=== PATIENT | male | born 1985 | race Caucasian/White ===

== ENCOUNTER 2016-08-07 17:14 | Inpatient (IN) | payer OTHER ==
[2016-08-07 17:47] LABS: Hematocrit 50 % (42-52); Hemoglobin 16.8 g/dl (14.0-18.0); Mean Corpuscular HGB Conc 34 g/dl (31-36); Mean Corpuscular Hemoglobin 32 pg (27-31); Mean Corpuscular Volume 94 fL (80-94); Mean Platelet Volume 7 um3 (7.4-10.4); Red Cell Distribution Width 14 % (10.5-15); White Blood Count 8.8 10^3/ul (3.5-10.8)
[2016-08-07 18:05] LABS: ALT 15 U/L (7-52); AST 16 U/L (13-39); Albumin 5.1 g/dL (3.2-5.2); Alkaline Phosphatase 79 U/L (34-104); Anion Gap 10 mmol/L (2-11); BUN/Creatinine Ratio 12.5 (8-20); Blood Urea Nitrogen 12 mg/dL (6-24); C Reactive Protein < 1.00 mg/L (< 5.00); CO2 Carbon Dioxide 23 mmol/L (22-32); Calcium 10.3 mg/dL (8.6-10.3); Chloride 102 mmol/L (101-111); Creatine Kinase 85 U/L (10-223); EGFR African American 116.7 (>60); EGFR Non-African American 90.8 (>60); Globulin 2.9 g/dL (2-4); Glucose 93 mg/dL (70-100); Magnesium 2.6 mg/dL (1.9-2.7); Potassium 3.9 mmol/L (3.5-5.0); Sodium 135 mmol/L (133-145)
--- NOTE | 2016-08-07 18:13 | RAD ---
INDICATION: Headache and left-sided weakness and tingling COMPARISON: Similar chest x-ray dated January 25, 2016 TECHNIQUE: Single AP portable view of the chest was obtained. FINDINGS: Image quality is compromised due to the relative inferiority of a portable chest x-ray. Similar the previous chest x-ray there is a linear density overlying the midline neck and left of midline mediastinum descending beyond the field of view into the abdomen. The heart and mediastinum exhibit normal size and contour. The lungs are grossly clear. There is no evidence of a large pleural effusion. Visualized bones are normal for the patient's age. IMPRESSION: No radiographic evidence for acute cardiopulmonary abnormality on this portable chest x-ray.
--- NOTE | 2016-08-07 18:26 | RAD ---
INDICATION: Left-sided weakness and numbness COMPARISON: Most recent brain CT is dated January 26, 2016 TECHNIQUE: Contiguous axial sections of the brain were obtained from the skull base to the vertex without contrast. FINDINGS: The ventricles, cisterns and sulci are within normal limits. The lorenzo-white matter differentiation is adequately maintained and there is no sulcal effacement. No significant focal abnormality or mass effect is present. There is no evidence for intracranial hemorrhage. No significant focal osseous abnormality is present. The visualized portion of the paranasal sinuses and mastoid air cells appear clear. IMPRESSION: Normal CT of the brain.
[2016-08-07 18:30] LABS: TSH (Thyroid Stimulating Horm) 2.55 mcIU/mL (0.34-5.60)
[2016-08-07] MEDS ORDERED: Aspirin TAB* 325 MG PO ONE (19:36)
[2016-08-07] MEDS ORDERED: Morphine INJ* 4 MG/ML 1 ML CARPUJECT IV ONE (19:41)
[2016-08-07] MEDS ORDERED: Ondansetron INJ* 2 MG/ML VIAL IV ONE (19:41)
[2016-08-07] MEDS ORDERED: NS 0.9% 1000 ML* 1,000 ML IV SCH (19:45)
[2016-08-07 19:47] LABS: Urine Bilirubin Negative (Negative); Urine Glucose Negative (Negative); Urine Nitrite Negative (Negative)
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
[2016-08-07] MEDS ORDERED: Albuterol 2.5 MG/3 ML NEB.SOL* (0.083%) INH PRN (21:15)
[2016-08-07] MEDS ORDERED: Acetaminophen TAB* 325 MG PO PRN (21:15)
[2016-08-07] MEDS ORDERED: Melatonin (NF) 3 MG TAB PO PRN (21:15)
[2016-08-07] MEDS ORDERED: traMADol TAB* 50 MG PO PRN (21:15)
[2016-08-07] MEDS ORDERED: Cyclobenzaprine TAB* 10 MG PO PRN (21:27)
[2016-08-07] MEDS: HYDROmorphone INJ* 1 MG/ML CARPUJECT SYRINGE IV PRN (23:20)
[2016-08-08] MEDS: Ketorolac INJ* 15 MG/ML 1 ML VIAL IV PRN ×2 (04:00→21:18)
[2016-08-08 05:44] LABS: HDL Cholesterol 36.5 mg/dL
[2016-08-08] MEDS: Heparin VIAL(*) 5000 UNITS/ML VIAL (FIVE THOUSAND) SUBCUT SCH ×3 (05:45→21:14)
[2016-08-08] MEDS: HYDROmorphone INJ* 1 MG/ML CARPUJECT SYRINGE IV PRN ×2 (05:46→12:13)
[2016-08-08] MEDS ORDERED: Omeprazole CAP* 20 MG PO SCH (06:00)
--- NOTE | 2016-08-08 08:31 | RAD ---
HISTORY: Stroke, left-sided weakness COMPARISONS: August 07, 2016 TECHNIQUE: Multiple contiguous axial CT scans were obtained of the head without intravenous contrast. FINDINGS: HEMORRHAGE/INFARCT: There is no hemorrhage or acute infarct. MASSES/SHIFT: There is no mass or shift. EXTRA-AXIAL SPACES: There are no extra-axial fluid collections. SULCI AND VENTRICLES: The sulci and ventricles are normal in size and position for the patient's stated age. CEREBRUM: There are no focal parenchymal abnormalities. BRAINSTEM: There are no focal parenchymal abnormalities. CEREBELLUM: There are no focal parenchymal abnormalities. VESSELS: The vessels are grossly normal. PARANASAL SINUSES: The paranasal sinuses are clear. ORBITS: The orbits are unremarkable. BONES AND SOFT TISSUE: No bone or soft tissue abnormalities are noted. OTHER: None IMPRESSION: NO ACUTE INTRACRANIAL PATHOLOGY.
[2016-08-08] MEDS ORDERED: Pneumococcal *Vac Polyvalent 0.5 ML VIAL IM ONE (09:00)
[2016-08-08] MEDS ORDERED: Docusate CAP* 100 MG PO SCH (09:00)
[2016-08-08] MEDS ORDERED: Aspirin TAB* 325 MG PO SCH (09:00)
[2016-08-08] MEDS: oxyCODONE TAB* 5 MG TAB PO PRN ×4 (09:59→23:31)
--- NOTE | 2016-08-08 16:13 | PN ---
Subjective Date of Service: 08/08/16 Interval History: Pt is feeling better but still not quite back to baseline. He states he is still having chest pain. His weakness has resolved. Objective Active Medications: Acetaminophen (Tylenol Tab*) 650 mg PO Q6H PRN PRN Reason: FEVER/PAIN Aspirin (Aspirin Ec Low Dose*) 81 mg PO DAILY [facility] Atorvastatin Calcium (Lipitor*) 20 mg PO 2100 [facility] Cyclobenzaprine HCl (Flexeril Tab*) 10 mg PO BID PRN PRN Reason: SPASMS - BACK Heparin Sodium (Porcine) (Heparin Vial(*)) 5,000 units SUBCUT Q8HR PAN Last Admin: 08/08/16 14:45 Dose: 5,000 units Ketorolac Tromethamine (Toradol Inj*) 15 mg IV Q6H PRN PRN Reason: PAIN Last Admin: 08/08/16 04:00 Dose: 15 mg Melatonin (Melatonin (Nf)) 3 mg PO BEDTIME PRN; Protocol PRN Reason: Sleep Ondansetron HCl (Zofran Inj*) 4 mg IV Q6H PRN PRN Reason: NAUSEA Oxycodone HCl (Roxycodone Tab*) 5 mg PO Q4H PRN PRN Reason: PAIN Last Admin: 08/08/16 14:40 Dose: 5 mg Vital Signs 08/07/16 08/07/16 08/07/16 22:00 22:21 22:25 Temperature 98.8 F 97.8 F Pulse Rate 91 82 Respiratory 18 17 Rate Blood Pressure 117/79 116/78 (mmHg) O2 Sat by Pulse 97 99 Oximetry 08/07/16 08/07/16 08/08/16 23:20 23:49 00:00 Temperature 98.2 F Pulse Rate 84 Respiratory 18 20 Rate Blood Pressure 120/76 (mmHg) O2 Sat by Pulse 97 97 Oximetry 08/08/16 08/08/16 08/08/16 00:20 02:09 03:45 Temperature 97.5 F Pulse Rate 77 Respiratory 17 18 20 Rate Blood Pressure 99/62 (mmHg) O2 Sat by Pulse 100 Oximetry 08/08/16 08/08/16 08/08/16 04:09 05:46 07:27 Temperature 97.9 F Pulse Rate 76 Respiratory 20 20 16 Rate Blood Pressure 112/68 (mmHg) O2 Sat by Pulse 99 Oximetry 0108/08/16 08/08/16 09:59 11:15 11:36 Temperature 97.9 F Pulse Rate 85 Respiratory 16 16 16 Rate Blood Pressure 138/82 (mmHg) O2 Sat by Pulse 99 Oximetry 08/08/16 08/08/16 08/08/16 12:13 12:55 12:56 Temperature Pulse Rate 84 Respiratory 16 14 Rate Blood Pressure (mmHg) O2 Sat by Pulse 98 98 Oximetry 08/08/16 08/08/16 13:13 14:40 Temperature Pulse Rate Respiratory 16 16 Rate Blood Pressure (mmHg) O2 Sat by Pulse Oximetry Oxygen Devices in Use Now: None Appearance: Young male sitting up in bed, NAD Eyes: No Scleral Icterus Ears/Nose/Mouth/Throat: Mucous Membranes Moist Respiratory: Symmetrical Chest Expansion and Respiratory Effort, Clear to Auscultation Cardiovascular: NL Sounds; No Murmurs; No JVD, RRR, No Edema Abdominal: NL Sounds; No Tenderness; No Distention Extremities: No Clubbing, Cyanosis Skin: No Rash or Ulcers, No Nodules or Sclerosis Neurological: Alert and Oriented x 3 Result Diagrams: 08/07/16 17:25 08/07/16 17:25 Additional Lab and Data: Lab Results 08/07/16 08/07/16 08/07/16 Range/Units 17:25 17:25 17:25 WBC 8.8 (3.5-10.8) 10^3/ul RBC 5.30 (4.0-5.4) 10^6/ul Hgb 16.8 (14.0-18.0) g/dl Hct 50 (42-52) % MCV 94 (80-94) fL MCH 32 H (27-31) pg MCHC 34 (31-36) g/dl RDW 14 (10.5-15) % Plt Count 436 (150-450) 10^3/ul MPV 7 L (7.4-10.4) um3 Neut % (Auto) 61.9 (38-83) % Lymph % (Auto) 31.2 (25-47) % Atlantic % (Auto) 4.2 (1-9) % Eos % (Auto) 2.0 (0-6) % Baso % (Auto) 0.7 (0-2) % Absolute Neuts (auto) 5.4 (1.5-7.7) 10^3/ul Absolute Lymphs (auto) 2.7 (1.0-4.8) 10^3/ul Absolute Monos (auto) 0.4 (0-0.8) 10^3/ul Absolute Eos (auto) 0.2 (0-0.6) 10^3/ul Absolute Basos (auto) 0.1 (0-0.2) 10^3/ul Absolute Nucleated RBC 0.01 10^3/ul Nucleated RBC % 0.1 INR (Anticoag Therapy) 0.94 (0.89-1.11) APTT 28.4 (26.0-36.3) seconds Sodium 135 (133-145) mmol/L Potassium 3.9 (3.5-5.0) mmol/L Chloride 102 (101-111) mmol/L Carbon Dioxide 23 (22-32) mmol/L Anion Gap 10 (2-11) mmol/L BUN 12 (6-24) mg/dL Creatinine 0.96 (0.67-1.17) mg/dL Est GFR ( Amer) 116.7 (>60) Est GFR (Non-Af Amer) 90.8 (>60) BUN/Creatinine Ratio 12.5 (8-20) Glucose 93 (70-100) mg/dL Lactic Acid (0.5-2.0) mmol/L Calcium 10.3 (8.6-10.3) mg/dL Magnesium 2.6 (1.9-2.7) mg/dL Total Bilirubin 0.90 (0.2-1.0) mg/dL AST 16 (13-39) U/L ALT 15 (7-52) U/L Alkaline Phosphatase 79 (34-104) U/L Total Creatine Kinase 85 (10-223) U/L Troponin I 0.00 (<0.04) ng/mL C-Reactive Protein < 1.00 (< 5.00) mg/L Total Protein 8.0 (6.4-8.9) g/dL Albumin 5.1 (3.2-5.2) g/dL Globulin 2.9 (2-4) g/dL Albumin/Globulin Ratio 1.8 (1-3) TSH 2.55 (0.34-5.60) mcIU/mL Urine Color Urine Appearance Urine pH (5-9) Ur Specific Mccomb (1.010-1.030) Urine Protein (Negative) Urine Ketones (Negative) Urine Blood (Negative) Urine Nitrate (Negative) Urine Bilirubin (Negative) Urine Urobilinogen (Negative) Ur Leukocyte Esterase (Negative) Urine Glucose (Negative) 08/07/16 08/07/16 Range/Units 17:25 17:33 WBC (3.5-10.8) 10^3/ul RBC (4.0-5.4) 10^6/ul Hgb (14.0-18.0) g/dl Hct (42-52) % MCV (80-94) fL MCH (27-31) pg MCHC (31-36) g/dl RDW (10.5-15) % Plt Count (150-450) 10^3/ul MPV (7.4-10.4) um3 Neut % (Auto) (38-83) % Lymph % (Auto) (25-47) % Atlantic % (Auto) (1-9) % Eos % (Auto) (0-6) % Baso % (Auto) (0-2) % Absolute Neuts (auto) (1.5-7.7) 10^3/ul Absolute Lymphs (auto) (1.0-4.8) 10^3/ul Absolute Monos (auto) (0-0.8) 10^3/ul Absolute Eos (auto) (0-0.6) 10^3/ul Absolute Basos (auto) (0-0.2) 10^3/ul Absolute Nucleated RBC 10^3/ul Nucleated RBC % INR (Anticoag Therapy) (0.89-1.11) APTT (26.0-36.3) seconds Sodium (133-145) mmol/L Potassium (3.5-5.0) mmol/L Chloride (101-111) mmol/L Carbon Dioxide (22-32) mmol/L Anion Gap (2-11) mmol/L BUN (6-24) mg/dL Creatinine (0.67-1.17) mg/dL Est GFR ( Amer) (>60) Est GFR (Non-Af Amer) (>60) BUN/Creatinine Ratio (8-20) Glucose (70-100) mg/dL Lactic Acid 1.2 (0.5-2.0) mmol/L Calcium (8.6-10.3) mg/dL Magnesium (1.9-2.7) mg/dL Total Bilirubin (0.2-1.0) mg/dL AST (13-39) U/L ALT (7-52) U/L Alkaline Phosphatase (34-104) U/L Total Creatine Kinase (10-223) U/L Troponin I (<0.04) ng/mL C-Reactive Protein (< 5.00) mg/L Total Protein (6.4-8.9) g/dL Albumin (3.2-5.2) g/dL Globulin (2-4) g/dL Albumin/Globulin Ratio (1-3) TSH (0.34-5.60) mcIU/mL Urine Color Straw Urine Appearance Clear Urine pH 7.0 (5-9) Ur Specific Mccomb 1.009 L (1.010-1.030) Urine Protein Negative (Negative) Urine Ketones 1+ H (Negative) Urine Blood Negative (Negative) Urine Nitrate Negative (Negative) Urine Bilirubin Negative (Negative) Urine Urobilinogen Negative (Negative) Ur Leukocyte Esterase Negative (Negative) Urine Glucose Negative (Negative) Assess/Plan/Problems-Billing Mr Roberts is a 31 yo M who was treated for possible CVA in 12/2015 with tPA who presented to the ER with c/o L sided weakness, chest pain and headache. - Patient Problems (1) CVA (cerebral vascular accident) Current Visit: Yes Status: Acute Code(s): I63.9 - CEREBRAL INFARCTION, UNSPECIFIED SNOMED Code(s): 260797742 Comment: The patient was admitted for another possible CVA. He was out of the tPA window when he arrived this time. It is not clear that this truly represented a CVA as his symptoms of weakness were preceeded by pain. This could be a migraine variant but this too seems unlikely. Will get BEATA tomorrow as recommended by Dr Matthews. A hypercoagulable workup has also been ordered by Dr. Matthews. He will need a loop recorder set up. Additionally Dr. Mattehws wants to have the patient seen by the stroke clinic at [place]. Continue ASA and start low dose statin to achieve LDL<70. (2) Headache Current Visit: Yes Status: Acute Code(s): R51 - HEADACHE SNOMED Code(s): 11638365 Comment: Continue pain control. (3) Chest pain Current Visit: Yes Status: Acute Code(s): R07.9 - CHEST PAIN, UNSPECIFIED SNOMED Code(s): 37299699 Comment: Etiology is unclear. Trop has remained flat. No further work up at this time. Will get Echo tomorrow. (4) DVT prophylaxis Current Visit: Yes Status: Acute Code(s): ION8047 - SNOMED Code(s): 207838952 Comment: SQ heparin (5) Full code status Current Visit: Yes Status: Acute Code(s): Z78.9 - OTHER SPECIFIED HEALTH STATUS SNOMED Code(s): 284900384
--- NOTE | 2016-08-08 20:01 | CONS ---
CONSULTATION REPORT: DATE OF CONSULT/DICTATION: 08/08/16 PATIENT OF: Dr. Santiago. HISTORY OF PRESENT ILLNESS: This is a 31-year-old male I am asked to evaluate for possible TIA versus stroke. Of note, he was hospitalized 01/12/16 and received TPA for an episode of right facial weakness, right arm and leg weakness , and aphasia. This was in the setting of a nondescript headache for about a month that was daily and not severe. He received TPA for that, although there were aspects of his exam that were potentially concerning for a non- neurological deficit. He had a workup including CT could not get a MRI scan because he has a device that precludes that he had a CTA at that point and that was normal as well as an echo that showed no source of clot. He was discharged on aspirin 81 mg daily. Two days ago, the day before admission, he began getting some pain in his left leg which was in a different location than his chronic left foot pain. This felt like a spasm but then it got worse today at admission with shooting pain. He developed some chest pain and then had a feeling of lightheadedness and developed weakness in his left arm and leg. There is some numbness and facial asymmetry. He says that he had difficulty speaking. He came in more than 5 hours after he developed the weakness and much longer than he had the shooting pain. He also had some nausea over the past day. He has had some left-sided headache, which was atypical for him. He has a history of hypoglycemia. He is status post a leg fracture that left him with chronic pain in his left leg, and he is status post right ankle and foot surgery but he has had trauma to his left leg as well. He is status post appendectomy. MEDICATIONS: Include: 1. Aspirin 325 mg daily. 2. Cyclobenzaprine b.i.d. p.r.n. spasm. SOCIAL HISTORY: He is a former smoker. He does not drink or use drugs. His mother has had more than one stroke beginning in her 40s. REVIEW OF SYSTEMS: Negative in all 14 spheres other than the HPI. PHYSICAL EXAM: On exam, temperature 97.9, pulse 85, respirations 16, blood pressure 138/82. He is alert and oriented with normal speech and comprehension. Cranial nerves II through XII were intact. Fundi were benign. There was no facial asymmetry. Speech was normal with normal repetition. No word finding problems. He had normal tone, and strength was 5/5. No pronator drift. Fine motor was intact. He says he felt slightly weaker on the left side but I could not detect anything functionally, he had no field cut. He had no decreased sensation to left side including double simultaneous stimulation. Reflexes are 1+ and equal with downgoing toes. Neck supple. Cardiovascular: Regular rate and rhythm. Abdomen: Soft with positive bowel sounds. DIAGNOSTIC STUDIES/LAB DATA: His CT scan yesterday and today were normal. He has no history of atrial fib and his EKG was normal CTA and transthoracic echo was negative as before. He has not had a hypercoagulable workup at this point. IMPRESSION AND PLAN: Festus's history and exam from his last hospitalization was apparently suspicious for non-physiological symptoms but the neurologist was convinced enough that she did give TPA. His story also is a little odd in terms of beginning with this pain, chest pain, possibly some lightheadedness and then having normally left-sided weakness but word finding difficulties even though he is right handed and had an aphasia when he had right-sided symptoms. It is conceivable that this represented a TIA but it may not have and it is hard to know one way or the other. There is a family history for stroke in his mother at a young age. He definitely needs a hypercoagulable workup and I would get a BEATA echo with bubble study and I am recommending ongoing monitoring as an outpatient. If he these do represent strokes, he would have had a stroke in a large vessel distribution in December and then another significant TIA in a different vascular distribution that would raise the issue of cardiogenic stroke. I think that this is not the most likely possibility because I think this may be non-physiological but it is hard to be sure and it would be worth doing a full evaluation. I would also sent him up to [facility] as an outpatient to their stroke center to see if they have any other thoughts. I do not think that this is hemiplegic migraines, he does not have any history of migraines, there was no visual symptoms with this, and the spell last time in December was accompanied by a chronic headache but none the day of admission, so I would not treat him for migraines at this point. Thank you for sharing his case. [id number]/[facility] #: [id number] MTDD
[2016-08-08] MEDS: Atorvastatin* 20 MG TAB PO SCH (21:14)
[2016-08-08] MEDS ORDERED: Albuterol 2.5 MG/3 ML NEB.SOL* (0.083%) ONE (22:15)
[2016-08-08] MEDS: Albuterol 2.5 MG/3 ML NEB.SOL* (0.083%) INH PRN (22:22)
[2016-08-09] MEDS: oxyCODONE TAB* 5 MG TAB PO PRN ×5 (04:11→23:23)
[2016-08-09] MEDS: Heparin VIAL(*) 5000 UNITS/ML VIAL (FIVE THOUSAND) SUBCUT SCH ×3 (06:04→21:43)
[2016-08-09] MEDS: Albuterol 2.5 MG/3 ML NEB.SOL* (0.083%) INH PRN ×4 (07:40→21:54)
[2016-08-09] MEDS ORDERED: Aspirin EC Low Dose* 81 MG TAB.EC PO SCH (09:00)
[2016-08-09] MEDS ORDERED: Midazolam* 1 MG/ML 5 ML VIAL (5 MG) ONE (09:41)
[2016-08-09] MEDS ORDERED: fentaNYL* 50 MCG/ML 2 ML VIAL (100 MCG VIAL) ONE (09:41)
[2016-08-09] MEDS ORDERED: Naloxone* 0.4 MG/ML 1 ML VIAL ONE (09:41)
[2016-08-09] MEDS ORDERED: Flumazenil* 0.1 MG/ML 5 ML MDV ONE (09:42)
[2016-08-09] MEDS ORDERED: Lidocaine 2% VISCOUS* 15 ML UDC ONE (09:42)
--- NOTE | 2016-08-09 13:50 | TEE ---
Patient: BRIAN CHANDRA [facility] Rec#: [id number] : 1985 Date: 08/09/2016 Age: 31y Height: 172.7 cm / 68.0 in Weight: 62.1 kg / 136.9 lbs Sex: M BSA: 1.7 Room#: 435 Admit Date#: 08/08/2016 Type: Inpatient Referring: Greer Joshi MD Performing: Greer Joshi MD Reading: Greer Joshi MD Catalytic Converter Operator: Elly Dang RN RD Nurse: LANE Gamez Alicia CC: ALEXANDRA REHMAN Transesophageal Echocardiogram Indication: CVA BP: 122/75 HR: 92 Rhythm: NSR Findings History: Former smoker, CVA treated with t-PA in 12/2015, hypoglycemia, chronic headaches Technical Comments: The study quality is good. Left Ventricle: The left ventricular chamber size, wall thickness and systolic function are within normal limits. There are no wall motion abnormalities The estimated ejection fraction is 60-65%. Left Atrium: The left atrial chamber size is normal. No thrombus is visualized within the left atrium. There is no thrombus visualized in the left atrial appendage. Right Ventricle: The right ventricular chamber size and systolic function are within normal limits. Right Atrium: The right atrial cavity size is normal. Interatrial septum appears intact without evidence of shunting. There is no patent foramen ovale visualized. The bubble study is negative. Aortic Valve: The aortic valve is trileaflet. The aortic valve leaflets are mildly thickened. There is no evidence of aortic regurgitation. There is no evidence of aortic stenosis. Mitral Valve: The mitral valve leaflets appear normal. There is a trace of mitral regurgitation. There is no evidence of mitral stenosis. Tricuspid Valve: The tricuspid valve leaflets are normal. There is trace tricuspid regurgitation. Pulmonic Valve: The pulmonic valve appears normal. There is a trace pulmonic regurgitation. Pericardium: There is no significant pericardial effusion. Aorta: There is no dilatation of the ascending aorta. The aortic root is normal in size. There is minimal atherosclerotic plaque seen in the aorta. Pulmonary Artery: The main pulmonary artery appears normal. Venous: The bicaval view was obtained and appears normal. The pulmonary veins appear normal. 3 of 4 pulmonary veins are visualized and interrogated with Doppler. BEATA Procedures: All standard views were attempted within the limitations of patient tolerance and safety. History and physical as well as labs were reviewed. The patient was in a fasting state. Risks and benefits of the procedure, including alternatives, were discussed and written informed consent was obtained. The patient and/or their health care merchandising representative expressed understanding of the procedure, risks and benefits. Baseline and continuous monitoring of blood pressure, heart rate, pulse oximetry and heart rhythm was performed throughout the procedure. The appropriate time-out procedure was performed as per [facility] protocol. The patient was placed in the left lateral decubitus position. The patient's posterior pharynx was anesthetized with 20ml of 2% viscous lidocaine. The patient received IV Midazolam with a total dose of 6 mg. The patient received IV Fentanyl with a total dose of 50 mcg. An oral bite block was inserted for protection of oral dentition. The multiplane transesophageal echocardiogram probe was inserted through the posterior oropharynx and advanced into the esophagus without difficulty. Multiple 2D images were obtained of the heart and its related structures. Color flow Doppler was used for evaluation. Spectral Doppler was also used. The atrial septum was interrogated with color flow Doppler. At the conclusion of the procedure the probe was removed with continuous suction without complications. The patient tolerated the procedure with no apparent complications. Contrast: Normal saline was used as contrast for the bubble study. Image 31. Conclusions The estimated ejection fraction is 60-65%. No thrombus is visualized within the left atrium. There is a trace of mitral regurgitation. There is trace tricuspid regurgitation. There is a trace pulmonic regurgitation. The aortic root is normal in size. There is minimal atherosclerotic plaque seen in the aorta. Interatrial septum appears intact without evidence of shunting. There is no patent foramen ovale visualized. The bubble study is negative. Measurements Name Value Normal Range Aortic Annulus 2.4 cm (1.4 - 2.6) Ao root diameter (2D) 3.2 cm (2.1 - 3.5) Ascending Ao 2.3 cm (2.1 - 3.4) Name Value Normal Range MV E-wave Vmax 0.71 m/sec - MV deceleration time 173 msec - MV A-wave Vmax 0.48 m/sec - MV E:A ratio 1.5 ratio -
[2016-08-09] MEDS: Clopidogrel TAB* 75 MG PO SCH (14:25)
[2016-08-09] MEDS: predniSONE TAB* 50 MG PO SCH ×2 (14:25→21:41)
--- NOTE | 2016-08-09 14:46 | RAD ---
INDICATION: Stroke. Mild lower extremity pain. Assess for DVT. COMPARISON: January 23, 2016 TECHNIQUE: Barron scale, color Doppler, and spectral analysis of the deep veins of the bilateral lower extremities. Vessel compression, phasicity, and augmentation assessed. REPORT: The bilateral common femoral, great saphenous, profunda femoral, femoral, popliteal, peroneal, and posterior tibial veins are patent. IMPRESSION: No evidence for RIGHT or LEFT lower extremity deep venous thrombosis.
--- NOTE | 2016-08-09 14:59 | PN ---
Subjective Date of Service: 08/09/16 Interval History: HOSPITALIST PROGRESS NOTE Patient seen and examined at bedside. He offers no complaints today. Family History: Unchanged from Admission Social History: Unchanged from Admission Past Medical History: Unchanged from Admission Objective Active Medications: Acetaminophen (Tylenol Tab*) 650 mg PO Q6H PRN PRN Reason: FEVER/PAIN Albuterol (Ventolin 2.5 Mg/3 Ml Neb.Araceli*) 2.5 mg INH Q2H PRN PRN Reason: SOB/WHEEZING Last Admin: 08/09/16 13:33 Dose: 2.5 mg Atorvastatin Calcium (Lipitor*) 20 mg PO 2100 [facility] Last Admin: 08/08/16 21:14 Dose: 20 mg Clopidogrel Bisulfate (Plavix Tab*) 75 mg PO DAILY [facility] Last Admin: 08/09/16 14:25 Dose: 75 mg Cyclobenzaprine HCl (Flexeril Tab*) 10 mg PO BID PRN PRN Reason: SPASMS - BACK Last Admin: 08/08/16 16:59 Dose: 10 mg Diphenhydramine HCl (Benadryl Po*) 50 mg PO ONCE ONE Stop: 08/10/16 02:01 Heparin Sodium (Porcine) (Heparin Vial(*)) 5,000 units SUBCUT Q8HR [facility] Last Admin: 08/09/16 14:25 Dose: 5,000 units Ketorolac Tromethamine (Toradol Inj*) 15 mg IV Q6H PRN PRN Reason: PAIN Last Admin: 08/08/16 21:18 Dose: 15 mg Melatonin (Melatonin (Nf)) 3 mg PO BEDTIME PRN; Protocol PRN Reason: Sleep Ondansetron HCl (Zofran Inj*) 4 mg IV Q6H PRN PRN Reason: NAUSEA Oxycodone HCl (Roxycodone Tab*) 5 mg PO Q4H PRN PRN Reason: PAIN Last Admin: 08/09/16 14:25 Dose: 5 mg Prednisone (Deltasone Tab*) 50 mg PO 1400,2000,0200 [facility] Stop: 08/10/16 02:01 Last Admin: 08/09/16 14:25 Dose: 50 mg Vital Signs 08/09/16 08/09/16 08/09/16 11:08 13:34 14:25 Temperature 97.9 F Pulse Rate 85 100 Respiratory 12 15 16 Rate Blood Pressure 99/61 (mmHg) O2 Sat by Pulse 98 99 Oximetry Oxygen Devices in Use Now: None Appearance: Pleasant young male lying in bed in NAD. Eyes: No Scleral Icterus Ears/Nose/Mouth/Throat: Mucous Membranes Moist Neck: Trachea Midline Respiratory: Symmetrical Chest Expansion and Respiratory Effort, Clear to Auscultation Cardiovascular: RRR - Normal S1 and S2 Abdominal: NL Sounds; No Tenderness; No Distention Neurological: Alert and Oriented x 3, NL Muscle Strength and Tone Lines/Tubes/Other Access: Clean, Dry and Intact Peripheral IV Nutrition: Taking PO's Result Diagrams: 08/07/16 17:25 08/07/16 17:25 Assess/Plan/Problems-Billing Mr Roberts is a 31 yo M who was treated for possible CVA in 12/2015 with tPA who presented to the ER with c/o L sided weakness, chest pain and headache. - Patient Problems (1) CVA (cerebral vascular accident) Comment: - Patient was admitted for another possible CVA. - Prelim report of BEATA is of no vegetations, masses, clots or shunts. - Hypercoagulable workup is pending. - Will need a loop recorder set up as outpatient. - D/w Neurology - recommended changing Aspirin to Plavix and continue low dose statin to achieve LDL<70. (2) Chest pain Comment: - Etiology is unclear and trops are negative. - With h/o his mom having multiple CVAs starting at age 40, I'm concerned with a hypercoagulable state. As his CP persists, will check CTA chest/LE doppler to r/o PE/DVT. Risks, benefits and alternatives d/w patient - he's aware of the risk for nephrotoxicity and need for prep with prednisone due to prior allergic reactions. He is in agreement. (3) DVT prophylaxis Comment: - SQ heparin. (4) Full code status Status and Disposition: Inpatient.
[2016-08-09] MEDS: Atorvastatin* 20 MG TAB PO SCH (21:41)
--- NOTE | 2016-08-10 00:06 | PN ---
NEUROLOGY FOLLOWUP: DATE OF SERVICE / DICTATIN: 08/09/16 - ROOM #309 PATIENT OF: Dr. Graves. HISTORY: This 31-year-old man I am seeing in followup today following focal neurological deficits. He feels back to normal without any residual, no speaking difficulties, numbness, weakness, or visual symptoms. MEDICATIONS: He is on Plavix 75 mg a day as well as 20 mg of Lipitor and p.r.n. medicines that are unchanged. PHYSICAL EXAMINATION: Temperature 97.9, pulse 95, respirations 12, blood pressure 99/61. He is alert and oriented with normal speech and comprehension. Cranial nerves II through XII are intact. Motor exam revealed normal tone, strength, and coordination. Reflexes were 2 and equal, downgoing toes. ASSESSMENT: His transesophageal echocardiogram is pending. His hypercoagulable workup has been ordered. Dr. Graves is getting a CTA of the chest and ultrasound of the legs and she will be arranging for outpatient monitoring, and I will work with her to try to get this patient up as an outpatient at [facility]. Thank you for sharing his case. [id number]/[facility] #: [id number] RAY
[2016-08-10] MEDS: predniSONE TAB* 50 MG PO SCH (01:59)
[2016-08-10] MEDS ORDERED: diPHENhydraMINE PO* 50 MG PO ONE (02:00)
[2016-08-10] MEDS ORDERED: Iohexol 350* (CONTRAST) 500 ML MDV IV ONE (02:46)
[2016-08-10] MEDS: oxyCODONE TAB* 5 MG TAB PO PRN ×4 (03:21→20:35)
[2016-08-10] MEDS: Heparin VIAL(*) 5000 UNITS/ML VIAL (FIVE THOUSAND) SUBCUT SCH ×3 (05:55→20:36)
[2016-08-10] MEDS: Albuterol 2.5 MG/3 ML NEB.SOL* (0.083%) INH PRN ×5 (06:20→21:56)
[2016-08-10] MEDS: Clopidogrel TAB* 75 MG PO SCH (07:54)
--- NOTE | 2016-08-10 07:59 | RAD ---
HISTORY: Chest pain, hypercoagulable state COMPARISONS: January 23, 2016 TECHNIQUE: Multiple contiguous axial CT scans of the chest were obtained after the administration of nonionic intravenous contrast, timed to the pulmonary arterial phase of contrast enhancement.. Coronal and sagittal multiplanar reformations are also submitted for review. FINDINGS: NECK AND THYROID: The lower neck and thyroid are unremarkable. CHEST WALL: There is no lower cervical, axillary, or supraclavicular lymphadenopathy by size criteria. HEART AND PERICARDIUM: The heart is unremarkable. AORTA AND PULMONARY VASCULATURE: There is no pulmonary arterial filling defect to suggest pulmonary embolism. There is no linear filling defect within the aorta to suggest aortic dissection. MEDIASTINUM: There is no mediastinal lymphadenopathy by size criteria. LAST: There is no hilar lymphadenopathy by size criteria. AIRWAY AND ESOPHAGUS: The airway is unremarkable, without endobronchial filling defect. The esophagus is grossly normal. LUNG PARENCHYMA: There is minimal dependent atelectasis of the lung bases bilaterally. Intrapulmonary lymph nodes are noted along the major fissures bilaterally, stable from the previous examination. PLEURA: No pleural abnormalities are noted. UPPER ABDOMEN: The upper abdomen is unremarkable. BONES AND SOFT TISSUES: No bone or soft tissue abnormalities are noted. A spinal stimulator lead is noted OTHER: None. IMPRESSION: NO PULMONARY ARTERIAL FILLING DEFECT TO SUGGEST PULMONARY EMBOLISM
[2016-08-10] MEDS ORDERED: oxyCODONE TAB* 5 MG TAB PO ONE (13:08)
[2016-08-10] MEDS ORDERED: HYDROmorphone INJ* 1 MG/ML CARPUJECT SYRINGE IV SLOW PU ONE ×2 (16:05→17:50)
--- NOTE | 2016-08-10 16:08 | PN ---
Subjective Date of Service: 08/10/16 Interval History: HOSPITALIST PROGRESS NOTE Patient seen and examined at bedside. He was feeling better earlier today and initial plan was for discharge, but later on he started to c/o chest pain again and was found to be tachycardic. We decided to observe him further during the day and his chest pain is still present, and he also c/o left eye blurry vision and left side numbness. Family History: Unchanged from Admission Social History: Unchanged from Admission Past Medical History: Unchanged from Admission Objective Active Medications: Acetaminophen (Tylenol Tab*) 650 mg PO Q6H PRN PRN Reason: FEVER/PAIN Al Hydrox/Mg Hydrox/Simethicone (Maalox Plus*) 30 ml PO ONCE ONE Stop: 08/10/16 16:02 Albuterol (Ventolin 2.5 Mg/3 Ml Neb.Araceli*) 2.5 mg INH Q2H PRN PRN Reason: SOB/WHEEZING Last Admin: 08/10/16 13:27 Dose: 2.5 mg Atorvastatin Calcium (Lipitor*) 20 mg PO 2100 [facility] Last Admin: 08/09/16 21:41 Dose: 20 mg Clopidogrel Bisulfate (Plavix Tab*) 75 mg PO DAILY [facility] Last Admin: 08/10/16 07:54 Dose: 75 mg Cyclobenzaprine HCl (Flexeril Tab*) 10 mg PO BID PRN PRN Reason: SPASMS - BACK Last Admin: 08/08/16 16:59 Dose: 10 mg Heparin Sodium (Porcine) (Heparin Vial(*)) 5,000 units SUBCUT Q8HR [facility] Last Admin: 08/10/16 14:35 Dose: 5,000 units Hydromorphone HCl (Dilaudid Iv*) 1 mg IV SLOW PU ONCE ONE Stop: 08/10/16 16:06 Ketorolac Tromethamine (Toradol Inj*) 15 mg IV Q6H PRN PRN Reason: PAIN Last Admin: 08/08/16 21:18 Dose: 15 mg Melatonin (Melatonin (Nf)) 3 mg PO BEDTIME PRN; Protocol PRN Reason: Sleep Ondansetron HCl (Zofran Inj*) 4 mg IV Q6H PRN PRN Reason: NAUSEA Oxycodone HCl (Roxycodone Tab*) 5 mg PO Q4H PRN PRN Reason: PAIN Last Admin: 08/10/16 11:55 Dose: 5 mg Vital Signs 08/10/16 08/10/16 08/10/16 10:17 11:21 11:55 Temperature 98.3 F Pulse Rate 116 120 Respiratory 18 16 16 Rate Blood Pressure 135/77 (mmHg) O2 Sat by Pulse 99 99 Oximetry 08/10/16 08/10/16 08/10/16 13:16 13:28 13:55 Temperature Pulse Rate 113 Respiratory 16 18 21 Rate Blood Pressure (mmHg) O2 Sat by Pulse 99 Oximetry Oxygen Devices in Use Now: None Appearance: Young male lying in bed in NAD, but appears anxious. Eyes: No Scleral Icterus, PERRLA Ears/Nose/Mouth/Throat: Mucous Membranes Moist Neck: Trachea Midline Respiratory: Symmetrical Chest Expansion and Respiratory Effort, Clear to Auscultation Cardiovascular: RRR - Normal S1 and S2 Abdominal: NL Sounds; No Tenderness; No Distention Extremities: No Edema Neurological: Alert and Oriented x 3, NL Muscle Strength and Tone Lines/Tubes/Other Access: Clean, Dry and Intact Peripheral IV Nutrition: Taking PO's Result Diagrams: 08/07/16 17:25 08/07/16 17:25 Assess/Plan/Problems-Billing Mr Roberts is a 31 yo M who was treated for possible CVA in 12/2015 with tPA who presented to the ER with c/o L sided weakness, chest pain and headache. - Patient Problems (1) Intermittent palpitations Comment: - Patient has once again developed chest pain, headache, is tachycardic , anxious and mildly diaphoretic. - EKG showed sinus tachycardia with no new ST-T changes. - His BP did trend up (although still in the normal range). - All this symptoms suggest anxiety, but will check metanephrine level as w/u for Pheochromocytoma. (2) CVA (cerebral vascular accident) Comment: - Patient was admitted for another possible CVA. - Prelim report of BEATA is of no vegetations, masses, clots or shunts. - Hypercoagulable workup is pending. - Will need a loop recorder set up as outpatient. - Continue Plavix and Atorvastatin. - Neurology follow up requested. (3) Chest pain Comment: - Etiology is unclear. - He has no new EKG changes, troponins are negative, no significant arrhythmias on Telemetry. - CTA chest and LE doppler were negative. - He's c/o heartburn now, but was not having it before even though chest pain was already present. (4) DVT prophylaxis Comment: - SQ heparin. (5) Full code status Status and Disposition: Inpatient.
[2016-08-10 16:13] LABS: LAC APTT 31 sec (26 - 36); Prothrombin Time(LAC) 11.1 sec
[2016-08-10] MEDS ORDERED: Al Hydrox/Mg Hydrox/Simet LIQ* 30 ML UDC PO ONE (16:15)
[2016-08-10 17:00] LABS: Protein C Activity 93 % (70 - 150)
[2016-08-10] MEDS ORDERED: LORazepam TAB(*) 0.5 MG PO ONE (17:50)
[2016-08-10 17:55] LABS: Phospholipid Ab IgG < 4.0 GPL; Phospholipid Ab IgM, S < 4.0 MPL
[2016-08-10] MEDS ORDERED: HYDROmorphone INJ* 1 MG/ML CARPUJECT SYRINGE IV SLOW PU PRN (18:41)
[2016-08-10] MEDS ORDERED: LORazepam TAB(*) 0.5 MG PO PRN (18:42)
[2016-08-10] MEDS: Ondansetron INJ* 2 MG/ML VIAL IV PRN (19:19)
[2016-08-10] MEDS: Atorvastatin* 20 MG TAB PO SCH (20:35)
[2016-08-10] MEDS ORDERED: CMCS Melatonin (NF) 3 MG TAB PO PRN (22:11)
[2016-08-11] MEDS: Ondansetron INJ* 2 MG/ML VIAL IV PRN (01:47)
[2016-08-11] MEDS: oxyCODONE TAB* 5 MG TAB PO PRN ×3 (01:55→11:59)
[2016-08-11] MEDS: Heparin VIAL(*) 5000 UNITS/ML VIAL (FIVE THOUSAND) SUBCUT SCH (05:14)
[2016-08-11] MEDS: Clopidogrel TAB* 75 MG PO SCH (07:42)
[2016-08-11] MEDS: Albuterol 2.5 MG/3 ML NEB.SOL* (0.083%) INH PRN (08:14)
[2016-08-11] MEDS ORDERED: Artificial Tears* 15 ML BTL BOTH EYES PRN (10:46)
[2016-08-11 11:19] VITALS: BP 104/67
[2016-08-11] MEDS ORDERED: NS 0.9% 1000 ML* 1,000 ML IV SCH (11:30)
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
[2016-08-14 11:00] LABS: Factor V Leiden Mutation Negative (Negative); Prothrombin 20210 Mutation Negative (Negative)
[2016-08-14 12:22] LABS: Plasma Free Metanephrine <0.20 nmol/L (<0.50); Plasma Free Normetanephrine 0.96 nmol/L (<0.90)
== END 2016-08-11 15:00 | disposition home or self-care (01) | DRG 45 ==
LOC: ED 17:14 → INTOOBSV 21:52 → MEDTELE 21:52 → OBSVTOIN 08-08 16:11
PROVIDERS: ADMIT Hospitalist; ATTEND Internal Medicine
PROC: B24BZZ4 Ultrasonography of Heart with Aorta, Transesophageal (ICD-10-PCS; principal; 2016-08-09 11:30)
DX: I63.9 Cerebral infarction, unspecified (principal); G81.94 Hemiplegia, unspecified affecting left nondominant side; R07.89 Other chest pain; R51 Headache; R00.2 Palpitations; R00.0 Tachycardia, unspecified; R61 Generalized hyperhidrosis; D35.00 Benign neoplasm of unspecified adrenal gland; K21.9 Gastro-esophageal reflux disease without esophagitis; I08.1 Rheumatic disorders of both mitral and tricuspid valves; I37.1 Nonrheumatic pulmonary valve insufficiency; I70.0 Atherosclerosis of aorta; Z86.73 Personal history of transient ischemic attack (TIA), and cerebral infarction without residual deficits; Z88.0 Allergy status to penicillin; Z88.1 Allergy status to other antibiotic agents; Z87.891 Personal history of nicotine dependence; Z82.3 Family history of stroke; Z82.49 Family history of ischemic heart disease and other diseases of the circulatory system; Z79.02 Long term (current) use of antithrombotics/antiplatelets
CPT/HCPCS: 36415; 70450; 71010; 71275; 80053; 80061; 81003; 81240; 81241; 82550; 83090; 83605; 83735; 83835; 84443; 84484; 85025; 85300; 85303; 85306; 85307; 85610; 85613; 85730; 86140; 86147; 90732; 93005; 93312; 93325; 93970; 94640; 94760; 99406; A9270-GY; G0378; G8978-GP-CI; G8979-GP-CI; G8980-GP-CI; J1170; J1644; J1885; J2250; J2270; J2310; J2405; J3010; J7512; Q9967

== ENCOUNTER → 2017-01-15 11:00 | Emergency (ER) | payer OTHER ==
[~2017-01-15 11:00] MED LIST: HYDROcodone/ACETAMIN 5-325 MG* 1 TAB PO ONE; Ibuprofen TAB* 800 MG PO ONE
[2017-01-15 11:05] VITALS: BP 96/79
--- NOTE | 2017-01-15 13:44 | ED ---
Upper Extremity Pain - HPI Summary HPI Summary: Pt here w/ pain and swelling over Rt base of thumb after lacerating it 2 days ago. Was tearing down a camper and accidentally cut his thumb here w/ aluminum siding. Bled - cleaned with H202. Imms are UTD. Denies numbness, tingling, weakness. Reports pain w/ movement of thumb radiating into wrist. No drainage, no fever. Wound has closed already. - History of Current Complaint Chief Complaint: EDLacSutureRecheck Stated Complaint: RT THUMB SWELLING/PAIN Time Seen by Provider: 01/15/17 12:41 Hx Obtained From: Patient - Allergies/Home Medications Allergies/Adverse Reactions: Allergies Allergy/AdvReac Type Severity Reaction Status Date / Time Amoxicillin Allergy Difficulty Verified 12/27/16 10:54 Breathing Azithromycin Allergy Difficulty Verified 12/27/16 10:54 Breathing Clavulanic Acid Allergy Difficulty Verified 12/27/16 10:54 [From Augmentin] Breathing Penicillins [PCN] Allergy Difficulty Verified 12/27/16 10:54 Breathing PMH/Surg Hx/FS Hx/Imm Hx Previously Healthy: Yes Endocrine/Hematology History: Reports: Hx Anticoagulant Therapy - on plavix, Hx Anemia, Other Endocrine/Hematological Disorders - low blood sugar Denies: Hx Blood Transfusions, Hx Diabetes, Hx Thyroid Disease Cardiovascular History: Reports: Hx Angina, Hx Hypercholesterolemia, Other Cardiovascular Problems/Disorders - on plavix Denies: Hx Coronary Artery Disease, Hx Hypertension, Hx Myocardial Infarction , Hx Pacemaker/ICD, Hx Valvular Heart Disease Respiratory History: Reports: Hx Pneumonia Denies: Hx Asthma, Hx Chronic Obstructive Pulmonary Disease (COPD) GI History: Reports: Hx Hiatal Hernia, Other GI Disorders - nausea History: Reports: Hx Kidney Stones Denies: Hx Dialysis, Hx Renal Disease Musculoskeletal History: Reports: Hx Orthopedic Injury - Left foot - chronic pain, Other Musculoskeletal History - right arm and shoulder pain with nerve damage Sensory History: Reports: Hx Contacts or Glasses Opthamlomology History: Reports: Hx Contacts or Glasses Neurological History: Reports: Hx Headaches, Hx Transient Ischemic Attacks (TIA) , Other Neuro Impairments/Disorders - dizziness post CVA Denies: Hx Dementia, Hx Seizures Psychiatric History: Denies: Hx Substance Abuse - Surgical History Surgery Procedure, Year, and Place: appendectomy. reconstruction of left foot x2 (2013, 2015, will have another soon). neuro stimulator for right shoulder - for pain 2012 Hx Anesthesia Reactions: No Infectious Disease History: No Infectious Disease History: Denies: Hx Hepatitis, Hx Human Immunodeficiency Virus (HIV), Traveled Outside the [place] in Last 30 Days - Family History Known Family History: Positive: Cardiac Disease, Other - CVA - Social History Occupation: Unemployed Lives: With Family Alcohol Use: None Hx Substance Use: No Substance Use Type: Reports: None Hx Tobacco Use: Yes - not currently Smoking Status (MU): Former Smoker Type: Cigarettes Have You Smoked in the Last Year: Yes Review of Systems Constitutional: Negative Negative: Fever, Chills Negative: Chest Pain Negative: Shortness Of Breath Negative: Vomiting, Nausea Positive: no symptoms reported Musculoskeletal: Other - see HPI Skin: Other - see HPI Neurological: Negative Psychological: Normal All Other Systems Reviewed And Are Negative: Yes Physical Exam Triage Information Reviewed: Yes Vital Signs On Initial Exam: Initial Vitals Temp Pulse Resp BP Pulse Ox 98.2 F 89 22 96/79 100 01/15/17 11:02 01/15/17 11:02 01/15/17 11:02 01/15/17 11:02 01/15/17 11:02 Vital Signs Reviewed: Yes Appearance: Positive: Well-Appearing, Well-Nourished, Pain Distress - mild at rest Skin: Positive: Warm, Dry - c-shaped scabbed/healing laceration over dorsal aspect of base of Rt thumb over MCP joint - focal erythema and mild edema w/o fluctuance or streaking Head/Face: Positive: Normal Head/Face Inspection Eyes: Positive: EOMI ENT: Positive: Hearing grossly normal Dental: Positive: Gross Decay/Caries @ Respiratory/Lung Sounds: Positive: Breath Sounds Present Cardiovascular: Positive: Normal, Pulses are Symmetrical in both Upper and Lower Extremities Musculoskeletal: Positive: Limited @ - Rt Thumb ROM d/t pain - active and passive ROM are painful, Pain @ - focal area of injury is TTP Neurological: Positive: Normal, Sensory/Motor Intact, Alert, Oriented to Person Place, Time Psychiatric: Positive: Normal Procedures - Procedure Summary Procedure Summary: After soak, attempted to manually open softened lac w/o relief or success of drainage. Diagnostics - Vital Signs Vital Signs Temp Pulse Resp BP Pulse Ox 01/15/17 11:05 98.2 F 90 20 96/79 100 01/15/17 11:02 98.2 F 89 22 96/79 100 - Laboratory Lab Statement: Any lab studies that have been ordered have been reviewed, and results considered in the medical decision making process. Re-Evaluation - Re-Evaluation First Eval Change: Unchanged - despite warm soak and ibuprofen - applied topical lidocaine cream in preparation for I&D - no pain relief w/ this so norco was provided and pt advised to f/u today w/ Dr. Cheney as he had an opening. Course/Dx - Course Course Of Treatment: Appt today w/ Dr. Cheney 2:15pm - pt agrees to go now for more thorough investigation of injury which may involve injury or infection of the tendon. Provided with pain medication - no anbx started yet here today. - Diagnoses Provider Diagnoses: Laceration of right thumb with infection - Physician Notifications Discussed Care of Patient With: Dr. Gotti Discharge - Discharge Plan Condition: Stable Disposition: HOME Patient Education Materials: Wound Infection (ED) Referrals: Davi Cheney MD [Medical Doctor] - Additional Instructions: You appear to have an infection within a recent cut you sustained at the base of your Right thumb 2 days ago. This may have affected your tendon and so we have scheduled you an appointment with an orthopedic hand specialist today. Please go to the office to see Dr. Cheney 2:15pm this afternoon. Location included in discharge.
== END | disposition home or self-care (01) ==
LOC: ED 11:00
DX: S61.011A Laceration without foreign body of right thumb without damage to nail, initial encounter (principal); W45.8XXA Other foreign body or object entering through skin, initial encounter; Y93.9 Activity, unspecified; Y92.9 Unspecified place or not applicable; Y99.9 Unspecified external cause status; Z87.891 Personal history of nicotine dependence
CPT/HCPCS: 99281; A9270-GY

== ENCOUNTER 2017-01-17 07:01 | Day surgery (SDC) | payer OTHER ==
[~2017-01-17 07:01] MED LIST changes: +Buffered Lidocaine 0.9% SYRIN* 5 ML/SYR SYRINGE INTRADERM ONE; -HYDROcodone/ACETAMIN 5-325 MG* 1 TAB PO ONE; -Ibuprofen TAB* 800 MG PO ONE
[2017-01-17] MEDS ORDERED: Clindamycin 900 MG IVPREMIX(* 900 MG/50 ML SDV IV ONE (07:29)
[2017-01-17] MEDS ORDERED: fentaNYL* 50 MCG/ML 2 ML VIAL (100 MCG VIAL) ONE (08:22)
[2017-01-17] MEDS ORDERED: Midazolam* 1 MG/ML 2 ML VIAL (2 MG) ONE (08:22)
[2017-01-17] MEDS ORDERED: Bupivacaine 0.25% SDV* 30 ML ONE (08:31)
[2017-01-17] MEDS ORDERED: Propofol* 10 MG/ML 20 ML BTL IV PUSH ONE (08:39)
[2017-01-17 10:16] VITALS: BP 108/74
--- NOTE | 2017-01-18 04:46 | OP ---
DATE OF OPERATION: 01/17/17 - [facility] DATE OF : 83 SURGEON: Davi Cheney MD ROLL EDGE MACHINE OPERATOR: DINESH Virk. An engineering assistant was needed for the entirety of the procedure to assist with retraction and positioning of the hand. ANESTHESIOLOGIST: Dr. Hernandez. ANESTHESIA: Local MAC. PRE-OP DIAGNOSES: 1. Right thumb metacarpophalangeal joint traumatic arthrotomy and probable septic metacarpophalangeal joint. 2. Possible partial extensor tendon laceration. POST-OP DIAGNOSES: 1. Right thumb metacarpophalangeal joint traumatic arthrostomy. 2. Right thumb zone T3 extensor tendon partial laceration involving 40% to 50% of the tendon on the radial aspect. OPERATIVE PROCEDURE: 1. Exploration of penetrating wound, right dorsal thumb. 2. Irrigation and debridement of right thumb metacarpophalangeal joint traumatic arthrotomy. 3. Repair of zone T3 right thumb extensor tendon 50% partial laceration. INDICATIONS: Festus had lacerated his right thumb 2 to 3 days before coming to my office on Saturday while he was siding off a trailer. The wound had never been closed. I started him on some Bactrim as he is ALLERGIC to OXACILLIN and CEPHALOSPORINS. We had a plan for I and D and exploration of the wound this morning. ESTIMATED BLOOD LOSS: 2 mL. COMPLICATIONS: None. FINDINGS: 1. 50% partial laceration, right thumb extensor tendon zone T3. 2. Traumatic arthrotomy, right thumb metacarpophalangeal joint, with some murky - appearing fluid. DESCRIPTION OF PROCEDURE: Festus was seen in the preoperative holding area. The correct side, site, and procedure were identified. We came back to the operating room where we had time-out. He got some anesthesia and then I infiltrated the operative area with 0.25% plain Marcaine. The hand was then pre -scrubbed and then the arm was prepped and draped in the usual fashion and a formal time-out was performed. I began by traumatic laceration, which was transverse in orientation over the MP joint proximally off the radial aspect and distally off the ulnar aspect. Immediately encountered some poor looking tissue. This was sent off for cultures. Full-thickness flaps were raised right off the paratenon layer. A 50% partial laceration was noted on the radial aspect over the thumb MP joint. There was quite a bit of poor looking tissue in the area. This was excised sharply with Holy Cross blade. There was area where he could tell there had been traumatic arthrotomy. The capsule around this was excised with Holy Cross blade. With the joint now open and a nice clean arthrotomy made, I went ahead and took the bulb syringe and irrigated the joint with copious amounts of irrigation until I would completely clean. Prior to this, I had taken aerobic and anaerobic cultures. Once I had the joint nice and clean, I went ahead and took some 4-0 Prolene suture and with knots buried, closed the arthrotomy with two 4-0 Prolene interrupted figure-of-8 sutures. I then used the Holy Cross blade to fully clean the tendon edges where the tendon had laceration until we had nothing but clean healthy appearing tissue present left. I then took the 4-0 Prolene and I repaired the partial tendon laceration with three figure-of-8 sutures with the knots buried. The more superficial layers were then inspected for any tissue that was poor in quality or possibly infected. I excised it to touch more with the tenotomy scissors. The wound was then copiously irrigated. It was then closed with 4-0 nylon suture. The wound was dressed with Xeroform , 4x4's, sterile Webril, and a thumb spica splint was placed keeping the IP and MP joints in full extension. Tourniquet was deflated. I had exsanguinated the arm with the Esmarch and inflated the tourniquet to 250 mmHg prior to making skin incision. The hand pinked up immediately. He was then awoken up and taken to the recovery room in stable condition. [id number]/[facility] #: [id number] [facility]
== END 2017-01-17 10:01 | disposition home or self-care (01) ==
LOC: OREAST 07:01
PROVIDERS: ATTEND Orthopaedic Surgery Hand Surgery
DX: S61.011A Laceration without foreign body of right thumb without damage to nail, initial encounter (principal); S66.221A Laceration of extensor muscle, fascia and tendon of right thumb at wrist and hand level, initial encounter; W26.8XXA Contact with other sharp object(s), not elsewhere classified, initial encounter; Z79.02 Long term (current) use of antithrombotics/antiplatelets; Z86.73 Personal history of transient ischemic attack (TIA), and cerebral infarction without residual deficits; Z88.1 Allergy status to other antibiotic agents; Z88.0 Allergy status to penicillin; F17.210 Nicotine dependence, cigarettes, uncomplicated
CPT/HCPCS: 87070; 87073; 87205; J2250; J2704; J3010

== ENCOUNTER 2017-02-24 11:09 | Emergency (ER) | payer OTHER ==
[2017-02-24] MEDS ORDERED: oxyCODONE/Acetamin 5/325 MG* TAB PO ONE (11:50)
--- NOTE | 2017-02-24 12:04 | ED ---
Upper Extremity Pain - HPI Summary HPI Summary: Pt 3 weeks post op for Rt thumb tendon repair w/ Dr. Cheney - lifted daughter last night and had acute pain along dorsal aspect of Rt thumb - felt like tearing/pulling - overlying skin is red and swollen. Called on-call ortho last night who recommended ice and ibuprofen. Pt reports no relief so came in for eval. Denies numbness, tingling, weakness - pain worse w/ touch and movement of thumb and wrist. No fever, chills. - History of Current Complaint Chief Complaint: EDExtremityUpper Stated Complaint: RT THUMB PAIN Time Seen by Provider: 02/24/17 11:42 Hx Obtained From: Patient - Allergies/Home Medications Allergies/Adverse Reactions: Allergies Allergy/AdvReac Type Severity Reaction Status Date / Time Amoxicillin Allergy Severe Difficulty Verified 01/17/17 07:34 Breathing Azithromycin Allergy Severe Difficulty Verified 01/17/17 07:34 Breathing Clavulanic Acid Allergy Severe Difficulty Verified 01/17/17 07:34 [From Augmentin] Breathing Penicillins [PCN] Allergy Severe Difficulty Verified 01/17/17 07:34 Breathing PMH/Surg Hx/FS Hx/Imm Hx Previously Healthy: Yes Endocrine/Hematology History: Reports: Hx Anticoagulant Therapy - on plavix, Hx Anemia, Other Endocrine/Hematological Disorders - low blood sugar Denies: Hx Blood Transfusions, Hx Diabetes - low blood sugar, Hx Thyroid Disease Cardiovascular History: Reports: Hx Angina, Hx Hypercholesterolemia, Other Cardiovascular Problems/Disorders - on plavix Denies: Hx Coronary Artery Disease, Hx Hypertension, Hx Myocardial Infarction , Hx Pacemaker/ICD, Hx Valvular Heart Disease Respiratory History: Reports: Hx Pneumonia Denies: Hx Asthma, Hx Chronic Obstructive Pulmonary Disease (COPD) GI History: Reports: Hx Gastroesophageal Reflux Disease, Hx Hiatal Hernia, Other GI Disorders - nausea History: Reports: Hx Kidney Stones - 1 month ago - was able to pass no surgery Denies: Hx Dialysis, Hx Renal Disease Musculoskeletal History: Reports: Hx Arthritis - left foot, Hx Orthopedic Injury - Left foot - chronic pain, Other Musculoskeletal History - right arm and shoulder pain with nerve damage Sensory History: Reports: Hx Contacts or Glasses - glasses Denies: Hx Hearing Aid Opthamlomology History: Reports: Hx Contacts or Glasses - glasses Neurological History: Reports: Hx Headaches, Hx Transient Ischemic Attacks (TIA) , Other Neuro Impairments/Disorders - dizziness post CVA Denies: Hx Dementia, Hx Seizures Psychiatric History: Denies: Hx Substance Abuse - Cancer History Hx Chemotherapy: No - Surgical History Surgery Procedure, Year, and Place: appendectomy. reconstruction of left foot x2 (2013, 2015, will have another soon). neuro stimulator for right shoulder - for pain 2011 Hx Anesthesia Reactions: No Infectious Disease History: No Infectious Disease History: Denies: Hx Hepatitis, Hx Human Immunodeficiency Virus (HIV), Traveled Outside the [place] in Last 30 Days - Family History Known Family History: Positive: Cardiac Disease, Other - CVA - Social History Lives: With Family Alcohol Use: None Hx Substance Use: No Substance Use Type: Reports: None Hx Tobacco Use: Yes - not currently Smoking Status (MU): Former Smoker Type: Cigarettes Amount Used/How Often: smoked from 17 til 30 years old 1/2 ppd Have You Smoked in the Last Year: Yes Review of Systems Constitutional: Negative Cardiovascular: Negative Respiratory: Negative Gastrointestinal: Negative Positive: no symptoms reported Musculoskeletal: Other - see HPI Skin: Other - see HPI Neurological: Negative Psychological: Normal All Other Systems Reviewed And Are Negative: Yes Physical Exam Triage Information Reviewed: Yes Vital Signs On Initial Exam: Initial Vitals Temp Pulse Resp BP Pulse Ox 97.8 F 113 16 136/84 100 02/24/17 11:16 02/24/17 11:16 02/24/17 11:16 02/24/17 11:16 02/24/17 11:16 Vital Signs Reviewed: Yes Appearance: Positive: Well-Appearing, Well-Nourished, Pain Distress Skin: Positive: Warm, Dry - pink skin w/ mild edema overlying area of pain Eyes: Positive: EOMI ENT: Positive: Hearing grossly normal Respiratory/Lung Sounds: Positive: Breath Sounds Present Cardiovascular: Positive: Pulses are Symmetrical in both Upper and Lower Extremities Musculoskeletal: Positive: Pain @ - Rt thumb w/ TTP - pain w/ movement thumb and wrist (limited). Negative: Strength/ROM Intact Neurological: Positive: Sensory/Motor Intact Psychiatric: Positive: Normal Diagnostics - Vital Signs Vital Signs Temp Pulse Resp BP Pulse Ox 02/24/17 11:16 97.8 F 113 16 136/84 100 - Laboratory Lab Statement: Any lab studies that have been ordered have been reviewed, and results considered in the medical decision making process. Course/Dx - Course Course Of Treatment: Spoke w/ ortho - pain control and thumb spica - f/u w/ Noni tomorrow. - Diagnoses Provider Diagnoses: Strain of right thumb Discharge - Discharge Plan Condition: Stable Disposition: HOME Prescriptions: oxyCODONE/Acetamin 5/325 MG* [Percocet 5/325 TAB*] 1 tab PO Q6H PRN #20 tab MDD 4 PRN Reason: Pain Patient Education Materials: Finger Sprain (ED) Referrals: Davi Cheney MD [Medical Doctor] - Additional Instructions: Rest, ice, elevate and keep finger in splint until seen by orthopedics. Call tomorrow to schedule appointment. Continue ibuprofen with food alternating with percocet for pain - do not operate machinery while taking medication.
--- NOTE | 2017-02-24 13:14 | RAD ---
INDICATION: Right thumb pain approximately 3 weeks after "tendon surgery" COMPARISON: Most recent comparison radiograph is dated January 15, 2017 TECHNIQUE: 3 views of the right thumb were obtained. FINDINGS: The bones are normal alignment. Joint spaces appear maintained. No fracture is seen. IMPRESSION: No acute fracture or dislocation. If the patient's symptoms persist, follow-up imaging is recommended.
[2017-02-24 14:08] VITALS: BP 119/90
== END 2017-02-24 14:08 | disposition home or self-care (01) ==
LOC: ED 11:09
DX: S66.811A Strain of other specified muscles, fascia and tendons at wrist and hand level, right hand, initial encounter (principal); X58.XXXA Exposure to other specified factors, initial encounter; Y92.9 Unspecified place or not applicable; Z79.02 Long term (current) use of antithrombotics/antiplatelets; I20.9 Angina pectoris, unspecified; E78.00 Pure hypercholesterolemia, unspecified; Z87.891 Personal history of nicotine dependence; Z88.0 Allergy status to penicillin; Z88.1 Allergy status to other antibiotic agents
CPT/HCPCS: 99282; A9270-GY

== ENCOUNTER 2017-03-19 20:17 | Emergency (ER) | payer OTHER ==
[2017-03-19] MEDS ORDERED: Ketorolac INJ* 60 MG/2 ML VIAL IM ONE (21:44)
[2017-03-19] MEDS ORDERED: Orphenadrine Citrate IV* 30 MG/ML 2 ML VIAL IM ONE (21:44)
[2017-03-19] MEDS ORDERED: Dexamethasone IV* 4 MG/ML 1 ML (4 MG) IM ONE (21:44)
[2017-03-19 23:14] LABS: Hematocrit 42 % (42-52); Hemoglobin 14.7 g/dl (14.0-18.0); Mean Corpuscular HGB Conc 35 g/dl (31-36); Mean Corpuscular Hemoglobin 32 pg (27-31); Mean Corpuscular Volume 92 fL (80-94); Mean Platelet Volume 7 um3 (7.4-10.4); Red Blood Count 4.54 10^6/ul (4.0-5.4); Red Cell Distribution Width 13 % (10.5-15); White Blood Count 8.3 10^3/ul (3.5-10.8)
--- NOTE | 2017-03-19 23:14 | ED ---
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 Patient states he heard and felt a pop. Has since been in pain. Has taken ibuprofen with last dose being at 4:30pm and tried ice/heat without relief. Nothing makes pain better or worse. It is a constant dull ache that does become sharp at times. Patient states he is currently taking plavix and atorvastatin. Also while in ED began having left sided constant "ache" chest pain, that does not radiate and associated with tingling in left fingers. SOB due to pain not associated with exertion. Denies nausea, vomiting. Has history of PE x 2 and CVA. PMHx also significant for GERD , hypoglycemia and high cholesterol per patient. Denies any abdominal pain, fever chills, saddle anesthesia, bruising, erythema, edema, bladder/bowel incontinence, numbness/tingling of lower extremities and weakness. Admits to lightheadedness. No other complaints. Believes his symptoms are from his pain. Able to bear weight however is currently on crutches due to recent surgery on left foot from lisfrac fracture. Currently casted. - History of Current Complaint Chief Complaint: EDBackInjuryPain Stated Complaint: BACK INJURY Time Seen by Provider: 03/19/17 21:02 Hx Obtained From: Patient Onset/Duration: Sudden Onset Onset/Duration: Started Hours Ago, Traumatic, Still Present, Worse Since Timing: Constant Back Pain Location: Is Discrete @ - mid back and chest Severity Initially: Moderate Severity Currently: Severe Pain Intensity: 8 Pain Scale Used: 0-10 Numeric Character: Sharp, Dull, Aching Aggravating Symptom(s): Movement, Nothing Alleviating Symptom(s): Rest, Nothing Associated Signs And Symptoms: Positive: Negative, Tingling - left fingers, Pain with Weight Bearing. Negative: Swelling, Redness, Bruising, Weakness, Numbness, Abdominal Pain, Bladder Incontinence, Bowel Incontinence - Risk Factors AAA Risk Factors: Atherosclerosis TAD Risk Factors: Negative Cauda Equina Risk Factors: Negative Epidural Abscess Risk Factors: Negative - Allergies/Home Medications Allergies/Adverse Reactions: Allergies Allergy/AdvReac Type Severity Reaction Status Date / Time Amoxicillin Allergy Severe Difficulty Verified 03/19/17 20:27 Breathing Azithromycin Allergy Severe Difficulty Verified 03/19/17 20:27 Breathing Clavulanic Acid Allergy Severe Difficulty Verified 03/19/17 20:27 [From Augmentin] Breathing Penicillins [PCN] Allergy Severe Difficulty Verified 03/19/17 20:27 Breathing PMH/Surg Hx/FS Hx/Imm Hx Endocrine/Hematology History: Reports: Hx Anticoagulant Therapy - on plavix, Hx Anemia, Other Endocrine/Hematological Disorders - low blood sugar Denies: Hx Blood Transfusions, Hx Diabetes - low blood sugar, Hx Thyroid Disease Cardiovascular History: Reports: Hx Angina, Hx Hypercholesterolemia, Other Cardiovascular Problems/Disorders - on plavix Denies: Hx Coronary Artery Disease, Hx Hypertension, Hx Myocardial Infarction , Hx Pacemaker/ICD, Hx Valvular Heart Disease Respiratory History: Reports: Hx Pneumonia Denies: Hx Asthma, Hx Chronic Obstructive Pulmonary Disease (COPD) GI History: Reports: Hx Gastroesophageal Reflux Disease, Hx Hiatal Hernia, Other GI Disorders - nausea History: Reports: Hx Kidney Stones - 1 month ago - was able to pass no surgery Denies: Hx Dialysis, Hx Renal Disease Musculoskeletal History: Reports: Hx Arthritis - left foot, Hx Orthopedic Injury - Left foot - chronic pain, Other Musculoskeletal History - right arm and shoulder pain with nerve damage Sensory History: Reports: Hx Contacts or Glasses - glasses Denies: Hx Hearing Aid Opthamlomology History: Reports: Hx Contacts or Glasses - glasses Neurological History: Reports: Hx Headaches, Hx Transient Ischemic Attacks (TIA) , Other Neuro Impairments/Disorders - dizziness post CVA Denies: Hx Dementia, Hx Seizures Psychiatric History: Denies: Hx Substance Abuse - Cancer History Hx Chemotherapy: No - Surgical History Surgery Procedure, Year, and Place: appendectomy. reconstruction of left foot x2 (2013, 2015, will have another soon). neuro stimulator for right shoulder - for pain 2011 Hx Anesthesia Reactions: No - Immunization History Immunizations Up to Date: Yes Infectious Disease History: No Infectious Disease History: Denies: Hx Hepatitis, Hx Human Immunodeficiency Virus (HIV), Traveled Outside the [place] in Last 30 Days - Family History Known Family History: Positive: Cardiac Disease, Other - CVA - Social History Alcohol Use: None Hx Substance Use: No Substance Use Type: Reports: None Hx Tobacco Use: Yes - not currently Smoking Status (MU): Former Smoker Type: Cigarettes Amount Used/How Often: smoked from 17 til 30 years old 1/2 ppd Have You Smoked in the Last Year: Yes Review of Systems Constitutional: Negative Positive: Chest Pain Positive: Shortness Of Breath Gastrointestinal: Negative Positive: Arthralgia, Myalgia - mid back, trauma/injury Skin: Negative Neurological: Negative All Other Systems Reviewed And Are Negative: Yes Physical Exam Triage Information Reviewed: Yes Vital Signs On Initial Exam: Initial Vitals Temp Pulse Resp BP Pulse Ox 100.0 F 122 18 131/82 100 03/19/17 20:24 03/19/17 20:24 03/19/17 20:24 03/19/17 20:24 03/19/17 20:24 tachycardia and low grade fever noted. improved during stay. 89 HR. 99.0F temporal temp Vital Signs Reviewed: Yes Appearance: Positive: Well-Appearing, No Pain Distress, Well-Nourished Skin: Positive: Warm, Skin Color Reflects Adequate Perfusion, Dry, Other - no ecchymosis or edema, no step off crepitus or obvious deformity. Negative: Cold , Numb, Cyanosis @, Scaly Skin/Lesions, Pale, Erythema @ Head/Face: Positive: Normal Head/Face Inspection Eyes: Positive: Conjunctiva Clear ENT: Positive: Normal ENT inspection, Hearing grossly normal, Pharynx normal, TMs normal Neck: Positive: Supple, Nontender, No Lymphadenopathy Respiratory/Lung Sounds: Positive: Clear to Auscultation, Breath Sounds Present. Negative: Decreased Breath Sounds, Rales, Rhonchi, Stridor, Tracheal Deviation, Wheezes Cardiovascular: Positive: Normal, RRR, Pulses are Symmetrical in both Upper and Lower Extremities - 2+, unable to assess left foot due to cast, Tachycardia, Other - nonreproducible chest pain. Negative: Murmur, Rub Abdomen Description: Positive: Nontender, No Organomegaly, Soft. Negative: Bruit, CVA Tenderness (R), CVA Tenderness (L), Distended, Guarding, McBurney's Point Tenderness, Peritoneal Signs, Pulsatile Mass Bowel Sounds: Positive: Present Musculoskeletal: Positive: Normal, Strength/ROM Intact, Pain @ - T10-L1 on palpation of paraspinal muscles. b/l. Negative: Limited @, Interruption @, Edema Left, Edema Right Neurological: Positive: Normal, Sensory/Motor Intact - sensation intact, Alert, Oriented to Person Place, Time, NV Bundle Intact Distally, Unable to Assess Gait - on crutches due to left foot surgery and in cast Psychiatric: Positive: Normal, Affect/Mood Appropriate - Hunter Coma Scale Best Eye Response: 4 - Spontaneous Best Motor Response: 6 - Obeys Commands Best Verbal Response: 5 - Oriented Coma Scale Total: 15 Diagnostics - Vital Signs Vital Signs Temp Pulse Resp BP Pulse Ox 03/19/17 20:27 100.0 F 122 18 131/82 100 03/19/17 20:24 100.0 F 122 18 131/82 100 - Laboratory Result Diagrams: 03/19/17 23:00 03/19/17 23:00 Lab Statement: Any lab studies that have been ordered have been reviewed, and results considered in the medical decision making process. - Radiology lumbosacral Xray Interpretation: No Acute Changes - negative examination Radiology Interpretation Completed By: Radiologist thoracic Xray Interpretation: No Acute Changes - negative examination Radiology Interpretation Completed By: Radiologist chest Xray Interpretation: No Acute Changes - negative examination Radiology Interpretation Completed By: Radiologist - CT CTA chest/abd CT Interpretation: No Acute Changes - no thoracic or abdominal aortic dissection , no evidence of PE. trace pericardial effusion. mild atelectasis in lower lobes , no plueral effusions. no pneumothorax. no free air in abdomen no obvious gallstones, no hydronephrosis,no AAA, appendix absent, urinary bladder unremarkable. CT Interpretation Completed By: Radiologist - Ultrasound No standard instances Ultrasound Interpretation: No Acute Changes - no evidence of DVT b/l. negative bilateral lower extremity dopple venous study Ultrasound Interpretation Completed By: Radiologist - EKG EKG Cardiac Rate: NL, Tachycardia EKG Rhythm: Sinus Tachycardia ST Segment: Normal EKG Interpretation: Sinus tachycardia, no ST changes, no STEMI, left atrial enlargment EKG Comparison: No Significant Change Re-Evaluation - Re-Evaluation First Eval Re-Evaluation Time: 13:30 Change: Improved - had some relief after given medication, updated on plan and current results. chest pain resolved after pain medication. Back Pain Course/Dx - Course Course Of Treatment: due to patients complaint of SOB and chest pain during visit to ED had full chest pain work up. risk factors and PMHx significant for PE and CVA needed to have further work up with todays complaints. Labs unremarkable, negative troponin, d dimer and ekg. CTA and U/S b/l lower extremities obtained due to patient history and complaints. all unremarkable. given pain management for back injury. had relief. Re-eval RRR and CTA b/l. no concern for cauda equina or epidural abscess. x-rays of back unremarkable. Aware of worsening signs and symptoms. Due to normal lab/imaging findings will be sent home with close follow up. Patient feeling better at d/c. Continue ice/ heat, pain management and rest at home. Follow up for trace pericardial effusion finding. Of no concern at this time. aware of signs and symptoms to seek medical attention for immediately. - Diagnoses Differential Diagnosis/HQI/PQRI: Positive: Fracture, Strain, Sprain, Other - PE , chest pain, ACS, NH, Aneurysm Provider Diagnoses: Lumbosacral strain, Pericardial effusion - Provider Notifications Discussed Care Of Patient With: Dr Deng Discharge - Discharge Plan Condition: Stable Disposition: HOME Prescriptions: Cyclobenzaprine TAB* [Flexeril 10 MG TAB*] 10 mg PO BEDTIME PRN #10 tab PRN Reason: Spasms HYDROcodone/ACETAMIN 5-325 MG* [[place] 5-325 TAB*] 1 tab PO Q6H PRN #7 tab MDD 2 PRN Reason: Pain predniSONE TAB* [Deltasone TAB*] 20 mg PO DAILY #5 tab Patient Education Materials: Thoracic Back Strain (ED) Referrals: Beatriz Flores MD [Primary Care Provider] - Davi Cheney MD [Medical Doctor] - Additional Instructions: Take prescribed medication to help with pain, inflammation and discomfort. Rest, do not participate in strenuous activity. refrain from heavy lifting. Apply heat and ice. Follow up with ortho if symptoms persist. if symptoms worsen or new symptoms develop (chest pain, difficulty breathing, worsening pain, numbness/tingling, weakness of lower extremities, unable to go to bathroom) please seek medical attention immediately. Follow up with pcp for chest pain and further work up/weapons officer referral if continues.
[2017-03-19 23:29] LABS: Albumin 4.7 g/dL (3.2-5.2); Calcium 9.6 mg/dL (8.6-10.3); EGFR African American 121.9 (>60); EGFR Non-African American 94.7 (>60); Globulin 2.1 g/dL (2-4); Potassium 3.8 mmol/L (3.5-5.0); Total Bilirubin 0.6 mg/dL (0.2-1.0); Total Protein 6.8 g/dL (6.4-8.9)
[2017-03-20] MEDS ORDERED: HYDROcodone/ACETAMIN 5-325 MG* 1 TAB PO ONE (00:08)
[2017-03-20] MEDS ORDERED: Orphenadrine Citrate IV* 30 MG/ML 2 ML VIAL IV ONE (00:10)
[2017-03-20] MEDS ORDERED: Dexamethasone IV* 4 MG/ML 1 ML (4 MG) IV SLOW PU ONE (00:10)
[2017-03-20] MEDS ORDERED: Iohexol 350* (CONTRAST) 500 ML MDV IV ONE (00:16)
[2017-03-20 02:18] VITALS: BP 137/76
--- NOTE | 2017-03-20 07:28 | RAD ---
INDICATION: Injury, back pain. COMPARISON: Comparison is made with a prior study from October 21, 2013. TECHNIQUE: 5 views of the lumbar spine were obtained including lateral, oblique, AP and a coned-down lateral view of the lumbar sacral junction. FINDINGS: The vertebra are in normal alignment. No fracture is seen. Disc spaces appear maintained. There is a spinal column stimulator present. IMPRESSION: NO EVIDENCE FOR FRACTURE OR SUBLUXATION.
--- NOTE | 2017-03-20 07:30 | RAD ---
INDICATION: Injury, back pain. COMPARISON: Comparison is made with a prior study from January 26, 2014. TECHNIQUE: AP and lateral films of the dorsal spine were obtained. FINDINGS: The vertebra are in normal alignment. No fracture is seen. Disc spaces appear maintained. There is a spinal column stimulator lead present. IMPRESSION: NO EVIDENCE FOR FRACTURE.
--- NOTE | 2017-03-20 07:32 | RAD ---
INDICATION: Shortness of breath and chest pain. COMPARISON: Correlation is made with a prior study from January 25, 2016. TECHNIQUE: Dual-energy PA and lateral views of the chest were obtained. FINDINGS: The heart is within normal limits in size. Mediastinal and hilar contours appear within normal limits. The lungs are clear. No pleural effusion is present. There is a spinal column stimulator lead present. IMPRESSION: NO EVIDENCE FOR ACTIVE CARDIOPULMONARY DISEASE.
--- NOTE | 2017-03-20 08:09 | RAD ---
INDICATION: Pain and swelling. COMPARISON: August 09, 2016 TECHNIQUE: Duplex interrogation of the Lowerextremity was performed. FINDINGS: Deep veins: The common femoral, great saphenous, profunda femoris, proximal, mid, and distal deep femoral, popliteal, posterior tibial, and peroneal veins are patent. There is normal compressibility, augmentation, and phasic flow. Superficial veins: There are no findings of superficial thrombophlebitis. Popliteal fossa:There is no evidence of a popliteal cyst. Soft tissues:There are no soft tissue abnormalities. IMPRESSION: No evidence of deep venous thrombosis
--- NOTE | 2017-03-20 08:39 | RAD ---
INDICATION: Short of breath. Chest pain COMPARISON: CTA chest August 10, 2016 TECHNIQUE: Axial source images were obtained from the thoracic inlet to the iliac crests following administration of oral and intravenous contrast only. CT angiographic technique was utilized injection of 62 mL of Omnipaque 350. Coronal and sagittal reconstructed images were acquired. CHEST FINDINGS: Neck/thyroid: The visualized neck to include the thyroid appear normal. Chest wall: There are no acute abnormalities of the bony thorax or chest wall. There is no supraclavicular, infraclavicular, or axillary lymphadenopathy. Lungs : There are no pulmonary parenchymal masses or significant infiltrates. There is mild linear change in the right middle lobe most consistent with scarring. There is minimal atelectasis in the left lung base. The pulmonary interstitium appears normal. There are no endobronchial lesions. Cardiomediastinal structures: The heart is normal in size. There is no pericardial effusion. There is no evidence of thoracic aortic aneurysm or dissection. The pulmonary vessels appear normal. There is no mediastinal or hilar adenopathy. The esophagus appears normal. Pleura : There are no pleural-based masses or effusions. ABDOMINAL/PELVIC FINDINGS: Liver: The liver is normal in size. There are no masses. There is no ductal dilatation. Gallbladder: There are no calcified gallstones. There is no evidence of wall thickening or pericholecystic fluid. The gallbladder is partially contracted Spleen: The spleen is normal in size. There are no masses. Pancreas: There is no evidence of pancreatic mass or ductal dilatation. Adrenal glands: There is no evidence of adrenal mass. Kidneys: The kidneys are normal in size and position. There are prompt nephrograms and there is prompt excretion bilaterally. There are no renal parenchymal masses. There is no evidence of nephrolithiasis. Adenopathy: There is no evidence of adenopathy by size criteria. Fluid collections: There are no free or localized fluid collections. Vessels:The aorta and IVC appear normal. There is no evidence of abdominal aortic aneurysm or dissection. 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 There is dual renal arterial supply bilaterally. The visceral branches are otherwise unremarkable. GI tract: Evaluation of the GI tract is limited without oral contrast. No specific CT abnormalities are identified. There is appendectomy. Abdominal soft tissues: The extraperitoneal abdominal soft tissues appear normal.. Osseous structures: There are no acute osseous findings. IMPRESSION: No acute CT findings. No evidence of aortic aneurysm or dissection. No CT evidence of acute pulmonary embolic disease.
== END 2017-03-20 02:18 | disposition home or self-care (01) ==
LOC: ED 20:17
DX: S39.012A Strain of muscle, fascia and tendon of lower back, initial encounter (principal); I31.3 Pericardial effusion (noninflammatory); M54.9 Dorsalgia, unspecified; R07.9 Chest pain, unspecified; R06.02 Shortness of breath; Z87.891 Personal history of nicotine dependence; X50.9XXA Other and unspecified overexertion or strenuous movements or postures, initial encounter; Y93.9 Activity, unspecified; Y92.9 Unspecified place or not applicable
CPT/HCPCS: 36415; 71020; 71275; 72070; 72110; 74175; 80053; 83605; 84484; 85025; 85379; 85610; 85730; 93005; 93970; 99285; J1100; J1885; J2360; Q9967

== ENCOUNTER 2017-04-06 18:07 | Emergency (ER) | payer OTHER ==
[2017-04-06 18:13] VITALS: BP 136/90
[2017-04-06] MEDS ORDERED: Diazepam TAB(*) 5 MG PO ONE (19:26)
[2017-04-06] MEDS ORDERED: Ketorolac INJ* 60 MG/2 ML VIAL IM ONE (19:27)
--- NOTE | 2017-04-06 20:13 | ED ---
Back Pain - HPI Summary HPI Summary: Pt here w/ low back pain. Went to lift daughter and twisted his back - pain. Denies LE numbness, tingling, weakness, urinary/bowel changes. H/o back pain a couple of weeks ago. Some of the meds helped, some did not. Lumbar XR was w/o fx and no signs of DDD. This is 2nd time this has occurred within the past few weeks. Has been meaning to have this checked by Dr. Cheney who per pt has cancelled appts multiple times. He does have a PCP and will follow-up with her Saturday. States he had some meds last time that helped and some that did not. - History of Current Complaint Chief Complaint: EDBackInjuryPain Stated Complaint: BACK PAIN Time Seen by Provider: 04/06/17 18:17 Hx Obtained From: Patient Pain Intensity: 9 - Allergies/Home Medications Allergies/Adverse Reactions: Allergies Allergy/AdvReac Type Severity Reaction Status Date / Time Amoxicillin Allergy Severe Difficulty Verified 03/19/17 20:27 Breathing Azithromycin Allergy Severe Difficulty Verified 03/19/17 20:27 Breathing Clavulanic Acid Allergy Severe Difficulty Verified 03/19/17 20:27 [From Augmentin] Breathing Penicillins [PCN] Allergy Severe Difficulty Verified 03/19/17 20:27 Breathing PMH/Surg Hx/FS Hx/Imm Hx Previously Healthy: Yes Endocrine/Hematology History: Reports: Hx Anticoagulant Therapy - on plavix, Hx Anemia, Other Endocrine/Hematological Disorders - low blood sugar Denies: Hx Blood Transfusions, Hx Diabetes - low blood sugar, Hx Thyroid Disease Cardiovascular History: Reports: Hx Angina, Hx Hypercholesterolemia, Other Cardiovascular Problems/Disorders - on plavix Denies: Hx Coronary Artery Disease, Hx Hypertension, Hx Myocardial Infarction , Hx Pacemaker/ICD, Hx Valvular Heart Disease Respiratory History: Reports: Hx Pneumonia Denies: Hx Asthma, Hx Chronic Obstructive Pulmonary Disease (COPD) GI History: Reports: Hx Gastroesophageal Reflux Disease, Hx Hiatal Hernia, Other GI Disorders - nausea History: Reports: Hx Kidney Stones - 1 month ago - was able to pass no surgery Denies: Hx Dialysis, Hx Renal Disease Musculoskeletal History: Reports: Hx Arthritis - left foot, Hx Orthopedic Injury - Left foot - chronic pain, Other Musculoskeletal History - right arm and shoulder pain with nerve damage Sensory History: Reports: Hx Contacts or Glasses - glasses Denies: Hx Hearing Aid Opthamlomology History: Reports: Hx Contacts or Glasses - glasses Neurological History: Reports: Hx Headaches, Hx Transient Ischemic Attacks (TIA) , Other Neuro Impairments/Disorders - dizziness post CVA Denies: Hx Dementia, Hx Seizures Psychiatric History: Denies: Hx Substance Abuse - Cancer History Hx Chemotherapy: No - Surgical History Surgery Procedure, Year, and Place: appendectomy. reconstruction of left foot x2 (2013, 2015, will have another soon). neuro stimulator for right shoulder - for pain 2011 Hx Anesthesia Reactions: No Infectious Disease History: No Infectious Disease History: Denies: Hx Hepatitis, Hx Human Immunodeficiency Virus (HIV), Traveled Outside the [place] in Last 30 Days - Family History Known Family History: Positive: Cardiac Disease, Other - CVA - Social History Lives: With Family Alcohol Use: None Hx Substance Use: No Substance Use Type: Reports: None Hx Tobacco Use: Yes - not currently Smoking Status (MU): Former Smoker Type: Cigarettes Amount Used/How Often: smoked from 17 til 30 years old 1/2 ppd Have You Smoked in the Last Year: Yes Review of Systems Constitutional: Negative Negative: Fever, Chills, Fatigue Positive: no symptoms reported Musculoskeletal: Other - see HPI Skin: Negative Neurological: Negative Psychological: Normal All Other Systems Reviewed And Are Negative: Yes Physical Exam Triage Information Reviewed: Yes Vital Signs On Initial Exam: Initial Vitals Temp Pulse Resp BP Pulse Ox 98.7 F 100 16 136/90 100 04/06/17 18:10 04/06/17 18:10 04/06/17 18:10 04/06/17 18:10 04/06/17 18:10 Vital Signs Reviewed: Yes Appearance: Positive: Well-Appearing, Well-Nourished, Pain Distress - moderate - lying flat on stretcher Skin: Positive: Warm, Dry Head/Face: Positive: Normal Head/Face Inspection Eyes: Positive: Normal, EOMI ENT: Positive: Hearing grossly normal Dental: Positive: Gross Decay/Caries @ Respiratory/Lung Sounds: Positive: Breath Sounds Present Cardiovascular: Positive: Pulses are Symmetrical in both Upper and Lower Extremities Abdomen Description: Positive: Nontender, Soft Musculoskeletal: Positive: Strength/ROM Intact, Pain @ - w/ movement in LE's and back Neurological: Positive: Normal, Sensory/Motor Intact, Alert, Oriented to Person Place, Time, CN Intact II-III Psychiatric: Positive: Normal Diagnostics - Vital Signs Vital Signs Temp Pulse Resp BP Pulse Ox 04/06/17 18:10 98.7 F 100 16 136/90 100 - Laboratory Lab Statement: Any lab studies that have been ordered have been reviewed, and results considered in the medical decision making process. Re-Evaluation - Re-Evaluation First Eval Change: Improved - muscle spasm improved Back Pain Course/Dx - Course Course Of Treatment: Pt here w/ recurrent low back pain within a few weeks. No known previous injury and normal XR - recommend MRI through PCP and tx as necessary. Discussed he may benefit from PT and/or referral to neurosurgery pending MRI results. He agrees to f/u w/ PCP Saturday. Reviewed danger s/sx of when to return to ED. Pt agrees w/ plan. - Diagnoses Provider Diagnoses: Acute low back pain Discharge - Discharge Plan Condition: Stable Disposition: HOME Prescriptions: Cyclobenzaprine TAB* [Flexeril 10 MG TAB*] 10 mg PO TID PRN #15 tab PRN Reason: Pain predniSONE TAB* [Deltasone TAB*] 40 mg PO DAILY #8 tab Patient Education Materials: Low Back Strain (ED), Acute Low Back Pain (ED), Muscle Spasm (ED) Referrals: Beatriz Flores MD [Primary Care Provider] - Additional Instructions: Follow-up with PCP Saturday - call in the morning to schedule appointment. It is recommended you have an MRI due to acute low back pain 2 times in the past few weeks without known cause. Past XR's have shown no fracture, no dislocation, no degenerative changes. Complete steroid as directed. Use muscle relaxer for spasm as needed *If you develop leg weakness or numbness and/or urinary/bowel incontinence, return to ED
[2017-04-06] MEDS ORDERED: predniSONE TAB* 20 MG PO ONE (21:34)
[2017-04-06] MEDS ORDERED: HYDROcodone/ACETAMIN 5-325 MG* 1 TAB PO ONE (21:34)
== END 2017-04-06 22:15 | disposition home or self-care (01) ==
LOC: ED 18:07
DX: M54.5 Low back pain (principal); Y92.9 Unspecified place or not applicable; X50.0XXA Overexertion from strenuous movement or load, initial encounter
CPT/HCPCS: 96372; 99281; A9270-GY; J1885; J7512

== ENCOUNTER 2017-05-07 15:31 | Emergency (ER) | payer OTHER ==
[2017-05-07 15:53] VITALS: BP 143/95
--- NOTE | 2017-05-07 16:42 | ED ---
Throat Pain/Nasal Congestion - HPI Summary HPI Summary: Left upper dental pain has been progressively getting worse---but did go away for the past two days unable to eat due to pain - History of Current Complaint Chief Complaint: EDDentalPain Time Seen by Provider: 05/07/17 16:40 Hx Obtained From: Patient Onset/Duration: Gradual Onset, Worse Since - past 2 days Severity: Severe - 05/07 - Allergies/Home Medications Allergies/Adverse Reactions: Allergies Allergy/AdvReac Type Severity Reaction Status Date / Time Amoxicillin Allergy Severe Difficulty Verified 03/19/17 20:27 Breathing Azithromycin Allergy Severe Difficulty Verified 03/19/17 20:27 Breathing Clavulanic Acid Allergy Severe Difficulty Verified 03/19/17 20:27 [From Augmentin] Breathing Penicillins [PCN] Allergy Severe Difficulty Verified 03/19/17 20:27 Breathing PMH/Surg Hx/FS Hx/Imm Hx Previously Healthy: No Endocrine/Hematology History: Reports: Hx Anticoagulant Therapy - on plavix, Hx Anemia, Other Endocrine/Hematological Disorders - low blood sugar Denies: Hx Blood Transfusions, Hx Diabetes - low blood sugar, Hx Thyroid Disease Cardiovascular History: Reports: Hx Angina, Hx Hypercholesterolemia, Other Cardiovascular Problems/Disorders - on plavix Denies: Hx Coronary Artery Disease, Hx Hypertension, Hx Myocardial Infarction , Hx Pacemaker/ICD, Hx Valvular Heart Disease Respiratory History: Reports: Hx Pneumonia Denies: Hx Asthma, Hx Chronic Obstructive Pulmonary Disease (COPD) GI History: Reports: Hx Gastroesophageal Reflux Disease, Hx Hiatal Hernia, Other GI Disorders - nausea History: Reports: Hx Kidney Stones - 1 month ago - was able to pass no surgery Denies: Hx Dialysis, Hx Renal Disease Musculoskeletal History: Reports: Hx Arthritis - left foot, Hx Orthopedic Injury - Left foot - chronic pain, Other Musculoskeletal History - right arm and shoulder pain with nerve damage Sensory History: Reports: Hx Contacts or Glasses - glasses Denies: Hx Hearing Aid Opthamlomology History: Reports: Hx Contacts or Glasses - glasses Neurological History: Reports: Hx Headaches, Hx Transient Ischemic Attacks (TIA) , Other Neuro Impairments/Disorders - dizziness post CVA Denies: Hx Dementia, Hx Seizures Psychiatric History: Denies: Hx Substance Abuse - Cancer History Hx Hematologic Symptoms: No Hx Chemotherapy: No Hx Radiation Therapy: No Hx Palliative Cancer Treatment: No - Surgical History Surgery Procedure, Year, and Place: appendectomy. reconstruction of left foot x2 (2013, 2016, will have another soon). neuro stimulator for right shoulder - for pain 2011 Hx Anesthesia Reactions: No Infectious Disease History: No Infectious Disease History: Denies: Hx Hepatitis, Hx Human Immunodeficiency Virus (HIV), Traveled Outside the [place] in Last 30 Days - Family History Known Family History: Positive: Cardiac Disease, Other - CVA - Social History Occupation: Disabled Lives: With Family Alcohol Use: None Hx Substance Use: No Substance Use Type: Reports: None Hx Tobacco Use: Yes - not currently Smoking Status (MU): Former Smoker Type: Cigarettes Amount Used/How Often: smoked from 17 til 30 years old 1/2 ppd Have You Smoked in the Last Year: Yes Review of Systems Constitutional: Negative Eyes: Negative Positive: Dental Pain - right upper dental pain Cardiovascular: Negative Respiratory: Negative Gastrointestinal: Negative Genitourinary: Negative Musculoskeletal: Negative Skin: Negative Neurological: Negative Psychological: Normal All Other Systems Reviewed And Are Negative: Yes Physical Exam Triage Information Reviewed: Yes Vital Signs On Initial Exam: Initial Vitals Temp Pulse Resp BP Pulse Ox 98.1 F 132 20 143/95 100 05/07/17 15:51 05/07/17 15:51 05/07/17 15:51 05/07/17 15:51 05/07/17 15:51 Vital Signs Reviewed: No Appearance: Positive: Well-Nourished, Ill-Appearing - appears older than stated age, Pain Distress Skin: Positive: Warm, Skin Color Reflects Adequate Perfusion Head/Face: Positive: Normal Head/Face Inspection Eyes: Positive: Normal, EOMI, Conjunctiva Clear ENT: Positive: Normal ENT inspection, Hearing grossly normal, Dental tenderness. Negative: Trismus, Muffled/hoarse voice Dental: Positive: Percussion Tenderness @ - multiple, Gross Decay/Caries @ - multiple, Abscess @ - right upper jaw Neck: Positive: Supple, Nontender, No Lymphadenopathy Respiratory/Lung Sounds: Positive: Breath Sounds Present Cardiovascular: Positive: Normal, RRR - 100 on recheck, Pulses are Symmetrical in both Upper and Lower Extremities Neurological: Positive: Normal, Sensory/Motor Intact, Alert, Oriented to Person Place, Time, CN Intact II-III Psychiatric: Positive: Normal AVPU Assessment: Alert - [place] Coma Scale Best Eye Response: 4 - Spontaneous Best Motor Response: 6 - Obeys Commands Best Verbal Response: 5 - Oriented Diagnostics - Vital Signs Vital Signs Temp Pulse Resp BP Pulse Ox 05/07/17 15:51 98.1 F 132 20 143/95 100 - Laboratory Lab Statement: Any lab studies that have been ordered have been reviewed, and results considered in the medical decision making process. EENT Course/Dx - Course Assessment/Plan: Hydrocodone, clindamycin, follow with pcp, dental office may use [facility] as a resource to seek dental care - Diagnoses Provider Diagnoses: Dental abscess Discharge - Discharge Plan Condition: Stable Disposition: HOME Prescriptions: Clindamycin Cap(NF) [Clindamycin Cap 300 mg Cap(NF)] 300 mg PO Q6H #40 cap Hydrocodone-Acetaminophen [Hydrocodone/Acetaminophen 5-325 mg] 1 tab PO Q6H PRN #20 tab MDD 4 PRN Reason: Pain Patient Education Materials: Hypertension (ED), Dental Abscess (ED), Toothache (ED) Referrals: Beatriz Flores MD [Primary Care Provider] - 1 Week [facility] [address] [Provider Group] - As Soon As Possible
[2017-05-07] MEDS ORDERED: HYDROcodone/ACETAMIN 5-325 MG* 1 TAB PO ONE (16:43)
[2017-05-07] MEDS ORDERED: HYDROcodone/ACETAMIN 5-325 MG* 1 TAB ONE (16:46)
== END 2017-05-07 16:50 | disposition home or self-care (01) ==
LOC: ED 15:31
DX: K04.7 Periapical abscess without sinus (principal); K08.89 Other specified disorders of teeth and supporting structures
CPT/HCPCS: 99282

== ENCOUNTER 2017-05-23 17:00 | Emergency (ER) | payer OTHER ==
[2017-05-23] MEDS ORDERED: Ketorolac INJ* 60 MG/2 ML VIAL ONE (19:52)
--- NOTE | 2017-05-23 20:11 | ED ---
Throat Pain/Nasal Congestion - HPI Summary HPI Summary: Patient arrives to ED with CC of pain over front left tooth radiating to the left maxillary sinus. Has appt soone with dentist to get all his teeth pulled. Denies trismus, drooling or dysphagia. Pain is 10/10, sharp and throbbing. Denies airway compromise or SOB. Denies ear pain, eye pain, blurry vision or double vision. Otherwise healthy. Pain is worse with chewing and cold drinks, better with ibuprofen, but only improves slightly. Patient denies dental care for several years. - History of Current Complaint Chief Complaint: EDDentalPain Time Seen by Provider: 05/23/17 17:37 Hx Obtained From: Patient Onset/Duration: Sudden Onset Severity: Moderate - Epiglottits Risk Factors Epiglottis Risk Factors: Negative - Allergies/Home Medications Allergies/Adverse Reactions: Allergies Allergy/AdvReac Type Severity Reaction Status Date / Time Amoxicillin Allergy Severe Difficulty Verified 03/19/17 20:27 Breathing Azithromycin Allergy Severe Difficulty Verified 03/19/17 20:27 Breathing Clavulanic Acid Allergy Severe Difficulty Verified 03/19/17 20:27 [From Augmentin] Breathing Penicillins [PCN] Allergy Severe Difficulty Verified 03/19/17 20:27 Breathing PMH/Surg Hx/FS Hx/Imm Hx Previously Healthy: Yes Endocrine/Hematology History: Reports: Hx Anticoagulant Therapy - on plavix, Hx Anemia, Other Endocrine/Hematological Disorders - low blood sugar Denies: Hx Blood Transfusions, Hx Diabetes - low blood sugar, Hx Thyroid Disease Cardiovascular History: Reports: Hx Angina, Hx Hypercholesterolemia, Other Cardiovascular Problems/Disorders - on plavix Denies: Hx Coronary Artery Disease, Hx Hypertension, Hx Myocardial Infarction , Hx Pacemaker/ICD, Hx Valvular Heart Disease Respiratory History: Reports: Hx Pneumonia Denies: Hx Asthma, Hx Chronic Obstructive Pulmonary Disease (COPD) GI History: Reports: Hx Gastroesophageal Reflux Disease, Hx Hiatal Hernia, Other GI Disorders - nausea History: Reports: Hx Kidney Stones - 1 month ago - was able to pass no surgery Denies: Hx Dialysis, Hx Renal Disease Musculoskeletal History: Reports: Hx Arthritis - left foot, Hx Orthopedic Injury - Left foot - chronic pain, Other Musculoskeletal History - right arm and shoulder pain with nerve damage Sensory History: Reports: Hx Contacts or Glasses - glasses Denies: Hx Hearing Aid Opthamlomology History: Reports: Hx Contacts or Glasses - glasses Neurological History: Reports: Hx Headaches, Hx Transient Ischemic Attacks (TIA) , Other Neuro Impairments/Disorders - dizziness post CVA Denies: Hx Dementia, Hx Seizures Psychiatric History: Denies: Hx Substance Abuse - Cancer History Hx Hematologic Symptoms: No Hx Chemotherapy: No Hx Radiation Therapy: No Hx Palliative Cancer Treatment: No - Surgical History Surgery Procedure, Year, and Place: appendectomy. reconstruction of left foot x2 (2013, 2015, will have another soon). neuro stimulator for right shoulder - for pain 2011 Hx Anesthesia Reactions: No - Immunization History Hx Pertussis Vaccination: No Immunizations Up to Date: Unable to Obtain/Confirm Infectious Disease History: No Infectious Disease History: Denies: Hx Hepatitis, Hx Human Immunodeficiency Virus (HIV), Traveled Outside the [place] in Last 30 Days - Family History Known Family History: Positive: Cardiac Disease, Other - CVA - Social History Occupation: Employed Full-time Lives: With Family Alcohol Use: None Hx Substance Use: No Substance Use Type: Reports: None Hx Tobacco Use: Yes - not currently Smoking Status (MU): Former Smoker Type: Cigarettes Amount Used/How Often: smoked from 17 til 30 years old 1/2 ppd Have You Smoked in the Last Year: Yes Review of Systems Constitutional: Negative Negative: Fever, Chills, Fatigue Positive: Dental Pain Cardiovascular: Negative Respiratory: Negative Genitourinary: Negative Positive: no symptoms reported, see HPI Skin: Negative Neurological: Negative All Other Systems Reviewed And Are Negative: Yes Physical Exam Triage Information Reviewed: Yes Vital Signs On Initial Exam: Initial Vitals Temp Pulse Resp BP Pulse Ox 97 F 114 17 136/90 100 05/23/17 17:25 05/23/17 17:25 05/23/17 17:25 05/23/17 17:25 05/23/17 17:25 Vital Signs Reviewed: Yes Appearance: Positive: Well-Appearing, Well-Nourished, Pain Distress Head/Face: Positive: Normal Head/Face Inspection Eyes: Positive: EOMI, CELINA, Conjunctiva Clear Dental: Positive: Percussion Tenderness @, Gross Decay/Caries @ - throughout, Dental Fracture @ Cardiovascular: Positive: Pulses are Symmetrical in both Upper and Lower Extremities Musculoskeletal: Positive: Normal, Strength/ROM Intact Neurological: Positive: Speech Normal Psychiatric: Positive: Normal - [place] Coma Scale Coma Scale Total: 15 Diagnostics - Vital Signs Vital Signs Temp Pulse Resp BP Pulse Ox 05/23/17 17:25 97 F 114 17 136/90 100 - Laboratory Lab Statement: Any lab studies that have been ordered have been reviewed, and results considered in the medical decision making process. EENT Course/Dx - Course Course Of Treatment: No dental abscess or lesions seen over area of concern. Erythema at site of pain. No drainage from area. Several dental caries, cavities, crowding and broken teeth throughout. Pain on palpation over mandible. No TMJ tenderness. No pain with opening and closing mouth. Poor dental hygiene and outpatient dental care. Will treat for possible dental infection/abscess based on symptoms of pain and radiation to jaw and ear. No allergies. Will treat with Penicillin. Patient to follow up immediately with dentist. Givenm tramadol for pain control as rx. Given toradol in ED. Clindamycin x 4 x daily for 7 days. - Diagnoses Provider Diagnoses: Dental abscess Discharge - Discharge Plan Condition: Stable Disposition: HOME Prescriptions: Clindamycin Cap(NF) [Clindamycin Cap 300 mg Cap(NF)] 300 mg PO Q6H #28 cap traMADol TAB* [Ultram*] 25 mg PO Q8H PRN #6 tab MDD 3 PRN Reason: Pain Patient Education Materials: Dental Abscess (ED), Toothache (ED) Referrals: Naima Colbert NP [Primary Care Provider] - Additional Instructions: You have been diagnosed with dental pain with possible infection: Antibiotics as prescribed to you. Clindamycin four times daily for 7 days. Tramadol given for pain control. To minimize the potential for gastrointestinal intolerance, Clindamycin should be taken at the start of a meal. If you have any questions about your medication, please contact us or ask your pharmacist. Salt water rinses several times per day will improve healing time. Ibuprofen 600mg three times daily with meals for discomfort. May use lollicaines over the area for comfort. Follow up with a dentist for routine care to prevent recurrence of infections. If fever, worsening pain or swelling develops, see your PCP, dentist or come back to the Emergency Department.
[2017-05-23] MEDS ORDERED: Clindamycin CAP* 150 MG PO ONE (20:58)
[2017-05-23] MEDS ORDERED: traMADol TAB* 50 MG PO ONE ×2 (20:58)
[2017-05-23 21:23] VITALS: BP 124/86
[2017-05-23] MEDS ORDERED: Ketorolac INJ* 60 MG/2 ML VIAL IM ONE (21:27)
== END 2017-05-23 21:31 | disposition home or self-care (01) ==
LOC: ED 17:00
DX: K04.7 Periapical abscess without sinus (principal); K08.89 Other specified disorders of teeth and supporting structures; Z79.01 Long term (current) use of anticoagulants
CPT/HCPCS: 96372; 96374; 99282; A9270-GY; J1885

== ENCOUNTER 2017-08-29 20:04 | Observation (INO) | payer OTHER ==
[2017-08-29] MEDS ORDERED: Lidocaine 2% VISCOUS* 15 ML UDC PO ONE (20:22)
[2017-08-29] MEDS ORDERED: Al Hydrox/Mg Hydrox/Simet LIQ* 30 ML UDC PO ONE (20:22)
[2017-08-29] MEDS ORDERED: Aspirin Low Dose CHEW TAB* 81 MG PO ONE (20:22)
[2017-08-29 20:47] LABS: ABS Basophils 0.1 10^3/ul (0-0.2); ABS Eosinophils 0.3 10^3/ul (0-0.6); ABS Lymphocytes 2.5 10^3/ul (1.0-4.8); ABS Monocytes 0.6 10^3/ul (0-0.8); ABS Neutrophils 5.4 10^3/ul (1.5-7.7); ABS Nucleated RBC 0 10^3/ul; Eosinophil % 3.4 % (0-6); Hematocrit 41 % (42-52); Hemoglobin 14.1 g/dl (14.0-18.0); Lymphocyte % 28.5 % (25-47); Mean Corpuscular HGB Conc 34 g/dl (31-36); Mean Corpuscular Hemoglobin 32 pg (27-31); Mean Corpuscular Volume 95 fL (80-94); Mean Platelet Volume 7 um3 (7.4-10.4); Nucleated Red Blood Cells % 0.1; Platelet Count 423 10^3/ul (150-450); Red Blood Count 4.38 10^6/ul (4.0-5.4); Red Cell Distribution Width 13 % (10.5-15); White Blood Count 8.8 10^3/ul (3.5-10.8)
[2017-08-29 20:56] LABS: Urine Appearance Clear; Urine Blood Negative (Negative); Urine Color Yellow; Urine Ketones Negative (Negative); Urine Protein Negative (Negative); Urine Specific Gravity 1.021 (1.010-1.030); Urine Urobilinogen Positive (Negative)
[2017-08-29 21:02] LABS: EGFR Non-African American 92.4 (>60)
[2017-08-29] MEDS ORDERED: Morphine INJ* 4 MG/ML 1 ML CARPUJECT IV ONE ×2 (21:13→22:58)
--- NOTE | 2017-08-29 21:37 | RAD ---
INDICATION: Chest pain. COMPARISON: Comparison is made with a prior study from March 19, 2017. TECHNIQUE: A portable view of the chest was obtained. FINDINGS: There is a metallic lead most consistent with a spinal cord stimulator which projects over the cervical spine. The heart is within normal limits in size. Mediastinal contours appear normal. The lungs are clear. No pleural effusion is seen. IMPRESSION: NO EVIDENCE FOR ACUTE DISEASE.
[2017-08-30] MEDS ORDERED: HYDROmorphone INJ* 2 MG/ML CARPUJECT SYRINGE IV SLOW PU ONE (00:27)
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
[2017-08-30] MEDS ORDERED: CMCS: Melatonin (NF) 3 MG TAB PO PRN (01:21)
[2017-08-30] MEDS ORDERED: Ondansetron INJ* 2 MG/ML VIAL IV PRN (01:21)
[2017-08-30] MEDS ORDERED: Ondansetron INJ* 2 MG/ML VIAL IV ONE (01:28)
[2017-08-30 02:27] LABS: ABS Basophils 0 10^3/ul (0-0.2); ABS Eosinophils 0.3 10^3/ul (0-0.6); ABS Lymphocytes 2.4 10^3/ul (1.0-4.8); ABS Monocytes 0.6 10^3/ul (0-0.8); ABS Nucleated RBC 0 10^3/ul; Hematocrit 43 % (42-52); Hemoglobin 14.6 g/dl (14.0-18.0); Lymphocyte % 25.6 % (25-47); Mean Corpuscular HGB Conc 34 g/dl (31-36); Mean Corpuscular Hemoglobin 33 pg (27-31); Mean Corpuscular Volume 95 fL (80-94); Mean Platelet Volume 7 um3 (7.4-10.4); Nucleated Red Blood Cells % 0.1; Platelet Count 438 10^3/ul (150-450); Red Blood Count 4.46 10^6/ul (4.0-5.4); Red Cell Distribution Width 13 % (10.5-15); White Blood Count 9.2 10^3/ul (3.5-10.8)
[2017-08-30 02:35] LABS: EGFR Non-African American 94.7 (>60)
[2017-08-30] MEDS ORDERED: Diltiazem IV* 5 MG/ML 5 ML VIAL (for loading dose/IV Push) (25 MG) IV SLOW PU ONE (04:37)
[2017-08-30] MEDS: traMADol TAB* 50 MG PO PRN ×2 (04:47→10:57)
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
[2017-08-30] MEDS ORDERED: Omeprazole CAP* 20 MG PO SCH (06:00)
[2017-08-30] MEDS: Acetaminophen TAB* 325 MG PO PRN ×2 (08:10→15:09)
[2017-08-30] MEDS: Morphine INJ* 2 MG/ML 1 ML CARPUJECT IV PRN ×2 (08:11→12:46)
[2017-08-30] MEDS ORDERED: Pantoprazole TAB (NF) 40 MG TAB PO SCH (08:24)
[2017-08-30] MEDS: Cyclobenzaprine TAB* 10 MG PO PRN ×2 (08:30→15:09)
[2017-08-30] MEDS ORDERED: Clopidogrel TAB* 75 MG PO SCH (09:00)
[2017-08-30] MEDS ORDERED: Atorvastatin* 20 MG TAB PO SCH (09:00)
[2017-08-30] MEDS ORDERED: Metoprolol Tartrate IV* 1 MG/ML 5 ML VIAL ONE (13:42)
[2017-08-30] MEDS ORDERED: Atropine SYRINGE* 0.1 MG/ML 10 ML SYRINGE (1 MG) ONE (13:42)
[2017-08-30] MEDS ORDERED: oxyCODONE/Acetamin 5/325 MG* TAB PO PRN (15:04)
[2017-08-30 16:19] VITALS: BP 119/78
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
[2017-08-31] MEDS ORDERED: Heparin VIAL(*) 5000 UNITS/ML VIAL (FIVE THOUSAND) SUBCUT SCH (06:00)
== END 2017-08-30 18:30 | disposition home or self-care (01) ==
LOC: ED 20:04 → MEDTELE 08-30 01:13
PROVIDERS: ADMIT Hospitalist; ATTEND Internal Medicine
DX: R07.89 Other chest pain (principal); I63.9 Cerebral infarction, unspecified; M54.5 Low back pain; Z90.89 Acquired absence of other organs; Z86.73 Personal history of transient ischemic attack (TIA), and cerebral infarction without residual deficits; Z87.891 Personal history of nicotine dependence; R94.31 Abnormal electrocardiogram [ECG] [EKG]
CPT/HCPCS: 36415; 71045; 80053; 81003; 82565; 83605; 83735; 84443; 84484; 84520; 85025; 85379; 85610; 85730; 86850; 86900; 86901; 93005; 93350; 99285; A9270-GY; G0378; J0461; J1170; J2270; J2405; J3490

== ENCOUNTER 2017-09-22 19:27 | Emergency (ER) | payer OTHER ==
--- OUTSIDE RECORDS SUMMARY | 2017-09-22 19:41 | XMS REPORT ---
:1985 External Reference #:[id number] Author Organization [facility] Address [address] [address] Phone [phone] Care Team Providers Name Role Phone Naima Colbert FNP Care Team Information Workers' Compensation Hearings Officer Unavailable Naima Colbert FNP Primary Care Physician Unavailable Payers Type Date Identification Numbers Payment Provider Subscriber Commercial Effective: Policy Number: [id number] [place] Festus Roberts 2013 Group Name: [id number] [address] PayID: [id number] [place] [address] Medigap Part B Expires: 2015 Policy Number: [employer] Festus Roberts [id number] PayID: [id number] [address] [address] [place] [address] Medigap Part B Expires: 2015 Policy Number: [id number] Medicaid Festus Roberts Group Name: 1 1 [address] PayID: [id number] [place] [address] Workers Compensation Onset: 2011 Policy Number: [facility] Festus Roberts [id number] PayID: [id number] [place] [id number] Problems Date Description Provider Status Onset: 01/15/2017 Bacterial infectious disease Davi Cheney MD Active Onset: 01/15/2017 Open wound of finger without complication Davi Cheney MD Active Family History Date Family Member(s) Problem(s) Comments General Heart Disease General Diabetes General Cancer General Stroke General Hypertension General Chronic Obstructive Pulmonary Disease (COPD) Social History Type Date Description Comments Lives With Lives With Children 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 ETOH Use Denies alcohol use Smoking Patient is a former smoker quit 7 years ago, pack a day for 8 years Recreational Drug Use Denies Drug Use Exercise Type/Frequency Does not exercise Allergies, Adverse Reactions, Alerts Date Description Reaction Status Severity Comments 04/07/2015 Amoxicillin active 04/07/2015 Penicillin active 04/07/2015 Augmentin active 04/07/2015 Zithromax active 04/07/2015 Keflex active 09/13/2017 Bee Sting active cant breathe 09/13/2017 Paper Tape active Medications Medication Date Status Form Strength Qnty SIG Indications Ordering Provider Pantoprazole 09/13/ Active Tablets DR 40mg 90tab 1 by R07.9 Diego Mckeon Sodium 2018 s mouth Brower, every day DO FACC Diltiazem CD 09/13/ Active Caps ER 180mg 90cap 1 by R07.9 Diego Mckeon 2018 24HR s mouth Brower, every day DO FACC Clopidogrel / Active Tablets 75mg 1 by Unknown Bisulfate 0000 mouth every day Cyclobenzaprine / Active Tablets 5mg take one Unknown HCL 0000 tablet by mouth every 8 hours prn. may take a second tablet if first not effetive. Melatonin / Active Tablets 10mg 2 hs Unknown 0000 Ondansetron HCL / Active Tablets 4mg one by Unknown 0000 mouth every 8 hours as needed for nausea Lisinopril / Active Tablets 2.5mg 1 by Unknown 0000 mouth every day Aspirin Adult Low / Active Tablets DR 81mg 1 by Unknown Dose 0000 mouth every day Acetaminophen / Active Tablets 500mg 1-2 tabs Unknown 0000 3x a day as needed Trazodone HCL / Active Tablets 50mg 1-2 Unknown 0000 tablet at bedtime as needed Atorvastatin / Active Tablets 20mg take 1 Unknown Calcium 0000 tablet at bedtime Hydrocodone-Aceta 01/17/ Hx Tablets 5-325mg 30tab 1 or 2 Davi rajan 2016 - tabs by Noni 08/29/ mouth 2018 every 6-8 hours as needed for pain Metronidazole 01/17/ Hx Tablets 500mg 15tab 1 tab by Davi 2016 s albaro Cheney, 09/12/ every 8 MD 2018 hours as directed Sulfamethoxazole/ 01/15/ Hx Tablets 800-160mg 20tab 1 by A49.8 Davi Trimethoprim DS 2016 mouth Cheney, 09/12/ twice a MD 2017 day for 10 days Motrin 06/26/ Hx Tablets 800mg 90tab take one Clay 2010 tablet by Analy, 07/29/ mouth M.DKristine 2016 three times daily as needed Neurontin 05/11/ Hx Capsules 300mg 60cap 1 po qhs, Clay 2010 Analy, 07/29/ increase M.DKristine 2016 to one tab po bid after 7 days Aitkin 05/02/ Hx Tablets 5-325mg 50tab 1 po tid Clay 2010 prn Analy, 07/29/ M.Brittny 2016 Atorvastatin / Hx Tablets 10mg 1 by Unknown Calcium 0000 - mouth every day 2017 Pantoprazole / Hx Tablets DR 20mg 1 by Unknown Sodium 0000 - mouth every day 2017 Vital Signs Date Vital Result Comment 09/13/2017 Height 64.5 inches 5'4.50" Weight 154.00 lb No shoes Heart Rate 104 /min BP Systolic 118 mmHg Rue reg cuff BP Diastolic 74 mmHg Rue reg cuff BP Systolic Sitting 120 mmHg Lue reg cuff BP Diastolic Sitting 74 mmHg Lue reg cuff BP Systolic Standing 126 mmHg Lue reg cuff BP Diastolic Standing 80 mmHg Lue reg cuff Respiratory Rate 17 /min BMI (Body Mass Index) 26.0 kg/m2 Ejection Fraction 60-65% 01/26/2016-echo 03/05/2017 Height 66 inches 5'6" Weight 145.00 lb Heart Rate 118 /min BP Systolic 129 mmHg BP Diastolic 84 mmHg Respiratory Rate 18 /min Pain Level 6 BMI (Body Mass Index) 23.4 kg/m2 03/01/2017 Height 66 inches 5'6" Weight 145.00 lb Heart Rate 104 /min BP Systolic 128 mmHg BP Diastolic 88 mmHg Body Temperature 96.1 F Pain Level 8 BMI (Body Mass Index) 23.4 kg/m2 02/05/2017 Height 66 inches 5'6" Weight 145.00 lb Heart Rate 104 /min BP Systolic 125 mmHg BP Diastolic 84 mmHg Body Temperature 97.3 F BMI (Body Mass Index) 23.4 kg/m2 01/21/2017 Height 66 inches 5'6" Weight 152.56 lb Heart Rate 82 /min BP Systolic 121 mmHg BP Diastolic 82 mmHg Body Temperature 98.0 F BMI (Body Mass Index) 24.6 kg/m2 01/15/2017 Height 66 inches 5'6" Weight 145.00 lb Heart Rate 77 /min BP Systolic 99 mmHg BP Diastolic 75 mmHg Body Temperature 96.6 F BMI (Body Mass Index) 23.4 kg/m2 04/07/2015 Height 67 inches 5'7" Weight 120.00 lb Heart Rate 83 /min BP Systolic Sitting 104 mmHg BP Diastolic Sitting 70 mmHg Respiratory Rate 18 /min Pain Level 9 BMI (Body Mass Index) 18.8 kg/m2 Results Test Date Test Result H/L Range Note Laboratory test 09/13/2017 Metanephrines Plasma <pending> finding Laboratory test 01/17/2017 Tissue Culture & SEE RESULT BELOW 1, 2 finding Sensitiv Wound Culture/Sensi 01/17/2017 Wound/Misc Culture-Gram SEE RESULT BELOW 1, 3 Stain 1 INFECTION OG RIGHT THUMB LACERATION 2 SEE RESULT BELOW Name: FESTUS ROBERTS : [address]: Davi Cheney MD Acct: [id number] Unit: [id number] AGE: 31 Location: [facility] Re01/17/17 SEX: M Status: REG SDC SPEC: [id number] YSABEL: 01/17/17-[address]: Davi Cheney MD REQ: [id number] RECD: 01/17/17-1221 STATUS: COMP AN DR: Beatriz Flores MD _ SOURCE: WOUND SPDESC:RT THUMB ORDERED: Tissue Cult/GS, Anaerobic Cult COMMENTS: INFECTION OG RIGHT THUMB LACERATION Procedure Result Reported Site Tissue Gram Stain Final 01/17/17- 1412 ML 1+ Neutrophils 1+ Epithelial Cells No Organisms Seen Preparation By Direct Smear Tissue Culture Final 01/21/17- 0710 ML No Growth Day 4 Anaerobic Culture Final 01/21/17- 10 ML No Growth Day 4 * ML - MAIN LAB ([facility]) . END OF REPORT * ML=Testing performed at Main Lab DEPARTMENT OF PATHOLOGY, [address] [place] [address] Charan Herzog M.D. Director KERRY # [id number] 3 SEE RESULT BELOW Name: FESTUS ROBERTS : [address]: Davi Cheney MD Acct: [id number] Unit: [id number] AGE: 31 Location: [facility] Re01/17/17 SEX: M Status: REG SDC SPEC: [id number] YSABEL: 01/17/[address] [facility] [address]: Davi Cheney MD REQ: [id number] RECD: 01/17/17 STATUS: LYNN TORRE DR: Beatriz Flores MD _ SOURCE: WOUND SPDESC:RT THUMB ORDERED: Culture Stain QUERIES: Specimen Description RIGHT THUMB LACERATION Procedure Result Reported Site Wound/Misc Gram Stain Final 01/17/17- 1419 ML No Neutrophils Observed No Organisms Seen Wound/Misc Culture Final 01/19/17- 0956 ML No Growth Day 2 * ML - MAIN LAB ([facility]) . END OF REPORT * ML=Testing performed at Main Lab DEPARTMENT OF PATHOLOGY, [address] [place] [address] Charan Herzog M.D. Director [facility] # [id number] Procedures Date CPT Code Description Status 09/13/2017 58476 EKG Tracing & Interpretation Completed 08/30/2017 73949 Stress ECHO Interpretation/Report Hospital Completed 08/30/2017 29962 Treadmill Interp/Report Only Completed 08/30/2017 69269 Stress Test Supervsn W/Out I/R Completed 01/17/2017 70409 Repair,Extensor Tendon,Finger Prim Or Sec W/O Free Completed Graft Each Ten 01/17/2017 86029 Repair,Extensor Tendon,Finger Prim Or Sec W/O Free Completed Graft Each Ten 01/17/2017 39908 Arthrotomy Metacarpophalangeal JT Completed W/Explore/Drain/Remove FB 01/17/2017 21404 Arthrotomy Metacarpophalangeal JT Completed W/Explore/Drain/Remove FB 08/16/2016 56663 Stress Test Supervsn W/Out I/R Completed 08/16/2016 62172 Treadmill Interp/Report Only Completed 08/15/2016 89703 Event Monitor/Phys Review/Interp. Completed 08/09/2016 13727 Color Flow Doppler/Interp & Reprt Completed 08/09/2016 89114 Pulse Wave/Continuous-Interp.RPT Completed 08/09/2016 71453 Echocardiography, Transesophageal, Real Time W/Image 2D Completed W/W/O M-M 01/26/2016 44412 ECHO Transthorasic Realtime 2D W Doppler & Color Completed [facility] 01/26/2016 11833 EKG, Interpretation Only Completed 01/24/2016 24180 EKG, Interpretation Only Completed 09/26/2012 62576 ECHO Transthorasic Realtime 2D W Doppler & Color Completed [facility] Encounters Type Date Location Provider CPT E/M Dx Office Visit 09/13/2017 [facility] [place] [address] R07.9 9:00a Community Development Coordinator FACC K21.0 I15.9 Office Visit 03/01/2017 9:30a [place] [address] S61.011D Of C.M.A. S56.321D S53.31xA Office Visit 01/15/2017 3:15p [facility] [place] [address] A49.8 C.M.A. S61.011A Office Visit 08/11/2016 9:35a [facility], Ramona Maddox, 22962 I63.9 Hospitalists MNatali R51 R07.89 Office Visit 08/10/2016 11:59a [facility] [address] M62.81 R51 Office Visit 08/10/2016 9:34a [facility], Ramona Maddox, [address]9218 I63.9 Hospitalists Ya R51 R07.89 Office Visit 08/09/2016 9:34a [facility], Ramona Maddox, 38962 I63.9 Hospitalists MNatali R07.89 R51 Office Visit 08/09/2016 11:36a [facility] Cruz Matthews, 14090 M62.81 MD Office Visit 08/08/2016 9:33a [facility], Nell Santiago, 88273 I63.9 Hospitalists MNatali R51 R07.89 Office Visit 08/08/2016 11:34a [facility] [address] M62.81 R51 Z82.3 Office Visit 08/07/2016 9:33a [facility] [place], [address] I63.9 Assoc, Hospitalists Ya R07.89 R51 Office Visit 01/27/2016 1:24p [facility], Carlton Betancur, [address]39 R07.9 Hospitalists MNatali I63.8 Z92.82 Office Visit 01/26/2016 3:24p [facility] [address] F44.7 R29.818 Office Visit 01/26/2016 1:23p [facility], Davi Carlos, 55842 R07.9 Hospitalists M.D. I63.8 Z92.82 Office Visit 01/25/2016 1:22p [facility], Davi Carlos, 48947 R07.9 Hospitalists M.D. I63.8 Z92.82 Office Visit 01/25/2016 3:23p [facility] [address] F44.7 R29.818 Office Visit 01/24/2016 3:10p [facility], Davi Carlos, 45960 R10.30 Hospitalists M.D. R11.2 R07.9 Office Visit 01/23/2016 3:09p [facility], [place] [address] A41.9 Hospitalists R10.30 R07.9 R11.2 Office Visit 04/07/2015 1:40p [facility] Davi Dyer, 40903 996.78 C.M.AKristine MNatali Office Visit 04/02/2012 10:15a [facility] [place], 57879 719.41 C.M.A. MKristineD. Office Visit 06/26/2011 9:45a [facility] [place], 27174 840.8 C.M.AKristine MNatali Office Visit 05/11/2011 10:45a [facility] [place], [address]3824 840.8 C.M.AKristine MKristineD. Office Visit 04/23/2011 2:15p [facility] Sergey Hernandez M.D. 51491 840.9 C.M.AKristine Office Visit 04/12/2011 2:45p [facility] Hernandez M.D. 95959 840.8 C.M.A. 840.9 Plan of Care Future Appointment(s):10/16/2017 8:15 am - Diego Brower DO FACC at [facility]09/13/2017 - Diego Brower DO FACCR07.9 Chest pain, unspecifiedNew Medication:Pantoprazole Sodium 40 mgDiltiazem CD 180 mgComments: - Stop taking aspirin because it can irritate your stomach.- Continue with plavix- For now, change the lisinopril to diltiazem. It's a calcium channel alfonso that helps prevent esophageal spasm- Increase the protonix (pantoprazole ) from 20 to 40 mg once a day.- Try sleeping with your head tilted up in your recliner couch for a few weeksI sent new prescriptions to your pharmacy.Follow up:Please have patient sign record release for Dr. Lindsey for EGD and consult report (if available) Follow up 1 conmyS21.0 Gastro-esophageal reflux disease with [id number] Secondary hypertension, unspecified
--- OUTSIDE RECORDS SUMMARY | 2017-09-22 19:42 | XMS REPORT ---
:1985 External Reference #:[id number] Author Organization [facility] Address [address] [place] [address] Phone [phone] Care Team Providers Name Role Phone Rosaura Hale M.D. Primary Care Physician Unavailable Payers Type Date Identification Numbers Payment Provider Subscriber Commercial Effective: Policy Number: [id number] [facility] Festus Roberts 2013 Medicaid PayID: [id number] [address] [place] [address] Health Maintenance Effective: Policy Number: [employer] Option Festus Stephens [facility] (O) 01/27/2012 [id number] Armando Expires: 08/29/2013 PayID: [id number] [address] [address] [place] [address] Problems Date Description Provider Status Onset: 07/01/2013 Low back pain Beatriz Flores M.D. 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 Cigarette Use Former Cigarette Smoker quit 2010 3/4 PPD for 7 years ETOH Use Denies alcohol use Recreational Drug Use Denies Drug Use Smoking Patient is a former smoker Daily Caffeine Consumes on average 2 cups of coffee per day Allergies, Adverse Reactions, Alerts Date Description Reaction Status Severity Comments 03/28/2012 Penicillins active Severe throat swelling 03/28/2012 Bee Sting active Fatal anaphylaxsis Medications Medication Date Status Form Strength Qnty SIG Indications Ordering Provider Trazodone HCL 09/03 Active Tablets 50mg 60tab take one to G47.00 s two tablets Sayra, by mouth at [employer] [facility] bedtime Lisinopril 08/27 Active Tablets 2.5mg 30tab 1 by mouth I10 s every day KWAME Colbert-Faith Pantoprazole 09/12 Active Tablets 20mg 60tab 1 by mouth Naima Sodium DR s twice a day KWAME Colbert-C Ondansetron 08/15 Active Tablets 4mg 12tab Dissolve One Dispers s Tablet On Sayra, The Tongue [employer] Three Times A Day as Needed For Nausea Clopidogrel 08/15 Active Tablets 75mg 30tab Take One Naima Bisulfate s Tablet By Sayra, Mouth Every [employer] Day For Stroke Prevention Atorvastatin 08/15 Active Tablets 20mg 30tab Take One Naima Calcium s Tablet By Sayra, Mouth Every [facility] Day Knee Walker 04/12 Active 1unit 4 wheeled M25.80 s knee glenny Colbert, with brakes [employer] for use on left leg. dx 25.8 dx s92.202 Cyclobenzaprine 03/30 Active Tablets 5mg 45tab take 1-2 Naima HCL s tablets by Sayra, mouth 3 [facility] times daily for muscle spasms. Acetaminophen 03/28 Active Capsules 500mg Q4hr Primitivownti R. Alen [employer] Epipen 2-Kyrie 03/28 Active Solution 0.3mg/0.3 2unit use if Auto-Inje ML s needed for galileo Colbert bee sting [employer] Clindamycin HCL 05/23 Hx Capsules 300mg 56cap 1 cap 4 K02.9 s times a day Krystinle, - for 14 days [employer] 08/20 Clarithromycin 09/03 Hx Tablets 500mg 20tab 1 tab by R68.84 Naima s mouth twice Sayra, - a day x 10 [employer] [facility] Ondansetron 08/15 Hx Tablets 4mg 30tab dissolve 1 Dispers s tab by mouth Sayra, - three times [employer] [facility] 08/15 a day as needed nausea Doxycycline 07/06 Hx Tablets 100mg 20tab 1 tab by J01.90 Brandyn Hyclate /2015 s mouth twice [place] - a day for 10 III, [employer] [facility] 08/15 days for 2017 infection Guaifenesin-Code 05/30 Hx Syrup 100-10mg/ 240ml 1-2 teaspoon R05 Naima ine 5ML every 4-6 Sayra, - hours as [employer] 08/15 needed cough Cyclobenzaprine 04/18 Hx Tablets 5mg 30tab 1-2 by mouth M54.2 Shawnti R. HCL s three times Storm, - a day for [employer] 07/06 muscle spasm, may cause drowsiness Ondansetron 04/18 Hx Tablets 4mg 30tab dissolve 1 Dispers s tab by mouth Sayra, - three times [employer] [facility] 07/06 a day needed nausea Prednisone 11/02 Hx Tablets 50mg 7tabs 1 by mouth S64.12xA Andrea every day Carson, - 01/31 Hydrocodone-Acet 09/07 Hx Tablets 5-325mg 45tab 1 by mouth Naima aminophen s q4 - 6 hours Sayra, - as needed [employer] 01/23 for severe pain Oxycodone-Acetam 03/30 Hx Tablets 5-325mg 60tab 1 by mouth Naima inophen s every 8 Sayra, - hours as [employer] 09/07 needed severe pain Ilotycin 07/05 Hx Ointment 5mg/GM 1unit apply a thin 371.89 s layer to Sayra, - right lower [employer] [facility] 01/31 inner eyelid twice a day X 5 days Ondansetron 07/05 Hx Tablets 4mg 60tab dissolve 1 Dispers s tab by mouth Sayra, - three times [employer] 01/31 a day needed nausea Ondansetron 01/20 Hx Tablets 4mg 60tab 1 tablet Dispers s dissolved on Sayra, - tongue tid [employer] 01/31 prn nausea Gabapentin 11/17 Hx Tablets 600mg 90tab take 3 tabs s po q hs Sayra, - [employer] 01/31 Hydrocodone/Acet 11/17 Hx Tablets 5-325mg 30thi 1 po bid rty prn severe Sayra, - pain [employer] [facility] 03/30 Omeprazole 10/16 Hx Capsules 40mg 60cap [address] martin twice a day Sayra, - [employer] 08/15 Bactroban 07/03 Hx Cream 2% 15gm apply a 682.5 small amount Sayra, - to wound bid [employer] 09/03 Omeprazole 05/04 Hx Capsules 20mg 60cap [address] mario Colbert, - [employer] 10/16 Doxycycline 03/09 Hx Tablets 100mg 20tab 1 tab po bid Beatriz Hyclate s X 10 days Ed Quiñonez M.D. 07/04 Align 01/21 Hx Capsules 4mg 49cap one po qd s while on Sayra, - antibiotics [employer] 01/31 Azithromycin 12/02 Hx Tablets 250mg 6tabs take 2 465.9 tablets Sayra, - today then 1 [employer] 01/21 tablet daily for the next 4 days Bismuth 10/31 Hx Tablet 262mg 240ta 2 tablets po Subsalicylate bs pc and hs Sayra, - followed by [facility] 01/22 a glass of water X 10 days Metronidazole 10/31 Hx Tablets 250mg 60tab 1 1/2 s tablets po Sayra, - pc and hs X [employer] 10/16 Tetracycline HCL 10/31 Hx Capsules 500mg 40cap 1 tab po s after each Sayra, - meal and hs [employer] [facility] 10/31 X 10 Clarithromycin 10/31 Hx Tablets 500mg 20tab 1 po bid x s 10 days Sayra, - [employer] 10/16 Vancomycin HCL 09/26 Hx Capsules 250mg 40cap 1 tab po qid s for 10 days Sayra, - [employer] 10/16 Ondansetron Odt 09/24 Hx Tablets 4mg 60tab dissolve 1 R11.10 Dispers s tablet on Sayra, - tongue three [employer] 08/15 times a day /2016 as needed for nausea Clindamycin HCL 05/19 Hx Capsules 150mg 30cap 1 po tid for 522.5 Shawnti R. s 10 days for Alen, - abscess [facility] 05/29 Senna/Docusate 04/08 Hx Tablets 8.6-50mg 30tab 2 po bid Naima s until you Sayra, - have a good [employer] [facility] 01/31 Oxycodone/Acetam 04/07 Hx Tablets 5-325mg 20twe 1 po q 4 789.9 nty hours prn Sayra, - severe pain [employer] [facility] 05/19 Savella 03/28 Hx Tablets 25mg bid [place] Ed Spears MD 03/28 Melatonin CR 03/28 Hx Tablets 10mg wnti R. ER Alen, - [employer] 09/03 Vitamin C 03/28 Hx Chewtabs 500mg 1 po qd wnti R. Alen, - [employer] 09/03 Vitamin D-1000 03/28 Hx Tablets 1000Unit 1 po qd wnti R. Alen, - [employer] 09/03 Savella 03/28 Hx Tablets 50mg 60tab 1 po bid s Sayra, - [employer] 11/17 [place] Hx Tablets 5-325mg 1 po Q6HR [place], / Ed Spears MD 10/16 Lyrica Hx Capsules 75mg 60cap 1 po QHS for [place], / s pain Ed Spears MD 09/24 Ibuprofen 00 Hx Tablets 800mg 90tab one po every Naima / s 8 hours with Sayra, - food prn [employer] [facility] 01/31 pain Gralise Hx Tablets 600mg 90tab 3 tabs po qd Naima /0000 s in evening Ed Colbert replaces HAMIDA 01/31 gabapentin workers comp Pantoprazole Hx Tablets 40mg Take One Unknown Sodium /0000 DR Tablet By - Mouth Twice 04/18 Pantoprazole Hx Tablets 40mg 60tab 1 by mouth Naima Sodium /0000 DR s twice a day Ed Colbert-Faith 09/12 Medications Administered in Office Medication Date Status Form Strength Qnty SIG Indications Ordering Provider TB,Intradermal Administered Injection Lab and (PPD, Mantoux) 013 Office Services Immunizations CPT Code Status Date Vaccine Lot # [id number] Given 05/23/2017 Influenza Virus Vaccine, Quadrivalent, 3 Yr > [id number] Quad, Preserv Free 56026 Given 05/30/2016 Influenza Virus Vaccine, Quadrivalent, 3 Yr > [id number] Quad, Preserv Free 86456 Given 09/06/2014 Tdap (Adacel) [id number] Given 09/06/2014 Influenza Virus Vaccine, Quadrivalent, 3 Yr > [id number] Quad, Preserv Free 90589 Given 05/19/2012 Influenza Vaccine-Preservative Free 3 Yrs And [id number] Ordered 10/27/2009 Tdap (Adacel) Vital Signs Date Vital Result Comment 09/03/2017 Weight 159.00 lb Weight in kg's 72.122 BP Systolic 120 mmHg BP Diastolic 78 mmHg Heart Rate 96 /min Body Temperature 98.8 F 08/27/2017 Weight 161.00 lb Weight in kg's 73.030 BP Systolic 120 mmHg BP Diastolic 78 mmHg BP Systolic Recheck 132 mmHg BP Diastolic Recheck 92 mmHg Heart Rate 80 /min Body Temperature 98.7 F Respiratory Rate 16 /min Height 65.75 inches 5'5.75" BMI (Body Mass Index) 26.2 kg/m2 08/20/2017 Weight 159.00 lb Weight in kg's 72.122 BP Systolic 140 mmHg BP Diastolic 100 mmHg BP Systolic Recheck 133 mmHg BP Diastolic Recheck 94 mmHg Heart Rate 120 /min 110 repeat Body Temperature 98.4 F O2 % BldC Oximetry 99 % 05/23/2017 Weight 154.00 lb Weight in kg's 69.854 BP Systolic 117 mmHg BP Diastolic 80 mmHg Heart Rate 96 /min Body Temperature 98.2 F 01/22/2017 Weight 141.00 lb Weight in kg's 63.958 BP Systolic 106 mmHg BP Diastolic 71 mmHg Heart Rate 104 /min Body Temperature 97.9 F 11/16/2016 Weight 148.00 lb Weight in kg's 67.133 BP Systolic 106 mmHg BP Diastolic 74 mmHg Heart Rate 80 /min Body Temperature 98.6 F Respiratory Rate 16 /min 09/03/2016 Weight 147.00 lb Weight in kg's 66.679 BP Systolic 118 mmHg BP Diastolic 74 mmHg Heart Rate 100 /min Body Temperature 98.7 F Respiratory Rate 17 /min O2 % BldC Oximetry 97 % 08/15/2016 Weight 137.00 lb Weight in kg's 62.143 BP Systolic 102 mmHg BP Diastolic 68 mmHg Heart Rate 95 /min Body Temperature 98.3 F Respiratory Rate 16 /min O2 % BldC Oximetry 99 % 07/06/2016 Weight 141.00 lb Weight in kg's 63.958 BP Systolic 104 mmHg BP Diastolic 80 mmHg Heart Rate 92 /min Body Temperature 98.9 F Respiratory Rate 16 /min Height 66 inches 5'6" BMI (Body Mass Index) 22.8 kg/m2 O2 % BldC Oximetry 99 % 05/30/2016 Weight 142.00 lb Weight in kg's 64.411 BP Systolic 90 mmHg BP Diastolic 60 mmHg Heart Rate 88 /min Body Temperature 98.4 F Respiratory Rate 20 /min O2 % BldC Oximetry 98 % 04/18/2016 Weight 137.00 lb Weight in kg's 62.143 BP Systolic 98 mmHg BP Diastolic 58 mmHg Heart Rate 74 /min Body Temperature 98.5 F Respiratory Rate 14 /min 02/01/2016 Weight 131.00 lb Weight in kg's 59.422 BP Systolic 132 mmHg BP Diastolic 80 mmHg Heart Rate 108 /min 11/03/2015 BP Systolic 110 mmHg BP Diastolic 68 mmHg Heart Rate 80 /min 09/07/2015 Weight 133.00 lb Weight in kg's 60.329 BP Systolic 118 mmHg BP Diastolic 56 mmHg Heart Rate 88 /min 04/12/2015 Weight 126.00 lb Weight in kg's 57.154 BP Systolic 102 mmHg BP Diastolic 74 mmHg Heart Rate 92 /min 03/30/2015 Weight 120.00 lb Weight in kg's 54.432 BP Systolic 120 mmHg BP Diastolic 72 mmHg Heart Rate 76 /min 09/06/2014 Weight 122.00 lb Weight in kg's 55.339 BP Systolic 100 mmHg BP Diastolic 58 mmHg Heart Rate 60 /min 07/05/2014 Weight 112.00 lb Weight in kg's 50.803 BP Systolic 102 mmHg BP Diastolic 68 mmHg Heart Rate 80 /min Right Visual Acuity Distance 20/30 Left Visual Acuity Distance 20/20 Both Visual Acuity Distance 20/20 10/16/2013 Weight 131.00 lb Weight in kg's 59.422 BP Systolic 106 mmHg BP Diastolic 68 mmHg Heart Rate 60 /min 07/03/2013 Weight 125.00 lb Weight in kg's 56.700 BP Systolic 114 mmHg BP Diastolic 70 mmHg Heart Rate 92 /min 06/24/2013 Weight 122.00 lb Weight in kg's 55.339 BP Systolic 116 mmHg BP Diastolic 66 mmHg Heart Rate 80 /min Body Temperature 98.1 F 03/09/2013 Weight 119.00 lb Weight in kg's 53.978 BP Systolic 104 mmHg BP Diastolic 64 mmHg Heart Rate 80 /min Body Temperature 97.7 F 12/02/2012 Weight 118.00 lb Weight in kg's 53.525 BP Systolic 104 mmHg BP Diastolic 64 mmHg Heart Rate 88 /min Body Temperature 97.8 F O2 % BldC Oximetry 99 % 11/04/2012 Weight 120.00 lb Weight in kg's 54.432 BP Systolic 138 mmHg BP Diastolic 80 mmHg Heart Rate 72 /min Height 65.5 inches 5'5.50" BMI (Body Mass Index) 19.7 kg/m2 09/24/2012 Weight 121.00 lb Weight in kg's 54.886 BP Systolic 100 mmHg BP Diastolic 78 mmHg Heart Rate 102 /min Body Temperature 99.3 F 800 Ibuprofen At 8:00 Am 05/19/2012 Weight 122.00 lb Weight in kg's 55.339 BP Systolic 108 mmHg BP Diastolic 66 mmHg Heart Rate 96 /min Body Temperature 98.3 F 04/07/2012 Weight 122.00 lb Weight in kg's 55.339 BP Systolic 132 mmHg BP Diastolic 88 mmHg Heart Rate 88 /min Body Temperature 98.8 F 03/28/2012 Weight 118.00 lb Weight in kg's 53.525 BP Systolic 120 mmHg BP Diastolic 62 mmHg Heart Rate 80 /min Height 64.25 inches 5'4.25" BMI (Body Mass Index) 20.1 kg/m2 Results Test Date Test Result H/L Range Note CBC Auto Diff 08/30/2017 White Blood Count 9.2 10^3/uL 3.5-10.8 Red Blood Count 4.46 10^6/uL 4.0-5.4 Hemoglobin 14.6 g/dL 14.0-18.0 Hematocrit 43 % 42-52 Mean Corpuscular Volume 95 fL High 80-94 Mean Corpuscular Hemoglobin 33 pg High 27-31 Mean Corpuscular HGB Conc 34 g/dL 31-36 Red Cell Distribution Width 13 % 10.5-15 Platelet Count 438 10^3/uL 150-450 Mean Platelet Volume 7 um3 Low 7.4-10.4 Abs Neutrophils 6.0 10^3/uL 1.5-7.7 Abs Lymphocytes 2.4 10^3/uL 1.0-4.8 Abs Monocytes 0.6 10^3/uL 0-0.8 Abs Eosinophils 0.3 10^3/uL 0-0.6 Abs Basophils 0 10^3/uL 0-0.2 Abs Nucleated RBC 0 10^3/uL Granulocyte % 64.8 % 38-83 Lymphocyte % 25.6 % 25-47 Monocyte % 6.1 % 1-9 Eosinophil % 3.0 % 0-6 Basophil % 0.5 % 0-2 Nucleated Red Blood Cells % 0.1 Laboratory test finding 08/30/2017 Blood Urea Nitrogen BUN 14 mg/dL 6-24 Creatinine 08/30/2017 Creatinine 0.92 mg/dL 0.67-1.17 Egfr Non- 94.7 >60 Egfr 121.9 >60 1 Inr/Protime 08/30/2017 Inr 1.00 0.77-1.02 Laboratory test finding 08/30/2017 Partial Thrombo Time 32.0 seconds 26.0 -36.3 PTT Laboratory test finding 08/29/2017 Magnesium 2.0 mg/dL 1.9-2.7 Troponin-I (TnI) 0.00 ng/mL <0.04 TSH (Thyroid Stimulating Horm) 1.79 mcIU/mL 0.34-5.60 Comp Metabolic Panel 08/29/2017 Sodium 136 mmol/L 133-145 Potassium 3.5 mmol/L 3.5-5.0 Chloride 107 mmol/L 101-111 Co2 Carbon Dioxide 21 mmol/L Low 22-32 Anion Gap 8 mmol/L 2-11 Glucose 115 mg/dL High 70-100 Blood Urea Nitrogen 16 mg/dL 6-24 Creatinine 0.94 mg/dL 0.67-1.17 BUN/Creatinine Ratio 17.0 8-20 Calcium 9.3 mg/dL 8.6-10.3 Total Protein 7.0 g/dL 6.4-8.9 Albumin 4.3 g/dL 3.2-5.2 Globulin 2.7 g/dL 2-4 Albumin/Globulin Ratio 1.6 1-3 Total Bilirubin 0.70 mg/dL 0.2-1.0 Alkaline Phosphatase 69 U/L 34-104 Alt 17 U/L 7-52 Ast 15 U/L 13-39 Egfr Non- 92.4 >60 Egfr 118.9 >60 2 Type & Screen 08/29/2017 Patient Blood Type A Positive Antibody Screen NEGATIVE Laboratory test finding 08/29/2017 Troponin-I (TnI) 0.00 ng/mL <0.04 Urinalysis Profile 08/29/2017 Urine Color Yellow Urine Appearance Clear Urine Specific [place] 1.021 1.010-1.030 Urine pH 6.0 5-9 Urine Urobilinogen Positive Negative Urine Ketones Negative Negative Urine Protein Negative Negative Urine Leukocytes Negative Negative Urine Blood Negative Negative Urine Nitrite Negative Negative Urine Bilirubin Negative Negative Urine Glucose Negative Negative Laboratory test finding 08/29/2017 Lactic Acid 1.1 mmol/L 0.5-2.0 3 Partial Thrombo Time PTT 31.1 seconds 26.0-36.3 CBC Auto Diff 08/29/2017 White Blood Count 8.8 10^3/uL 3.5-10.8 Red Blood Count 4.38 10^6/uL 4.0-5.4 Hemoglobin 14.1 g/dL 14.0-18.0 Hematocrit 41 % Low 42-52 Mean Corpuscular Volume 95 fL High 80-94 Mean Corpuscular Hemoglobin 32 pg High 27-31 Mean Corpuscular HGB Conc 34 g/dL 31-36 Red Cell Distribution Width 13 % 10.5-15 Platelet Count 423 10^3/uL 150-450 Mean Platelet Volume 7 um3 Low 7.4-10.4 Abs Neutrophils 5.4 10^3/uL 1.5-7.7 Abs Lymphocytes 2.5 10^3/uL 1.0-4.8 Abs Monocytes 0.6 10^3/uL 0-0.8 Abs Eosinophils 0.3 10^3/uL 0-0.6 Abs Basophils 0.1 10^3/uL 0-0.2 Abs Nucleated RBC 0 10^3/uL Granulocyte % 61.0 % 38-83 Lymphocyte % 28.5 % 25-47 Monocyte % 6.4 % 1-9 Eosinophil % 3.4 % 0-6 Basophil % 0.7 % 0-2 Nucleated Red Blood Cells % 0.1 Laboratory test finding 08/20/2017 TSH (Thyroid Stim Horm) 1.60 mcIU/mL 0.34-5.60 4 Magnesium 2.1 mg/dL 1.9-2.7 5 CBC Auto Diff 08/20/2017 White Blood Count 8.1 10^3/uL 3.5-10.8 Red Blood Count 5.01 10^6/uL 4.0-5.4 Hemoglobin 16.1 g/dL 14.0-18.0 Hematocrit 47 % 42-52 Mean Corpuscular Volume 95 fL High 80-94 Mean Corpuscular Hemoglobin 32 pg High 27-31 Mean Corpuscular HGB Conc 34 g/dL 31-36 Red Cell Distribution Width 14 % 10.5-15 Platelet Count 462 10^3/uL High 150-450 Mean Platelet Volume 7 um3 Low 7.4-10.4 Abs Neutrophils 5.2 10^3/uL 1.5-7.7 Abs Lymphocytes 2.2 10^3/uL 1.0-4.8 Abs Monocytes 0.4 10^3/uL 0-0.8 Abs Eosinophils 0.3 10^3/uL 0-0.6 Abs Basophils 0 10^3/uL 0-0.2 Abs Nucleated RBC 0 10^3/uL Granulocyte % 63.7 % 38-83 Lymphocyte % 27.1 % 25-47 Monocyte % 5.4 % 1-9 Eosinophil % 3.5 % 0-6 Basophil % 0.3 % 0-2 Nucleated Red Blood Cells % 0 Comp Metabolic Panel 08/20/2017 Sodium 137 mmol/L 133-145 Potassium 4.4 mmol/L 3.5-5.0 Chloride 105 mmol/L 101-111 Co2 Carbon Dioxide 27 mmol/L 22-32 Anion Gap 5 mmol/L 2-11 Glucose 90 mg/dL 70-100 Blood Urea Nitrogen 12 mg/dL 6-24 Creatinine 0.87 mg/dL 0.67-1.17 BUN/Creatinine Ratio 13.8 8-20 Calcium 9.9 mg/dL 8.6-10.3 Total Protein 7.5 g/dL 6.4-8.9 Albumin 4.7 g/dL 3.2-5.2 Globulin 2.8 g/dL 2-4 Albumin/Globulin Ratio 1.7 1-3 Total Bilirubin 0.60 mg/dL 0.2-1.0 Alkaline Phosphatase 81 U/L 34-104 Alt 18 U/L 7-52 Ast 16 U/L 13-39 Egfr Non- 101.1 >60 Egfr 130.0 >60 6 Lipid Profile (Trig/Chol/HDL) 08/20/2017 Triglycerides 181 mg/dL 7 Cholesterol 96 mg/dL 8 HDL Cholesterol 28.5 mg/dL 9 LDL Cholesterol 31 mg/dL 10 Laboratory test finding 01/17/2017 Tissue Culture & SEE RESULT BELOW 11, 12 Sensitiv Wound Culture/Sensi SEE RESULT BELOW 11, 13 CBC Auto Diff 09/05/2015 White Blood Count 9.1 10^3/uL 3.5-10.8 Red Blood Count 5.16 10^6/uL 4.0-5.4 Hemoglobin 16.4 g/dL 14.0-18.0 Hematocrit 50 % 42-52 Mean Corpuscular Volume 96 fL High 80-94 Mean Corpuscular Hemoglobin 32 pg High 27-31 Mean Corpuscular HGB Conc 33 g/dL 31-36 Red Cell Distribution Width 13 % 10.5-15 Platelet Count 463 10^3/uL High 150-450 Mean Platelet Volume 7 um3 Low 7.4-10.4 Abs Neutrophils 6.2 10^3/uL 1.5-7.7 Abs Lymphocytes 2.3 10^3/uL 1.0-4.8 Abs Monocytes 0.5 10^3/uL 0-0.8 Abs Eosinophils 0 10^3/uL 0-0.6 Abs Basophils 0.1 10^3/uL 0-0.2 Abs Nucleated RBC 0 10^3/uL Granulocyte % 68.6 % 38-83 Lymphocyte % 24.9 % Low 25-47 Monocyte % 5.4 % 1-9 Eosinophil % 0.4 % 0-6 Basophil % 0.7 % 0-2 Nucleated Red Blood Cells % 0 Comp Metabolic Panel 09/05/2015 Sodium 137 mmol/L 133-145 Potassium 3.3 mmol/L Low 3.5-5.0 Chloride 102 mmol/L 101-111 Co2 Carbon Dioxide 25 mmol/L 22-32 Anion Gap 10 mmol/L 2-11 Glucose 82 mg/dL 70-100 Blood Urea Nitrogen 8 mg/dL 6-24 Creatinine 0.97 mg/dL 0.67-1.17 BUN/Creatinine Ratio 8.2 8-20 Calcium 10.0 mg/dL 8.6-10.3 Total Protein 7.5 g/dL 6.4-8.9 Albumin 5.0 g/dL 3.2-5.2 Globulin 2.5 g/dL 2-4 Albumin/Globulin Ratio 2.0 1-3 Total Bilirubin 0.60 mg/dL 0.2-1.0 Alkaline Phosphatase 80 U/L 34-104 Alt 16 U/L 7-52 Ast 19 U/L 13-39 Egfr Non- 90.3 >60 Egfr 116.1 >60 14 Laboratory test finding 09/05/2015 Lactic Acid 1.8 mmol/L 0.5-2.0 15 CBC Auto Diff 05/15/2015 White Blood Count 11.9 10^3/uL High 4.8-10.8 Red Blood Count 4.83 10^6/uL 4.0-5.4 Hemoglobin 15.9 g/dL 14.0-18.0 Hematocrit 46 % 42-52 Mean Corpuscular Volume 96 fL High 80-94 Mean Corpuscular Hemoglobin 33 pg High 27-31 Mean Corpuscular HGB Conc 34 g/dL 31-36 Red Cell Distribution Width 12 % 10.5-15 Platelet Count 422 10^3/uL 150-450 Mean Platelet Volume 7 um3 Low 7.4-10.4 Abs Neutrophils 8.2 10^3/uL High 1.5-7.7 Abs Lymphocytes 2.8 10^3/uL 1.0-4.8 Abs Monocytes 0.7 10^3/uL 0-0.8 Abs Eosinophils 0.1 10^3/uL 0-0.6 Abs Basophils 0.1 10^3/uL 0-0.2 Abs Nucleated RBC 0.01 10^3/uL Granulocyte % 68.8 % 38-83 Lymphocyte % 23.1 % Low 25-47 Monocyte % 5.9 % 1-9 Eosinophil % 1.2 % 0-6 Basophil % 1.0 % 0-2 Nucleated Red Blood Cells % 0.1 Inr/Protime 05/15/2015 Inr 1.04 0.78-1.07 Laboratory test finding 05/15/2015 Partial Thrombo Time 34.2 seconds 26.0 -36.3 PTT D Dimer Quantitative < 200 ng/mL Less Than 230 16 B-Type Natriuretic Peptide BNP 27 pg/mL 17 Comp Metabolic Panel 05/15/2015 Sodium 137 mmol/L 133-145 Potassium 3.2 mmol/L Low 3.5-5.0 Chloride 102 mmol/L 101-111 Co2 Carbon Dioxide 27 mmol/L 22-32 Anion Gap 8 mmol/L 2-11 Glucose 70 mg/dL 70-100 Blood Urea Nitrogen 12 mg/dL 6-24 Creatinine 1.10 mg/dL 0.67-1.17 BUN/Creatinine Ratio 10.9 8-20 Calcium 9.8 mg/dL 8.6-10.3 Total Protein 7.6 g/dL 6.4-8.9 Albumin 4.9 g/dL 3.2-5.2 Globulin 2.7 g/dL 2-4 Albumin/Globulin Ratio 1.8 1-3 Total Bilirubin 0.60 mg/dL 0.2-1.0 Alkaline Phosphatase 80 U/L 34-104 Alt 9 U/L 7-52 Ast 10 U/L Low 13-39 Egfr Non- 78.1 >60 Egfr 100.4 >60 18 Laboratory test finding 05/15/2015 Lipase 11 U/L 11.0-82.0 C Reactive Protein 35.65 mg/L High < 5.00 19 Troponin I 0.00 ng/mL <0.03 20 TSH (Thyroid Stimulating Horm) 1.88 ?IU/mL 0.34-5.60 Urinalysis 10/21/2013 Urine Color Yellow Urine Appearance Clear Urine Specific [place] 1.006 Low 1.010-1.030 Urine Esterase Negative Negative Urine Nitrate Negative Negative Urine Urobilinogen Negative E.U./dL Negative Urine Protein Negative mg/dL Negative Urine pH 7.0 5-9 Urine Blood Negative Negative Urine Ketones Negative mg/dL Negative Urine Bilirubin Negative Negative Urine Glucose Negative mg/dL Negative CBC Auto Diff 10/21/2013 White Blood Count 15.3 10^3/uL High 4.8-10.8 Red Blood Count 4.60 10^6/uL 4.0-5.4 Hemoglobin 15.0 g/dL 14.0-18.0 Hematocrit 43 % 42-52 Mean Corpuscular Volume 94 fL 80-94 Mean Corpuscular Hemoglobin 33 pg High 27-31 Mean Corpuscular HGB Conc 35 g/dL 31-36 Red Cell Distribution Width 13 % 10.5-15 Platelet Count 503 10^3/uL High 150-450 Mean Platelet Volume 8 um3 7.4-10.4 Abs Neutrophils 12.2 10^3/uL High 1.5-7.7 Abs Lymphocytes 2.4 10^3/uL 1.0-4.8 Abs Monocytes 0.5 10^3/uL 0-0.8 Abs Eosinophils 0 10^3/uL 0-0.6 Abs Basophils 0.1 10^3/uL 0-0.2 Abs Nucleated RBC 0 10^3/uL Granulocyte % 80.1 % 38-83 Lymphocyte % 15.5 % Low 25-47 Monocyte % 3.5 % 1-9 Eosinophil % 0.2 % 0-6 Basophil % 0.7 % 0-2 Nucleated Red Blood Cells % 0 Comp Metabolic Panel 10/21/2013 Sodium 137 mmol/L 133-145 Potassium 4.4 mmol/L 3.7-5.6 Chloride 102 mmol/L 101-111 Co2 Carbon Dioxide 28 mmol/L 22-32 Anion Gap 7 mmol/L 2-11 Glucose 81 mg/dL 70-100 Blood Urea Nitrogen 10 mg/dL 6-24 Creatinine 0.91 mg/dL 0.67-1.17 BUN/Creatinine Ratio 11.0 8-20 Calcium 10.1 mg/dL 8.6-10.3 Total Protein 7.8 g/dL 6.4-8.9 Albumin 4.8 g/dL 3.2-5.2 Globulin 3.0 g/dL 2-4 Albumin/Globulin Ratio 1.6 1-3 Total Bilirubin 0.40 mg/dL 0.2-1.0 Alkaline Phosphatase 88 U/L 34-104 Alt 9 U/L 7-52 Ast 14 U/L 13-39 Egfr Non- 98.5 >60 Egfr 126.7 >60 21 Wound Culture/Sensi 06/24/2013 Wound/Misc Culture-Gram Stain (SEE NOTE) 22 Wound Culture/Sensi 03/09/2013 Wound/Misc Culture-Gram Stain (SEE NOTE) 23 Hemoccult 11/07/2012 Stool-Occult Blood #1 NEG 11/05/12 Neg Stool-Occult Blood #2 NEG 11/06/12 Neg Stool-Occult Blood #3 NEG 11/07/12 Neg Comp Metabolic Panel 11/04/2012 Sodium 141 mmol/L 133-145 Potassium 4.8 mmol/L 3.5-5.0 Chloride 105 mmol/L 101-111 Co2 Carbon Dioxide 29.0 mmol/L 22-32 Anion Gap 7.0 mmol/L 2-11 Glucose 53 mg/dL Low 70-100 Blood Urea Nitrogen 9 mg/dL 6-24 Creatinine 0.80 mg/dL 0.50-1.40 BUN/Creatinine Ratio 11.3 8-20 Calcium 10.3 mg/dL High 8.1-9.9 Total Protein 7.6 g/dL 6.2-8.1 Albumin 4.7 g/dL 3.6-5.4 Globulin 2.9 g/dL 2-4 Albumin/Globulin Ratio 1.6 1-3 Total Bilirubin 0.8 mg/dL 0.4-1.5 Alkaline Phosphatase 52 U/L 30-110 Alt 14 U/L 14-54 Ast 22 U/L 12-42 Egfr Non- 115.1 >60 Egfr 148.0 >60 24 CBC Auto Diff 11/04/2012 White Blood Count 6.3 10^3/uL 4.8-10.8 Red Blood Count 4.36 10^6/uL 4.0-5.4 Hemoglobin 14.7 g/dL 14.0-18.0 Hematocrit 42 % 42-52 Mean Corpuscular Volume 97 fL High 80-94 Mean Corpuscular Hemoglobin 34 pg High 27-31 Mean Corpuscular HGB Conc 35 g/dL 31-36 Red Cell Distribution Width 13 % 10.5-15 Platelet Count 413 10^3/uL 150-450 Mean Platelet Volume 8 um3 7.4-10.4 Abs Neutrophils 4.1 10^3/uL 1.5-7.7 Abs Lymphocytes 1.6 10^3/uL 1.0-4.8 Abs Monocytes 0.3 10^3/uL 0-0.8 Abs Eosinophils 0.1 10^3/uL 0-0.6 Abs Basophils 0 10^3/uL 0-0.2 Abs Nucleated RBC 0 10^3/uL Granulocyte % 65.8 % 38-83 Lymphocyte % 26.0 % 25-47 Monocyte % 5.5 % 1-9 Eosinophil % 2.3 % 0-6 Basophil % 0.4 % 0-2 Nucleated Red Blood Cells % 0 Laboratory test finding 09/26/2012 Blood Culture (SEE NOTE) 25 Blood Culture 09/26/2012 Blood Culture (SEE NOTE) 26 CBC Auto Diff 09/24/2012 White Blood Count 7.8 10^3/uL 4.8-10.8 Red Blood Count 4.29 10^6/uL 4.0-5.4 Hemoglobin 14.0 g/dL 14.0-18.0 Hematocrit 42 % 42-52 Mean Corpuscular Volume 98 fL High 80-94 Mean Corpuscular Hemoglobin 33 pg High 27-31 Mean Corpuscular HGB Conc 33 g/dL 31-36 Red Cell Distribution Width 12 % 10.5-15 Platelet Count 467 10^3/uL High 150-450 Mean Platelet Volume 8 um3 7.4-10.4 Abs Neutrophils 5.4 10^3/uL 1.5-7.7 Abs Lymphocytes 1.9 10^3/uL 1.0-4.8 Abs Monocytes 0.4 10^3/uL 0-0.8 Abs Eosinophils 0.1 10^3/uL 0-0.6 Abs Basophils 0 10^3/uL 0-0.2 Abs Nucleated RBC 0.01 10^3/uL Granulocyte % 69.2 % 38-83 Lymphocyte % 24.1 % Low 25-47 Monocyte % 4.5 % 1-9 Eosinophil % 1.7 % 0-6 Basophil % 0.5 % 0-2 Nucleated Red Blood Cells % 0.1 Comp Metabolic Panel 09/24/2012 Sodium 135 mmol/L 133-145 Potassium 4.2 mmol/L 3.5-5.0 Chloride 104 mmol/L 101-111 Co2 Carbon Dioxide 26.0 mmol/L 22-32 Anion Gap 5.0 mmol/L 2-11 Glucose 61 mg/dL Low 70-100 Blood Urea Nitrogen 7 mg/dL 6-24 Creatinine 0.80 mg/dL 0.50-1.40 BUN/Creatinine Ratio 8.8 8-20 Calcium 9.5 mg/dL 8.1-9.9 Total Protein 6.5 g/dL 6.2-8.1 Albumin 4.3 g/dL 3.6-5.4 Globulin 2.2 g/dL 2-4 Albumin/Globulin Ratio 2.0 1-3 Total Bilirubin 0.7 mg/dL 0.4-1.5 Alkaline Phosphatase 65 U/L 30-110 Alt 10 U/L Low 14-54 Ast 13 U/L 12-42 Egfr Non- 115.1 >60 Egfr 148.0 >60 27 Laboratory test finding 09/24/2012 Amylase 47 U/L 20-120 Lipase 19 U/L Low 22-51 TSH (Thyroid Stimulating Horm) 0.96 miu/mL 0.34-5.60 Jean-Claude Waller Comprehensive 09/24/2012 Ebv Capsid Ag IgG Ab Positive Negative Ebv Capsid Ag IgM Ab Negative Negative Jean-Claude-Waller Nuclear Antigen Positive Negative Jean-Claude-Waller Virus Interp See Comment 28 CMV Igg/Igm 09/24/2012 Cytomegalovirus IgG Antibody <4 AU/mL <4 Cytomegalovirus IgM Antibody Negative Negative 29 HIV 1/2 AB Evaluation 09/24/2012 HIV 1 2 Antibody Nonreactive Nonreactive 30 Urine DIP 04/07/2012 Leukocytes NEG Neg Urine Nitrites NEG Neg Urine pH 5 5-6 Total Protein, Urine NEG Neg Urine Glucose NORM Norm Urine Ketones NEG Neg Urobilinogen NEG Norm Urine Bilirubin NEG Neg Urine Blood NEG Neg Specific [place] N/A Low 1.01-1.02 Urinalysis 04/05/2012 Ua Color YELLOW Yellow Appearance-Urine CLEAR Clear Specific [place]-Ur 1.015 1.010-1.030 Esterase-Urine NEGATIVE Negative Nitrite NEGATIVE Negative Tlwuswgkyeza-Pl-FBU NEGATIVE Negative Protein-Urine NEGATIVE Negative PH-Urine 6.5 5-9 Blood-Urine NEGATIVE Negative Ketones-Urine NEGATIVE Negative Bilirubin-Ur NEGATIVE Negative Glucose-Urine NEGATIVE Negative CBC Auto Diff 04/05/2012 White Blood Count 8.2 CUMM 4.8-10.8 Red Cell Count 3.72 CUMM Low 4.6-6.2 Hemoglobin 12.8 g/dL Low 14.0-18.0 Hematocrit 36 % Low 42-52 Mean Corpuscular Volume 97 um3 High 80-94 Mean Corpuscular Hemoglob 35 pg High 27-31 Mean Corpuscular HGB Cone 36 g/dL 32-36 Redcell Distribution WDTH 13 % 10.5-15 Platelet Count 356 CUMM 150-450 Mean Platelet Volume 7.4 um3 7.4-10.4 Gran % 52.6 % 38-83 Lymph % 37.8 % 20-45 Mononuclear % 6.0 % 1-9 Eosinophil % 3.0 % 0-6 Basophil % 0.6 % 0-2 Abs Lymphs 3.1 1.0-4.8 Abs Mononuclear 0.5 0-0.8 Absolute Neutrophil Count 4.3 1.5-7.7 Abs Eosinophils 0.2 0-0.6 Abs Basophils 0 0-0.2 Comp Metabolic Panel 04/05/2012 Sodium 139 mmol/L 135-145 Potassium 3.6 mmol/L 3.5-5.0 Chloride 108 mmol/L 101-111 Co2 (Carbon Dioxide) 26.0 mmol/L 22-32 Anion Gap 5.0 mmol/L 2-11 31 Glucose 94 mg/dL 70-100 BUN 12 mg/dL 6-24 Creatinine 0.7 mg/dL 0.50-1.40 One Over Creatinine 1.42 BUN/Creatinine Ratio 17.1 8-20 Calcium 9.1 mg/dL 8.1-9.9 Total Protein 6.8 GM/DL 6.2-8.1 Albumin 4.5 GM/DL 3.6-5.4 Globulin 2.3 GM/DL 2-4 Albumin/Globulin Ratio 2.0 1-3 Bilirubin Total 0.6 mg/dL 0.4-1.5 32 Alkaline Phosphatase 44 U/L 39-117 Alt (SGPT) 11 U/L Low 17-63 Ast (Sgot) 14 U/L 12-42 eGFR Non- 134.3 > 60 eGFR 172.7 > 60 33 CBC Auto Diff 04/03/2012 White Blood Count 9.2 CUMM 4.8-10.8 Red Cell Count 3.88 CUMM Low 4.6-6.2 Hemoglobin 13.3 g/dL Low 14.0-18.0 Hematocrit 38 % Low 42-52 Mean Corpuscular Volume 98 um3 High 80-94 Mean Corpuscular Hemoglob 34 pg High 27-31 Mean Corpuscular HGB Cone 35 g/dL 32-36 Redcell Distribution WDTH 13 % 10.5-15 Platelet Count 398 CUMM 150-450 Mean Platelet Volume 7.8 um3 7.4-10.4 Gran % 56.4 % 38-83 Lymph % 35.0 % 20-45 Mononuclear % 5.7 % 1-9 Eosinophil % 2.5 % 0-6 Basophil % 0.4 % 0-2 Abs Lymphs 3.2 1.0-4.8 Abs Mononuclear 0.5 0-0.8 Absolute Neutrophil Count 5.2 1.5-7.7 Abs Eosinophils 0.2 0-0.6 Abs Basophils 0 0-0.2 Urinalysis 04/03/2012 Ua Color YELLOW Yellow Appearance-Urine TURBID Clear Specific [place]-Ur 1.031 High 1.010-1.030 Esterase-Urine NEGATIVE Negative Nitrite NEGATIVE Negative Cvacxlsrbunk-Sx-WOM NEGATIVE Negative Protein-Urine NEGATIVE Negative PH-Urine 6.5 5-9 Blood-Urine NEGATIVE Negative Ketones-Urine NEGATIVE Negative Bilirubin-Ur NEGATIVE Negative Glucose-Urine NEGATIVE Negative Comp Metabolic Panel 04/03/2012 Sodium 139 mmol/L 135-145 Potassium 3.5 mmol/L 3.5-5.0 Chloride 104 mmol/L 101-111 Co2 (Carbon Dioxide) 28.0 mmol/L 22-32 Anion Gap 7.0 mmol/L 2-11 34 Glucose 108 mg/dL High 70-100 BUN 18 mg/dL 6-24 Creatinine 1.0 mg/dL 0.50-1.40 One Over Creatinine 1.00 BUN/Creatinine Ratio 18.0 8-20 Calcium 9.6 mg/dL 8.1-9.9 Total Protein 6.8 GM/DL 6.2-8.1 Albumin 4.6 GM/DL 3.6-5.4 Globulin 2.2 GM/DL 2-4 Albumin/Globulin Ratio 2.1 1-3 Bilirubin Total 0.6 mg/dL 0.4-1.5 35 Alkaline Phosphatase 53 U/L 39-117 Alt (SGPT) 10 U/L Low 17-63 Ast (Sgot) 15 U/L 12-42 eGFR Non- 89.0 > 60 eGFR 114.4 > 60 36 Laboratory test finding 04/03/2012 Lipase 23 U/L 22-51 C Reactive Protein 0.6 mg/dL High Less Than 0.5 CBC Auto Diff 03/28/2012 White Blood Count 5.8 CUMM 4.8-10.8 Red Cell Count 3.84 CUMM Low 4.6-6.2 Hemoglobin 13.1 g/dL Low 14.0-18.0 Hematocrit 38 % Low 42-52 Mean Corpuscular Volume 99 um3 High 80-94 Mean Corpuscular Hemoglob 34 pg High 27-31 Mean Corpuscular HGB Cone 35 g/dL 32-36 Redcell Distribution WDTH 13 % 10.5-15 Platelet Count 400 CUMM 150-450 Mean Platelet Volume 7.8 um3 7.4-10.4 Gran % 57.4 % 38-83 Lymph % 33.0 % 20-45 Mononuclear % 5.8 % 1-9 Eosinophil % 3.3 % 0-6 Basophil % 0.5 % 0-2 Abs Lymphs 1.9 1.0-4.8 Abs Mononuclear 0.3 0-0.8 Absolute Neutrophil Count 3.4 1.5-7.7 Abs Eosinophils 0.2 0-0.6 Abs Basophils 0 0-0.2 Comp Metabolic Panel 03/28/2012 Sodium 137 mmol/L 135-145 Potassium 4.6 mmol/L 3.5-5.0 Chloride 105 mmol/L 101-111 Co2 (Carbon Dioxide) 26.0 mmol/L 22-32 Anion Gap 6.0 mmol/L 2-11 37 Glucose 40 mg/dL Low 70-100 BUN 10 mg/dL 6-24 Creatinine 0.9 mg/dL 0.50-1.40 One Over Creatinine 1.11 BUN/Creatinine Ratio 11.1 8-20 Calcium 9.6 mg/dL 8.1-9.9 Total Protein 6.8 GM/DL 6.2-8.1 Albumin 4.5 GM/DL 3.6-5.4 Globulin 2.3 GM/DL 2-4 Albumin/Globulin Ratio 2.0 1-3 Bilirubin Total 1.4 mg/dL 0.4-1.5 38 Alkaline Phosphatase 54 U/L 39-117 Alt (SGPT) 14 U/L Low 17-63 Ast (Sgot) 15 U/L 12-42 eGFR Non- 100.5 > 60 eGFR 129.2 > 60 39 Lipid Profile (Trig/Chol/HDL) 03/28/2012 Triglyceride 52 mg/dL 40-200 Cholesterol 134 mg/dL Less Than 200 40 High Density Lipoprotein 32 mg/dL Low 40-60 41 Cholesterol/HDL Ratio 4.19 AVERAGE 1-4.97 Low Density Lipoprotein 92 mg/dL Less Than 100 42 Laboratory test finding 03/28/2012 TSH 1.06 MIU/ML 0.34-5.60 Vitamin B12 243 pg/mL 180-914 1 Because ethnic data is not always readily available, this report includes an eGFR for both -Americans and non- Americans. The National Kidney Disease Education Program (NKDEP) does not endorse the use of the MDRD equation for patients that are not between the ages of 18 and 70, are , have extremes of body size, muscle mass, or nutritional status, or are non- or non-. According to the National Kidney Foundation, irrespective of diagnosis, the stage of the disease is based on the level of kidney function: Stage Description GFR(mL/min/1.73 m(2)) 1 Kidney damage with normal or decreased GFR 90 2 Kidney damage with mild decrease in GFR 60-89 3 Moderate decrease in GFR 30-59 4 Severe decrease in GFR 15-29 5 Kidney failure <15 (or dialysis) 2 Because ethnic data is not always readily available, this report includes an eGFR for both -Americans and non- Americans. The National Kidney Disease Education Program (NKDEP) does not endorse the use of the MDRD equation for patients that are not between the ages of 18 and 70, are , have extremes of body size, muscle mass, or nutritional status, or are non- or non-. According to the National Kidney Foundation, irrespective of diagnosis, the stage of the disease is based on the level of kidney function: Stage Description GFR(mL/min/1.73 m(2)) 1 Kidney damage with normal or decreased GFR 90 2 Kidney damage with mild decrease in GFR 60-89 3 Moderate decrease in GFR 30-59 4 Severe decrease in GFR 15-29 5 Kidney failure <15 (or dialysis) 3 [facility] Severe Sepsis and Septic Shock Management Bundle Measure requires all lactic acids initially measuring >2.0 mmol/L be repeated. 4 [id number] 5 [id number] 6 Because ethnic data is not always readily available, this report includes an eGFR for both -Americans and non- Americans. The National Kidney Disease Education Program (NKDEP) does not endorse the use of the MDRD equation for patients that are not between the ages of 18 and 70, are , have extremes of body size, muscle mass, or nutritional status, or are non- or non-. According to the National Kidney Foundation, irrespective of diagnosis, the stage of the disease is based on the level of kidney function: Stage Description GFR(mL/min/1.73 m(2)) 1 Kidney damage with normal or decreased GFR 90 2 Kidney damage with mild decrease in GFR 60-89 3 Moderate decrease in GFR 30-59 4 Severe decrease in GFR 15-29 5 Kidney failure <15 (or dialysis) 7 Desirable: <150 Borderline High: 150-199 High: 200-499 Very High: >500 8 Desirable: <200 Borderline High: 200-239 High: >239 9 Low: <40 Desirable: 40-60 High: >60 10 Desirable: <100 Near Optimal: 100-129 Borderline High: 130-159 High: 160-189 Very High: >189 11 INFECTION OG RIGHT THUMB LACERATION 12 SEE RESULT BELOW Name: FESTUS ROBERTS : [address]: Davi Cheney MD Acct: [id number] Unit: [id number] AGE: 31 Location: [facility] Re01/17/17 SEX: M Status: REG [facility] SPEC: [id number] YSABEL: 01/17/[address] [facility] [address]: Davi Cheney MD REQ: [id number] RECD: 01/17/17 STATUS: LYNN TORRE DR: Beatriz Flores MD _ SOURCE: WOUND SPDESC:RT THUMB ORDERED: Tissue Cult/GS, Anaerobic Cult COMMENTS: INFECTION OG RIGHT THUMB LACERATION Procedure Result Reported Site Tissue Gram Stain Final 01/17/17- 1412 ML 1+ Neutrophils 1+ Epithelial Cells No Organisms Seen Preparation By Direct Smear Tissue Culture Final 01/21/17- 0710 ML No Growth Day 4 Anaerobic Culture Final 01/21/17- 07 ML No Growth Day 4 * ML - MAIN LAB ([facility]) . END OF REPORT * ML=Testing performed at Main Lab DEPARTMENT OF PATHOLOGY, [address] [place] [address] Charan Herzog M.D. Director [facility] # [id number] SEE RESULT BELOW Name: FESTUS ROBERTS : [address]: Davi Cheney MD Acct: [id number] Unit: [id number] AGE: 31 Location: [facility] Re01/17/17 SEX: M Status: REG SDC SPEC: [id number] YSABEL: 01/17/17-[address] [facility] [address]: Davi Cheney MD REQ: [id number] RECD: 01/17/17-1221 STATUS: LYNN TORRE DR: Beatriz Flores MD _ SOURCE: WOUND SPDESC:RT THUMB ORDERED: Culture Stain QUERIES: Specimen Description RIGHT THUMB LACERATION Procedure Result Reported Site Wound/Misc Gram Stain Final 01/17/17- 1419 ML No Neutrophils Observed No Organisms Seen Wound/Misc Culture Final 01/19/17- 0956 ML No Growth Day 2 * ML - MAIN LAB ([facility]) . END OF REPORT * ML=Testing performed at Main Lab DEPARTMENT OF PATHOLOGY, [address] [place] [address] Charan Herzog M.D. Director [facility] # [id number] 14 Because ethnic data is not always readily available, this report includes an eGFR for both -Americans and non- Americans. The National Kidney Disease Education Program (NKDEP) does not endorse the use of the MDRD equation for patients that are not between the ages of 18 and 70, are , have extremes of body size, muscle mass, or nutritional status, or are non- or non-. According to the National Kidney Foundation, irrespective of diagnosis, the stage of the disease is based on the level of kidney function: Stage Description GFR(mL/min/1.73 m(2)) 1 Kidney damage with normal or decreased GFR 90 2 Kidney damage with mild decrease in GFR 60-89 3 Moderate decrease in GFR 30-59 4 Severe decrease in GFR 15-29 5 Kidney failure <15 (or dialysis) 15 [facility] Severe Sepsis and Septic Shock Management Bundle Measure requires all lactic acids initially measuring >2.0mmol/L be repeated. 16 Please note: The following may produce a false positive D Dimer test: - Rheumatoid factor greater than 60 IU/ml - Plasma hemoglobin greater than 0.05 gm/dl - Bilirubin greater than 50 mg/dl - Lipids greater than 1000 mg/dl - FDP greater than 20 ug/ml 17 >100 to <200 pg/mL: likely compensated congestive heart failure (CHF) 200 to 400 pg/mL: likely moderate CHF >400 pg/mL: likely moderate to severe CHF 18 Because ethnic data is not always readily available, this report includes an eGFR for both -Americans and non- Americans. The National Kidney Disease Education Program (NKDEP) does not endorse the use of the MDRD equation for patients that are not between the ages of 18 and 70, are , have extremes of body size, muscle mass, or nutritional status, or are non- or non-. According to the National Kidney Foundation, irrespective of diagnosis, the stage of the disease is based on the level of kidney function: Stage Description GFR(mL/min/1.73 m(2)) 1 Kidney damage with normal or decreased GFR 90 2 Kidney damage with mild decrease in GFR 60-89 3 Moderate decrease in GFR 30-59 4 Severe decrease in GFR 15-29 5 Kidney failure <15 (or dialysis) 19 Acute inflammation: >10.00 20 Reference Range and Interpretation: TnI (ng/mL) Interpretation Less Than 0.03 ng/mL Not supportive of diagnosis of MO 0.03 - 0.50 ng/mL Indeterminate: suggest serial studies if clinically indicated. Greater than 0.5 ng/mL Consistent with diagnosis of MO 21 Because ethnic data is not always readily available, this report includes an eGFR for both -Americans and non- Americans. The National Kidney Disease Education Program (NKDEP) does not endorse the use of the MDRD equation for patients that are not between the ages of 18 and 70, are , have extremes of body size, muscle mass, or nutritional status, or are non- or non-. According to the National Kidney Foundation, irrespective of diagnosis, the stage of the disease is based on the level of kidney function: Stage Description GFR(mL/min/1.73 m(2)) 1 Kidney damage with normal or decreased GFR 90 2 Kidney damage with mild decrease in GFR 60-89 3 Moderate decrease in GFR 30-59 4 Severe decrease in GFR 15-29 5 Kidney failure <15 (or dialysis) 22 RUN DATE: 06/26/13 [facility] LAB LIVE PAGE 1 RUN TIME: [address] [place], [place] [address] Specimen Inquiry Name: FESTUS ROBERTS : [address]: Beatriz Flores MD Acct: [id number] Unit: [id number] AGE: 28 Location: [facility] Re06/24/13 SEX: M Status: REG REF SPEC: [id number] YSABEL: 06/24/[address] [facility] [address]: Beatriz Flores MD REQ: [id number] RECD: 06/24/13 STATUS: COMP _ SOURCE: WOUND SPDESC:OTHER ORDERED: Culture Stain COMMENTS: LEFT BUTTOCK WOUND QUERIES: Medent Number [id number] Specimen Description LEFT BUTTOCK WOUND Procedure Result Verified Site Wound/Misc Gram Stain Final 06/24/13- 1416 ML 3+ Polys 4+ Gram Positive Cocci Wound/Misc Culture Final 06/26/13- 1059 ML Organism 1 STAPHYLOCOCCUS AUREUS Quantity 3+ 1. STAPHYLOCOCCUS AUREUS M.I.C. RX --------- ------ Penicillin >=0.5 R Clindamycin >=8 R Erythromycin >=8 R Gentamicin <=0.5 S Linezolid 2 S Nitrofurantoin <=16 S Oxacillin <=0.25 S * Quinupristin/Dalfopristin <=0.25 S Rifampin <=0.5 S Tetracycline >=16 R Trimethoprim/Sulfamethoxazole <=10 S Vancomycin <=0.5 S Imipenem-Deduced S * Ampicillin/Sulbactam-Deduced S Cefazolin-Deduced S CONTINUED ON NEXT PAGE * ML=Testing performed at Main Lab DEPARTMENT OF PATHOLOGY, [facility] [employer] [place], [place] [address] Charan Herzog M.D. Director [facility] Permit #[id number] RUN DATE: 06/26/13 [facility] LAB LIVE PAGE 2 RUN TIME: 1059 [facility] [place], [place] [address] Specimen Inquiry Patient: FESTUS ROBERTS [id number] (Continued) Specimen: [id number] Collected: 06/24/13 Received: 06/24/13 (Continued) Procedure Result Verified Site Wound/Misc Culture Final (continued) * These antibiotics are not available in the [facility] Formulary Contact the Microbiology Department for any additional antibiotic reporting. END OF REPORT * ML=Testing performed at Main Lab DEPARTMENT OF PATHOLOGY, [address] [place], [place] [address] Charan Herzog M.D. Director [facility] Permit #[id number] RUN DATE: 03/13/13 [facility] LAB LIVE PAGE 1 RUN TIME: [address] [place], [place] [address] Specimen Inquiry Name: FESTUS ROBERTS : [address]: Naima Colbert NP Acct: [id number] Unit: [id number] AGE: 28 Location: [facility] Re03/09/13 SEX: M Status: REG REF SPEC: [id number] YSABEL: 03/09/13-[address] [facility] [address]: Naima Colbert NP REQ: [id number] RECD: 03/09/13 STATUS: COMP _ SOURCE: BACK SPDESC: ORDERED: Culture Stain QUERIES: Medent Number [id number] Specimen Description LEFT LOWER BACK Procedure Result Verified Site Wound/Misc Gram Stain Final 03/10/13- 0809 ML 1+ Polys 3+ Gram Positive Cocci Wound/Misc Culture Final 03/13/13- 1000 ML Organism 1 STAPHYLOCOCCUS EPIDERMIDIS Quantity 3+ 1. STAPHYLOCOCCUS EPIDERMIDIS M.I.C. RX --------- ------ Penicillin >=0.5 R Clindamycin >=8 R Erythromycin >=8 R Gentamicin <=0.5 S Linezolid 1 S Nitrofurantoin <=16 S Oxacillin <=0.25 S * Quinupristin/Dalfopristin <=0.25 S Rifampin <=0.5 S Tetracycline 2 S Doxycycline - Deduced S * Minocycline - Deduced S Tigecycline <=0.12 S Vancomycin 1 S Imipenem-Deduced S * Ampicillin/Sulbactam-Deduced S CONTINUED ON NEXT PAGE * ML=Testing performed at Main Lab DEPARTMENT OF PATHOLOGY, [facility] [employer] [place], [place] [address] Charan Herzog M.D. Director [facility] Permit #[id number] RUN DATE: 03/13/13 [facility] LAB LIVE PAGE 2 RUN TIME: [address] [place], [place] [address] Specimen Inquiry Patient: FESTUS ROBERST [id number] (Continued) Specimen: [id number] Collected: 03/09/13 Received: 03/09/13 (Continued) Procedure Result Verified Site Wound/Misc Culture Final (continued) 03/13/13- 1000 1. STAPHYLOCOCCUS EPIDERMIDIS (continued) M.I.C. RX --------- ------ Cefazolin-Deduced S * These antibiotics are not available in the [facility] Formulary Contact the Microbiology Department for any additional antibiotic reporting. END OF REPORT * ML=Testing performed at Main Lab DEPARTMENT OF PATHOLOGY, [address] [place] [address] Charan Herzog M.D. Director [facility] Permit #[id number] 24 Because ethnic data is not always readily available, this report includes an eGFR for both -Americans and non- Americans. The National Kidney Disease Education Program (NKDEP) does not endorse the use of the MDRD equation for patients that are not between the ages of 18 and 70, are , have extremes of body size, muscle mass, or nutritional status, or are non- or non-. According to the National Kidney Foundation, irrespective of diagnosis, the stage of the disease is based on the level of kidney function: Stage Description GFR(mL/min/1.73 m(2)) 1 Kidney damage with normal or decreased GFR 90 2 Kidney damage with mild decrease in GFR 60-89 3 Moderate decrease in GFR 30-59 4 Severe decrease in GFR 15-29 5 Kidney failure <15 (or dialysis) 25 RUN DATE: 10/01/12 [facility] LAB LIVE PAGE 1 RUN TIME: [address] [place], [place] [address] Specimen Inquiry Name: FESTUS ROBERTS : [address]: Naima Colbert NP Acct: [id number] Unit: [id number] AGE: 27 Location: [facility] Re09/26/12 SEX: M Status: REG REF SPEC: [id number] YSABEL: 09/26/[address]: Naima Colbert NP REQ: [id number] RECD: 09/26/12 STATUS: COMP _ SOURCE: BLOOD,VENO SPDES: ORDERED: Blood Cult Procedure Result Verified Site Aerobic Culture Bottle Final 10/01/12- 1310 ML No Growth Day 5 Anaerobic Culture Bottle Final 10/01/12- 1310 ML No Growth Day 5 END OF REPORT * ML=Testing performed at Main Lab DEPARTMENT OF PATHOLOGY, [address] [place] [address] Charan Herzog M.D. Director [facility] Permit #[id number] RUN DATE: 10/01/12 [facility] LAB LIVE PAGE 1 RUN TIME: [address] [place] [address] Specimen Inquiry Name: LAISHA ROBERTSSANDOVAL Stephens : [address]: Naima Colbert NP Acct: [id number] Unit: [id number] AGE: 27 Location: [facility] Re09/26/12 SEX: M Status: REG REF SPEC: [id number] YSABEL: 09/26/[address]: Naima Colbert NP REQ: [id number] RECD: 09/26/12 STATUS: COMP _ SOURCE: BLOOD,VENO SPDESC: ORDERED: Blood Cult Procedure Result Verified Site Aerobic Culture Bottle Final 10/01/12- 1311 ML No Growth Day 5 Anaerobic Culture Bottle Final 10/01/12- 1311 ML No Growth Day 5 END OF REPORT * ML=Testing performed at Main Lab DEPARTMENT OF PATHOLOGY, [address] [place] [address] Charan Herzog M.D. Director [facility] Permit #[id number] 27 Because ethnic data is not always readily available, this report includes an eGFR for both -Americans and non- Americans. The National Kidney Disease Education Program (NKDEP) does not endorse the use of the MDRD equation for patients that are not between the ages of 18 and 70, are , have extremes of body size, muscle mass, or nutritional status, or are non- or non-. According to the National Kidney Foundation, irrespective of diagnosis, the stage of the disease is based on the level of kidney function: Stage Description GFR(mL/min/1.73 m(2)) 1 Kidney damage with normal or decreased GFR 90 2 Kidney damage with mild decrease in GFR 60-89 3 Moderate decrease in GFR 30-59 4 Severe decrease in GFR 15-29 5 Kidney failure <15 (or dialysis) 28 RESULT: Results suggest past infection. In most populations, at least 90% of the adult population will have been infected with EBV sometime in the past and therefore, will be positive for anti-VCA/IgG and anti- EBNA. Antibodies to EBNA develop 6-8 weeks after primary infection and remain present for life. Presence of VCA/ IgM antibodies indicates recent primary infection with EBV. Test Performed by: [address] [address] [employer] Sweeper Brush Maker: Padilla Denton III, M.D. 29 Test Performed by: [facility] [address] [place] [address] Machine Sweeper Brush Maker: Padilla Denton III, M.D. 30 It is recognized that currently available assays for the detection of antibodies to HIV-1 and/or HIV-2 may not detect all infected individuals. HIV antibodies may be undetectable in some stages of the infection and in some clinical conditions. The performance of this assay has not been established for populations of infants or children. Assayed by Chemiluminescence Microparticle Immunoassay on the Siemens Advia Centaur CP. Values obtained with different methods or kits cannot be used interchangeably.The diagnostic specificity of the ADVIA Centaur 1/O/2 Enhanced assay in the low risk population was 99.90% (6052/6058) with a 95% confidence interval of 99.78 to 99.96%. 31 Anion gap measurement may be of limited value in the presence of any alkalosis, especially in a combined acid base disorder. . 32 A metabolite of Naproxen, O-desmethylnaproxen, has been shown to interfere with the Jendrassik-Jessica method for measuring total bilirubin. Samples from patients who have taken Naproxen have shown spurious elevation in total bilirubin levels. 33 Because ethnic data is not always readily available, this report includes an eGFR for both -Americans and non- Americans. The National Kidney Disease Education Program (NKDEP) does not endorse the use of the MDRD equation for patients that are not between the ages of 18 and 70, are , have extremes of body size, muscle mass, or nutritional status, or are non- or non-. According to the National Kidney Foundation, irrespective of diagnosis, the stage of the disease is based on the level of kidney function: Stage Description GFR(mL/min/1.73 m(2)) 1 Kidney damage with normal or decreased GFR 90 2 Kidney damage with mild decrease in GFR 60-89 3 Moderate decrease in GFR 30-59 4 Severe decrease in GFR 15-29 5 Kidney failure <15 (or dialysis) 34 Anion gap measurement may be of limited value in the presence of any alkalosis, especially in a combined acid base disorder. . 35 A metabolite of Naproxen, O-desmethylnaproxen, has been shown to interfere with the [place] method for measuring total bilirubin. Samples from patients who have taken Naproxen have shown spurious elevation in total bilirubin levels. 36 Because ethnic data is not always readily available, this report includes an eGFR for both -Americans and non- Americans. The National Kidney Disease Education Program (NKDEP) does not endorse the use of the MDRD equation for patients that are not between the ages of 18 and 70, are , have extremes of body size, muscle mass, or nutritional status, or are non- or non-. According to the National Kidney Foundation, irrespective of diagnosis, the stage of the disease is based on the level of kidney function: Stage Description GFR(mL/min/1.73 m(2)) 1 Kidney damage with normal or decreased GFR 90 2 Kidney damage with mild decrease in GFR 60-89 3 Moderate decrease in GFR 30-59 4 Severe decrease in GFR 15-29 5 Kidney failure <15 (or dialysis) 37 Anion gap measurement may be of limited value in the presence of any alkalosis, especially in a combined acid base disorder. . 38 A metabolite of Naproxen, O-desmethylnaproxen, has been shown to interfere with the [place] method for measuring total bilirubin. Samples from patients who have taken Naproxen have shown spurious elevation in total bilirubin levels. 39 Because ethnic data is not always readily available, this report includes an eGFR for both -Americans and non- Americans. The National Kidney Disease Education Program (NKDEP) does not endorse the use of the MDRD equation for patients that are not between the ages of 18 and 70, are , have extremes of body size, muscle mass, or nutritional status, or are non- or non-. According to the National Kidney Foundation, irrespective of diagnosis, the stage of the disease is based on the level of kidney function: Stage Description GFR(mL/min/1.73 m(2)) 1 Kidney damage with normal or decreased GFR 90 2 Kidney damage with mild decrease in GFR 60-89 3 Moderate decrease in GFR 30-59 4 Severe decrease in GFR 15-29 5 Kidney failure <15 (or dialysis) 40 CHOLESTEROL INTERPRETATION: Desirable: Less than 200 MG/DL Borderline-High Risk: 200-239 MG/DL High-Risk: 240 MG/DL and over 41 HDL INTERPRETATION: Undesirable: High Risk: Less than 40 MG/DL Desirable: Low Risk: Greater than 60 MG/DL 42 LDL INTERPRETATION: Low Risk Optimal Level: LDL Less than 100 MG/DL Near or Above Optimal: LDL 100-129 MG/DL Borderline High Risk: LDL 130-159 MG/DL High Risk: LDL 160-189 MG/DL Very High Risk: LDL Greater than 189 MG/DL Procedures Date CPT Code Description Status 08/20/2017 38767 EKG, at Least 12 Leads w/Interpretation and Report Completed 09/26/2012 66106 EKG, at Least 12 Leads w/Interpretation and Report Completed Encounters Type Date Location Provider CPT E/M Dx Office Visit 05/23/2017 3:30p [place] [address] K02.9 Z23 Office Visit 01/22/2017 2:30p Main Office Naima Colbert [facility] 95618 Z01.818 S92.202G Office Visit 11/16/2016 9:30a Main Office Naima Colbert [facility] 32672 I63.9 Office Visit 09/03/2016 11:45a Main Office Naima Colbert [facility] 11343 R68.84 Office Visit 08/15/2016 2:30p Main Office Naima Colbert [facility] 41073 I63.9 Office Visit 07/06/2016 10:00a Main Office Brandyn Kline III, [facility] 00844 J01.90 Office Visit 05/30/2016 11:15a Main Office Naima Colbert [facility] 35855 R05 Z23 Office Visit 04/18/2016 10:00a Main Office Naima Colbert [facility] 42261 M54.2 Office Visit 02/01/2016 3:30p Main Office Naima Colbert [facility] 72616 R11.0 I63.9 Office Visit 11/03/2015 11:15a [place] [address] S64.12xA Office Visit 09/07/2015 9:15a Main Office Naima Colbert [facility] 52984 S20.20xA S92.202G Office Visit 04/12/2015 8:45a Main Office [facility] 54501 M25.80 S92.202G Office Visit 03/30/2015 11:15a Main Office [facility] 83478 719.80 Office Visit 09/06/2014 11:15a Main Office Naima Colbert [facility] 09915 829.1 V04.81 V06.1 Office Visit 07/05/2014 10:00a Main Office Naima Colbert [facility] 46311 829.1 371.89 783.21 Office Visit 10/16/2013 11:30a Main Office Naima Colbert [facility] 16177 726.19 Office Visit 07/03/2013 8:45a Main Office Naima Colbert [facility] 02751 682.5 Office Visit 06/24/2013 10:30a Main Office Beatriz Flores M.D. 84930 682.5 Office Visit 03/09/2013 1:45p Main Office Naima Colbert [facility] 28706 709.8 Office Visit 12/02/2012 10:45a Main Office Naima Colbert [facility] 34404 465.9 Office Visit 11/04/2012 8:45a Main Office Naima Colbert [facility] 90521 790.6 569.89 V76.51 Office Visit 09/24/2012 11:00a Main Office Naima Colbert [facility] 69457 789.9 784.0 787.03 Office Visit 05/19/2012 2:15p Main Office Elise Lowry [facility] 02285 522.5 V04.81 Office Visit 04/07/2012 4:30p Main Office Naima Maldonadogil [facility] 66096 789.9 Office Visit 03/28/2012 9:00a Main Office Elise Lowry [facility] 09199 V70.0 251.1 300.00 V72.62 Plan of Care Future Appointment(s):10/16/2017 8:45 am - Andrea Byrd MD at Main [facility]0709/03/2017 - Naima Colbert, [facility] Essential (primary) hypertensionFollow up:consent for results of stress test and discharge summary from ER visit 08/30/17 follow up 6 weeks with GHG47.00 Insomnia, unspecifiedNew Medication:Trazodone HCL 50 mg
--- OUTSIDE RECORDS SUMMARY | 2017-09-22 19:43 | XMS REPORT ---
:1985 External Reference #:[id number] Author Organization [facility] Address [address] [place] [address] Phone [phone] Care Team Providers Name Role Phone Rosaura Hale M.D. Primary Care Physician Unavailable Payers Type Date Identification Numbers Payment Provider Subscriber Commercial Effective: Policy Number: [id number] [facility] Festus Roberts 2013 Medicaid PayID: [id number] [address] [place] [address] Health Maintenance Effective: Policy Number: [employer] Option Festus Stephens [facility] (O) 01/27/2012 [id number] Armando Expires: 08/29/2013 PayID: [id number] [address] [address] [place] [address] Problems Date Description Provider Status Onset: 07/01/2013 Low back pain Beatriz Flores M.D. 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 Cigarette Use Former Cigarette Smoker quit [...] s two tablets Sayra, by mouth at [facility] bedtime Lisinopril 08/27 Active Tablets 2.5mg 30tab 1 by mouth I10 s every day KWAME Colbert-Faith Pantoprazole 09/12 Active Tablets 20mg 60tab 1 by mouth Naima Sodium DR s twice a day KWAME Colbert-C Ondansetron 08/15 Active Tablets 4mg 12tab Dissolve One Dispers s Tablet On Sayra, The Tongue [facility] Three Times A Day as Needed For Nausea Clopidogrel 08/15 Active Tablets 75mg 30tab Take One Naima Bisulfate s Tablet By Sayra, Mouth Every [facility] Day For Stroke Prevention Atorvastatin 08/15 Active Tablets 20mg 30tab Take One Naima Calcium s Tablet By Sayra, Mouth Every [facility] Day Knee Walker 04/12 Active 1unit 4 wheeled M25.80 s knee glenny Colbert, with brakes [facility] for use on left leg. dx 25.8 dx s92.202 Cyclobenzaprine 03/30 Active Tablets 5mg 45tab take 1-2 Naima HCL s tablets by Sayra, mouth 3 [facility] times daily for muscle spasms. Acetaminophen 03/28 Active Capsules 500mg Q4hr Primitivownti R. 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 Clarithromycin 09/03 Hx Tablets 500mg 20tab 1 tab by R68.84 Naima s mouth twice Sayra, - a day x 10 [facility] Ondansetron 08/15 Hx Tablets 4mg 30tab dissolve 1 Dispers s tab by mouth Sayra, - three times [facility] 08/15 a day as needed nausea Doxycycline 07/06 Hx Tablets 100mg 20tab 1 tab by J01.90 Brandyn Hyclate /2015 s mouth twice [place] - a day for 10 III, [facility] 08/15 days for 2017 infection Guaifenesin-Code 05/30 Hx Syrup 100-10mg/ 240ml 1-2 teaspoon R05 Naima ine 5ML every 4-6 Sayra, - hours as [facility] 08/15 needed cough Cyclobenzaprine 04/18 Hx Tablets 5mg 30tab 1-2 by mouth M54.2 Shawnti R. HCL s three times Storm, - a day for [facility] 07/06 muscle spasm, may cause drowsiness Ondansetron 04/18 Hx Tablets 4mg 30tab dissolve 1 Dispers s tab by mouth Sayra, - three times [facility] 07/06 a day needed nausea Prednisone 11/02 Hx Tablets 50mg 7tabs 1 by mouth S64.12xA Andrea every day Carson, - 01/31 Hydrocodone-Acet 09/07 Hx Tablets 5-325mg 45tab 1 by mouth Naima aminophen s q4 - 6 hours Sayra, - as needed [facility] 01/23 for severe pain Oxycodone-Acetam 03/30 Hx Tablets 5-325mg 60tab 1 by mouth Naima inophen s every 8 Sayra, - hours as [facility] 09/07 needed severe pain Ilotycin 07/05 Hx Ointment 5mg/GM 1unit apply a thin 371.89 s layer to Sayra, - right lower [facility] 01/31 inner eyelid twice a day X 5 days Ondansetron 07/05 Hx Tablets 4mg 60tab dissolve 1 Dispers s tab by mouth Sayra, - three times [facility] 01/31 a day needed nausea Ondansetron 01/20 Hx Tablets 4mg 60tab 1 tablet Dispers s dissolved on Sayra, - tongue tid [facility] 01/31 prn nausea Gabapentin 11/17 Hx Tablets 600mg 90tab take 3 tabs s po q hs Sayra, - [facility] 01/31 Hydrocodone/Acet 11/17 Hx Tablets 5-325mg 30thi 1 po bid rty prn severe Sayra, - pain [facility] 03/30 Omeprazole 10/16 Hx Capsules 40mg 60cap [address] martin twice a day Sayra, - [facility] 08/15 Bactroban 07/03 Hx Cream 2% 15gm apply a 682.5 small amount Sayra, - to wound bid [facility] 09/03 Omeprazole 05/04 Hx Capsules 20mg 60cap [address] mario Colbert, - [facility] 10/16 Doxycycline 03/09 Hx Tablets 100mg 20tab 1 tab po bid Beatriz Hyclate s X 10 days Ed Quiñonez M.D. 07/04 Align 01/21 Hx Capsules 4mg 49cap one po qd s while on Sayra, - antibiotics [facility] 01/31 Azithromycin 12/02 Hx Tablets 250mg 6tabs take 2 465.9 tablets Sayra, - today then 1 [facility] 01/21 tablet daily for the next 4 days Bismuth 10/31 Hx Tablet 262mg 240ta 2 tablets po Subsalicylate bs pc and hs Sayra, - followed by [facility] 01/22 a glass of water X 10 days Metronidazole 10/31 Hx Tablets 250mg 60tab 1 1/2 s tablets po Sayra, - pc and hs X [facility] 10/16 Tetracycline HCL 10/31 Hx Capsules 500mg 40cap 1 tab po s after each Sayra, - meal and hs [facility] 10/31 X 10 Clarithromycin 10/31 Hx Tablets 500mg 20tab 1 po bid x s 10 days Sayra, - [facility] 10/16 Vancomycin HCL 09/26 Hx Capsules 250mg 40cap 1 tab po qid s for 10 days Sayra, - [facility] 10/16 Ondansetron Odt 09/24 Hx Tablets 4mg 60tab dissolve 1 R11.10 Dispers s tablet on Sayra, - tongue three [facility] 08/15 times a day /2016 as needed for nausea Clindamycin HCL 05/19 Hx Capsules 150mg 30cap 1 po tid for 522.5 Shawnti R. s 10 days for Alen, - abscess [facility] 05/29 Senna/Docusate 04/08 Hx Tablets 8.6-50mg 30tab 2 po bid Naima s until you Sayra, - have a good [facility] 01/31 Oxycodone/Acetam 04/07 Hx Tablets 5-325mg 20twe 1 po q 4 789.9 nty hours prn Sayra, - severe pain [facility] 05/19 Savella 03/28 Hx Tablets 25mg bid [place] Ed Spears MD 03/28 Melatonin CR 03/28 Hx Tablets 10mg wnti R. ER Alen, - [facility] 09/03 Vitamin C 03/28 Hx Chewtabs 500mg 1 po qd wnti R. Alen, - [facility] 09/03 Vitamin D-1000 03/28 Hx Tablets 1000Unit 1 po qd wnti R. Alen, - [facility] 09/03 Savella 03/28 Hx Tablets 50mg 60tab 1 po bid s Sayra, - [facility] [employer] 11/17 [place] Hx Tablets 5-325mg 1 po Q6HR [place], / Ed Spears MD 10/16 Lyrica Hx Capsules 75mg 60cap 1 po QHS for [place], / s pain Ed Spears MD 09/24 Ibuprofen 00 Hx Tablets 800mg 90tab one po every Naima / s 8 hours with Sayra, - food prn [facility] 01/31 pain Gralise Hx Tablets 600mg 90tab [...] CPT Code Status Date Vaccine Lot # [id number] Given 05/23/2017 Influenza Virus Vaccine, Quadrivalent, 3 Yr > [id number] Quad, Preserv Free 84329 Given 05/30/2016 Influenza Virus Vaccine, Quadrivalent, 3 Yr > [id number] Quad, Preserv Free 20938 Given 09/06/2014 Tdap (Adacel) [id number] 90347 Given 09/06/2014 Influenza Virus Vaccine, Quadrivalent, 3 Yr > [id number] Quad, Preserv Free 53479 Given 05/19/2012 Influenza Vaccine-Preservative Free 3 Yrs And [id number] Above [id number] Ordered 10/27/2009 Tdap (Adacel) Vital Signs Date [...] Color Yellow Urine Appearance Clear Urine Specific [place] 1.021 1.010-1.030 Urine pH 6.0 5-9 Urine [...] Color Yellow Urine Appearance Clear Urine Specific [place] 1.006 Low 1.010-1.030 Urine Esterase Negative Negative [...] NEG Neg Urine Blood NEG Neg Specific [place] N/A Low 1.01-1.02 Urinalysis 04/05/2012 Ua Color YELLOW Yellow Appearance-Urine CLEAR Clear Specific [place]-Ur 1.015 1.010-1.030 Esterase-Urine NEGATIVE Negative Nitrite NEGATIVE Negative Dptyvhnukeyi-Rj-NHC NEGATIVE Negative Protein-Urine NEGATIVE Negative PH-Urine 6.5 [...] Color YELLOW Yellow Appearance-Urine TURBID Clear Specific [place]-Ur 1.031 High 1.010-1.030 Esterase-Urine NEGATIVE Negative Nitrite NEGATIVE Negative [id number] NEGATIVE Negative Protein-Urine NEGATIVE Negative PH-Urine 6.5 [...] 5 Kidney failure <15 (or dialysis) 3 [facility] Severe Sepsis and Septic Shock Management Bundle Measure requires all lactic acids initially measuring >2.0 mmol/L be repeated. 4 [id number] 5 [id number] 6 Because ethnic data is not always [...] [address]: Davi Cheney MD Acct: [id number] Unit: [id number] AGE: 31 Location: [facility] Re01/17/17 SEX: M Status: [facility] SPEC: [id number] YSABEL: 01/17/[address] [facility] [address]: Davi Cheney MD REQ: [id number] RECD: 01/17/17 STATUS: LYNN TORRE DR: Beatriz [...] Day 4 * ML - MAIN LAB ([facility]) . END OF REPORT * ML=Testing performed at Main Lab DEPARTMENT OF PATHOLOGY, [address] [place] [address] Charan Herzog M.D. Director KERRY # [id number] 13 SEE RESULT BELOW Name: FESTUS ROBERTS : [address]: Davi Cheney MD Acct: [id number] Unit: [id number] AGE: 31 Location: [facility] Re01/17/17 SEX: M Status: REG SDC SPEC: [id number] YSABEL: 01/17/17-[address] [facility] [address]: Davi Cheney MD REQ: [id number] RECD: 01/17/17-1221 STATUS: LYNN TORRE DR: Beatriz Flores MD _ SOURCE: WOUND SPDESC:RT THUMB ORDERED: Culture Stain QUERIES: Specimen Description RIGHT THUMB LACERATION Procedure Result Reported Site Wound/Misc Gram Stain Final 01/17/17- 1419 ML No Neutrophils Observed No Organisms Seen Wound/Misc Culture Final 01/19/17- 0956 ML No Growth Day 2 * ML - MAIN LAB ([facility]) . END OF REPORT * ML=Testing performed at Main Lab DEPARTMENT OF PATHOLOGY, [address] [place] [address] Charan Herzog M.D. Director [facility] # [id number] 14 Because ethnic data is not always [...] 5 Kidney failure <15 (or dialysis) 15 [facility] Severe Sepsis and Septic Shock Management Bundle [...] 0.03 ng/mL Not supportive of diagnosis of MA 0.03 - 0.50 ng/mL Indeterminate: suggest serial studies if clinically indicated. Greater than 0.5 ng/mL Consistent with diagnosis of MA 21 Because ethnic data is not always [...] <15 (or dialysis) 22 RUN DATE: 06/26/13 [facility] LAB LIVE PAGE 1 RUN TIME: [address] [place], [place] [address] Specimen Inquiry Name: FESTUS ROBERTS : [address]: Beatriz Flores MD Acct: [id number] Unit: [id number] AGE: 28 Location: [facility] Re06/24/13 SEX: M Status: REG REF SPEC: [id number] YSABEL: 06/24/[address] [facility] [address]: Beatriz Flores MD REQ: [id number] RECD: 06/24/13 STATUS: COMP _ SOURCE: WOUND SPDESC:OTHER ORDERED: Culture Stain COMMENTS: LEFT BUTTOCK WOUND QUERIES: Medent Number [id number] Specimen Description LEFT BUTTOCK WOUND Procedure Result [...] performed at Main Lab DEPARTMENT OF PATHOLOGY, [facility] [employer] [place], [place] [address] Charan Herzog M.D. Director [facility] Permit #[id number] RUN DATE: 06/26/13 [facility] LAB LIVE PAGE 2 RUN TIME: 1059 [facility] [employer] [place], [place] [address] Specimen Inquiry Patient: FESTUS ROBERTS [id number] (Continued) Specimen: [id number] Collected: 06/24/13 Received: 06/24/13 (Continued) Procedure Result Verified Site Wound/Misc Culture Final (continued) * These antibiotics are not available in the [facility] Formulary Contact the Microbiology Department for any additional antibiotic reporting. END OF REPORT * ML=Testing performed at Main Lab DEPARTMENT OF PATHOLOGY, [address] [place], [place] [address] Charan Herzog M.D. Director [facility] Permit #[id number] 23 RUN DATE: 03/13/13 [facility] LAB LIVE PAGE 1 RUN TIME: [address] [place], [place] [address] Specimen Inquiry Name: FESTUS ROBERTS : [address]: Naima Colbert NP Acct: [id number] Unit: [id number] AGE: 28 Location: [facility] Re03/09/13 SEX: M Status: REG REF SPEC: [id number] YSABEL: 03/09/13-[address] [facility] [address]: Naima Colbert NP REQ: [id number] RECD: 03/09/13 STATUS: COMP _ SOURCE: BACK SPDESC: ORDERED: Culture Stain QUERIES: Medent Number [id number] Specimen Description LEFT LOWER BACK Procedure Result [...] performed at Main Lab DEPARTMENT OF PATHOLOGY, [facility] [employer] [place], [place] [address] Charan Herzog M.D. Director [facility] Permit #[id number] RUN DATE: 03/13/13 [facility] LAB LIVE PAGE 2 RUN TIME: [address] [place], [place] [address] Specimen Inquiry Patient: FESTUS ROBERTS [id number] (Continued) Specimen: [id number] Collected: 03/09/13 Received: 03/09/13 (Continued) Procedure Result Verified Site Wound/Misc Culture Final (continued) 03/13/13- 1000 1. STAPHYLOCOCCUS EPIDERMIDIS (continued) M.I.C. RX --------- ------ Cefazolin-Deduced S * These antibiotics are not available in the [facility] Formulary Contact the Microbiology Department for any additional antibiotic reporting. END OF REPORT * ML=Testing performed at Main Lab DEPARTMENT OF PATHOLOGY, [address] [place] [address] Charan Herzog M.D. Director [facility] Permit #[id number] 24 Because ethnic data is not always [...] <15 (or dialysis) 25 RUN DATE: 10/01/12 [facility] LAB LIVE PAGE 1 RUN TIME: [address] [place], [place] [address] Specimen Inquiry Name: FESTUS ROBERTS : [address]: Naima Colbert NP Acct: [id number] Unit: [id number] AGE: 27 Location: [facility] Re09/26/12 SEX: M Status: REG REF SPEC: [id number] YSABEL: 09/26/[address]: Naima Colbert NP REQ: [id number] RECD: 09/26/12 STATUS: COMP _ SOURCE: BLOOD,VENO SPDES: ORDERED: Blood Cult Procedure Result Verified Site Aerobic Culture Bottle Final 10/01/12- 1310 ML No Growth Day 5 Anaerobic Culture Bottle Final 10/01/12- 1310 ML No Growth Day 5 END OF REPORT * ML=Testing performed at Main Lab DEPARTMENT OF PATHOLOGY, [address] [place] [address] Charan Herzog M.D. Director [facility] Permit #[id number] 26 RUN DATE: 10/01/12 [facility] LAB LIVE PAGE 1 RUN TIME: [address] [place] [address] Specimen Inquiry Name: LAISHA ROBERTSSANDOVAL Stephens : [address]: Naima Colbert NP Acct: [id number] Unit: [id number] AGE: 27 Location: [facility] Re09/26/12 SEX: M Status: REG REF SPEC: [id number] YSABEL: 09/26/[address]: Naima Colbert NP REQ: [id number] RECD: 09/26/12 STATUS: COMP _ SOURCE: BLOOD,VENO SPDESC: ORDERED: Blood Cult Procedure Result Verified Site Aerobic Culture Bottle Final 10/01/12- 1311 ML No Growth Day 5 Anaerobic Culture Bottle Final 10/01/12- 1311 ML No Growth Day 5 END OF REPORT * ML=Testing performed at Main Lab DEPARTMENT OF PATHOLOGY, [address] [place] [address] Charan Herzog M.D. Director [facility] Permit #[id number] 27 Because ethnic data is not always [...] primary infection with EBV. Test Performed by: [address] [address] Negative Stripper: Padilla Denton III, M.D. 29 Test Performed by: [facility] [address] [place] [address] Negative Stripper: Padilla Denton III, M.D. 30 It is [...] has been shown to interfere with the Jendrassik-Guilford method for measuring total bilirubin. Samples from [...] has been shown to interfere with the Jendrassik-Guilford method for measuring total bilirubin. Samples from [...] Procedures Date CPT Code Description Status 08/20/2017 25054 EKG, at Least 12 Leads w/Interpretation and Report Completed 09/26/2012 29167 EKG, at Least 12 Leads w/Interpretation and Report Completed Encounters Type Date Location Provider CPT E/M Dx Office Visit 05/23/2017 3:30p [place] [address] K02.9 Z23 Office Visit 01/22/2017 2:30p Main Office Naima Colbert [place] [address]56 Z01.818 S92.202G Office Visit 11/16/2016 9:30a Main Office Naima Colbert [place] [place] 31555 I63.9 Office Visit 09/03/2016 11:45a Main Office Naima Colbert [place] 48379 R68.84 Office Visit 08/15/2016 2:30p Main Office Naima Colbert [place] [place] 88810 I63.9 Office Visit 07/06/2016 10:00a Main Office Brandyn Kline III, [facility] 20637 J01.90 Office Visit 05/30/2016 11:15a Main Office Naima Colbert [place] 90489 R05 Z23 Office Visit 04/18/2016 10:00a Main Office Naima Colbert [place] 80907 M54.2 Office Visit 02/01/2016 3:30p Main Office Naima Colbert [facility] 88108 R11.0 I63.9 Office Visit 11/03/2015 11:15a [place] [address] S64.12xA Office Visit 09/07/2015 9:15a Main Office Naima Colbert [facility] 23229 S20.20xA S92.202G Office Visit 04/12/2015 8:45a Main Office RAUL StylesP-C 61149 M25.80 S92.202G Office Visit 03/30/2015 11:15a Main Office RAUL StylesP-C 51543 719.80 Office Visit 09/06/2014 11:15a Main Office Naima Colbert [facility] 68326 829.1 V04.81 V06.1 Office Visit 07/05/2014 10:00a Main Office Naima Colbert [facility] 19590 829.1 371.89 783.21 Office Visit 10/16/2013 11:30a Main Office Naima Colbert [facility] 06854 726.19 Office Visit 07/03/2013 8:45a Main Office Naima Colbert [facility] 58281 682.5 Office Visit 06/24/2013 10:30a Main Office Beatriz Flores M.D. 90556 682.5 Office Visit 03/09/2013 1:45p Main Office Naima Colbert [facility] 06789 709.8 Office Visit 12/02/2012 10:45a Main Office Naima Colbert [place] 79557 465.9 Office Visit 11/04/2012 8:45a Main Office Naima Colbert [facility] 74589 790.6 569.89 V76.51 Office Visit 09/24/2012 11:00a Main Office Naima Colbert [place] 50282 789.9 784.0 787.03 Office Visit 05/19/2012 2:15p Main Office Elise Lowry [place] 83613 522.5 V04.81 Office Visit 04/07/2012 4:30p Main Office Naima Maldonadogil [facility] 41143 789.9 Office Visit 03/28/2012 9:00a Main Office Elise Lowry [facility] 68060 V70.0 251.1 300.00 V72.62 Plan of Care Future Appointment(s):10/16/2017 8:45 am - Andrea Byrd MD at Main [id number]/03/2017 - Naima Colbert, [facility]CI10 Essential (primary) hypertensionFollow up:consent for results of stress test and discharge summary from ER visit 08/30/17 follow up 6 weeks with GHG47.00 Insomnia, unspecifiedNew Medication:Trazodone HCL 50 mg
--- NOTE | 2017-09-22 21:15 | RAD ---
Indication: Great toe injury 3 views of the right foot with special attention to the right great toe demonstrates no fracture. No other bone or joint abnormality is noted. IMPRESSION: No fracture of the right foot or right great toe is noted.
--- NOTE | 2017-09-22 21:43 | ED ---
Lower Extremity - HPI Summary HPI Summary: 32-year-old male presents with right toe injury today. She was swimming when his toe got caught in the drain. He states that it bent backwards. He denies any numbness or tingling. He denies any previous injury to this foot. His other foot has a Lisfranc fracture that has required multiple surgeries and still has a boot on it. He is still able to ambulate. Has been taking Tylenol for his pain. He has not taken ibuprofen during to be on Plavix for a previous stroke. - History of Current Complaint Chief Complaint: EDExtremityLower Stated Complaint: RT BIG TOE INJURY Time Seen by Provider: 09/22/17 20:57 Pain Intensity: 9 - Allergies/Home Medications Allergies/Adverse Reactions: Allergies Allergy/AdvReac Type Severity Reaction Status Date / Time amoxicillin Allergy Difficulty Verified 08/30/17 15:14 Breathing azithromycin Allergy Difficulty Verified 08/30/17 15:14 Breathing clavulanic acid Allergy Difficulty Verified 08/30/17 15:14 Breathing Penicillins Allergy Difficulty Verified 08/30/17 15:14 Breathing PMH/Surg Hx/FS Hx/Imm Hx Endocrine/Hematology History: Reports: Hx Anticoagulant Therapy - on plavix, Hx Anemia, Other Endocrine/Hematological Disorders - low blood sugar Denies: Hx Blood Transfusions, Hx Diabetes - low blood sugar, Hx Thyroid Disease Cardiovascular History: Reports: Hx Angina, Hx Hypercholesterolemia, Other Cardiovascular Problems/Disorders - on plavix Denies: Hx Coronary Artery Disease, Hx Hypertension, Hx Myocardial Infarction , Hx Pacemaker/ICD, Hx Valvular Heart Disease Respiratory History: Reports: Hx Pneumonia Denies: Hx Asthma, Hx Chronic Obstructive Pulmonary Disease (COPD) GI History: Reports: Hx Gastroesophageal Reflux Disease, Hx Hiatal Hernia, Other GI Disorders - nausea History: Reports: Hx Kidney Stones - 1 month ago - was able to pass no surgery Denies: Hx Dialysis, Hx Renal Disease Musculoskeletal History: Reports: Hx Arthritis - left foot, Hx Orthopedic Injury - Left foot - chronic pain, Other Musculoskeletal History - right arm and shoulder pain with nerve damage Sensory History: Reports: Hx Contacts or Glasses Denies: Hx Hearing Aid Opthamlomology History: Reports: Hx Contacts or Glasses Neurological History: Reports: Hx Headaches, Hx Transient Ischemic Attacks (TIA) , Other Neuro Impairments/Disorders - dizziness post CVA Denies: Hx Dementia, Hx Seizures Psychiatric History: Denies: Hx Substance Abuse - Cancer History Hx Hematologic Symptoms: No Hx Chemotherapy: No Hx Radiation Therapy: No Hx Palliative Cancer Treatment: No - Surgical History Surgery Procedure, Year, and Place: appendectomy. reconstruction of left foot x2 (2013, 2015, will have another soon). neuro stimulator for right shoulder - for pain 2011 Hx Anesthesia Reactions: No - Immunization History Date of Influenza Vaccine: Fall 2016 Infectious Disease History: No Infectious Disease History: Denies: Hx Hepatitis, Hx Human Immunodeficiency Virus (HIV), Traveled Outside the [place] in Last 30 Days - Family History Known Family History: Positive: Cardiac Disease, Other - CVA - Social History Alcohol Use: None Hx Substance Use: No Substance Use Type: Reports: None Hx Tobacco Use: Yes - not currently Smoking Status (MU): Former Smoker Type: Cigarettes Amount Used/How Often: smoked from 17 til 30 years old 1/2 ppd Have You Smoked in the Last Year: Yes Review of Systems Negative: Fever Negative: Chest Pain Negative: Shortness Of Breath Positive: Myalgia - right toe pain All Other Systems Reviewed And Are Negative: Yes Physical Exam Triage Information Reviewed: Yes Vital Signs On Initial Exam: Initial Vitals Temp Pulse Resp BP Pulse Ox 98.5 F 110 18 142/94 100 09/22/17 19:31 09/22/17 19:31 09/22/17 19:31 09/22/17 19:31 09/22/17 19:31 Vital Signs Reviewed: Yes Appearance: Positive: Well-Appearing Skin: Positive: Warm, Dry Head/Face: Positive: Normal Head/Face Inspection Eyes: Positive: Normal, Conjunctiva Clear Respiratory/Lung Sounds: Positive: Clear to Auscultation, Breath Sounds Present Cardiovascular: Positive: Normal, RRR Musculoskeletal: Positive: Strength/ROM Intact - right great toe with pain, Other - good pulses, capillary refill<2 secs, pain greatest with extension of great toe, sensation grossly intact. Negative: Edema Right Neurological: Positive: Normal Psychiatric: Positive: Normal Diagnostics - Vital Signs Vital Signs Temp Pulse Resp BP Pulse Ox 09/22/17 19:31 98.5 F 110 18 142/94 100 - Laboratory Lab Statement: Any lab studies that have been ordered have been reviewed, and results considered in the medical decision making process. - Radiology foot Xray Interpretation: No Acute Changes Radiology Interpretation Completed By: Radiologist Lower Extremity Course/Dx - Course Course Of Treatment: 32-year-old male presents with right toe injury today. She was swimming when his toe got caught in the drain. He states that it bent backwards. He denies any numbness or tingling. He denies any previous injury to this foot. His other foot has a Lisfranc fracture that has required multiple surgeries and still has a boot on it. He is still able to ambulate. Has been taking Tylenol for his pain. He has not taken ibuprofen during to be on Plavix for a previous stroke. On exam tenderness over the top of the right great toe. capillary refill less than 2 seconds. sensation grossly intact. X- ray normal. We will treat as sprain with postop shoe. Patient understands and agrees the plan. - Diagnoses Differential Diagnosis/HQI/PQRI: Positive: Fracture (Closed), Sprain, Strain Provider Diagnoses: right big toe injury Discharge - Discharge Plan Condition: Good Disposition: HOME Patient Education Materials: Foot Sprain (ED) Referrals: Naima Colbert NP [Primary Care Provider] - Additional Instructions: Take tyenlol every 6 hours Use hard sole shoe Place ice, elevate Return to ED if develop any new or worsening symptoms
[2017-09-22 22:11] VITALS: BP 120/87
== END 2017-09-22 22:02 | disposition home or self-care (01) ==
LOC: ED 19:27
DX: S99.921A Unspecified injury of right foot, initial encounter (principal); W23.0XXA Caught, crushed, jammed, or pinched between moving objects, initial encounter; Y92.9 Unspecified place or not applicable; Z79.01 Long term (current) use of anticoagulants; Z87.891 Personal history of nicotine dependence
CPT/HCPCS: 99282

== ENCOUNTER 2017-11-10 01:51 | Observation (INO) | payer OTHER ==
--- OUTSIDE RECORDS SUMMARY | 2017-11-10 05:59 | XMS REPORT ---
:1985 External Reference #:[id number] Author Organization [facility] Address [address] [address] Phone [phone] Care Team Providers Name Role Phone Naima Colbert FNP Care Team Information Security Shift Supervisor Unavailable Naima Colbert FNP Primary Care Physician Unavailable Payers Type Date Identification Numbers Payment Provider Subscriber Commercial Effective: Policy Number: [id number] [employer] Festus Roberts 2013 Group Number: [id number] [address] PayID: [id number] [place] [address] Medigap Part B Expires: 2015 Policy Number: [employer] Festus Roberts [id number] PayID: [id number] [address] [address] [place] [address] Medigap Part B Expires: 2015 Policy Number: [id number] Medicaid Festus Roberts Group Name: 1 1 [address] PayID: [id number] [place] [address] Workers Compensation Onset: 2011 Policy Number: [facility] Festus Roberts [id number] PayID: [id number] [place] [id number] Problems Date Description Provider Status Onset: 01/15/2017 Bacterial infectious disease Davi Cheney MD Active Onset: 01/15/2017 Open wound of finger without complication Davi Cheney MD Active Family History Date Family Member(s) Problem(s) Comments General Heart Disease General Diabetes General Cancer General Stroke General Hypertension General Chronic Obstructive Pulmonary Disease (COPD) Social History Type Date Description Comments Lives With Lives With Children 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 ETOH Use Denies alcohol use [...] Strength Qnty SIG Indications Ordering Provider Pantoprazole 10/16/ Active Tablets DR 20mg 1 by R07.9 Diego SKristine Sodium 2018 mouth Brower, every day DO [facility] Diltiazem CD 09/13/ Active Caps ER 180mg 90cap 1 by R07.9 Diego SKristine 2018 24HR s mouth Brower, every day [...] every 8 hours as needed for nausea Acetaminophen / Active Tablets 500mg 1-2 tabs Unknown 0000 3x a day as needed Trazodone HCL / Active Tablets 50mg 1-2 Unknown 0000 tablet at bedtime as needed Atorvastatin / Active Tablets 20mg take 1 Unknown Calcium 0000 tablet at bedtime Pantoprazole 09/13/ Hx Tablets DR 40mg 90tab 1 by R07.9 Diego S. Sodium 2017 - s mouth Brower, 10/15/ every day DO FACC 2018 Hydrocodone-Aceta 01/17/ Hx Tablets 5-325mg 30tab 1 or 2 Davi minceli 2016 - tabs by Noni 08/29/ mouth 2018 every 6-8 hours as needed for pain Metronidazole 01/17/ Hx Tablets 500mg 15tab 1 tab by Davi 2016 - s albaro Cheney, 09/12/ every 8 MD 2018 hours as directed Sulfamethoxazole/ 01/15/ Hx Tablets 800-160mg 20tab 1 by A49.8 Davi Trimethoprim DS 2016 - mouth Cheney, 09/12/ twice a MD 2017 day for 10 days Motrin 06/26/ Hx Tablets 800mg 90tab take one [place] 2010 tablet by Analy 07/29/ mouth MNatali 2016 three times daily as needed Neurontin 05/11/ Hx Capsules 300mg 60cap 1 po qhs, [place] 2010 Analy, 07/29/ increase M.Brittny 2016 to one tab po bid after 7 days [place] 05/02/ Hx Tablets 5-325mg 50tab 1 po tid [place] 2010 prn Analy, 07/29/ Ya 2016 Atorvastatin / Hx Tablets 10mg 1 by Unknown Calcium 0000 - mouth 09/12/ every day 2017 Lisinopril / Hx Tablets 2.5mg 1 by Unknown 0000 - mouth every day 2017 Aspirin Adult Low / Hx Tablets DR 81mg 1 by Unknown Dose 0000 - mouth 10/15/ every day 2017 Pantoprazole / Hx Tablets DR 20mg 1 by Unknown Sodium 0000 - mouth day 2017 Vital Signs Date Vital Result Comment 10/16/2017 Height 64.5 inches 5'4.50" Weight 159.00 lb no shoes Heart Rate 116 /min BP Systolic Sitting 138 mmHg Rue reg cuff BP Diastolic Sitting 92 mmHg Rue reg cuff BP Systolic Standing 144 mmHg Rue reg cuff BP Diastolic Standing 90 mmHg Rue reg cuff Respiratory Rate 16 /min BMI (Body Mass Index) 26.9 kg/m2 Ejection Fraction 60-65% echo 01/26/16 09/13/2017 Height 64.5 inches 5'4.50" Weight 154.00 [...] Test Date Test Result H/L Range Note Urine Metanephrines 24HR 09/17/2017 Urine Metanephrine 143 mcg/24h 1 Urine Normetanephrine 403 mcg/24h 2 Urine Total Metanephrines 546 mcg/24h 3 Urine Collection Duration 24 h Urine Volume 750 mL 4 Metanephrines Plasma 09/17/2017 Plasma Free Normetanephrine 0.92 nmol/L & lt;0.90 Plasma Free Metanephrine 0.25 nmol/L <0.50 5 Catecholamine 24HR Urine Fract 09/17/2017 Urine Collection Duration 24 h Urine Total Volume 750 mL Urine Norepinephrine 69 mcg/24h 15-80 Urine Epinephrine 9.8 mcg/24h <21 Urine Dopamine 199 mcg/24h 65-400 6 Laboratory test 09/13/2017 Metanephrines Plasma <pending> finding Laboratory test 01/17/2017 Tissue Culture & SEE RESULT BELOW 7, 8 finding Sensitiv Wound Culture/Sensi 01/17/2017 Wound/Misc Culture-Gram SEE RESULT BELOW 7, 9 Stain 1 REFERENCE VALUE 44-261 (Normotensive) <400 (Hypertensive) 2 REFERENCE VALUE 111-419 (Normotensive) <900 (Hypertensive) 3 REFERENCE VALUE 200-614 (Normotensive) <1300 (Hypertensive) 4 ADDITIONAL INFORMATION This test was developed and its performance characteristics determined by [facility] in a manner consistent with CLIA requirements. This test has not been cleared or approved by the U.S. Food and Drug Administration. Test Performed by: [facility] - [address] [address] ADDITIONAL INFORMATION This test was developed and its performance characteristics determined by [facility] in a manner consistent with CLIA requirements. This test has not been cleared or approved by the U.S. Food and Drug Administration. Test Performed by: [email or web address] - [address] [address] ADDITIONAL INFORMATION This test was developed and its performance characteristics determined by [facility] in a manner consistent with CLIA requirements. This test has not been cleared or approved by the U.S. Food and Drug Administration. Test Performed by: [email or web address] - [address] [address] 7 INFECTION OG RIGHT THUMB LACERATION 8 SEE RESULT BELOW Name: FESTUS ROBERTS : [address]: Davi Cheney MD Acct: [id number] Unit: [id number] AGE: 31 Location: [facility] Re01/17/17 SEX: M Status: REG SDC SPEC: [id number] YSABEL: 01/17/[address]: Davi Cheney MD REQ: [id number] RECD: 01/17/17-1221 STATUS: LYNN TORRE DR: Beatriz Flores MD _ SOURCE: WOUND SPDESC:RT THUMB ORDERED: Tissue Cult/GS, Anaerobic Cult COMMENTS: INFECTION OG RIGHT THUMB LACERATION Procedure Result Reported Site Tissue Gram Stain Final 01/17/17- 1412 ML 1+ Neutrophils 1+ Epithelial Cells No Organisms Seen Preparation By Direct Smear Tissue Culture Final 01/21/17- 0710 ML No Growth Day 4 Anaerobic Culture Final 01/21/17- 0710 ML No Growth Day 4 * ML - MAIN LAB ([facility]) . END OF REPORT * ML=Testing performed at Main Lab DEPARTMENT OF PATHOLOGY, [address] [place] [address] Charan Herzog M.D. Director [facility] # [id number] 9 SEE RESULT BELOW Name: YOVANNY ROBERTSCHERRY Stephens : [address]: Davi Cheney MD Acct: [id number] Unit: [id number] AGE: 31 Location: [facility] Re01/17/17 SEX: M Status: REG [facility] SPEC: [id number] YSABEL: 01/17/17-[address]: Davi Cheney MD REQ: [id number] RECD: 01/17/17-1 STATUS: COMP [facility] DR: Beatriz Flores MD _ SOURCE: WOUND SPDESC:RT THUMB ORDERED: Culture Stain QUERIES: Specimen Description RIGHT THUMB LACERATION Procedure Result Reported Site Wound/Misc Gram Stain Final 01/17/17- 1419 ML No Neutrophils Observed No Organisms Seen Wound/Misc Culture Final 01/19/17- 0956 ML No Growth Day 2 * ML - MAIN LAB ([facility]) . END OF REPORT * ML=Testing performed at Main Lab DEPARTMENT OF PATHOLOGY, [address] [place] [address] Charan Herzog M.D. Director [facility] # [id number] Procedures Date CPT Code Description Status 10/16/2017 50105 EKG Tracing & Interpretation Completed 09/13/2017 90748 EKG Tracing & Interpretation Completed 08/30/2017 09770 Stress ECHO Interpretation/Report Hospital Completed 08/30/2017 47575 Treadmill Interp/Report Only Completed 08/30/2017 85772 Stress Test Supervsn W/Out I/R Completed 01/17/2017 55168 Repair,Extensor Tendon,Finger Prim Or Sec W/O Free Completed Graft Each Ten 01/17/2017 18901 Repair,Extensor Tendon,Finger Prim Or Sec W/O Free Completed Graft Each Ten 01/17/2017 47790 Arthrotomy Metacarpophalangeal JT Completed W/Explore/Drain/Remove FB 01/17/2017 78876 Arthrotomy Metacarpophalangeal JT Completed W/Explore/Drain/Remove FB 08/16/2016 71011 Stress Test Supervsn W/Out I/R Completed 08/16/2016 70392 Treadmill Interp/Report Only Completed 08/15/2016 98626 Event Monitor/Phys Review/Interp. Completed 08/09/2016 74276 Color Flow Doppler/Interp & Reprt Completed 08/09/2016 38227 Pulse Wave/Continuous-Interp.RPT Completed 08/09/2016 17902 Echocardiography, Transesophageal, Real Time W/Image 2D Completed W/W/O M-M 01/26/2016 42705 ECHO Transthorasic Realtime 2D W Doppler & Color Completed [facility] 01/26/2016 12859 EKG, Interpretation Only Completed 01/24/2016 75976 EKG, Interpretation Only Completed 09/26/2012 71178 ECHO Transthorasic Realtime 2D W Doppler & Color Completed [facility] Encounters Type Date Location Provider CPT E/M Dx Office Visit 10/16/2017 [facility] [place] [address] R00.0 8:15a [facility] FACC R07.9 Office Visit 09/13/2017 9:00a [facility] [place] [address] R07.9 [facility] FACC K21.0 I15.9 I63.9 Office Visit 03/01/2017 9:30a [place] [address] S61.011D Of C.M.A. S56.321D S53.31xA Office Visit 01/15/2017 3:15p [facility] [place] [address] A49.8 C.M.A. S61.011A Office Visit 08/11/2016 9:35a [facility] Ramona Maddox, 56516 I63.9 Hospitalists M.DKristine R51 R07.89 Office Visit 08/10/2016 11:59a [facility] [place] [address] M62.81 R51 Office Visit 08/10/2016 9:34a [facility] Ramona Maddox, 32587 I63.9 Hospitalists M.DKristine R51 R07.89 Office Visit 08/09/2016 9:34a [facility] Ramona Maddox, 60027 I63.9 Hospitalists M.DKristine R07.89 R51 Office Visit 08/09/2016 11:36a [facility] Cruz Matthews, 32780 M62.81 MD Office Visit 08/08/2016 9:33a [facility] Nell Santiago, [address]2628 I63.9 Hospitalists M.DKristine R51 R07.89 Office Visit 08/08/2016 11:34a [facility] [place] [address] M62.81 R51 Z82.3 Office Visit 08/07/2016 9:33a [facility] [place], [address] I63.9 Assoc, Hospitalists M.DKristine R07.89 R51 Office Visit 01/27/2016 1:24p [facility], Carltonlucio Betancur, [address]86 R07.9 Hospitalists M.DKristine I63.8 Z92.82 Office Visit 01/26/2016 1:23p [facility], Davi Carlos, 61507 R07.9 Hospitalists M.DKristine I63.8 Z92.82 Office Visit 01/26/2016 3:24p [facility] [address] F44.7 R29.818 Office Visit 01/25/2016 3:23p [facility] [address] F44.7 R29.818 Office Visit 01/25/2016 1:22p [facility], Davi Carlos, [address]2896 R07.9 Hospitalists MNatali I63.8 Z92.82 Office Visit 01/24/2016 3:10p [facility], Davi Carlos, 12375 R10.30 Hospitalists M.D. R11.2 R07.9 Office Visit 01/23/2016 3:09p [facility], Taina Anaya, MARKETING FINANCE MANAGER [address]26[address] A41.9 Hospitalists R10.30 R07.9 R11.2 Office Visit 04/07/2015 1:40p [facility]i Gomez, 71355 996.78 C.M.A. M.D. Office Visit 04/02/2012 10:15a [facility] [place], 42175 719.41 C.M.A. M.D. Office Visit 06/26/2011 9:45a [facility] [place], 32953 840.8 C.M.A. M.D. Office Visit 05/11/2011 10:45a [facility] [place] 14632 840.8 C.M.A. M.D. Office Visit 04/23/2011 2:15p [facility] Sergey Hernandez M.D. 24552 840.9 C.M.A. Office Visit 04/12/2011 2:45p [facility] Hernandez M.D. 60998 840.8 C.M.A. 840.9 Plan of Care Future Appointment(s):10/22/2017 2:15 pm - [facility]10/21/2017 2:00 pm - Nurse Visit IC at [facility]2017 - Diego Brower DO FACCR00.0 Tachycardia, unspecifiedNew Orders:Holter MonitorFollow up:PRNR07.9 Chest pain, unspecifiedNew Medication:Pantoprazole Sodium 20 mg
[2017-11-10] MEDS ORDERED: Acetaminophen TAB* 325 MG PO PRN (06:20)
[2017-11-10] MEDS ORDERED: Albuterol 2.5 MG/3 ML NEB.SOL* (0.083%) INH PRN (06:20)
[2017-11-10] MEDS ORDERED: Ondansetron INJ* 2 MG/ML VIAL IV PRN (06:20)
[2017-11-10] MEDS ORDERED: CMCS: Melatonin (NF) 3 MG TAB PO PRN (06:20)
[2017-11-10] MEDS ORDERED: HYDROmorphone INJ* 2 MG/ML CARPUJECT SYRINGE IV PRN (06:20)
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
[2017-11-10 07:40] LABS: ABS Basophils 0.1 10^3/ul (0-0.2); ABS Eosinophils 0.2 10^3/ul (0-0.6); ABS Lymphocytes 2.8 10^3/ul (1.0-4.8); ABS Monocytes 0.6 10^3/ul (0-0.8); ABS Neutrophils 5.5 10^3/ul (1.5-7.7); ABS Nucleated RBC 0 10^3/ul; Eosinophil % 2.3 % (0-6); Hematocrit 44 % (42-52); Hemoglobin 15.1 g/dl (14.0-18.0); Lymphocyte % 30.7 % (25-47); Mean Corpuscular HGB Conc 35 g/dl (31-36); Mean Corpuscular Hemoglobin 32 pg (27-31); Mean Corpuscular Volume 92 fL (80-94); Mean Platelet Volume 6.8 um3 (7.4-10.4); Nucleated Red Blood Cells % 0.1; Platelet Count 398 10^3/ul (150-450); Red Blood Count 4.73 10^6/ul (4.0-5.4); Red Cell Distribution Width 13 % (10.5-15); White Blood Count 9.2 10^3/ul (3.5-10.8)
[2017-11-10 08:04] LABS: EGFR Non-African American 90.2 (>60)
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
[2017-11-10 08:09] LABS: INR 1.02 (0.77-1.02)
[2017-11-10] MEDS ORDERED: Docusate CAP* 100 MG PO SCH (09:00)
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
[2017-11-10] MEDS ORDERED: traMADol TAB* 50 MG PO PRN (12:00)
[2017-11-10 15:30] VITALS: BP 105/71
[2017-11-11] MEDS ORDERED: Heparin VIAL(*) 5000 UNITS/ML VIAL (FIVE THOUSAND) SUBCUT SCH (06:00)
[2017-11-11] MEDS ORDERED: Omeprazole CAP* 20 MG PO SCH (06:00)
[2017-11-11] MEDS ORDERED: Aspirin EC TAB* 81 MG TAB.EC PO SCH (09:00)
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
== END 2017-11-10 16:38 | disposition home or self-care (01) ==
LOC: MEDTELE 05:53
PROVIDERS: ADMIT Hospitalist; ATTEND Internal Medicine
DX: R07.9 Chest pain, unspecified (principal); Z04.1 Encounter for examination and observation following transport accident; I25.2 Old myocardial infarction; E78.5 Hyperlipidemia, unspecified; R51 Headache; E16.2 Hypoglycemia, unspecified; G89.29 Other chronic pain; M54.5 Low back pain; K21.9 Gastro-esophageal reflux disease without esophagitis; Z79.82 Long term (current) use of aspirin; Z86.73 Personal history of transient ischemic attack (TIA), and cerebral infarction without residual deficits
CPT/HCPCS: 36415; 70450; 71045; 80053; 83735; 84484; 85025; 85610; 85730; 87651; 93005; 94640; A9270-GY; G0378; J1170

== ENCOUNTER → 2017-12-02 22:04 | Emergency (ER) | payer OTHER ==
[2017-12-02 22:28] VITALS: BP 135/96
== END | disposition left against medical advice (07) ==
LOC: ED 22:04
DX: K08.89 Other specified disorders of teeth and supporting structures (principal); Z53.21 Procedure and treatment not carried out due to patient leaving prior to being seen by health care provider

== ENCOUNTER 2017-12-27 07:43 | Emergency (ER) | payer OTHER ==
[2017-12-27] MEDS ORDERED: Morphine INJ* 4 MG/ML 1 ML CARPUJECT IV ONE (08:09)
[2017-12-27] MEDS ORDERED: Ketorolac INJ* 30 MG/ML 1 ML VIAL IV PUSH ONE (08:09)
[2017-12-27] MEDS ORDERED: Morphine VIAL* 4 MG/ML VIAL (1 ml vial) IV ONE (08:18)
--- OUTSIDE RECORDS SUMMARY | 2017-12-27 08:23 | XMS REPORT ---
:1985 External Reference #:[id number] Author Organization [facility] Address [address] [place] [address] Phone [phone] Care Team Providers Name Role Phone Rosaura Hale M.D. Primary Care Physician Unavailable Payers Type Date Identification Numbers Payment Provider Subscriber Commercial Effective: Policy Number: [id number] [facility] Festus Roberts 2013 Medicaid PayID: [id number] [address] [place] [address] Health Maintenance Effective: Policy Number: [employer] Option Festus Stephens [facility] (O) 01/27/2012 [id number] Armando Expires: 08/29/2013 PayID: [id number] [address] [address] [place] [address] Problems Date Description Provider Status Onset: 07/01/2013 Low back pain Beatriz Flores M.D. 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 Cigarette Use Former Cigarette Smoker quit [...] Form Strength Qnty SIG Indications Ordering Provider Clindamycin HCL 12/03 Active Capsules 300mg 56cap 1 cap 4 K02.9 s times a day Shortle, for 14 days [employer] Trazodone HCL 09/03 Active Tablets 50mg 60tab take one to G47.00 s two tablets Sayra, by mouth at [facility] bedtime Pantoprazole 09/12 Active Tablets 20mg 60tab [address] s twice a day HAMIDA Colbert Ondansetron 08/15 Active Tablets 4mg 12tab Dissolve One Andrea Dispers s Tablet On [place], The Tongue MD Three Times A Day as Needed For Nausea Clopidogrel 08/15 Active Tablets 75mg 30tab Take One Andrea Bisulfate s Tablet By [place], Mouth Every MD Day For Stroke Prevention Atorvastatin 08/15 Active Tablets 20mg 30tab Take One Andrea Calcium s Tablet By [place], Mouth Every MD Day Knee Walker 04/12 Active 1unit 4 wheeled M25.80 Naima s knee glenny Colbert, with brakes [facility]- for use on left leg. dx 25.8 dx s92.202 Cyclobenzaprine 03/30 Active Tablets 5mg 45tab take 1-2 Andrea HCL s tablets by [place], mouth 3 MD times daily for muscle spasms. Acetaminophen 03/28 Active Capsules 500mg Q4hr Shawnti R. KWAME Lowry-Faith Epipen 2-Kyrie 03/28 Active Solution 0.3mg/0.3 2unit use if Auto-Inje ML s needed for galileo Colbert bee sting [employer] RELATIONS DIRECTOR-C Diltiazem HCL ER Active Caps ER 180mg Brower, /0000 24HR Diego S. D.O. Lisinopril 08/27 Hx Tablets 2.5mg 30tab 1 by mouth I10 s every day Ed Colbert-C 10/10 Clindamycin HCL 05/23 Hx Capsules 300mg 56cap 1 cap 4 K02.9 s times a day Shortle, - for 14 days [employer] 08/20 Clarithromycin 09/03 Hx Tablets 500mg 20tab 1 tab by R68.84 Naima s mouth twice Sayra, - a day x 10 [employer] RELATIONS DIRECT[employer]-C Ondansetron 08/15 Hx Tablets 4mg 30tab dissolve 1 Dispers s tab by mouth Sayra, - three times [employer] RELATIONS DIRECT[employer]-C 08/15 a day as needed nausea Doxycycline 07/06 Hx Tablets 100mg 20tab 1 tab by J01.90 Brandyn Hyclate s mouth twice Fowler - a day for 10 III, [employer] RELATIONS DIRECTOR-C 08/15 days for infection Guaifenesin-Code 05/30 Hx Syrup 100-10mg/ 240ml 1-2 teaspoon R05 Naima ine 5ML every 4-6 Sayra, - hours as [employer] RELATIONS DIRECT[employer]-C 08/15 needed cough Cyclobenzaprine 04/18 Hx Tablets 5mg 30tab 1-2 by mouth M54.2 Shawnti R. HCL s three times Storm, - a day for [employer] RELATIONS DIRECTOR-C 07/06 muscle spasm, may cause drowsiness Ondansetron 04/18 Hx Tablets 4mg 30tab dissolve 1 Dispers s tab by mouth Sayra, - three times [employer] RELATIONS DIRECT[employer]-C 07/06 a day as needed nausea Prednisone 11/02 Hx Tablets 50mg 7tabs 1 by mouth S64.12Naina Andrea every day Carson, - 01/31 Hydrocodone-Acet 09/07 Hx Tablets 5-325mg 45tab 1 by mouth Naima aminophen s q4 - 6 hours Sayra, - as needed [employer] RELATIONS DIRECT[employer]-C 01/23 for severe 2016 pain Oxycodone-Acetam 03/30 Hx Tablets 5-325mg 60tab 1 by mouth Naima inophen s every 8 Sayra, - hours as [employer] RELATIONS DIRECTOR-C 09/07 needed severe pain Ilotycin 07/05 Hx Ointment 5mg/GM 1unit apply a thin 371.89 s layer to Sayra, - right lower [employer] RELATIONS DIRECTOR-C 01/31 inner eyelid twice a day X 5 days Ondansetron 07/05 Hx Tablets 4mg 60tab dissolve 1 Dispers s tab by mouth Sayra, - three times [employer]OR RELATIONS DIRECT[employer]-C 01/31 a day as needed nausea Ondansetron 01/20 Hx Tablets 4mg 60tab 1 tablet Dispers s dissolved on Sayra, - tongue tid [employer] RELATIONS DIRECT[employer]-C 01/31 prn nausea Gabapentin 11/17 Hx Tablets 600mg 90tab take 3 tabs s po q hs Sayra, - LABOR RELATIONS DIRECTOR-C 01/31 Hydrocodone/Acet 11/17 Hx Tablets 5-325mg 30thi 1 po bid Naima aminophen rty prn severe Sayra, - pain [employer] RELATIONS DIRECTOR-C 03/30 Omeprazole 10/16 Hx Capsules 40mg 60cap [address] martin twice a day Sayra, - LABOR RELATIONS DIRECTOR-C 08/15 Bactroban 07/03 Hx Cream 2% 15gm apply a 682.5 small amount Sayra, - to wound bid [employer] RELATIONS DIRECT[employer]-C 09/03 Omeprazole 05/04 Hx Capsules 20mg 60cap [address] mario Colbert, - LABOR RELATIONS DIRECTOR-C 10/16 Doxycycline 03/09 Hx Tablets 100mg 20tab 1 tab po bid Beatriz Hyclate s X 10 days Ed Quiñonez M.D. 07/04 Align 01/21 Hx Capsules 4mg 49cap one po qd s while on Sayra, - antibiotics [employer]OR RELATIONS DIRECTOR-C 01/31 Azithromycin 12/02 Hx Tablets 250mg 6tabs take 2 465.9 tablets Sayra, - today then 1 LABOR RELATIONS DIRECTOR-C 01/21 tablet daily for the next 4 days Bismuth 10/31 Hx Tablet 262mg 240ta 2 tablets po Naima Subsalicylate bs pc and hs Sayra, - followed by LABOR RELATIONS DIRECTOR-C 01/22 a glass of water X 10 days Metronidazole 10/31 Hx Tablets 250mg 60tab 1 1/ s tablets po Sayra, - pc and hs X [employer] RELATIONS DIRECTOR-C 10/16 10 days Tetracycline HCL 10/31 Hx Capsules 500mg 40cap 1 tab po s after each Sayra, - meal and hs [employer]OR RELATIONS DIRECTOR-C 10/31 X 10 days Clarithromycin 10/31 Hx Tablets 500mg 20tab 1 po bid x s 10 days Sayra, - LABOR RELATIONS DIRECTOR-C 10/16 Vancomycin HCL 09/26 Hx Capsules 250mg 40cap 1 tab po qid s for 10 days Sayra, - LABOR RELATIONS DIRECTOR-C 10/16 Ondansetron Odt 09/24 Hx Tablets 4mg 60tab dissolve 1 R11.10 Dispers s tablet on Sayra, - tongue three [employer]OR RELATIONS DIRECTOR-C 08/15 times a day /2016 as needed for nausea Clindamycin HCL 05/19 Hx Capsules 150mg 30cap 1 po tid for 522.5 wnti R. s 10 days for Storm, - abscess [employer]OR RELATIONS DIRECTOR-C 05/29 Senna/Docusate 04/08 Hx Tablets 8.6-50mg 30tab 2 po bid s until you Sayra, - have a good LABOR RELATIONS DIRECTOR-C 01/31 Oxycodone/Acetam 04/07 Hx Tablets 5-325mg 20twe 1 po q 4 789.9 Naima nty hours prn Sayra, - severe pain [employer]OR RELATIONS DIRECTOR-C 05/19 Savella 03/28 Hx Tablets 25mg bid [place], Ed Spears MD 03/28 Melatonin CR 03/28 Hx Tablets 10mg Shawnti R. ER Alen, - LABOR RELATIONS DIRECTOR-C 09/03 Vitamin C 03/28 Hx Chewtabs 500mg 1 po qd Shawnti R. Alen, - LABOR RELATIONS DIRECTOR-C 09/03 Vitamin D-1000 03/28 Hx Tablets 1000Unit 1 po qd Shawnti R. Alen, - LABOR RELATIONS DIRECTOR-C 09/03 Savella 03/28 Hx Tablets 50mg 60tab 1 po bid s Sayra, - LABOR RELATIONS DIRECTOR-C 11/17 Horner Hx Tablets 5-325mg 1 po Q6HR [place], / Ed Spears MD 10/16 Lyrica Hx Capsules 75mg 60cap 1 po QHS for [place], /0000 s pain Ed Spears MD 09/24 Ibuprofen 00/00 Hx Tablets 800mg 90tab one po every Naima /0000 s 8 hours with Ed Colbert food prn LABOR RELATIONS DIRECTOR-C 01/31 pain 2016 Gralise 0000 Hx Tablets 600mg 90tab 3 tabs po qd Naima /0000 s in evening Ed Colbert replaces LABOR RELATIONS DIRECTOR-C 01/31 gabapentin 2016 workers comp Pantoprazole Hx Tablets 40mg Take One Unknown Sodium /0000 DR Tablet By - Mouth Twice 04/18 A Day Pantoprazole Hx Tablets 40mg 60tab 1 by mouth Naima Sodium /0000 DR s twice a day Ed ColbertP-C 09/12 Medications Administered in Office Medication Date Status Form Strength Qnty SIG Indications Ordering Provider TB,Intradermal Administered Injection Lab and (PPD, Mantoux) 013 Office Services Immunizations CPT Code Status Date Vaccine Lot # [id number] Given 05/23/2017 Influenza Virus Vaccine, Quadrivalent, 3 Yr > [id number] Quad, Preserv Free 16460 Given 05/30/2016 Influenza Virus Vaccine, Quadrivalent, 3 Yr > [id number] Quad, Preserv Free 33266 Given 09/06/2014 Tdap (Adacel) [id number] 07536 Given 09/06/2014 Influenza Virus Vaccine, Quadrivalent, 3 Yr > [id number] Quad, Preserv Free 15745 Given 05/19/2012 Influenza Vaccine-Preservative Free 3 Yrs And [id number] Above [id number] Ordered 10/27/2009 Tdap (Adacel) Vital Signs Date Vital Result Comment 12/03/2017 Weight 162.00 lb Weight in kg's 73.483 BP Systolic 138 mmHg BP Diastolic 90 mmHg Heart Rate 97 /min Body Temperature 97.0 F Respiratory Rate 14 /min 10/10/2017 Weight 164.00 lb Weight in kg's 74.390 BP Systolic 134 mmHg BP Diastolic 74 mmHg Heart Rate 116 /min Body Temperature 97.9 F Respiratory Rate 18 /min O2 % BldC Oximetry 99 % 09/03/2017 Weight 159.00 lb Weight in kg's [...] 24 h Urine Volume 750 mL 4 Catecholamine 24HR Urine Fract 09/17/2017 Urine Collection Duration 24 h Urine Total Volume 750 mL Urine Norepinephrine 69 mcg/24h 15-80 Urine Epinephrine 9.8 mcg/24h <21 Urine Dopamine 199 mcg/24h 65-400 5 Metanephrines Plasma 09/17/2017 Plasma Free Normetanephrine 0.92 nmol/L & lt;0.90 Plasma Free Metanephrine 0.25 nmol/L <0.50 6 Laboratory test finding 08/30/2017 Partial Thrombo Time 32.0 seconds 26.0 -36.3 PTT Inr/Protime 08/30/2017 Inr 1.00 0.77-1.02 CBC Auto Diff 08/30/2017 White Blood Count [...] 0-2 Nucleated Red Blood Cells % 0.1 Creatinine 08/30/2017 Creatinine 0.92 mg/dL 0.67-1.17 Egfr Non- 94.7 >60 Egfr 121.9 >60 7 Laboratory test finding 08/30/2017 Blood Urea Nitrogen BUN 14 mg/dL 6-24 Laboratory test finding 08/29/2017 Magnesium 2.0 mg/dL [...] Egfr Non- 92.4 >60 Egfr 118.9 >60 8 Laboratory test finding 08/29/2017 Troponin-I (TnI) 0.00 ng/mL <0.04 Urinalysis Profile 08/29/2017 Urine Color Yellow Urine Appearance Clear Urine Specific [place] 1.021 1.010-1.030 Urine pH 6.0 5-9 Urine Urobilinogen Positive Negative Urine Ketones Negative Negative Urine Protein Negative Negative Urine Leukocytes Negative Negative Urine Blood Negative Negative Urine Nitrite Negative Negative Urine Bilirubin Negative Negative Urine Glucose Negative Negative Type & Screen 08/29/2017 Patient Blood Type A Positive Antibody Screen NEGATIVE Laboratory test finding 08/29/2017 Lactic Acid 1.1 mmol/L 0.5-2.0 9 Partial Thrombo Time PTT 31.1 seconds 26.0-36.3 [...] 0-2 Nucleated Red Blood Cells % 0.1 CBC Auto Diff 08/20/2017 White Blood Count [...] Egfr Non- 101.1 >60 Egfr 130.0 >60 10 Lipid Profile (Trig/Chol/HDL) 08/20/2017 Triglycerides 181 mg/dL 11 Cholesterol 96 mg/dL 12 HDL Cholesterol 28.5 mg/dL 13 LDL Cholesterol 31 mg/dL 14 Laboratory test finding 08/20/2017 TSH (Thyroid Stim 1.60 mcIU/mL 0.34- 5.60 15 Horm) Magnesium 2.1 mg/dL 1.9-2.7 16 Laboratory test finding 01/17/2017 Tissue Culture & SEE RESULT BELOW 17, 18 Sensitiv Wound Culture/Sensi SEE RESULT BELOW 17, 19 CBC Auto Diff 09/05/2015 White Blood Count [...] Egfr Non- 90.3 >60 Egfr 116.1 >60 20 Laboratory test finding 09/05/2015 Lactic Acid 1.8 mmol/L 0.5-2.0 21 CBC Auto Diff 05/15/2015 White Blood Count [...] Quantitative < 200 ng/mL Less Than 230 22 B-Type Natriuretic Peptide BNP 27 pg/mL 23 Comp Metabolic Panel 05/15/2015 Sodium 137 mmol/L [...] Egfr Non- 78.1 >60 Egfr 100.4 >60 24 Laboratory test finding 05/15/2015 Lipase 11 U/L 11.0-82.0 C Reactive Protein 35.65 mg/L High < 5.00 25 Troponin I 0.00 ng/mL <0.03 26 TSH (Thyroid Stimulating Horm) 1.88 ?IU/mL 0.34-5.60 Urinalysis 10/21/2013 Urine Color Yellow Urine Appearance Clear Urine Specific [place] 1.006 Low 1.010-1.030 Urine Esterase Negative Negative [...] Egfr Non- 98.5 >60 Egfr 126.7 >60 27 Wound Culture/Sensi 06/24/2013 Wound/Misc Culture-Gram Stain (SEE NOTE) 28 Wound Culture/Sensi 03/09/2013 Wound/Misc Culture-Gram Stain (SEE NOTE) 29 Hemoccult 11/07/2012 Stool-Occult Blood #1 NEG 11/05/12 [...] Egfr Non- 115.1 >60 Egfr 148.0 >60 30 CBC Auto Diff 11/04/2012 White Blood Count [...] test finding 09/26/2012 Blood Culture (SEE NOTE) 31 Blood Culture 09/26/2012 Blood Culture (SEE NOTE) 32 CBC Auto Diff 09/24/2012 White Blood Count [...] Egfr Non- 115.1 >60 Egfr 148.0 >60 33 Laboratory test finding 09/24/2012 Amylase 47 U/L 20-120 Lipase 19 U/L Low 22-51 TSH (Thyroid Stimulating Horm) 0.96 miu/mL 0.34-5.60 Jean-Claude Waller Comprehensive 09/24/2012 Ebv Capsid Ag IgG Ab Positive Negative Ebv Capsid Ag IgM Ab Negative Negative Jean-Claude-Waller Nuclear Antigen Positive Negative Jean-Claude-Waller Virus Interp See Comment 34 CMV Igg/Igm 09/24/2012 Cytomegalovirus IgG Antibody <4 AU/mL <4 Cytomegalovirus IgM Antibody Negative Negative 35 HIV 1/2 AB Evaluation 09/24/2012 HIV 1 2 Antibody Nonreactive Nonreactive 36 Urine DIP 04/07/2012 Leukocytes NEG Neg Urine Nitrites NEG Neg Urine pH 5 5-6 Total Protein, Urine NEG Neg Urine Glucose NORM Norm Urine Ketones NEG Neg Urobilinogen NEG Norm Urine Bilirubin NEG Neg Urine Blood NEG Neg Specific [place] N/A Low 1.01-1.02 Urinalysis 04/05/2012 Ua Color YELLOW Yellow Appearance-Urine CLEAR Clear Specific [place]-Ur 1.015 1.010-1.030 Esterase-Urine NEGATIVE Negative Nitrite NEGATIVE Negative [id number] NEGATIVE Negative Protein-Urine NEGATIVE Negative PH-Urine 6.5 [...] mmol/L 22-32 Anion Gap 5.0 mmol/L 2-11 37 Glucose 94 mg/dL 70-100 BUN 12 mg/dL 6-24 Creatinine 0.7 mg/dL 0.50-1.40 One Over Creatinine 1.42 BUN/Creatinine Ratio 17.1 8-20 Calcium 9.1 mg/dL 8.1-9.9 Total Protein 6.8 GM/DL 6.2-8.1 Albumin 4.5 GM/DL 3.6-5.4 Globulin 2.3 GM/DL 2-4 Albumin/Globulin Ratio 2.0 1-3 Bilirubin Total 0.6 mg/dL 0.4-1.5 38 Alkaline Phosphatase 44 U/L 39-117 Alt (SGPT) 11 U/L Low 17-63 Ast (Sgot) 14 U/L 12-42 eGFR Non- 134.3 > 60 eGFR 172.7 > 60 39 CBC Auto Diff 04/03/2012 White Blood Count [...] Color YELLOW Yellow Appearance-Urine TURBID Clear Specific [place]-Ur 1.031 High 1.010-1.030 Esterase-Urine NEGATIVE Negative Nitrite NEGATIVE Negative [id number]-[id number]-ZPR NEGATIVE Negative Protein-Urine NEGATIVE Negative PH-Urine 6.5 5-9 Blood-Urine NEGATIVE Negative Ketones-Urine NEGATIVE Negative Bilirubin-Ur NEGATIVE Negative Glucose-Urine NEGATIVE Negative Comp Metabolic Panel 04/03/2012 Sodium 139 mmol/L 135-145 Potassium 3.5 mmol/L 3.5-5.0 Chloride 104 mmol/L 101-111 Co2 (Carbon Dioxide) 28.0 mmol/L 22-32 Anion Gap 7.0 mmol/L 2-11 40 Glucose 108 mg/dL High 70-100 BUN 18 mg/dL 6-24 Creatinine 1.0 mg/dL 0.50-1.40 One Over Creatinine 1.00 BUN/Creatinine Ratio 18.0 8-20 Calcium 9.6 mg/dL 8.1-9.9 Total Protein 6.8 GM/DL 6.2-8.1 Albumin 4.6 GM/DL 3.6-5.4 Globulin 2.2 GM/DL 2-4 Albumin/Globulin Ratio 2.1 1-3 Bilirubin Total 0.6 mg/dL 0.4-1.5 41 Alkaline Phosphatase 53 U/L 39-117 Alt (SGPT) 10 U/L Low 17-63 Ast (Sgot) 15 U/L 12-42 eGFR Non- 89.0 > 60 eGFR 114.4 > 60 42 Laboratory test finding 04/03/2012 Lipase 23 U/L [...] mmol/L 22-32 Anion Gap 6.0 mmol/L 2-11 43 Glucose 40 mg/dL Low 70-100 BUN 10 mg/dL 6-24 Creatinine 0.9 mg/dL 0.50-1.40 One Over Creatinine 1.11 BUN/Creatinine Ratio 11.1 8-20 Calcium 9.6 mg/dL 8.1-9.9 Total Protein 6.8 GM/DL 6.2-8.1 Albumin 4.5 GM/DL 3.6-5.4 Globulin 2.3 GM/DL 2-4 Albumin/Globulin Ratio 2.0 1-3 Bilirubin Total 1.4 mg/dL 0.4-1.5 44 Alkaline Phosphatase 54 U/L 39-117 Alt (SGPT) 14 U/L Low 17-63 Ast (Sgot) 15 U/L 12-42 eGFR Non- 100.5 > 60 eGFR 129.2 > 60 45 Lipid Profile (Trig/Chol/HDL) 03/28/2012 Triglyceride 52 mg/dL 40-200 Cholesterol 134 mg/dL Less Than 200 46 High Density Lipoprotein 32 mg/dL Low 40-60 47 Cholesterol/HDL Ratio 4.19 AVERAGE 1-4.97 Low Density Lipoprotein 92 mg/dL Less Than 100 48 Laboratory test finding 03/28/2012 TSH 1.06 MIU/ML 0.34-5.60 Vitamin B12 243 pg/mL 180-914 1 REFERENCE VALUE 44-261 (Normotensive) <400 (Hypertensive) 2 REFERENCE VALUE 111-419 (Normotensive) <900 (Hypertensive) 3 REFERENCE VALUE 200-614 (Normotensive) <1300 (Hypertensive) 4 ADDITIONAL INFORMATION This test was developed and its performance characteristics determined by [facility] in a manner consistent with CLIA requirements. This test has not been cleared or approved by the U.S. Food and Drug Administration. Test Performed by: [facility] [employer] - [address] [address] 5 ADDITIONAL INFORMATION This test was developed and its performance characteristics determined by [facility] in a manner consistent with CLIA requirements. This test has not been cleared or approved by the U.S. Food and Drug Administration. Test Performed by: [facility] - [address] [address] ADDITIONAL INFORMATION This test was developed and its performance characteristics determined by [facility] in a manner consistent with CLIA requirements. This test has not been cleared or approved by the U.S. Food and Drug Administration. Test Performed by: [facility] - [address] [address] 7 Because ethnic data is not always readily [...] 15-29 5 Kidney failure <15 (or dialysis) 8 Because ethnic data is not always readily [...] 15-29 5 Kidney failure <15 (or dialysis) 9 [facility] Severe Sepsis and Septic Shock Management Bundle Measure requires all lactic acids initially measuring >2.0 mmol/L be repeated. 10 Because ethnic data is not always readily [...] 15-29 5 Kidney failure <15 (or dialysis) 11 Desirable: <150 Borderline High: 150-199 High: 200-499 Very High: >500 12 Desirable: <200 Borderline High: 200-239 High: >239 13 Low: <40 Desirable: 40-60 High: >60 14 Desirable: <100 Near Optimal: 100-129 Borderline High: 130-159 High: 160-189 Very High: >189 15 [id number] INFECTION OG RIGHT THUMB LACERATION 18 SEE RESULT BELOW Name: FESTUS ROBERTS : [address]: Davi Cheney MD Acct: [id number] Unit: [id number] AGE: 31 Location: [facility] Re01/17/17 SEX: M Status: REG SDC SPEC: [id number] YSABEL: 01/17/[address] [facility] [address]: Davi Cheney MD REQ: [id number] RECD: 01/17/17 STATUS: LYNN TORRE DR: Beatriz Flores MD _ SOURCE: WOUND SPDESC:RT THUMB ORDERED: Tissue Cult/GS, Anaerobic Cult COMMENTS: INFECTION OG RIGHT THUMB LACERATION Procedure Result Reported Site Tissue Gram Stain Final 01/17/17- 1412 ML 1+ Neutrophils 1+ Epithelial Cells No Organisms Seen Preparation By Direct Smear Tissue Culture Final 01/21/17- 709 ML No Growth Day 4 Anaerobic Culture Final 01/21/17- 709 ML No Growth Day 4 * ML - MAIN LAB ([facility]) . END OF REPORT * ML=Testing performed at Main Lab DEPARTMENT OF PATHOLOGY, [address] [place] [address] Charan Herzog M.D. Director [facility] # [id number] 19 SEE RESULT BELOW Name: FESTUS ROBERTS : [address]: Davi Cheney MD Acct: [id number] Unit: [id number] AGE: 31 Location: [facility] Re01/17/17 SEX: M Status: REG SDC SPEC: [id number] YSABEL: 01/17/[address] [facility] [address]: Davi Cheney MD REQ: [id number] RECD: 01/17/17 STATUS: LYNN TORRE DR: Beatriz Flores MD _ SOURCE: WOUND SPDESC:RT THUMB ORDERED: Culture Stain QUERIES: Specimen Description RIGHT THUMB LACERATION Procedure Result Reported Site Wound/Misc Gram Stain Final 01/17/17- 1419 ML No Neutrophils Observed No Organisms Seen Wound/Misc Culture Final 01/19/17- 0956 ML No Growth Day 2 * ML - MAIN LAB ([facility]) . END OF REPORT * ML=Testing performed at Main Lab DEPARTMENT OF PATHOLOGY, [address] [place] [address] Charan Herzog M.D. Director [facility] # [id number] 20 Because ethnic data is not always readily [...] 15-29 5 Kidney failure <15 (or dialysis) 21 [facility] Severe Sepsis and Septic Shock Management Bundle Measure requires all lactic acids initially measuring >2.0mmol/L be repeated. 22 Please note: The following may produce a false positive D Dimer test: - Rheumatoid factor greater than 60 IU/ml - Plasma hemoglobin greater than 0.05 gm/dl - Bilirubin greater than 50 mg/dl - Lipids greater than 1000 mg/dl - FDP greater than 20 ug/ml 23 >100 to <200 pg/mL: likely compensated congestive heart failure (CHF) 200 to 400 pg/mL: likely moderate CHF >400 pg/mL: likely moderate to severe CHF 24 Because ethnic data is not always [...] 5 Kidney failure <15 (or dialysis) 25 Acute inflammation: >10.00 26 Reference Range and Interpretation: TnI (ng/mL) Interpretation Less Than 0.03 ng/mL Not supportive of diagnosis of MT 0.03 - 0.50 ng/mL Indeterminate: suggest serial studies if clinically indicated. Greater than 0.5 ng/mL Consistent with diagnosis of MT 27 Because ethnic data is not always [...] 5 Kidney failure <15 (or dialysis) 28 RUN DATE: 06/26/13 [facility] LAB LIVE PAGE 1 RUN TIME: [address] [place], [place] [address] Specimen Inquiry Name: FESTUS ROBERTS : [address]: Beatriz Flores MD Acct: [id number] Unit: [id number] AGE: 28 Location: [facility] Re06/24/13 SEX: M Status: REG REF SPEC: [id number] YSABEL: 06/24/[address]: Beatriz Flores MD REQ: [id number] RECD: 06/24/13 STATUS: COMP _ SOURCE: WOUND SPDESC:OTHER ORDERED: Culture Stain COMMENTS: LEFT BUTTOCK WOUND QUERIES: Medent Number [id number] Specimen Description LEFT BUTTOCK WOUND Procedure Result [...] PATHOLOGY, [facility] [place], [place] [address] Charan Herzog M.D. Director [facility] Permit #[id number] RUN DATE: 06/26/13 [facility] LAB LIVE PAGE 2 RUN TIME: 1059 [facility] [employer] [place], [place] [address] Specimen Inquiry Patient: FESTUS ROBERTS [id number] (Continued) Specimen: [id number] Collected: 06/24/13 Received: 06/24/13 (Continued) Procedure Result Verified Site Wound/Misc Culture Final (continued) * These antibiotics are not available in the [facility] Formulary Contact the Microbiology Department for any additional antibiotic reporting. END OF REPORT * ML=Testing performed at Main Lab DEPARTMENT OF PATHOLOGY, [facility] [place], [place] [address] Charan Herzog M.D. Director [facility] Permit #[id number] RUN DATE: 03/13/13 [facility] LAB LIVE PAGE 1 RUN TIME: [address] [place] [address] Specimen Inquiry Name: FESTUS ROBERTS : [address]: Naima Colbert NP Acct: [id number] Unit: [id number] AGE: 28 Location: [facility] Re03/09/13 SEX: M Status: REG REF SPEC: [id number] YSABEL: 03/09/[address]: Naima Colbert NP REQ: [id number] RECD: 03/09/13 STATUS: COMP _ SOURCE: BACK SPDESC: ORDERED: Culture Stain QUERIES: Medent Number [id number] Specimen Description LEFT LOWER BACK Procedure Result [...] PATHOLOGY, [facility] [place] [address] Charan Herzog M.D. Director [facility] Permit #[id number] RUN DATE: 03/13/13 [facility] LAB LIVE PAGE 2 RUN TIME: 1001 [facility] [employer] [place], [place] [address] Specimen Inquiry Patient: FESTUS ROBERTS [id number] (Continued) Specimen: [id number] Collected: 03/09/13-1422 Received: 03/09/13-1753 (Continued) Procedure Result Verified Site Wound/Misc Culture Final (continued) 03/13/13- 999 1. STAPHYLOCOCCUS EPIDERMIDIS (continued) M.I.C. RX --------- ------ Cefazolin-Deduced S * These antibiotics are not available in the [facility] Formulary Contact the Microbiology Department for any additional antibiotic reporting. END OF REPORT * ML=Testing performed at Main Lab DEPARTMENT OF PATHOLOGY, [address] [place] [address] Charan Herzog M.D. Director [facility] Permit #[id number] 30 Because ethnic data is not always readily [...] 15-29 5 Kidney failure <15 (or dialysis) 31 RUN DATE: 10/01/12 [facility] LAB LIVE PAGE 1 RUN TIME: [address] [place] [address] Specimen Inquiry Name: ARMANDOFESTUS R : [address]: Naima Colbert NP Acct: [id number] Unit: [id number] AGE: 27 Location: [facility] Re09/26/12 SEX: M Status: REG REF SPEC: [id number] YSABEL: 09/26/12-[address] [facility] [address]: Naima Colbert NP REQ: [id number] RECD: 09/26/12 STATUS: COMP _ SOURCE: BLOOD,VENO SPDESC: ORDERED: Blood Cult Procedure Result Verified Site Aerobic Culture Bottle Final 10/01/12- 1311 ML No Growth Day 5 Anaerobic Culture Bottle Final 10/01/12- 1311 ML No Growth Day 5 END OF REPORT * ML=Testing performed at Main Lab DEPARTMENT OF PATHOLOGY, [facility] [place] [address] Charan Herzog M.D. Director [facility] Permit #[id number] RUN DATE: 10/01/12 [facility] LAB LIVE PAGE 1 RUN TIME: 1311 [facility] [employer] [place], [place] [address] Specimen Inquiry Name: FESTUS ROBERTS : [address]: Naima Colbert NP Acct: [id number] Unit: [id number] AGE: 27 Location: [facility] Re09/26/12 SEX: M Status: REG REF SPEC: [id number] YSABEL: 09/26/[address]: Naima Colbert NP REQ: [id number] RECD: 09/26/12 STATUS: COMP _ SOURCE: BLOOD,[facility]: ORDERED: Blood Cult Procedure Result Verified Site Aerobic Culture Bottle Final 10/01/12- 1310 ML No Growth Day 5 Anaerobic Culture Bottle Final 10/01/121310 ML No Growth Day 5 END OF REPORT * ML=Testing performed at Main Lab DEPARTMENT OF PATHOLOGY, [address] [place] [address] Charan Herzog M.D. Director [facility] Permit #[id number] 33 Because ethnic data is not always [...] 5 Kidney failure <15 (or dialysis) 34 RESULT: Results suggest past infection. In most populations, at least 90% of the adult population will have been infected with EBV sometime in the past and therefore, will be positive for anti-VCA/IgG and anti- EBNA. Antibodies to EBNA develop 6-8 weeks after primary infection and remain present for life. Presence of VCA/ IgM antibodies indicates recent primary infection with EBV. Test Performed by: [place] [address] Prize Jacker: Padilla Denton III, M.D. 35 Test Performed by: [place] [address] Prize Jacker: Padilla Denton III, M.D. 36 It is recognized that currently available assays [...] 95% confidence interval of 99.78 to 99.96%. 37 Anion gap measurement may be of [...] 5 Kidney failure <15 (or dialysis) 40 Anion gap measurement may be of limited value in the presence of any alkalosis, especially in a combined acid base disorder. . 41 A metabolite of Naproxen, O-desmethylnaproxen, has been shown to interfere with the Jendrassik-Jessica method for measuring total bilirubin. Samples from patients who have taken Naproxen have shown spurious elevation in total bilirubin levels. 42 Because ethnic data is not always readily [...] 15-29 5 Kidney failure <15 (or dialysis) 43 Anion gap measurement may be of limited value in the presence of any alkalosis, especially in a combined acid base disorder. . 44 A metabolite of Naproxen, O-desmethylnaproxen, has been shown to interfere with the Jendrassik-Gulfcrest method for measuring total bilirubin. Samples from patients who have taken Naproxen have shown spurious elevation in total bilirubin levels. 45 Because ethnic data is not always readily [...] 15-29 5 Kidney failure <15 (or dialysis) 46 CHOLESTEROL INTERPRETATION: Desirable: Less than 200 MG/DL Borderline-High Risk: 200-239 MG/DL High-Risk: 240 MG/DL and over 47 HDL INTERPRETATION: Undesirable: High Risk: Less than 40 MG/DL Desirable: Low Risk: Greater than 60 MG/DL 48 LDL INTERPRETATION: Low Risk Optimal Level: LDL Less than 100 MG/DL Near or Above Optimal: LDL 100-129 MG/DL Borderline High Risk: LDL 130-159 MG/DL High Risk: LDL 160-189 MG/DL Very High Risk: LDL Greater than 189 MG/DL Procedures Date CPT Code Description Status 08/20/2017 44832 EKG, at Least 12 Leads w/Interpretation and Report Completed 09/26/2012 91788 EKG, at Least 12 Leads w/Interpretation and Report Completed Encounters Type Date Location Provider CPT E/M Dx Office Visit 10/10/2017 9:30a [place] [address] I10 I63.9 Office Visit 09/03/2017 11:30a Main Office Naima Maldonadogil LABOR RELATIONS DIRECTOR-C 08641 I10 G47.00 Office Visit 08/27/2017 8:00a Main Office Naima Maldonadogil [employer] RELATIONS DIRECTOR-C 75757 Z00.00 I10 K21.9 Office Visit 08/20/2017 10:15a Main Office Naima Maldonadogil [employer]OR RELATIONS DIRECTOR-C 23468 K21.9 R07.9 Office Visit 05/23/2017 3:30p Main Office Lala Benz, [employer] 59085 K02.9 Z23 Office Visit 01/22/2017 2:30p Main Office Naima Sayra [employer] RELATIONS DIRECTOR-C 98603 Z01.818 S92.202G Office Visit 11/16/2016 9:30a Main Office Naima Sayra LABOR RELATIONS DIRECTOR-C 65264 I63.9 Office Visit 09/03/2016 11:45a Main Office Naima Sayra [employer]OR RELATIONS DIRECTOR-C 59859 R68.84 Office Visit 08/15/2016 2:30p Main Office Naima Maldonadogil LABOR RELATIONS DIRECTOR-C 48873 I63.9 Office Visit 07/06/2016 10:00a Main Office Brandyn Kline LYNN, LABOR RELATIONS DIRECTOR-C 40200 J01.90 Office Visit 05/30/2016 11:15a Main Office Naima Maldonadogil LABOR RELATIONS DIRECTOR-C 66267 R05 Z23 Office Visit 04/18/2016 10:00a Main Office Naima Colbert [employer]OR RELATIONS DIRECTOR-C 82011 M54.2 Office Visit 02/01/2016 3:30p Main Office Naima Colbert [employer]OR RELATIONS DIRECTOR-C 76881 R11.0 I63.9 Office Visit 11/03/2015 11:15a [place] [address] S64.12xA Office Visit 09/07/2015 9:15a Main Office Naima Colbert LABOR RELATIONS DIRECTOR-C 79939 S20.20xA S92.202G Office Visit 04/12/2015 8:45a Main Office Naima Colbert LAB[employer] RELATIONS DIRECTOR-C 24446 M25.80 S92.202G Office Visit 03/30/2015 11:15a Main Office Naima Colbert [employer] RELATIONS DIRECTOR-C 38729 719.80 Office Visit 09/06/2014 11:15a Main Office Naima Colbert [employer] RELATIONS DIRECTOR-C 29259 829.1 V04.81 V06.1 Office Visit 07/05/2014 10:00a Main Office Naima Colbert LABOR RELATIONS DIRECTOR-C 77860 829.1 371.89 783.21 Office Visit 10/16/2013 11:30a Main Office Naima Colbert [employer] RELATIONS DIRECTOR-C 34622 726.19 Office Visit 07/03/2013 8:45a Main Office Naima Colbert LABOR RELATIONS DIRECTOR-C 21788 682.5 Office Visit 06/24/2013 10:30a Main Office Beatriz Flores M.D. 85562 682.5 Office Visit 03/09/2013 1:45p Main Office Naima Colbert LABOR RELATIONS DIRECTOR-C 75377 709.8 Office Visit 12/02/2012 10:45a Main Office Naima Colbert LAB[employer] RELATIONS DIRECTOR-C 46164 465.9 Office Visit 11/04/2012 8:45a Main Office Naima Colbert LABOR RELATIONS DIRECTOR-C 01224 790.6 569.89 V76.51 Office Visit 09/24/2012 11:00a Main Office Naima Colbert LABOR RELATIONS DIRECTOR-C 66435 789.9 784.0 787.03 Office Visit 05/19/2012 2:15p Main Office Elise Lowry LABOR RELATIONS DIRECTOR-C 77681 522.5 V04.81 Office Visit 04/07/2012 4:30p Main Office Naima Maldonadogil LABOR RELATIONS DIRECTOR-C 57267 789.9 Office Visit 03/28/2012 9:00a Main Office Elise Lowry LABOR RELATIONS DIRECTOR-C 88483 V70.0 251.1 300.00 V72.62 Plan of Care 12/03/2017 - Lala Benz, NPK02.9 Dental caries, unspecifiedNew Medication: Clindamycin HCL 300 mgComments:No acute concerns today.Will tx empirically and encouraged patient to call dentist to see if he can get in soonerDiscussed pain control with Tylenol Educated on new/worsening symptoms and when to call/ return. Patient stated understanding and agrees to plan
[2017-12-27] MEDS ORDERED: NS 0.9% 1000 ML* 1,000 ML IV ONE (08:28)
[2017-12-27 08:42] LABS: Hematocrit 44 % (42-52); Mean Corpuscular HGB Conc 34 g/dl (31-36); Mean Corpuscular Hemoglobin 32 pg (27-31); Mean Corpuscular Volume 93 fL (80-94); Mean Platelet Volume 7.1 um3 (7.4-10.4); Platelet Count 400 10^3/ul (150-450); Red Cell Distribution Width 13 % (10.5-15); White Blood Count 6.9 10^3/ul (3.5-10.8)
[2017-12-27 08:57] LABS: Urine Appearance Cloudy; Urine Blood 3+ (Negative); Urine Color Yellow; Urine Ketones Negative (Negative); Urine Protein Negative (Negative); Urine Specific Gravity 1.021 (1.010-1.030); Urine Urobilinogen Negative (Negative)
[2017-12-27 08:59] LABS: EGFR Non-African American 91.3 (>60)
--- NOTE | 2017-12-27 09:07 | RAD ---
Indication: RIGHT flank pain. History of nephrolithiasis. Comparison: March 20, [address] Technique: RIGHT unilateral renal ultrasound. Report: 10.1 x 4.4 x 4.9 cm RIGHT kidney demonstrates normal cortical echogenicity. No conspicuous stones. Negative for hydronephrosis. No renal lesions visualized. Negative for perinephric fluid. IMPRESSION: Negative RIGHT renal ultrasound.
[2017-12-27] MEDS ORDERED: oxyCODONE/Acetamin 5/325 MG* TAB PO ONE (09:30)
[2017-12-27 10:52] VITALS: BP 132/85
--- NOTE | 2017-12-31 07:46 | ED ---
Yael Pineda Tenzin, scribed for Brendon Shepherd MD on 12/27/17 at 0847 . Back Pain - HPI Summary HPI Summary: Pt is 32 years old male presenting to the ED with past hx of kidney stones complaining of left flank pain that started since yesterday morning. He describes the pain as stabbing and is constant. The severity of pain is intermittent. Pt reports that his flank pain is radiating to his groins. Pt also reports intermittent fevers and hematuria. Nothing alleviates or aggravates the pain. - History of Current Complaint Chief Complaint: EDUrogenitalProblems Stated Complaint: FLANK PAIN Time Seen by Provider: 12/27/17 08:03 Hx Obtained From: Patient Onset/Duration: Lasting Days - started since yesterday. Onset/Duration: Still Present Timing: Constant Severity Initially: Mild Severity Currently: Mild Pain Intensity: 9 Pain Scale Used: 0-10 Numeric Aggravating Symptom(s): Nothing Alleviating Symptom(s): Nothing Associated Signs And Symptoms: Positive: Fever - intermittent - Allergies/Home Medications Allergies/Adverse Reactions: Allergies Allergy/AdvReac Type Severity Reaction Status Date / Time amoxicillin Allergy Difficulty Verified 12/27/17 07:49 Breathing azithromycin Allergy Difficulty Verified 12/27/17 07:49 Breathing clavulanic acid Allergy Difficulty Verified 12/27/17 07:49 Breathing Penicillins Allergy Difficulty Verified 12/27/17 07:49 Breathing PMH/Surg Hx/FS Hx/Imm Hx Endocrine/Hematology History: Reports: Hx Anticoagulant Therapy - on plavix, Hx Anemia, Other Endocrine/Hematological Disorders - low blood sugar Denies: Hx Blood Transfusions, Hx Diabetes - low blood sugar, Hx Thyroid Disease Cardiovascular History: Reports: Hx Angina, Hx Hypercholesterolemia, Other Cardiovascular Problems/Disorders - on plavix Denies: Hx Coronary Artery Disease, Hx Hypertension, Hx Myocardial Infarction , Hx Pacemaker/ICD, Hx Valvular Heart Disease Respiratory History: Reports: Hx Pneumonia Denies: Hx Asthma, Hx Chronic Obstructive Pulmonary Disease (COPD) GI History: Reports: Hx Gastroesophageal Reflux Disease, Hx Hiatal Hernia, Other GI Disorders - nausea History: Reports: Hx Kidney Stones - 1 month ago - was able to pass no surgery Denies: Hx Dialysis, Hx Renal Disease Musculoskeletal History: Reports: Hx Arthritis - left foot, Hx Orthopedic Injury - Left foot - chronic pain, Other Musculoskeletal History - right arm and shoulder pain with nerve damage Sensory History: Reports: Hx Contacts or Glasses Denies: Hx Hearing Aid Opthamlomology History: Reports: Hx Contacts or Glasses Neurological History: Reports: Hx Headaches, Hx Transient Ischemic Attacks (TIA) , Other Neuro Impairments/Disorders - dizziness post CVA Denies: Hx Dementia, Hx Seizures Psychiatric History: Denies: Hx Substance Abuse - Cancer History Hx Hematologic Symptoms: No Hx Chemotherapy: No Hx Radiation Therapy: No Hx Palliative Cancer Treatment: No - Surgical History Surgery Procedure, Year, and Place: appendectomy. reconstruction of left foot x2 -2013, 2015. neuro stimulator for right shoulder - for pain 2011 Hx Anesthesia Reactions: No - Immunization History Date of Influenza Vaccine: Fall 2016 Immunizations Up to Date: Yes Infectious Disease History: No Infectious Disease History: Denies: Hx Hepatitis, Hx Human Immunodeficiency Virus (HIV), Traveled Outside the [place] in Last 30 Days - Family History Known Family History: Positive: Cardiac Disease, Other - CVA - Social History Alcohol Use: None Hx Substance Use: No Substance Use Type: Reports: None Hx Tobacco Use: Yes - not currently Smoking Status (MU): Former Smoker Type: Cigarettes Amount Used/How Often: smoked from 17 til 30 years old 1/2 ppd Have You Smoked in the Last Year: Yes Review of Systems Positive: Fever - Intermittent . Negative: Chills Negative: Erythema Negative: Sore Throat Negative: Chest Pain Negative: Shortness Of Breath Negative: Abdominal Pain, Vomiting, Nausea Positive: flank pain, hematuria Negative: Myalgia, Edema Negative: Rash All Other Systems Reviewed And Are Negative: Yes Physical Exam - Summary Physical Exam Summary: Constitutional: Well-developed, Well-nourished, Alert. (-) Distressed Skin: Warm, Dry HENT: Normocephalic; Atraumatic Eyes: Conjunctiva normal Neck: Musculoskeletal ROM normal neck. (-) JVD, (-) Stridor, (-) Tracheal deviation Cardio: Rhythm regular, rate normal, Heart sounds normal; Intact distal pulses; The pedal pulses are 2+ and symmetric. Radial pulses are 2+ and symmetric. (-) Murmur Pulmonary/Chest wall: Effort normal. (-) Respiratory distress, (-) Wheezes, (-) Rales Abd: Soft, (-) Tenderness, (-) Distension, (-) Guarding, (-) Rebound Musculoskeletal: (-) Edema. Back: (Right CVA Tenderness) Lymph: (-) Cervical adenopathy Neuro: Alert, Oriented x3 Psych: Mood and affect Normal Triage Information Reviewed: Yes Vital Signs On Initial Exam: Initial Vitals Temp Pulse Resp BP Pulse Ox 98.4 F 102 18 133/90 99 12/27/17 07:46 12/27/17 07:46 12/27/17 07:46 12/27/17 07:46 12/27/17 07:46 Vital Signs Reviewed: Yes Diagnostics - Vital Signs Vital Signs Temp Pulse Resp BP Pulse Ox 12/27/17 08:27 19 12/27/17 07:46 98.4 F 102 18 133/90 99 - Laboratory Lab Results: Lab Results 12/27/17 Range/Units 08:31 WBC 6.9 (3.5-10.8) 10^3/ul RBC 4.70 (4.0-5.4) 10^6/ul Hgb 15.0 (14.0-18.0) g/dl Hct 44 (42-52) % MCV 93 (80-94) fL MCH 32 H (27-31) pg MCHC 34 (31-36) g/dl RDW 13 (10.5-15) % Plt Count 400 (150-450) 10^3/ul MPV 7.1 L (7.4-10.4) um3 Result Diagrams: 12/27/17 08:31 12/27/17 08:31 Lab Statement: Any lab studies that have been ordered have been reviewed, and results considered in the medical decision making process. - Additional Comments Diagnostic Additional Comments: Renal US Radiologist interpreted the report. Impression: Negative right renal Ultrasound. Dr. Shepherd reviewed the report. Re-Evaluation - Re-Evaluation First Eval Re-Evaluation Time: 09:30 Change: Unchanged - Pt notes pain rated at 5 out of 10 in severity. He is urinating fine but looks uncomfortable. Transition to PO meds. Back Pain Course/Dx - Diagnoses Provider Diagnoses: Ureteral colic Discharge - Sign-Out/Discharge Documenting (check all that apply): Discharge/Admit/Transfer - Discharge Plan Condition: Stable Disposition: HOME Prescriptions: oxyCODONE/Acetamin 5/325 MG* [Percocet 5/325 TAB*] 1 tab PO Q4H PRN #12 tab MDD 6 PRN Reason: Pain Scale 6-10 Tamsulosin CAP* [Flomax CAP*] 0.4 mg PO DAILY #5 cap Patient Education Materials: Renal Colic (ED) Referrals: Peewee Dominique MD [Medical Doctor] - 3 Days () Additional Instructions: Return to the emergency department for any new or worsening symptoms. The documentation as recorded by the Yael hernandez Tenzin accurately reflects the service I personally performed and the decisions made by Cora moon Jerry, MD.
== END 2017-12-27 10:58 | disposition home or self-care (01) ==
LOC: ED 07:43
DX: N23 Unspecified renal colic (principal); E78.00 Pure hypercholesterolemia, unspecified; K21.9 Gastro-esophageal reflux disease without esophagitis; Z87.442 Personal history of urinary calculi; Z87.891 Personal history of nicotine dependence; Z79.01 Long term (current) use of anticoagulants; Z86.73 Personal history of transient ischemic attack (TIA), and cerebral infarction without residual deficits
CPT/HCPCS: 36415; 76775; 80053; 81003; 81015; 85027; 87086; 96360; 96374; 96375; 99282; J1885; J2270

== ENCOUNTER 2018-01-24 09:31 | Emergency (ER) | payer OTHER ==
--- NOTE | 2018-01-24 11:06 | ED ---
Throat Pain/Nasal Congestion - HPI Summary HPI Summary: Patient is a 32-year-old male presenting to the ED with right upper dental pain most notable over tooth #73 denies any fevers, sweats, chills. 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 He has been seen several times for dental pain. Continues to receive opioid medications. He states he has tried Anbesol and Tylenol without relief of symptoms. Denies any dysphagia or odynophagia. - History of Current Complaint Chief Complaint: EDDentalPain Time Seen by Provider: 01/24/18 09:39 Hx Obtained From: Patient Onset/Duration: Gradual Onset Severity: Moderate Associated Signs And Symptoms: Positive: Negative - Epiglottits Risk Factors Epiglottis Risk Factors: Negative - Allergies/Home Medications Allergies/Adverse Reactions: Allergies Allergy/AdvReac Type Severity Reaction Status Date / Time amoxicillin Allergy Difficulty Verified 01/24/18 10:40 Breathing azithromycin Allergy Difficulty Verified 01/24/18 10:40 Breathing clavulanic acid Allergy Difficulty Verified 01/24/18 10:40 Breathing Penicillins Allergy Difficulty Verified 01/24/18 10:40 Breathing PMH/Surg Hx/FS Hx/Imm Hx Previously Healthy: No Endocrine/Hematology History: Reports: Hx Anticoagulant Therapy - on plavix, Hx Anemia, Other Endocrine/Hematological Disorders - low blood sugar Denies: Hx Blood Transfusions, Hx Diabetes - low blood sugar, Hx Thyroid Disease Cardiovascular History: Reports: Hx Angina, Hx Hypercholesterolemia, Other Cardiovascular Problems/Disorders - on plavix Denies: Hx Coronary Artery Disease, Hx Hypertension, Hx Myocardial Infarction , Hx Pacemaker/ICD, Hx Valvular Heart Disease Respiratory History: Reports: Hx Pneumonia Denies: Hx Asthma, Hx Chronic Obstructive Pulmonary Disease (COPD) GI History: Reports: Hx Gastroesophageal Reflux Disease, Hx Hiatal Hernia, Other GI Disorders - nausea History: Reports: Hx Kidney Stones - 1 month ago - was able to pass no surgery Denies: Hx Dialysis, Hx Renal Disease Musculoskeletal History: Reports: Hx Arthritis - left foot, Hx Orthopedic Injury - Left foot - chronic pain, Other Musculoskeletal History - right arm and shoulder pain with nerve damage Sensory History: Reports: Hx Contacts or Glasses Denies: Hx Hearing Aid Opthamlomology History: Reports: Hx Contacts or Glasses Neurological History: Reports: Hx Headaches, Hx Transient Ischemic Attacks (TIA) , Other Neuro Impairments/Disorders - dizziness post CVA Denies: Hx Dementia, Hx Seizures Psychiatric History: Denies: Hx Substance Abuse - Cancer History Hx Hematologic Symptoms: No Hx Chemotherapy: No Hx Radiation Therapy: No Hx Palliative Cancer Treatment: No - Surgical History Surgery Procedure, Year, and Place: appendectomy. reconstruction of left foot x2 -2013, 2015. neuro stimulator for right shoulder - for pain 2011 Hx Anesthesia Reactions: No - Immunization History Date of Influenza Vaccine: Fall 2016 Hx Pertussis Vaccination: No Immunizations Up to Date: Unable to Obtain/Confirm Infectious Disease History: No Infectious Disease History: Denies: Hx Hepatitis, Hx Human Immunodeficiency Virus (HIV), Traveled Outside the [place] in Last 30 Days - Family History Known Family History: Positive: Cardiac Disease, Other - CVA - Social History Occupation: Employed Full-time Lives: Alone Alcohol Use: None Hx Substance Use: No Substance Use Type: Reports: None Hx Tobacco Use: Yes - not currently Smoking Status (MU): Former Smoker Type: Cigarettes Amount Used/How Often: smoked from 17 til 30 years old 1/2 ppd Have You Smoked in the Last Year: Yes Review of Systems Negative: Fever, Chills, Fatigue Positive: Dental Pain Negative: Palpitations, Chest Pain Negative: Shortness Of Breath, Cough Negative: Arthralgia, Myalgia Skin: Negative Neurological: Negative Psychological: Normal All Other Systems Reviewed And Are Negative: Yes Physical Exam Triage Information Reviewed: Yes Vital Signs On Initial Exam: Initial Vitals Temp Pulse Resp BP Pulse Ox 98.1 F 117 20 148/92 100 01/24/18 09:39 01/24/18 09:39 01/24/18 09:39 01/24/18 09:39 01/24/18 09:39 Vital Signs Reviewed: Yes Appearance: Positive: Well-Appearing Skin: Positive: Warm, Skin Color Reflects Adequate Perfusion Head/Face: Positive: Normal Head/Face Inspection ENT: Positive: Other - dental pain - tooth #7 Neck: Positive: Supple, Nontender, No Lymphadenopathy Respiratory/Lung Sounds: Positive: Clear to Auscultation, Breath Sounds Present Cardiovascular: Positive: RRR, Pulses are Symmetrical in both Upper and Lower Extremities Musculoskeletal: Positive: Normal, Strength/ROM Intact Neurological: Positive: Speech Normal Psychiatric: Positive: Normal, Affect/Mood Appropriate AVPU Assessment: Alert Diagnostics - Vital Signs Vital Signs Temp Pulse Resp BP Pulse Ox 01/24/18 09:39 98.1 F 117 20 148/92 100 - Laboratory Lab Statement: Any lab studies that have been ordered have been reviewed, and results considered in the medical decision making process. EENT Course/Dx - Course Course Of Treatment: Patient is evaluated for tooth #7 pain without swelling with a small amount of erythema to the area. No obvious evidence of abscess, however may have infection under the tooth. I strongly encouraged him to find a dentist who extracted the tooth as symptoms will continue. He will be given clindamycin as he is pen allergic and is given tramadol 2 days. He will continue to use Anbesol and Tylenol. - Diagnoses Provider Diagnoses: Chronic dental pain Discharge - Sign-Out/Discharge Documenting (check all that apply): Discharge/Admit/Transfer - Discharge Plan Condition: Stable Disposition: HOME Prescriptions: Clindamycin Cap(NF) [Clindamycin Cap 300 mg Cap(NF)] 300 mg PO Q6H #28 cap traMADol TAB* [Ultram*] 50 mg PO Q8H PRN #6 tab MDD 3 PRN Reason: Pain Patient Education Materials: Toothache (ED) Referrals: Andrea Byrd MD [Primary Care Provider] - Additional Instructions: Tylenol 650mg three times daily Alcohol and albesol to the area Tramadol up to three times daily for pain not well controlled with tylenol You need to have a dentist to follow up with This pain will continue if the tooth is not extracted - Billing Disposition and Condition Condition: STABLE Disposition: Home
[2018-01-24 11:39] VITALS: BP 130/68
== END 2018-01-24 11:35 | disposition home or self-care (01) ==
LOC: ED 09:31
DX: K08.89 Other specified disorders of teeth and supporting structures (principal); G89.29 Other chronic pain; I25.10 Atherosclerotic heart disease of native coronary artery without angina pectoris; Z79.02 Long term (current) use of antithrombotics/antiplatelets; Z87.891 Personal history of nicotine dependence; Z88.3 Allergy status to other anti-infective agents; Z88.0 Allergy status to penicillin; Z88.8 Allergy status to other drugs, medicaments and biological substances
CPT/HCPCS: 99282

== ENCOUNTER 2018-01-25 09:52 | Emergency (ER) | payer OTHER ==
[2018-01-25] MEDS ORDERED: NS 0.9% 1000 ML*IV.FLUID IV ONE (10:01)
[2018-01-25] MEDS ORDERED: Vancomycin(*) 1,000 MG in NS 0.9% 250 ML* 250 ML IVPB ONE (10:04)
[2018-01-25] MEDS ORDERED: Ondansetron INJ* 2 MG/ML VIAL IV ONE (10:44)
[2018-01-25] MEDS ORDERED: Morphine VIAL* 4 MG/ML VIAL (1 ml vial) IV ONE ×2 (10:44→12:12)
--- NOTE | 2018-01-25 10:44 | ED ---
Throat Pain/Nasal Congestion - HPI Summary HPI Summary: Patient is a 32-year-old male presenting to the ED with swelling to the right upper tooth at tooth #6 and 7. He was seen in the ED yesterday with a complaint of slight swelling, pain with possible infection. He was given clindamycin. Despite that he has been taking this medication, he endorses worsening swelling to the right side of the cheek over the maxillary region. Denies any trismus. Denies any dysphagia or odynophagia. Denies any fevers, but endorses sweats and chills. He has been taking Tylenol without relief of symptoms. - History of Current Complaint Chief Complaint: EDFever Time Seen by Provider: 01/25/18 09:54 Hx Obtained From: Patient Onset/Duration: Gradual Onset Severity: Moderate Associated Signs And Symptoms: Negative: Dysphagia, Drooling, Wheezing, Sinus Discomfort - Epiglottits Risk Factors Epiglottis Risk Factors: Negative - Allergies/Home Medications Allergies/Adverse Reactions: Allergies Allergy/AdvReac Type Severity Reaction Status Date / Time amoxicillin Allergy Difficulty Verified 01/25/18 10:03 Breathing azithromycin Allergy Difficulty Verified 01/25/18 10:03 Breathing clavulanic acid Allergy Difficulty Verified 01/25/18 10:03 Breathing Penicillins Allergy Difficulty Verified 01/25/18 10:03 Breathing PMH/Surg Hx/FS Hx/Imm Hx Previously Healthy: Yes Endocrine/Hematology History: Reports: Hx Anticoagulant Therapy - on plavix, Hx Anemia, Other Endocrine/Hematological Disorders - low blood sugar Denies: Hx Blood Transfusions, Hx Diabetes - low blood sugar, Hx Thyroid Disease Cardiovascular History: Reports: Hx Angina, Hx Hypercholesterolemia, Other Cardiovascular Problems/Disorders - on plavix Denies: Hx Coronary Artery Disease, Hx Hypertension, Hx Myocardial Infarction , Hx Pacemaker/ICD, Hx Valvular Heart Disease Respiratory History: Reports: Hx Pneumonia Denies: Hx Asthma, Hx Chronic Obstructive Pulmonary Disease (COPD) GI History: Reports: Hx Gastroesophageal Reflux Disease, Hx Hiatal Hernia, Other GI Disorders - nausea History: Reports: Hx Kidney Stones - 1 month ago - was able to pass no surgery Denies: Hx Dialysis, Hx Renal Disease Musculoskeletal History: Reports: Hx Arthritis - left foot, Hx Orthopedic Injury - Left foot - chronic pain, Other Musculoskeletal History - 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 reconstruction of left foot x2 -2015. neuro stimulator for right shoulder - for pain 2011 Hx Anesthesia Reactions: No - Immunization History Date of Influenza Vaccine: Fall 2016 Hx Pertussis Vaccination: No Immunizations Up to Date: Unable to Obtain/Confirm Infectious Disease History: No Infectious Disease History: Denies: Hx Hepatitis, Hx Human Immunodeficiency Virus (HIV), Traveled Outside the [place] in Last 30 Days - Family History Known Family History: Positive: Cardiac Disease, Other - CVA - Social History Occupation: Employed Full-time Lives: With Family Alcohol Use: None Hx Substance Use: No Substance Use Type: Reports: None Hx Tobacco Use: Yes - not currently Smoking Status (MU): Former Smoker Type: Cigarettes Amount Used/How Often: smoked from 17 til 30 years old 1/2 ppd Have You Smoked in the Last Year: Yes Review of Systems Positive: Chills, Skin Diaphoresis. Negative: Fever, Fatigue Negative: Photophobia, Blurred Vision Positive: Dental Pain. Negative: Sore Throat, Ear Ache, Nasal Discharge Negative: Palpitations, Chest Pain Negative: Shortness Of Breath, Cough Negative: Arthralgia, Myalgia Skin: Negative Neurological: Negative All Other Systems Reviewed And Are Negative: Yes Physical Exam Triage Information Reviewed: Yes Vital Signs On Initial Exam: Initial Vitals Temp Pulse Resp BP Pulse Ox 99.8 F 99 18 132/90 96 01/25/18 09:55 01/25/18 09:55 01/25/18 09:55 01/25/18 09:55 01/25/18 09:55 Vital Signs Reviewed: Yes Appearance: Positive: Pain Distress Skin: Positive: Skin Color Reflects Adequate Perfusion Head/Face: Positive: Other - right maxillary tenderness and swelling without erythema Eyes: Positive: EOMI, CELINA, Conjunctiva Clear Dental: Positive: Other - dental pain and swelling over tooth # 6 and #7 Neck: Positive: Supple, No Lymphadenopathy Respiratory/Lung Sounds: Positive: Clear to Auscultation, Breath Sounds Present Cardiovascular: Positive: Normal, RRR Musculoskeletal: Positive: Normal, Strength/ROM Intact Neurological: Positive: Sensory/Motor Intact, Alert, Oriented to Person Place, Time, Speech Normal Psychiatric: Positive: Affect/Mood Appropriate AVPU Assessment: Alert Diagnostics - Vital Signs Vital Signs Temp Pulse Resp BP Pulse Ox 01/25/18 10:40 92 25 97 01/25/18 09:55 99.8 F 99 18 132/90 96 - Laboratory Result Diagrams: 01/25/18 10:44 01/25/18 10:44 Lab Statement: Any lab studies that have been ordered have been reviewed, and results considered in the medical decision making process. - CT No standard instances CT Interpretation: Positive (See Comments) CT Interpretation Completed By: Radiologist - IMPRESSION: Soft tissue swelling is noted just anterior to the maxillary sinus at the junction between the nasal arch and the maxilla. No drainable fluid collections are definitively identified. No evidence of periapical abscess from the dentition is noted however there is mucosal thickening of the right maxillary sinus and ethmoid air cells suggestive of chronic sinusitis. Re-Evaluation - Re-Evaluation First Eval Change: Improved - improved with morphine EENT Course/Dx - Course Course Of Treatment: During the course of treatment, the patient is evaluated for right upper dental infection worse despite clindamycin over the past day. CT maxillofacial obtained. He is borderline sepsis protocol and I've initiated fluids and antibiotics. Vancomycin given. Labs obtained and are unremarkable including a normal white count. CT shows no focal fluid collection for drainage. He is currently taken four doses of his outpatient dose of clindamycin. We will preload a broad antibiotic here in the ED and he will continue with his at home clindamycin. As timing has only been one day, I do not feel he is failing the outpatient treatment at this time. However, he is given strict return precautions. Airway patent. Lungs CTA. RRR. VS stable. He will also be discharged with a 2 day course of an opioid as his pain is not well controlled on tramadol and his symtoms have worsened. - Differential Diagnoses Differential Diagnoses: Other - dental pain, dental infection, maxillary swelling, sepsis - Diagnoses Provider Diagnoses: Dental infection Discharge - Sign-Out/Discharge Documenting (check all that apply): Discharge/Admit/Transfer - Discharge Plan Condition: Stable Disposition: HOME Referrals: Andrea Byrd MD [Primary Care Provider] - Additional Instructions: I have given you oxycodone 4 times daily 2 days Do not use tramadol while taking this medication You may continue to intermittently use ibuprofen and Tylenol every 3 hours If pain or swelling worsens, return to the ED If he develop any fevers, sweats, chills - return to the ED immediately - Billing Disposition and Condition Condition: STABLE Disposition: Home
[2018-01-25 10:56] LABS: ABS Basophils 0 10^3/ul (0-0.2); ABS Eosinophils 0 10^3/ul (0-0.6); ABS Lymphocytes 0.9 10^3/ul (1.0-4.8); ABS Monocytes 0.6 10^3/ul (0-0.8); ABS Nucleated RBC 0 10^3/ul; Eosinophil % 0 % (0-6); Hematocrit 42 % (42-52); Hemoglobin 14.5 g/dl (14.0-18.0); Mean Corpuscular HGB Conc 35 g/dl (31-36); Mean Corpuscular Hemoglobin 32 pg (27-31); Mean Corpuscular Volume 92 fL (80-94); Nucleated Red Blood Cells % 0.1; Platelet Count 357 10^3/ul (150-450); Red Blood Count 4.53 10^6/ul (4.00-5.40); Red Cell Distribution Width 13 % (10.5-15); White Blood Count 9.5 10^3/ul (3.5-10.8)
--- NOTE | 2018-01-25 10:56 | RAD ---
Indication: Facial swelling. CT of the facial bones was obtained in the axial plane. Sagittal and coronal reconstructed images were obtained. The mandible demonstrates no evidence of fracture. No evidence of soft tissue swelling is noted surrounding the mandible. At the right maxilla there is increased soft tissue swelling anterior to the right maxillary sinus adjacent to the nasal spine. No drainable fluid collection is noted. There is no evidence of dental abscess noted in this area. There is however a colovesical thickening of the right maxillary sinus suggestive of right-sided chronic sinusitis. Opacification of the ethmoid air cells is noted. No fracture of the facial bones is identified. The orbits are otherwise intact. Mastoid air cells are otherwise unremarkable. IMPRESSION: Soft tissue swelling is noted just anterior to the maxillary sinus at the junction between the nasal arch and the maxilla. No drainable fluid collections are definitively identified. No evidence of periapical abscess from the dentition is noted however there is mucosal thickening of the right maxillary sinus and ethmoid air cells suggestive of chronic sinusitis.
[2018-01-25 11:18] LABS: EGFR Non-African American 93.6 (>60)
[2018-01-25 12:28] VITALS: BP 132/89
[2018-01-25] MEDS ORDERED: Acetaminophen TAB* 325 MG PO ONE (12:47)
== END 2018-01-25 12:54 | disposition home or self-care (01) ==
LOC: ED 09:52
DX: K04.7 Periapical abscess without sinus (principal); Z87.891 Personal history of nicotine dependence; Z88.0 Allergy status to penicillin
CPT/HCPCS: 36415; 70486; 80053; 83605; 85025; 85652; 86140; 87040; 96374; 96375; 99284; A9270-GY; J2270; J2405; J3370

== ENCOUNTER 2018-01-26 07:16 | Emergency (ER) | payer OTHER ==
[2018-01-26] MEDS ORDERED: NS 0.9% 1000 ML* 2,000 ML IV ONE (07:32)
[2018-01-26] MEDS ORDERED: Vancomycin(*) 1,000 MG in NS 0.9% 250 ML* 250 ML IVPB ONE (07:32)
[2018-01-26] MEDS ORDERED: Morphine VIAL* 4 MG/ML VIAL (1 ml vial) IV ONE ×3 (07:34→11:34)
[2018-01-26] MEDS ORDERED: Ondansetron INJ* 2 MG/ML VIAL IV ONE ×2 (07:35→10:09)
[2018-01-26 08:09] LABS: INR 1.11 (0.77-1.02)
[2018-01-26 08:19] LABS: ABS Basophils 0 10^3/ul (0-0.2); ABS Eosinophils 0.1 10^3/ul (0-0.6); ABS Lymphocytes 1.3 10^3/ul (1.0-4.8); ABS Monocytes 0.6 10^3/ul (0-0.8); ABS Neutrophils 6.1 10^3/ul (1.5-7.7); ABS Nucleated RBC 0 10^3/ul; Eosinophil % 1.5 % (0-6); Hematocrit 38 % (42-52); Hemoglobin 13.3 g/dl (14.0-18.0); Lymphocyte % 15.9 % (25-47); Mean Corpuscular HGB Conc 35 g/dl (31-36); Mean Corpuscular Hemoglobin 32 pg (27-31); Mean Corpuscular Volume 93 fL (80-94); Mean Platelet Volume 7.1 um3 (7.4-10.4); Nucleated Red Blood Cells % 0; Platelet Count 344 10^3/ul (150-450); Red Blood Count 4.11 10^6/ul (4.00-5.40); Red Cell Distribution Width 13 % (10.5-15); White Blood Count 8.2 10^3/ul (3.5-10.8)
[2018-01-26 08:21] LABS: EGFR Non-African American 97.2 (>60)
[2018-01-26] MEDS ORDERED: Iohexol 300* (CONTRAST) 10 ML SDV IV ONE (08:29)
[2018-01-26 09:06] LABS: Urine Appearance Clear; Urine Blood Negative (Negative); Urine Color Yellow; Urine Ketones Negative (Negative); Urine Protein Negative (Negative); Urine Specific Gravity 1.011 (1.010-1.030); Urine Urobilinogen Negative (Negative)
--- NOTE | 2018-01-26 09:47 | RAD ---
Indication: Sepsis. 2 views of the chest are reviewed. No mediastinal shift is noted. Heart is of normal size and configuration. Lung rivera are clear. There is a catheter extending across the left chest presumably in the left chest wall. IMPRESSION: No active cardiopulmonary disease is noted.
--- NOTE | 2018-01-26 09:51 | RAD ---
Indication: Progressive swelling of the right face. CT of the facial bones was obtained in the axial plane. Coronal and sagittal reconstructed images were obtained. There is progressive soft tissue swelling in the right anterior face when compared to previous exam. Just lateral to the right nasal spine there is a small fluid collection measuring 1.6 x 1.3 x 0.5 cm consistent with a small abscess. This is just abutting the right maxilla. There is extension of soft tissue swelling to the infraorbital soft tissues. No other fluid collections are noted. Again noted is chronic sinusitis of the right maxillary sinus. No intraorbital infiltration of fat is noted. IMPRESSION: Progression of soft tissue swelling in the right face just anterior to the right maxilla and extending to the infraorbital soft tissues. No extension into the orbits is noted. A small 1.6 x 1.3 x 0.5 cm fluid collection is noted just anterior to the maxilla consistent with a small abscess.
[2018-01-26] MEDS ORDERED: Acetaminophen TAB* 325 MG ONE (10:01)
[2018-01-26] MEDS ORDERED: Acetaminophen TAB* 325 MG PO ONE (10:08)
--- NOTE | 2018-01-26 10:53 | ED ---
Throat Pain/Nasal Congestion - HPI Summary HPI Summary: Patient is a 32-year-old male presenting to the ED for the third time in 3 days with complaint of worsening swelling, pain, erythema to the right maxilla from likely a dental abscess. He has been on clindamycin 4 times daily 3 days with worsening symptoms. Denies any fevers, however endorses sweats and chills. He' s been taking ibuprofen, Tylenol and most recently over the past day oxycodone without relief of symptoms. Denies any abdominal pain or back pain. Endorses pain to the right maxillary area extending up infraorbitally with now some blurry vision. Denies any dysphagia or odynophagia. Denies any trismus - History of Current Complaint Chief Complaint: EDDentalPain Time Seen by Provider: 01/26/18 07:24 Hx Obtained From: Patient Onset/Duration: Gradual Onset Severity: Moderate Associated Signs And Symptoms: Negative: Dysphagia, Drooling, Wheezing, Sinus Discomfort, Nasal Discharge - Epiglottits Risk Factors Epiglottis Risk Factors: Negative - Allergies/Home Medications Allergies/Adverse Reactions: Allergies Allergy/AdvReac Type Severity Reaction Status Date / Time amoxicillin Allergy Difficulty Verified 01/26/18 07:34 Breathing azithromycin Allergy Difficulty Verified 01/26/18 07:34 Breathing clavulanic acid Allergy Difficulty Verified 01/26/18 07:34 Breathing Penicillins Allergy Difficulty Verified 01/26/18 07:34 Breathing PMH/Surg Hx/FS Hx/Imm Hx Previously Healthy: Yes Endocrine/Hematology History: Reports: Hx Anticoagulant Therapy - on plavix, Hx Anemia, Other Endocrine/Hematological Disorders - low blood sugar Denies: Hx Blood Transfusions, Hx Diabetes, Hx Thyroid Disease Cardiovascular History: Reports: Hx Angina, Hx Hypercholesterolemia, Other Cardiovascular Problems/Disorders - on plavix Denies: Hx Coronary Artery Disease, Hx Hypertension, Hx Myocardial Infarction , Hx Pacemaker/ICD, Hx Valvular Heart Disease Respiratory History: Reports: Hx Pneumonia Denies: Hx Asthma, Hx Chronic Obstructive Pulmonary Disease (COPD) GI History: Reports: Hx Gastroesophageal Reflux Disease, Hx Hiatal Hernia, Other GI Disorders - nausea History: Reports: Hx Kidney Stones - 1 month ago - was able to pass no surgery Denies: Hx Dialysis, Hx Renal Disease Musculoskeletal History: Reports: Hx Arthritis - left foot, Hx Orthopedic Injury - Left foot - chronic pain, Other Musculoskeletal History - 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 reconstruction of left foot x2 -2013, 2015. neuro stimulator for right shoulder - for pain 2011 Hx Anesthesia Reactions: No - Immunization History Date of Influenza Vaccine: Fall 2016 Hx Pertussis Vaccination: Yes Immunizations Up to Date: Yes Infectious Disease History: No Infectious Disease History: Denies: Hx Hepatitis, Hx Human Immunodeficiency Virus (HIV), Traveled Outside the [place] in Last 30 Days - Family History Known Family History: Positive: Cardiac Disease, Other - CVA - Social History Occupation: Employed Full-time Lives: With Family Alcohol Use: None Hx Substance Use: No Substance Use Type: Reports: None Hx Tobacco Use: Yes - not currently Smoking Status (MU): Former Smoker Type: Cigarettes Amount Used/How Often: smoked from 17 til 30 years old 1/2 ppd Have You Smoked in the Last Year: Yes Review of Systems Constitutional: Negative Negative: Fever, Chills, Fatigue, Skin Diaphoresis Negative: Blurred Vision, Diplopia, Drainage, Erythema Positive: Dental Pain, Other - maxillary (r) tenderness. Negative: Sore Throat , Ear Ache Negative: Palpitations, Chest Pain Negative: Shortness Of Breath Negative: Arthralgia, Myalgia Negative: Rash, Bruising Positive: Headache. Negative: Weakness, Paresthesia, Numbness All Other Systems Reviewed And Are Negative: Yes Physical Exam Triage Information Reviewed: Yes Vital Signs On Initial Exam: Initial Vitals Temp Pulse Resp BP Pulse Ox 98.7 F 99 16 134/83 98 01/26/18 07:17 01/26/18 07:17 01/26/18 07:17 01/26/18 07:17 01/26/18 07:17 Vital Signs Reviewed: Yes Appearance: Positive: Pain Distress Skin: Positive: Skin Color Reflects Adequate Perfusion, Other - erythema overlying the R maxilla Head/Face: Positive: Other - maxillary tenderness Eyes: Positive: EOMI, CELINA, Conjunctiva Clear ENT: Positive: Pharynx normal, TMs normal, Dental tenderness - R upper, Uvula midline. Negative: Tonsillar swelling, Tonsillar exudate, Sinus tenderness Dental: Positive: Gross Decay/Caries @ - throughout, Dental Fracture @ - throughout, Abscess @ - R maxillary Respiratory/Lung Sounds: Positive: Clear to Auscultation, Breath Sounds Present Cardiovascular: Positive: Normal, RRR, Pulses are Symmetrical in both Upper and Lower Extremities Musculoskeletal: Positive: Normal, Strength/ROM Intact Neurological: Positive: Sensory/Motor Intact, Alert, Oriented to Person Place, Time, Speech Normal Psychiatric: Positive: Normal, Affect/Mood Appropriate AVPU Assessment: Alert Diagnostics - Vital Signs Vital Signs Temp Pulse Resp BP Pulse Ox 01/26/18 10:16 20 01/26/18 08:19 18 01/26/18 08:15 87 130/89 95 01/26/18 07:17 98.7 F 99 16 134/83 98 - Laboratory Lab Results: Lab Results 01/26/18 01/26/18 01/26/18 Range/Units 07:47 07:47 07:47 WBC 8.2 (3.5-10.8) 10^3/ul RBC 4.11 (4.00-5.40) 10^6/ul Hgb 13.3 L (14.0-18.0) g/dl Hct 38 L (42-52) % MCV 93 (80-94) fL MCH 32 H (27-31) pg MCHC 35 (31-36) g/dl RDW 13 (10.5-15) % Plt Count 344 (150-450) 10^3/ul MPV 7.1 L (7.4-10.4) um3 Neut % (Auto) 74.4 (38-83) % Lymph % (Auto) 15.9 L (25-47) % Fulton % (Auto) 7.9 H (0-7) % Eos % (Auto) 1.5 (0-6) % Baso % (Auto) 0.3 (0-2) % Absolute Neuts (auto) 6.1 (1.5-7.7) 10^3/ul Absolute Lymphs (auto) 1.3 (1.0-4.8) 10^3/ul Absolute Monos (auto) 0.6 (0-0.8) 10^3/ul Absolute Eos (auto) 0.1 (0-0.6) 10^3/ul Absolute Basos (auto) 0 (0-0.2) 10^3/ul Absolute Nucleated RBC 0 10^3/ul Nucleated RBC % 0 ESR 24 H (0-14) mm/Hr INR (Anticoag Therapy) 1.11 H (0.77-1.02) Sodium 135 (135-145) mmol/L Potassium 3.1 L (3.5-5.0) mmol/L Chloride 103 (101-111) mmol/L Carbon Dioxide 23 (22-32) mmol/L Anion Gap 9 (2-11) mmol/L BUN 8 (6-24) mg/dL Creatinine 0.90 (0.67-1.17) mg/dL Est GFR ( Amer) 117.6 (>60) Est GFR (Non-Af Amer) 97.2 (>60) BUN/Creatinine Ratio 8.9 (8-20) Glucose 151 H (70-100) mg/dL Lactic Acid (0.5-2.0) mmol/L Calcium 8.8 (8.6-10.3) mg/dL Total Bilirubin 0.80 (0.2-1.0) mg/dL AST 11 L (13-39) U/L ALT 10 (7-52) U/L Alkaline Phosphatase 77 (34-104) U/L Troponin I 0.01 (<0.04) ng/mL C-Reactive Protein 156.98 H (<8.01) mg/L Total Protein 6.8 (6.4-8.9) g/dL Albumin 3.9 (3.2-5.2) g/dL Globulin 2.9 (2-4) g/dL Albumin/Globulin Ratio 1.3 (1-3) Urine Color Urine Appearance Urine pH (5-9) Ur Specific Hamler (1.010-1.030) Urine Protein (Negative) Urine Ketones (Negative) Urine Blood (Negative) Urine Nitrate (Negative) Urine Bilirubin (Negative) Urine Urobilinogen (Negative) Ur Leukocyte Esterase (Negative) Urine Glucose (Negative) 01/26/18 01/26/18 Range/Units 07:47 08:36 WBC (3.5-10.8) 10^3/ul RBC (4.00-5.40) 10^6/ul Hgb (14.0-18.0) g/dl Hct (42-52) % MCV (80-94) fL MCH (27-31) pg MCHC (31-36) g/dl RDW (10.5-15) % Plt Count (150-450) 10^3/ul MPV (7.4-10.4) um3 Neut % (Auto) (38-83) % Lymph % (Auto) (25-47) % F[place] % (Auto) (0-7) % Eos % (Auto) (0-6) % Baso % (Auto) (0-2) % Absolute Neuts (auto) (1.5-7.7) 10^3/ul Absolute Lymphs (auto) (1.0-4.8) 10^3/ul Absolute Monos (auto) (0-0.8) 10^3/ul Absolute Eos (auto) (0-0.6) 10^3/ul Absolute Basos (auto) (0-0.2) 10^3/ul Absolute Nucleated RBC 10^3/ul Nucleated RBC % ESR (0-14) mm/Hr INR (Anticoag Therapy) (0.77-1.02) Sodium (135-145) mmol/L Potassium (3.5-5.0) mmol/L Chloride (101-111) mmol/L Carbon Dioxide (22-32) mmol/L Anion Gap (2-11) mmol/L BUN (6-24) mg/dL Creatinine (0.67-1.17) mg/dL Est GFR ( Amer) (>60) Est GFR (Non-Af Amer) (>60) BUN/Creatinine Ratio (8-20) Glucose (70-100) mg/dL Lactic Acid 1.6 (0.5-2.0) mmol/L Calcium (8.6-10.3) mg/dL Total Bilirubin (0.2-1.0) mg/dL AST (13-39) U/L ALT (7-52) U/L Alkaline Phosphatase (34-104) U/L Troponin I (<0.04) ng/mL C-Reactive Protein (<8.01) mg/L Total Protein (6.4-8.9) g/dL Albumin (3.2-5.2) g/dL Globulin (2-4) g/dL Albumin/Globulin Ratio (1-3) Urine Color Yellow Urine Appearance Clear Urine pH 6.0 (5-9) Ur Specific Hamler 1.011 (1.010-1.030) Urine Protein Negative (Negative) Urine Ketones Negative (Negative) Urine Blood Negative (Negative) Urine Nitrate Negative (Negative) Urine Bilirubin Negative (Negative) Urine Urobilinogen Negative (Negative) Ur Leukocyte Esterase Negative (Negative) Urine Glucose Negative (Negative) Result Diagrams: 01/26/18 07:47 01/26/18 07:47 Lab Statement: Any lab studies that have been ordered have been reviewed, and results considered in the medical decision making process. EENT Course/Dx - Course Course Of Treatment: During the course of treatment, the patient's evaluated for likely dental abscess. CTA obtained yesterday without IV contrast which did not show a loculated area however soft tissue swelling. Today maxillofacial CT obtained with IV contrast which shows a small 1.61.30.5 cm fluid collection is noted just anterior to the maxilla consistent with a small abscess. This is progressively worsening despite his 3 days of PO outpatient antibiotics. For this, I believe this area needs to be drained. Called [facility] who agrees to accept the patient, Dr. Yoo accepting. During his course he is given a total of 8 mg morphine, 8 mg Zofran and 650 mg Tylenol. He is made NPO at this time. Currently on Plavix for CVA. 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 Discharge - Sign-Out/Discharge Documenting (check all that apply): Discharge/Admit/Transfer - Discharge Plan Condition: Fair Disposition: TRANS HIGHER LVL OF CARE FAC Referrals: Andrea Byrd MD [Primary Care Provider] - - Billing Disposition and Condition Condition: FAIR Disposition: Trans Higher Lvl of Care Fac
[2018-01-26] MEDS ORDERED: Morphine INJ* 2 MG/ML 1 ML CARPUJECT IV ONE (11:30)
[2018-01-26 11:49] VITALS: BP 127/95
== END 2018-01-26 11:47 | disposition short-term general hospital (02) ==
LOC: ED 07:16
DX: K04.7 Periapical abscess without sinus (principal); Z79.02 Long term (current) use of antithrombotics/antiplatelets; Z86.73 Personal history of transient ischemic attack (TIA), and cerebral infarction without residual deficits; Z87.891 Personal history of nicotine dependence; Z88.0 Allergy status to penicillin; Z88.3 Allergy status to other anti-infective agents
CPT/HCPCS: 36415; 70487; 71046; 80053; 81003; 83605; 84484; 85025; 85610; 85652; 86140; 87040; 96361; 96365; 96375; 99285; A9270-GY; J2270; J2405; J3370; Q9967

== ENCOUNTER 2018-10-17 19:57 | Emergency (ER) | payer OTHER ==
[2018-10-17] MEDS ORDERED: Clindamycin CAP* 150 MG PO ONE (21:53)
[2018-10-17] MEDS ORDERED: HYDROcodone/ACETAMIN 5-325 MG* 1 TAB PO ONE (21:53)
--- NOTE | 2018-10-17 22:05 | ED ---
Headache - HPI Summary HPI Summary: 33-year-old male presents with onset of left upper dental pain yesterday. States this morning he started with some left facial swelling. Does not presently have a dental appointment. Denies fever, chills, trismus, or dysphagia. - History Of Current Complaint Chief Complaint: EDDentalPain Stated Complaint: "TOOTH PAIN PER PT" Time Seen by Provider: 10/17/18 21:04 Hx Obtained From: Patient - Allergies/Home Medications Allergies/Adverse Reactions: Allergies Allergy/AdvReac Type Severity Reaction Status Date / Time amoxicillin Allergy Difficulty Verified 04/04/18 07:58 Breathing azithromycin Allergy Difficulty Verified 10/17/18 20:28 Breathing bee venom protein (honey bee) Allergy Swelling Verified 10/17/18 20:28 Of Face,Lips,& Throat clavulanic acid Allergy Difficulty Verified 10/17/18 20:28 Breathing PMH/Surg Hx/FS Hx/Imm Hx Endocrine/Hematology History: Reports: Hx Anticoagulant Therapy - on plavix, Hx Anemia, Other Endocrine/Hematological Disorders - low blood sugar Denies: Hx Blood Transfusions, Hx Diabetes, Hx Thyroid Disease Cardiovascular History: Reports: Hx Angina, Hx Hypercholesterolemia, Other Cardiovascular Problems/Disorders - on plavix Denies: Hx Coronary Artery Disease, Hx Hypertension, Hx Myocardial Infarction , Hx Pacemaker/ICD, Hx Valvular Heart Disease Respiratory History: Reports: Hx Pneumonia Denies: Hx Asthma, Hx Chronic Obstructive Pulmonary Disease (COPD) GI History: Reports: Hx Gastroesophageal Reflux Disease, Hx Hiatal Hernia, Other GI Disorders - nausea History: Reports: Hx Kidney Stones - 1 month ago - was able to pass no surgery Denies: Hx Dialysis, Hx Renal Disease Musculoskeletal History: Reports: Hx Arthritis - left foot, Hx Back Problems, Hx Orthopedic Injury - Left foot - chronic pain, Other Musculoskeletal History - 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 reconstruction of left foot x2 -2014, 2016. neuro stimulator for right shoulder - for pain 2011 Hx Anesthesia Reactions: No - Immunization History Date of Influenza Vaccine: Fall 2016 Infectious Disease History: No Infectious Disease History: Denies: Hx Hepatitis, Hx Human Immunodeficiency Virus (HIV), Traveled Outside the [place] in Last 30 Days - Family History Known Family History: Positive: Cardiac Disease, Other - CVA - Social History Occupation: Unemployed Lives: With Family Alcohol Use: Occasionally Hx Substance Use: No Substance Use Type: Reports: None Hx Tobacco Use: Yes - not currently Smoking Status (MU): Former Smoker Type: Cigarettes Amount Used/How Often: smoked from 17 til 30 years old 1/2 ppd Have You Smoked in the Last Year: Yes Review of Systems Negative: Fever, Chills, Skin Diaphoresis ENT: Negative Positive: Other - Dental pain Positive: Chest Pain. Negative: Palpitations Negative: Shortness Of Breath, Cough Negative: Abdominal Pain, Vomiting, Diarrhea, Nausea Genitourinary: Negative Musculoskeletal: Negative Skin: Negative Neurological: Negative All Other Systems Reviewed And Are Negative: Yes Physical Exam - Summary Physical Exam Summary: GENERAL APPEARANCE: Well developed, well nourished, alert and cooperative, and appears to be in no acute distress. HEAD: Mild left facial swelling over the maxilla. EYES: Conjunctiva clear. No drainage. Vision is grossly intact. EARS: External auditory canals and tympanic membranes clear, hearing grossly intact. NOSE: No nasal discharge. THROAT: Pharynx normal. No tonsilar inflammation, swelling, exudate, or lesions. Uvula midline. Poor overall dental condition with multiple caries, decay, and missing teeth. There is severe decay with a dental fracture of the left upper 1st bicuspid with gingival erythema and edema. There is a small amount of drainage noted at the base of the tooth. No induration or fluctuance noted. NECK: Neck supple, non-tender without lymphadenopathy. CARDIAC: Normal S1 and S2. No S3, S4 or murmurs. Rhythm is regular. There is no peripheral edema, cyanosis or pallor. Extremities are warm and well perfused. Capillary refill is less than 2 seconds. Peripheral pulses intact. LUNGS: Clear to auscultation without rales, rhonchi, wheezing or diminished breath sounds. ABDOMEN: Positive bowel sounds. Soft, nondistended, nontender. No guarding or rebound. No masses or hepatosplenomegally. MUSKULOSKELETAL: ROM intact to all extremities. No joint erythema or tenderness. Normal muscular development. Normal gait. SKIN: Skin normal color, texture and turgor with no lesions or eruptions. Triage Information Reviewed: Yes Vital Signs On Initial Exam: Initial Vitals Temp Pulse Resp BP Pulse Ox 98.9 F 84 16 130/95 98 10/17/18 20:26 10/17/18 20:26 10/17/18 20:26 10/17/18 20:26 10/17/18 20:26 Vital Signs Reviewed: Yes Images - Images Dental: 1 - Severe dental decay with fracture of tooth. Gingival erythema with tenderness and drainage at base of tooth. No induration or fluctuance noted. Diagnostics - Vital Signs Vital Signs Temp Pulse Resp BP Pulse Ox 10/17/18 20:26 98.9 F 84 16 130/95 98 - Laboratory Lab Statement: Any lab studies that have been ordered have been reviewed, and results considered in the medical decision making process. - EKG No standard instances Cardiac Rate: NL - Rate 91 EKG Rhythm: Sinus Rhythm ST Segment: Normal Ectopy: None EKG Comparison: No Significant Change - Compared to study 11/10/2017 Summary of EKG Findings: NSR rate of 91. No ectopy or DIONTE. Non-specific T-wave abnormalities in the anterolateral leads that were present in previous study from 11/10/2017. Headache Course/Dx - Course Course Of Treatment: 33-year-old male presents with onset of left upper dental pain yesterday. States this morning he started with some left facial swelling. Does not presently have a dental appointment. Denies fever, chills, trismus, or dysphagia. Afebrile. Vital signs stable. Exam was remarkable for poor overall dental condition with multiple caries, decay, and missing teeth. There is severe decay with a dental fracture of the left upper 1st bicuspid with gingival erythema and edema. There is a small amount of drainage noted at the base of the tooth. No induration or fluctuance noted. During the patient's stay he started to complain of some midsternal chest pain. He states that he has been having this periodically and has been worked up for the pain with no definitive cause. A 12-lead EKG was obtained and showed NSR rate of 91. No ectopy or DIONTE. Non-specific T-wave abnormalities in the anterolateral leads that were present in previous study from 11/10/2017. Chest pain subsided and patient declined any further workup for his chest pain. He was medicated for his dental infection with clindamycin 300 mg 1 capsule by mouth and was given hydrocodone-acetaminophen 5 mg/325 mg 1 tab by mouth. I have prescribed him clindamycin 300 mg 3 times a day 10 days and given him a short-term prescription for hydrocodone-acetaminophen 5 mg/325 mg 1 tab every 8 hours as needed for severe pain. The [facility] was consulted and safe to prescribe. Reference #: [id number]. He is to schedule appointment with his dentist at the next available. Encouraged him to follow up with his primary care provider regarding the chest pain within the next 3 days. Anticipatory guidance and warning symptoms were reviewed with the patient. Verbalizes understanding and agrees with plan of care. - Diagnoses Differential Diagnosis/HQI/PQRI: Other - dental caries, dental abscess, CAD, [place] Provider Diagnoses: Pain, dental, Chest pain Discharge - Sign-Out/Discharge Documenting (check all that apply): Patient Departure Patient Received Moderate/Deep Sedation with Procedure: No - Discharge Plan Condition: Stable Disposition: HOME Prescriptions: Clindamycin HCl 300 mg PO TID #30 capsule Hydrocodone/Acetaminophen [Hydrocodone-Acetamin 5-325 mg] 1 each PO Q8HR PRN #6 tablet MDD 3 PRN Reason: Pain Patient Education Materials: Chest Pain (ED), Toothache (ED) Referrals: Andrea Byrd MD [Primary Care Provider] - 3 Days (Follow up within 3 days to follow up on your chest pain. ) Additional Instructions: Start clindamycin 300 mg 1 capsule three times a day for 10 days. Take acetaminophen (Tylenol) according to directions as needed for pain. Take hydrocodone-acetaminophen 5 mg-325 mg 1 tab every 8 hours as needed for severe pain. Be sure to rinse your mouth out with a warm salt water solution after every time you eat to remove any debris. Make an appointment with your dentist at next available appointment. Seek immediate medical attention in the emergency room if you develop fever greater than 100.5 F, you are unable to open of close your mouth, are unable to swallow, have difficulty breathing, or any worsening of symptoms. - Billing Disposition and Condition Condition: STABLE Disposition: Home
[2018-10-17 22:25] VITALS: BP 129/97
== END 2018-10-17 22:24 | disposition home or self-care (01) ==
LOC: ED 19:57
DX: K08.89 Other specified disorders of teeth and supporting structures (principal); K02.9 Dental caries, unspecified; K03.81 Cracked tooth; R07.89 Other chest pain; I20.9 Angina pectoris, unspecified; Z79.01 Long term (current) use of anticoagulants; Z88.0 Allergy status to penicillin; Z88.1 Allergy status to other antibiotic agents; Z91.030 Bee allergy status; Z82.49 Family history of ischemic heart disease and other diseases of the circulatory system; Z82.3 Family history of stroke; Z87.891 Personal history of nicotine dependence
CPT/HCPCS: 93005; 99282; A9270-GY

== ENCOUNTER 2018-12-10 12:44 | Emergency (ER) | payer OTHER ==
--- NOTE | 2018-12-10 13:38 | ED ---
Upper Extremity Pain - HPI Summary HPI Summary: Patient is a 33-year-old male who presents to the emergency department for injury to left arm that occurred prior to arrival. Patient states he was helping family member with construction when he accidentally struck his left arm with a hammer. Symptoms are mild in severity. Movement makes symptoms worse. Nothing makes symptoms better. Patient took Tylenol prior to arrival without improvement of pain. History of blood clots and is on Plavix. Symptoms are mild in severity. - History of Current Complaint Chief Complaint: EDExtremityUpper Stated Complaint: HIT ARM WITH HAMMER PER PT Time Seen by Provider: 12/10/18 12:57 Hx Obtained From: Patient - Allergies/Home Medications Allergies/Adverse Reactions: Allergies Allergy/AdvReac Type Severity Reaction Status Date / Time azithromycin Allergy Difficulty Verified 12/10/18 12:56 Breathing bee venom protein (honey bee) Allergy Swelling Verified 12/10/18 12:56 Of Face,Lips,& Throat clavulanic acid Allergy Difficulty Verified 12/10/18 12:56 Breathing PMH/Surg Hx/FS Hx/Imm Hx Previously Healthy: Yes Endocrine/Hematology History: Reports: Hx Anticoagulant Therapy - on plavix, Hx Anemia, Other Endocrine/Hematological Disorders - low blood sugar Denies: Hx Blood Transfusions, Hx Diabetes, Hx Thyroid Disease Cardiovascular History: Reports: Hx Angina, Hx Hypercholesterolemia, Other Cardiovascular Problems/Disorders - on plavix Denies: Hx Coronary Artery Disease, Hx Hypertension, Hx Myocardial Infarction , Hx Pacemaker/ICD, Hx Valvular Heart Disease Respiratory History: Reports: Hx Pneumonia Denies: Hx Asthma, Hx Chronic Obstructive Pulmonary Disease (COPD) GI History: Reports: Hx Gastroesophageal Reflux Disease, Hx Hiatal Hernia, Other GI Disorders - nausea History: Reports: Hx Kidney Stones - 1 month ago - was able to pass no surgery Denies: Hx Dialysis, Hx Renal Disease Musculoskeletal History: Reports: Hx Arthritis - left foot, Hx Back Problems, Hx Orthopedic Injury - Left foot - chronic pain, Other Musculoskeletal History - 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 reconstruction of left foot x2 -2013, 2015. neuro stimulator for right shoulder - for pain 2011 Hx Anesthesia Reactions: No - Immunization History Date of Influenza Vaccine: Fall 2016 Infectious Disease History: No Infectious Disease History: Denies: Hx Hepatitis, Hx Human Immunodeficiency Virus (HIV), Traveled Outside the [place] in Last 30 Days - Family History Known Family History: Positive: Cardiac Disease, Other - CVA - Social History Occupation: Unemployed Lives: With Family Alcohol Use: Occasionally Hx Substance Use: No Substance Use Type: Reports: None Hx Tobacco Use: Yes - not currently Smoking Status (MU): Former Smoker Type: Cigarettes Amount Used/How Often: smoked from 17 til 30 years old 1/2 ppd Have You Smoked in the Last Year: Yes Review of Systems Positive: Other - pain to left wrist Skin: Negative Negative: Weakness, Paresthesia, Numbness All Other Systems Reviewed And Are Negative: Yes Physical Exam Triage Information Reviewed: Yes Vital Signs On Initial Exam: Initial Vitals Temp Pulse Resp BP Pulse Ox 98.7 F 104 17 144/95 95 12/10/18 12:53 12/10/18 12:53 12/10/18 12:53 12/10/18 12:53 12/10/18 12:53 Vital Signs Reviewed: Yes Appearance: Positive: Well-Appearing - Pt. sitting on bed in NAD. Skin: Positive: Warm, Dry Head/Face: Positive: Normal Head/Face Inspection Eyes: Positive: Normal, EOMI, CELINA Neck: Positive: Supple Musculoskeletal: Positive: Other - Mild edema and pain noted to distal left forearm. No break in skin. Good radial pulse. Full ROM with pain. No erythema, fluctuance or induration. Neurological: Positive: Normal, CN Intact II-III Psychiatric: Positive: Affect/Mood Appropriate Diagnostics - Vital Signs Vital Signs Temp Pulse Resp BP Pulse Ox 12/10/18 12:53 98.7 F 104 17 144/95 95 - Laboratory Lab Statement: Any lab studies that have been ordered have been reviewed, and results considered in the medical decision making process. Course/Dx - Course Course Of Treatment: Pt. presenting for left arm injury after striking it with a hammer accidentally. No breaks in the skin. Xray per radiology: IMPRESSION: 1. POSSIBLE NONDISPLACED FRACTURE OF THE RADIOSTYLOID PROCESS. RECOMMEND CLINICAL. CORRELATION FOR POINT TENDERNESS. 2. SMALL METALLIC FOREIGN BODIES. Possible fx is right where pt.'s pain is, will tx. Radial gutter splint placed. [employer] reviewed. Small rx for lortab given. To schedule f.u with ortho. Ice and elevate. Pt. understands and agrees with plan. - Diagnoses Differential Diagnosis/HQI/PQRI: Positive: Contusion, Fracture (Closed), Hematoma, Strain, Sprain Provider Diagnoses: Radial styloid fracture Discharge - Sign-Out/Discharge Documenting (check all that apply): Patient Departure Patient Received Moderate/Deep Sedation with Procedure: No - Discharge Plan Condition: Good Disposition: HOME Prescriptions: Hydrocodone/Acetaminophen [Hydrocodone-Acetamin 5-325 mg] 1 each PO Q6H #10 tablet MDD 4 Patient Education Materials: Arm Fracture in Adults (ED) Referrals: Andrea Byrd MD [Primary Care Provider] - Davi Cheney MD [Medical Doctor] - As Soon As Possible Additional Instructions: Call the orthopedic clinic today for a close follow up appointment Keep splint in place Ice and elevate Pain medication as directed Return to ER if symptoms change or worsen - Billing Disposition and Condition Condition: GOOD Disposition: Home
[2018-12-10] MEDS ORDERED: HYDROcodone/ACETAMIN 5-325 MG* 1 TAB PO ONE (14:27)
[2018-12-10 14:48] VITALS: BP 130/95
== END 2018-12-10 14:48 | disposition home or self-care (01) ==
LOC: ED 12:44
DX: S52.512A Displaced fracture of left radial styloid process, initial encounter for closed fracture (principal); W22.8XXA Striking against or struck by other objects, initial encounter; Y92.9 Unspecified place or not applicable; Z79.01 Long term (current) use of anticoagulants; Z87.442 Personal history of urinary calculi; R51 Headache; Z86.73 Personal history of transient ischemic attack (TIA), and cerebral infarction without residual deficits; Z87.891 Personal history of nicotine dependence; K21.9 Gastro-esophageal reflux disease without esophagitis
CPT/HCPCS: 99282

== ENCOUNTER 2018-12-20 12:26 | Emergency (ER) | payer OTHER ==
--- OUTSIDE RECORDS SUMMARY | 2018-12-20 12:46 | XMS REPORT | Continuity of Care Document ---
:1985 External Reference #:[id number] Author Name EmreStefyaw Care Team Providers Name Role Phone Andrea Byrd MD Primary Care Physician Unavailable Payers Date Identification Numbers Payment Provider Subscriber Effective: 2013 Policy Number: [id number] [place] Festus Roberts Group Number: [id number] [address] PayID: [id number] [place] [address] Expires: 2015 Policy Number: [id number] [employer] Festus Roberts PayID: [id number] [address] [address] [place] [address] Expires: 2015 Policy Number: [id number] Medicaid Festus Roberts Group Name: 1 1 [address] PayID: [id number] [place] [address] Onset: 2011 Policy Number: [id number] [facility] Festus Roberts PayID: [id number] [place] [id number] Problems Active Problems Provider Date Bacterial infectious disease Davi Cheney MD Onset: 01/15/2017 Open wound of finger without complication Davi Cheney MD Onset: 2016 Family History Date Family Member(s) Observation Comments General Heart Disease General Diabetes General Cancer General Stroke General Hypertension General Chronic Obstructive Pulmonary Disease (COPD) Social History Type Date Description Comments Sex Unknown Lives With Lives With Children 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 ETOH Use Denies alcohol use Tobacco Use Start: Unknown End: Patient is a former quit 7 years ago, Unknown smoker pack a day for 8 years Recreational Drug Use Denies Drug Use Smoking Status Reviewed: 12/15/18 Patient is a former quit 7 years ago, smoker pack a day for 8 years Exercise Type/Frequency Exercises rarely Allergies, Adverse Reactions, Alerts Active Allergies Reaction Severity Comments Date Penicillin 04/07/2015 Zithromax 04/07/2015 Keflex 04/07/2015 Bee Sting cant breathe 09/13/2017 Paper Tape 09/13/2017 Medications Active Medications SIG Qnty Indications Ordering Date Provider Pantoprazole Sodium 1 by mouth R07.9 Diego Brower, 10/16/2017 20mg every in Am , [address] in PM Diltiazem CD 1 by mouth 90caps R07.9 Diego Brower, 09/13/2017 180mg Caps ER every day DO FACC 24HR Clopidogrel Bisulfate 1 by mouth Unknown 75mg every day Tablets Cyclobenzaprine HCL take one tablet Unknown 5mg by mouth every Tablets 8 hours prn. may take a second tablet 10mg if first not effetive. Melatonin As needed Unknown 10mg Tablets Ondansetron HCL one by mouth Unknown 4mg Tablets every 8 hours as needed for nausea Acetaminophen 1-2 tabs 3x a Unknown 500mg Tablets day as needed Trazodone HCL 1-2 tablet at Unknown 50mg Tablets bedtime as needed Atorvastatin Calcium take 1 tablet Unknown 20mg at bedtime Tablets Celecoxib 2 cap PO daily, Unknown 100mg Capsules 1 cap Am and 1 cap PM History Medications Pantoprazole Sodium 1 by mouth every 90tabs R07.9 Diego Mckeon 09/13/2017 - 40mg day Inocente DO FACC 10/15/[address] Hydrocodone-Acetaminop 1 or 2 tabs by 30tabs Davi Cheney 01/17/2017 - hen mouth every 6-8 08/29/2017 5-325mg Tablets hours as needed for pain Metronidazole 1 tab by mouth 15tabs Davi Cheney 01/17/2017 - 500mg every 8 hours as MD 09/12/2017 Tablets directed Sulfamethoxazole/Trime 1 by mouth twice 20tabs A49.8 Davi Cheney 01/15 - thoprim DS a day for 10 days 09/12/2017 800-160mg Tablets Motrin take one tablet 90tabs Clay Tiwariino, 06/26/2011 - 800mg Tablets by mouth three M.D. 07/29/2016 times daily as needed Neurontin 1 po qhs, november 60caps Clay Tiwariino, 05/11/2011 - 300mg Capsules increase to one M.D. 07/29/2016 tab po bid after 7 days Wenonah 1 po tid prn 50tabs Clay Analy, 05/02/2011 - 5-325mg Tablets M.D. 07/29/2016 Atorvastatin Calcium 1 by mouth every Unknown - 10mg day 09/12/2017 Tablets Lisinopril 1 by mouth every Unknown - 2.5mg Tablets day 10/15/2017 Aspirin Adult Low Dose 1 by mouth every Unknown - day 10/15/2017 81mg Tablets Pantoprazole Sodium 1 by mouth every Unknown - 20mg day 09/13/2017 Tablets Vital Signs Date Vital Result Comment 12/15/2018 10:29am Height 64.5 inches 5'4.50" Weight 175.00 lb Heart Rate 78 /min BP Systolic 132 mmHg BP Diastolic 80 mmHg Respiratory Rate 12 /min Pain Level 6 BMI (Body Mass Index) 29.6 kg/m2 12/11/2018 9:59am Height 64.5 inches 5'4.50" Weight 175.00 lb Heart Rate 88 /min BP Systolic 120 mmHg BP Diastolic 78 mmHg Respiratory Rate 18 /min Body Temperature 98.1 F Pain Level 7 BMI (Body Mass Index) 29.6 kg/m2 06/04/2018 3:35pm Height 64.5 inches 5'4.50" Weight 167.00 lb with shoes Heart Rate 105 /min BP Systolic Sitting 120 mmHg lue reg cuff BP Diastolic Sitting 80 mmHg lue reg cuff BP Systolic Standing 112 mmHg lue reg cuff BP Diastolic Standing 80 mmHg lue reg cuff BMI (Body Mass Index) 28.2 kg/m2 Ejection Fraction 60-65% 10/16/2017 7:55am Height 64.5 inches 5'4.50" Weight 159.00 lb no shoes Heart Rate 116 /min BP Systolic Sitting 138 mmHg Rue reg cuff BP Diastolic Sitting 92 mmHg Rue reg cuff BP Systolic Standing 144 mmHg Rue reg cuff BP Diastolic Standing 90 mmHg Rue reg cuff Respiratory Rate 16 /min BMI (Body Mass Index) 26.9 kg/m2 Ejection Fraction 60-65% echo 01/26/16 09/13/2017 8:12am Height 64.5 inches 5'4.50" Weight 154.00 lb [...] 26.0 kg/m2 Ejection Fraction 60-65% 01/26/2016-echo 03/05/2017 1:11pm Height 66 inches 5'6" Weight 145.00 lb Heart Rate 118 /min BP Systolic 129 mmHg BP Diastolic 84 mmHg Respiratory Rate 18 /min Pain Level 6 BMI (Body Mass Index) 23.4 kg/m2 03/01/2017 9:22am Height 66 inches 5'6" Weight 145.00 lb Heart Rate 104 /min BP Systolic 128 mmHg BP Diastolic 88 mmHg Body Temperature 96.1 F Pain Level 8 BMI (Body Mass Index) 23.4 kg/m2 02/05/2017 4:01pm Height 66 inches 5'6" Weight 145.00 lb Heart Rate 104 /min BP Systolic 125 mmHg BP Diastolic 84 mmHg Body Temperature 97.3 F BMI (Body Mass Index) 23.4 kg/m2 01/21/2017 1:26pm Height 66 inches 5'6" Weight 152.56 lb Heart Rate 82 /min BP Systolic 121 mmHg BP Diastolic 82 mmHg Body Temperature 98.0 F BMI (Body Mass Index) 24.6 kg/m2 01/15/2017 3:24pm Height 66 inches 5'6" Weight 145.00 lb Heart Rate 77 /min BP Systolic 99 mmHg BP Diastolic 75 mmHg Body Temperature 96.6 F BMI (Body Mass Index) 23.4 kg/m2 04/07/2015 2:32pm Height 67 inches 5'7" Weight 120.00 lb Heart Rate 83 /min BP Systolic Sitting 104 mmHg BP Diastolic Sitting 70 mmHg Respiratory Rate 18 /min Pain Level 9 BMI (Body Mass Index) 18.8 kg/m2 Results Test Date Facility Test Result H/L Range Note Catecholamine 24HR 09/17/2017 [facility] Urine Collection 24 h Urine Fract [address] Duration [place], [place] [id number] [phone] Urine Total Volume 750 mL Urine Norepinephrine 69 mcg/24h 15-80 Urine Epinephrine 9.8 mcg/24h <21 Urine Dopamine 199 mcg/24h 65-400 1 Metanephrines 09/17/2017 [facility] Plasma Free 0.92 Abnormal <0.[address] Normetanephrine nmol/[place] [address] [phone] Plasma Free Metanephrine 0.25 nmol/L <0.50 2 Urine Metanephrines 09/17/2017 [facility] Urine 143 mcg/24h [address] [place] [address] [phone] Urine Normetanephrine 403 mcg/24h 4 Urine Total Metanephrines 546 mcg/24h 5 Urine Collection Duration 24 h Urine Volume 750 mL 6 Laboratory test 09/13/2017 [facility] Metanephrines <pending> finding [address] [place] [address] [phone] Laboratory test 01/17/2017 [facility] Tissue Culture & SEE RESULT 7, [address] [place] [address] [phone] Wound 01/17/2017 [facility] Wound/Misc SEE RESULT 9 Culture/Sensi [address] Culture[place] [address] [phone] ADDITIONAL INFORMATION This test was developed and its performance characteristics determined by [facility] in a manner consistent with CLIA requirements. This test has not been cleared or approved by the U.S. Food and Drug Administration. Test Performed by: [facility] - [facility] [address] [place] [address] 2 ADDITIONAL INFORMATION This test was developed and its performance characteristics determined by [facility] in a manner consistent with CLIA requirements. This test has not been cleared or approved by the U.S. Food and Drug Administration. Test Performed by: [facility] - [address] [address] 3 REFERENCE VALUE [phone] (Normotensive) <400 (Hypertensive) 4 REFERENCE VALUE [phone] (Normotensive) <900 (Hypertensive) 5 REFERENCE VALUE 200-614 (Normotensive) <1300 (Hypertensive) 6 ADDITIONAL INFORMATION This test was developed and its performance characteristics determined by [facility] in a manner consistent with CLIA requirements. This test has not been cleared or approved by the U.S. Food and Drug Administration. Test Performed by: [facility] - [address] [address] 7 INFECTION OG RIGHT THUMB LACERATION 8 SEE RESULT BELOW Name: FESTUS ROBERTS : [address]: Davi Cheney MD Acct: [id number] Unit: [id number] AGE: 31 Location: [facility] Re01/17/17 SEX: M [place] [facility]C: [id number] YSABEL: 01/17/[address] [facility] [address]: Davi Cheney MD REQ: [id number] RECD: 01/17/17 STATUS: LYNN TORRE DR: Beatriz Flores MD _ SOURCE: WOUND SPDESC:RT THUMB ORDERED: Tissue Cult/GS, Anaerobic Cult COMMENTS: INFECTION OG RIGHT THUMB LACERATION Procedure Result Reported Site Tissue Gram Stain Final 01/17/17- 1412 ML 1+ Neutrophils 1+ Epithelial Cells No Organisms Seen Preparation By Direct Smear Tissue Culture Final 01/21/17- 10 ML No Growth Day 4 Anaerobic Culture Final 01/21/17- 709 ML No Growth Day 4 * ML - MAIN LAB ([facility]) . END OF REPORT * ML=Testing performed at Main Lab DEPARTMENT OF PATHOLOGY, [address] [place] [address] Charan Herzog M.D. Director KERRY # [id number] 9 SEE RESULT BELOW Name: FESTUS ROBERTS : [address]: Davi Cheney MD Acct: [id number] Unit: [id number] AGE: 31 Location: [facility] Re01/17/17 SEX: M Status: REG SDC SPEC: [id number] YSABEL: 01/17/[address] [facility] [address]: Davi Cheney MD REQ: [id number] RECD: 01/17/17-1220 STATUS: LYNN TORRE DR: Beatriz Folres MD _ SOURCE: WOUND SPDESC:RT THUMB ORDERED: Culture Stain QUERIES: Specimen Description RIGHT THUMB LACERATION Procedure Result Reported Site Wound/Misc Gram Stain Final 01/17/17- 1419 ML No Neutrophils Observed No Organisms Seen Wound/Misc Culture Final 01/19/17- 0956 ML No Growth Day 2 * ML - MAIN LAB ([facility]) . END OF REPORT * ML=Testing performed at Main Lab DEPARTMENT OF PATHOLOGY, [address] [place] [address] Charan Herzog M.D. Director [facility] # [id number] Procedures Date Code Description Status 12/11/2018 20908 Short Arm Cast Application Completed 06/04/2018 03284 EKG Tracing & Interpretation Completed 11/10/2017 92785 EKG, Interpretation Only Completed 11/10/2017 38741 EKG, Interpretation Only Completed 10/23/2017 35028 Holter Monitor Review (24 hr)dr review & interp only Completed 10/21/2017 24019 ECG Monitor/Recording W/Visual Superimposition Scanning Completed 10/16/2017 75519 EKG Tracing & Interpretation Completed 09/13/2017 53032 EKG Tracing & Interpretation Completed 08/30/2017 76898 Stress ECHO Interpretation/Report Hospital Completed 08/30/2017 66281 Treadmill Interp/Report Only Completed 08/30/2017 85297 Stress Test Supervsn W/Out I/R Completed 08/30/2017 73833 EKG, Interpretation Only Completed 01/17/2017 07717 Arthrotomy Metacarpophalangeal JT W/Explore/Drain/Remove Completed FB 01/17/2017 27155 Arthrotomy Metacarpophalangeal JT W/Explore/Drain/Remove Completed FB 01/17/2017 93291 Repair,Extensor Tendon,Finger Prim Or Sec W/O Free Graft Completed Each Ten 01/17/2017 93923 Repair,Extensor Tendon,Finger Prim Or Sec W/O Free Graft Completed Each Ten 08/16/2016 84055 Treadmill Interp/Report Only Completed 08/16/2016 73448 Stress Test Supervsn W/Out I/R Completed 08/15/2016 51549 Event Monitor/Phys Review/Interp. Completed 08/09/2016 78069 Color Flow Doppler/Interp & Reprt Completed 08/09/2016 39931 Pulse Wave/Continuous-Interp.RPT Completed 08/09/2016 52241 Echocardiography, Transesophageal, Real Time W/Image 2D Completed W/W/O M-M 01/26/2016 26228 ECHO Transthorasic Realtime 2D W Doppler & Color Flow Hosp Completed 01/26/2016 70441 EKG, Interpretation Only Completed 01/24/2016 99115 EKG, Interpretation Only Completed 09/26/2012 65879 ECHO Transthorasic Realtime 2D W Doppler & Color Flow Hosp Completed Encounters Type Date Location Provider Dx Diagnosis Office Visit 06/04/2018 [facility] Diego SKristine Z01.810 Encounter for 4:00p Of Vending Supervisor Brower, DO FACC preprocedural cardiovascular examination I63.9 Cerebral infarction, unspecified R07.89 Other chest pain Z13.6 Encounter for screening for cardiovascular disorders Office Visit 11/10/2017 8:21a [facility] R07.89 Other chest Assoc,oscar Gonzalez, RECREATION CLERK pain Hospitalists E78.00 Pure hypercholesterolemia, unspecified K21.9 Gastro-esophageal reflux disease without esophagitis Z86.73 Prsnl hx of TIA (TIA), and cereb infrc w/o resid deficits Office Visit 10/16/2017 8:15a [facility] Diego SKristine R00.0 Tachycardia, Of Vending Supervisor Brower, DO unspecified FACC R07.9 Chest pain, unspecified Office Visit 09/13/2017 9:00a [facility] Diego S. R07.9 Chest pain , Of Vending Supervisor Brower, DO unspecified FACC K21.0 Gastro-esophageal reflux disease with esophagitis I15.9 Secondary hypertension, unspecified I63.9 Cerebral infarction, unspecified Office Visit 08/30/2017 [facility] Candelario Hoffmann R07.9 Chest pain, 10:27a Assoc,oscar BOOKER M.D. unspecified Hospitalists E78.00 Pure hypercholesterolemia, unspecified G44.52 New daily persistent headache (NDPH) Z86.73 Prsnl hx of TIA (TIA), and cereb infrc w/o resid deficits Office Visit 03/01/2017 9:30a [facility] Davi S61.011D Laceration w/o Services Of MD Noni fb of right C.M.A. thumb w/o damage to nail, subs S56.321D Lacerat extn/abdr musc/fasc/tend of r thm at forarm lv, subs S53.31xA Traumatic rupture of right ulnar collateral ligament, init Office Visit 01/15/2017 3:15p [facility] Davi A49.8 Other bacterial Services Of MD Noni infections of C.M.A. unspecified site S61.011A Laceration w/o fb of right thumb w/o damage to nail, init Office Visit 08/11/2016 9:35a [facility] Ramona I63.9 Cerebral Assoc,oscar Maddox M.D. infarction, Hospitalists unspecified R51 Headache R07.89 Other chest pain Office Visit 08/10/2016 [facility] Thelma M62.81 Muscle weakness 11:59a Zora Cedillo MD (generalized) R51 Headache Office Visit 08/10/2016 9:34a [facility] Ramona I63.9 Cerebral Assocoscar M.D. infarction, Hospitalists unspecified R51 Headache R07.89 Other chest pain Office Visit 08/09/2016 9:34a [facility] Ramona I63.9 Cerebral Assocoscar M.D. infarction, Hospitalists unspecified R07.89 Other chest pain R51 Headache Office 08/09/2016 [facility] Cruz Ojeda2.81 Muscle weakness Visit 11:36a Zora Matthews MD (generalized) Office 08/08/2016 [facility] Cruz M62.81 Muscle weakness Visit 11:34a Clinic MD Byron (generalized) R51 Headache Z82.3 Family history of stroke Office Visit 08/08/2016 9:33a [facility] Nell I63.9 Cerebral Assoc,pc Gary Santiago. infarction, Hospitalists unspecified R51 Headache R07.89 Other chest pain Office Visit 08/07/2016 [facility] Candelario Tahira I63.9 Cerebral 9:33a Assoc,pc Angie BOOKER. infarction, Hospitalists unspecified R07.89 Other chest pain R51 Headache Office Visit 01/27/2016 1:24p [facility] Carlton R07.9 Chest pain, Assoc,oscar Betancur M.D. 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 unspecified Hospitalists I63.8 Other cerebral infarction Z92.82 S/p admn tPA in diff fac w/n last 24 hr bef adm to crnt fac Office Visit 01/24/2016 3:10p [place] Janeen Tomlinson R10.30 Lower abdominal Assocoscar M.D. pain, unspecified Hospitalists R11.2 Nausea with vomiting, unspecified R07.9 Chest pain, unspecified Office Visit 01/23/2016 [facility] Taina A41.9 Sepsis, 3:09p Assoc,pc Héctor, RECREATION CLERK unspecified Hospitalists organism R10.30 Lower abdominal pain, unspecified R07.9 Chest pain, unspecified R11.2 Nausea with vomiting, unspecified Office Visit 04/07/2015 1:40p [facility] Davi 996.78 Complication Due Services Of Ya Dyer To Internal C.M.A. Orthopedic Device Implant Other Office Visit 04/02/2012 10:15a [facility] Clay 719.41 Pain Joint Services Of [facility] [place] Shoulder [facility] C.M.A. Office Visit 06/26/2011 9:45a [facility] Clay 840.8 Sprains & Strains Services Of Ya [place] Shoulder & Upper C.M.A. Arm Other Spec Sites Office Visit 05/11/2011 10:45a Leighann Williamson 840.8 Sprains & Strains Services Of [facility] [place] [facility] Upper C.M.A. Arm Other Spec Sites Office Visit 04/23/2011 2:15p Orthopedic Sergey Hernandez, 840.9 Sprains & Strains Services Of [place] Shoulder & Upper C.M.A. Arm Unspec Office Visit 04/12/2011 2:45p Orthopedic Sergey Hernandez 840.8 Sprains & Strains Services Of [facility] Shoulder & Upper C.M.A. Arm Other Spec Sites 840.9 Sprains & Strains Shoulder & Upper Arm Unspec Plan of Treatment Future Appointment(s):01/14/2019 9:45 kip - Joana Lopez M.D. at [facility]
--- OUTSIDE RECORDS SUMMARY | 2018-12-20 12:47 | XMS REPORT | Continuity of Care Document ---
:1985 External Reference #:[id number] Author Name EmreStefyaw Care Team Providers Name Role Phone Andrea Byrd MD Primary Care Physician Unavailable Payers Date Identification Numbers Payment Provider Subscriber Effective: 2013 Policy Number: [id number] [place] Festus Roberts Group Number: [id number] [address] PayID: [id number] [place] [address] Expires: 2015 Policy Number: [id number] [employer] Festus Roberts PayID: [id number] [address] [address] [place] [address] Expires: 2015 Policy Number: [id number] Medicaid Festus Roberts Group Name: 1 1 [address] PayID: [id number] [place] [address] Onset: 2011 Policy Number: [id number] [facility] Festus Roberts PayID: [id number] [place] [id number] Problems Active Problems Provider Date Bacterial infectious disease Davi Cheney MD Onset: 01/15/2017 Open wound of finger without complication Davi Cheney MD Onset: 2016 Family History Date Family Member(s) Observation Comments General Heart Disease General Diabetes General Cancer General Stroke General Hypertension General Chronic Obstructive Pulmonary Disease (COPD) Social History Type Date Description Comments Sex Unknown Lives With Lives With Children 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 07/29/2016 tab po bid after 7 days [place] 1 po tid prn 50tabs [facility] Analy, 05/02/2011 - 5-325mg Tablets M.D. 07/29/2016 Atorvastatin Calcium 1 by mouth every Unknown - 10mg day 09/12/2017 Tablets Lisinopril 1 by mouth every Unknown - 2.5mg Tablets day 10/15/2017 Aspirin Adult Low Dose 1 by mouth every Unknown - day 10/15/[address] Pantoprazole Sodium 1 by mouth every Unknown - 20mg day 09/13/2017 Tablets Vital Signs Date Vital Result Comment 12/11/2018 9:59am Height 64.5 inches 5'4.50" Weight [...] Result H/L Range Note Catecholamine 24HR 09/17/2017 [facility] Urine Collection 24 h Urine Fract [address] [place] [address] [phone] Urine Total Volume 750 mL Urine Norepinephrine 69 mcg/24h 15-80 Urine Epinephrine 9.8 mcg/24h <21 Urine Dopamine 199 mcg/24h 65-400 1 Metanephrines 09/17/2017 [facility] Plasma Free 0.92 Abnormal <0.[address] Normetanephrine nmol/[place] [address] [phone] Plasma Free Metanephrine 0.25 nmol/L <0.50 2 Urine Metanephrines 09/17/2017 [facility] Urine 143 mcg/24h [address] [place] [address] [phone] Urine Normetanephrine 403 mcg/24h 4 Urine Total Metanephrines 546 mcg/24h 5 Urine Collection Duration 24 h Urine Volume 750 mL 6 Laboratory test 09/13/2017 [facility] Metanephrines <pending> finding [address] [place] [address] [phone] Laboratory test 01/17/2017 [facility] Tissue Culture & SEE RESULT 7, [address] [place] [address] [phone] Wound 01/17/2017 [facility] Wound/Misc SEE RESULT 9 Culture/Sensi [address] Culture-[place] [address] [phone] 1 ADDITIONAL INFORMATION This test was developed and its performance characteristics determined by [facility] in a manner consistent with CLIA requirements. This test has not been cleared or approved by the U.S. Food and Drug Administration. Test Performed by: [facility] - [address] [address] ADDITIONAL INFORMATION This test was developed and its performance characteristics determined by [facility] in a manner consistent with CLIA requirements. This test has not been cleared or approved by the U.S. Food and Drug Administration. Test Performed by: [facility] - [address] [address] 3 REFERENCE VALUE 44-261 (Normotensive) <400 (Hypertensive) 4 REFERENCE VALUE 111-419 (Normotensive) <900 (Hypertensive) 5 REFERENCE VALUE 200-614 (Normotensive) <1300 (Hypertensive) 6 ADDITIONAL INFORMATION This test was developed and its performance characteristics determined by [facility] in a manner consistent with CLIA requirements. This test has not been cleared or approved by the U.S. Food and Drug Administration. Test Performed by: [facility] - [facility] [address] [place] [address] 7 INFECTION OG RIGHT THUMB LACERATION 8 SEE RESULT BELOW Name: FESTUS ROBERTS : [address]: Davi Cheney MD Acct: [id number] Unit: [id number] AGE: 31 Location: [facility] Re01/17/17 SEX: M Status: REG [facility] SPEC: [id number] YSABEL: 01/17/[address] [facility] [address]: Davi Cheney MD REQ: [id number] RECD: 01/17/17 STATUS: COMP NICHO DR: Beatriz Flores MD _ SOURCE: WOUND [...] Day 4 * ML - MAIN LAB ([facility]) . END OF REPORT * ML=Testing performed at Main Lab DEPARTMENT OF PATHOLOGY, [address] [place] [address] Charan Herzog M.D. Director [facility] # [id number] 9 SEE RESULT BELOW Name: FESTUS ROBERTS : [address]: Davi Cheney MD Acct: [id number] Unit: [id number] AGE: 31 Location: [facility] Re01/17/17 SEX: M Status: REG SDC SPEC: [id number] YSABEL: 01/17/[address] [facility] [address]: Davi Cheney MD REQ: [id number] RECD: 01/17/17 STATUS: LYNN TORRE DR: Beatriz Flores MD _ SOURCE: WOUND SPDESC:RT THUMB ORDERED: Culture Stain QUERIES: Specimen Description RIGHT THUMB LACERATION Procedure Result Reported Site Wound/Misc Gram Stain Final 01/17/17- 1419 ML No Neutrophils Observed No Organisms Seen Wound/Misc Culture Final 01/19/17- 0956 ML No Growth Day 2 * ML - MAIN LAB ([facility]) . END OF REPORT * ML=Testing performed at Main Lab DEPARTMENT OF PATHOLOGY, [address] [place] [address] Charan Herzog M.D. Director [facility] # [id number] Procedures Date Code Description Status 12/11/2018 68669 Short Arm Cast Application Completed 06/04/2018 23816 EKG Tracing & Interpretation Completed 11/10/2017 30450 EKG, Interpretation Only Completed 11/10/2017 37325 EKG, Interpretation Only Completed 10/23/2017 41314 Holter Monitor Review (24 hr)dr review & interp only Completed 10/21/2017 92870 ECG Monitor/Recording W/Visual Superimposition Scanning Completed 10/16/2017 75977 EKG Tracing & Interpretation Completed 09/13/2017 64383 EKG Tracing & Interpretation Completed 08/30/2017 49290 Stress ECHO Interpretation/Report Hospital Completed 08/30/2017 34042 Treadmill Interp/Report Only Completed 08/30/2017 90430 Stress Test Supervsn W/Out I/R Completed 08/30/2017 22195 EKG, Interpretation Only Completed 01/17/2017 80235 Arthrotomy Metacarpophalangeal JT W/Explore/Drain/Remove Completed FB 01/17/2017 11310 Arthrotomy Metacarpophalangeal JT W/Explore/Drain/Remove Completed FB 01/17/2017 41264 Repair,Extensor Tendon,Finger Prim Or Sec W/O Free Graft Completed Each Ten 01/17/2017 59951 Repair,Extensor Tendon,Finger Prim Or Sec W/O Free Graft Completed Each Ten 08/16/2016 18695 Treadmill Interp/Report Only Completed 08/16/2016 29007 Stress Test Supervsn W/Out I/R Completed 08/15/2016 85248 Event Monitor/Phys Review/Interp. Completed 08/09/2016 49975 Color Flow Doppler/Interp & Reprt Completed 08/09/2016 60194 Pulse Wave/Continuous-Interp.RPT Completed 08/09/2016 55002 Echocardiography, Transesophageal, Real Time W/Image 2D Completed W/W/O M-M 01/26/2016 14980 ECHO Transthorasic Realtime 2D W Doppler & Color Flow Hosp Completed 01/26/2016 82284 EKG, Interpretation Only Completed 01/24/2016 26345 EKG, Interpretation Only Completed 09/26/2012 41264 ECHO Transthorasic Realtime 2D W Doppler & Color Flow Hosp Completed Encounters Type Date Location Provider Dx Diagnosis Office Visit 06/04/2018 [facility] Diego Mckeon Z01.810 Encounter for 4:00p Of Aws Consultant Brower, DO FACC preprocedural cardiovascular examination I63.9 Cerebral infarction, unspecified R07.89 Other chest pain Z13.6 Encounter for screening for cardiovascular disorders Office Visit 11/10/2017 8:21a [facility] Johanna R07.89 Other 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 R00.0 Tachycardia, Of Aws Consultant Brower, DO unspecified FACC R07.9 Chest pain, unspecified Office Visit 09/13/2017 9:00a [facility] Diego SKristine R07.9 Chest pain , Of Aws Consultant Brower, DO unspecified FACC K21.0 Gastro-esophageal reflux disease with esophagitis I15.9 Secondary hypertension, unspecified I63.9 Cerebral infarction, unspecified Office Visit 08/30/2017 [facility] Candelario Hoffmann R07.9 Chest pain, 10:27a Assoc,oscar [...] to nail, init Office Visit 08/11/2016 9:35a [facility] Ramona I63.9 Cerebral Assoc,oscar Maddox M.D. infarction, Hospitalists unspecified R51 Headache R07.89 Other chest pain Office Visit 08/10/2016 [facility] Thelma M62.81 Muscle weakness 11:59a Clinic MD Nguyen (generalized) R51 Headache Office Visit 08/10/2016 9:34a [facility] Ramona I63.9 Cerebral Assocoscar M.D. infarction, Hospitalists unspecified R51 Headache R07.89 Other chest pain Office Visit 08/09/2016 9:34a [facility] Ramona I63.9 Cerebral Assocoscar M.D. infarction, Hospitalists unspecified R07.89 Other chest pain R51 Headache Office 08/09/2016 [facility] Cruz M62.81 Muscle weakness Visit 11:36a Clinic MD Byron (generalized) Office 08/08/2016 [facility] Cruz M62.81 Muscle weakness Visit 11:34a Clinic MD Byron (generalized) R51 Headache Z82.3 Family history of stroke Office Visit 08/08/2016 9:33a [facility] Nell I63.9 Cerebral Assoc,oscar Santiago D.O. infarction, Hospitalists unspecified R51 Headache R07.89 Other chest pain Office Visit 08/07/2016 [place] Janeen Hoffmann I63.9 Cerebral 9:33a Assoc,oscar BOOKER M.D. infarction, Hospitalists unspecified R07.89 Other chest pain R51 Headache Office Visit 01/27/2016 1:24p [place] Janeen Vincent R07.9 Chest pain, Assoc,oscar Betancur M.D. 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 unspecified Hospitalists I63.8 Other cerebral infarction Z92.82 S/p admn tPA in diff fac w/n last 24 hr bef adm to crnt fac Office Visit 01/24/2016 3:10p Sharona Tomlinson R10.30 Lower abdominal Assocoscar M.D. pain, unspecified Hospitalists R11.2 Nausea with vomiting, unspecified R07.9 Chest pain, unspecified Office Visit 01/23/2016 [place] Janeen Her A41.9 Sepsis, 3:09p Assoc,oscar Anaya, DANTE unspecified Hospitalists organism R10.30 Lower abdominal pain, unspecified R07.9 Chest pain, unspecified R11.2 Nausea with vomiting, unspecified Office Visit 04/07/2015 1:40p [facility] Davi 996.78 Complication Due Services [facility] Orthopedic Device Implant Other Office Visit 04/02/2012 10:15a [facility] Clay 719.41 Pain Joint [facility] [place] [facility] Office Visit 06/26/2011 9:45a Leighann Williamson 840.8 Sprains & Strains [facility] [facility] Arm Other Spec Sites Office Visit 05/11/2011 10:45a Leighann Williamson 840.8 Sp[facility]ins [facility] Arm Other Spec Sites Office Visit 04/23/2011 2:15p Orthopedic Sergey Hernandez, 840.9 Sprains & Strains Services [facility] Arm Unspec Office Visit 04/12/2011 2:45p Orthopedic Sergey Hernandez 840.8 Sprains & Strains [facility] Arm Other Spec Sites 840.9 Sprains & Strains Shoulder & Upper Arm Unspec Plan of Treatment Future Appointment(s):01/14/2019 9:45 am - Joana Lopez M.D. at [facility]12/11/2018 - Joana Lopez M.D.S52.515A Nondisplaced fracture of left radial styloid process, initiaFollow up:Follow up: 4 weeks
[2018-12-20] MEDS ORDERED: Acetaminophen TAB* 325 MG PO ONE (14:23)
[2018-12-20 15:07] VITALS: BP 122/84
--- NOTE | 2018-12-20 16:47 | ED ---
Lower Extremity - HPI Summary HPI Summary: Patient is a 33-year-old male presenting to the ED with left foot pain after rolling it this afternoon. He states he had 2 previous surgeries to this area. He states he rolled over top the area and is endorsing pain to the dorsum of the foot without pain to the ankle. No swelling or erythema. There is slight ecchymosis just proximal to the toes. He has been unable to ambulate since he injured the area. 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 He is unable to take ibuprofen he states due to currently on blood thinners for 2 previous strokes. Denies any other injuries. - History of Current Complaint Chief Complaint: EDExtremityLower Stated Complaint: LEFT ANKLE INJURY PER PT Time Seen by Provider: 12/20/18 12:36 Hx Obtained From: Patient Mechanism Of Injury: Twisted Onset of Pain: Hours Onset/Duration: Hours Severity Initially: Moderate Severity Currently: Moderate Pain Intensity: 7 Pain Scale Used: 0-10 Numeric Timing: Constant Location: Is Discrete @ - left dorsum of the foot Character Of Pain: Aching Associated Signs And Symptoms: Negative: Swelling, Redness, Bruising Aggravating Factor(s): Standing, Ambulation Alleviating Factor(s): Rest Able to Bear Weight: No - Risk Factors Gout Risk Factors: Negative DVT Risk Factors: Negative Septic Arthritis Risk Factor: Negative - Allergies/Home Medications Allergies/Adverse Reactions: Allergies Allergy/AdvReac Type Severity Reaction Status Date / Time azithromycin Allergy Difficulty Verified 12/20/18 12:37 Breathing bee venom protein (honey bee) Allergy Swelling Verified 12/20/18 12:37 Of Face,Lips,& Throat clavulanic acid Allergy Difficulty Verified 12/20/18 12:37 Breathing PMH/Surg Hx/FS Hx/Imm Hx Previously Healthy: Yes Endocrine/Hematology History: Reports: Hx Anticoagulant Therapy - on plavix, Hx Anemia, Other Endocrine/Hematological Disorders - low blood sugar Denies: Hx Blood Transfusions, Hx Diabetes, Hx Thyroid Disease Cardiovascular History: Reports: Hx Angina, Hx Hypercholesterolemia, Other Cardiovascular Problems/Disorders - on plavix Denies: Hx Coronary Artery Disease, Hx Hypertension, Hx Myocardial Infarction , Hx Pacemaker/ICD, Hx Valvular Heart Disease Respiratory History: Reports: Hx Pneumonia Denies: Hx Asthma, Hx Chronic Obstructive Pulmonary Disease (COPD) GI History: Reports: Hx Gastroesophageal Reflux Disease, Hx Hiatal Hernia, Other GI Disorders - nausea History: Reports: Hx Kidney Stones - 1 month ago - was able to pass no surgery Denies: Hx Dialysis, Hx Renal Disease Musculoskeletal History: Reports: Hx Arthritis - left foot, Hx Back Problems, Hx Orthopedic Injury - Left foot - chronic pain, Other Musculoskeletal History - 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 reconstruction of left foot x2 -2013, 2015. neuro stimulator for right shoulder - for pain 2011 Hx Anesthesia Reactions: No - Immunization History Date of Influenza Vaccine: Fall 2016 Hx Pertussis Vaccination: No Immunizations Up to Date: Yes Infectious Disease History: No Infectious Disease History: Denies: Hx Hepatitis, Hx Human Immunodeficiency Virus (HIV), Traveled Outside the [place] in Last 30 Days - Family History Known Family History: Positive: Cardiac Disease, Other - CVA - Social History Occupation: Employed Full-time Lives: With Family Alcohol Use: Occasionally Hx Substance Use: No Substance Use Type: Reports: None Hx Tobacco Use: Yes - not currently Smoking Status (MU): Former Smoker Type: Cigarettes Amount Used/How Often: smoked from 17 til 30 years old 1/2 ppd Have You Smoked in the Last Year: Yes Review of Systems Negative: Fever, Chills, Fatigue, Skin Diaphoresis Negative: Chest Pain Negative: Shortness Of Breath, Cough Genitourinary: Negative Positive: no symptoms reported, see HPI Positive: Arthralgia - left foot Positive: Bruising - slight ecchymosis just proximal to the toes of the L foot All Other Systems Reviewed And Are Negative: Yes Physical Exam Triage Information Reviewed: Yes Vital Signs On Initial Exam: Initial Vitals Temp Pulse Resp BP Pulse Ox 99 F 108 16 143/89 97 12/20/18 12:35 12/20/18 12:35 12/20/18 12:35 12/20/18 12:35 12/20/18 12:35 Vital Signs Reviewed: Yes Appearance: Positive: Well-Appearing, Well-Nourished Skin: Positive: Warm, Skin Color Reflects Adequate Perfusion, Other - slight ecchymosis just proximal to the toes of the L foot Head/Face: Positive: Normal Head/Face Inspection Eyes: Positive: EOMI, CELINA, Conjunctiva Clear Respiratory/Lung Sounds: Positive: Clear to Auscultation, Breath Sounds Present Musculoskeletal: Positive: Pain @ - left foot - pain to dorsum of the foot Neurological: Positive: Alert, Oriented to Person Place, Time, Speech Normal Psychiatric: Positive: Affect/Mood Appropriate AVPU Assessment: Alert Diagnostics - Vital Signs Vital Signs Temp Pulse Resp BP Pulse Ox 12/20/18 15:06 98.8 F 89 16 122/84 94 12/20/18 12:35 99 F 108 16 143/89 97 - Laboratory Lab Statement: Any lab studies that have been ordered have been reviewed, and results considered in the medical decision making process. Lower Extremity Course/Dx - Course Course Of Treatment: X-ray obtained of the left foot. This shows no acute findings. No swelling noted. On physical examination, patient is able to plantar flex and dorsiflex, however with pain. There is pain directly over the deltoid ligament on light palpation. States he is not ambulatory. I've given him a orthopedic referral follow-up, the area was Abhijit wrapped and he is given crutches. He will be diagnosed with a slight ligament strain. - Diagnoses Provider Diagnoses: Left foot pain, Strain of foot, left Discharge - Sign-Out/Discharge Documenting (check all that apply): Patient Departure Patient Received Moderate/Deep Sedation with Procedure: No - Discharge Plan Condition: Stable Disposition: HOME Patient Education Materials: Ankle Sprain (DC) Referrals: Prasanna Murry MD [Medical Doctor] - Andrea Byrd MD [Primary Care Provider] - Additional Instructions: Please follow-up with Dr. Flowers Keep the Abhijit wrap applied for comfort crutches as needed for discomfort and ambulation Tylenol 650 mg 3x daily Ice to the area as much as possible Bear weight only as tolerated - Billing Disposition and Condition Condition: STABLE Disposition: Home
== END 2018-12-20 15:06 | disposition home or self-care (01) ==
LOC: ED 12:26
DX: S96.912A Strain of unspecified muscle and tendon at ankle and foot level, left foot, initial encounter (principal); X50.1XXA Overexertion from prolonged static or awkward postures, initial encounter; D64.9 Anemia, unspecified; E78.00 Pure hypercholesterolemia, unspecified; K21.9 Gastro-esophageal reflux disease without esophagitis; M13.872 Other specified arthritis, left ankle and foot; Z88.3 Allergy status to other anti-infective agents; Z79.01 Long term (current) use of anticoagulants; Z86.73 Personal history of transient ischemic attack (TIA), and cerebral infarction without residual deficits; Z87.891 Personal history of nicotine dependence
CPT/HCPCS: 99283; A9270-GY

== ENCOUNTER 2019-01-04 20:21 | Observation (INO) | payer OTHER ==
[2019-01-04] MEDS ORDERED: Morphine 4 MG/ML VIAL (1 ml) 4 MG/ML VIAL IV ONE (20:48)
[2019-01-04] MEDS ORDERED: Aspirin 81 mg CHEW TAB* 81 MG TAB.CHEW PO ONE (20:48)
[2019-01-04] MEDS ORDERED: Ondansetron INJ* 2 MG/ML VIAL IV ONE (20:49)
--- NOTE | 2019-01-04 20:49 | ED ---
HPI Cardiac - HPI Summary HPI Summary: Patient is a 33 y/o M presenting to ED with complaints of chest pain, SOB, and diaphoresis. Sx onset thirty minutes ago while he was visiting his in OB at [facility]. Chest pain is still present. Pain is described as sharp and tight. He notes some radiation of pain to left arm. Patient reports most recent cardiac stress test was from a couple of years ago. PMHx of CVA, he reports some residual weakness at his right hand. PMHx of anemia , angina, HLD, PNA, GERD, hiatal hernia, kidney stones, TIA, CVA. PSHx of appendectomy, reconstruction of left foot x2 -2013, 2016, and neuro stimulator for right shoulder - for pain 2011. FMHx of cardiac disease and CVA. On triage, pain is rated 8/10, nothing is noted to aggravate/alleviate Sx. Home medications and allergies are reviewed. - History of Current Complaint Chief Complaint: EDChestPainROMI Stated Complaint: CHEST PAIN PER PT Time Seen by Provider: 01/04/19 20:39 Hx Obtained From: Patient Onset/Duration: Started Minutes Ago - 30 minutes ago, Still Present Timing: Constant, Lasting Minutes - 30 minutes ago Current Severity: Severe Pain Intensity: 8 Pain Scale Used: 0-10 Numeric Chest Pain Radiates: Yes Chest Pain Radiates To:: Arm - left Character: Sharp/Stabbing, Tightness Aggravating Factor(s): Nothing Alleviating Factor(s): Nothing Associated Signs and Symptoms: Positive: Chest Pain, Shortness of Breath, Diaphoresis - Additional Pertinent History Primary Care Physician: [id number] - Allergy/Home Medications Allergies/Adverse Reactions: Allergies Allergy/AdvReac Type Severity Reaction Status Date / Time azithromycin Allergy Difficulty Verified 01/04/19 20:45 Breathing bee venom protein (honey bee) Allergy Swelling Verified 01/04/19 20:45 Of Face,Lips,& Throat clavulanic acid Allergy Difficulty Verified 01/04/19 20:45 Breathing PMH/Surg Hx/FS Hx/Imm Hx Endocrine/Hematology History: Reports: Hx Anticoagulant Therapy - on plavix, Hx Anemia, Other Endocrine/Hematological Disorders - low blood sugar Denies: Hx Blood Transfusions, Hx Diabetes, Hx Thyroid Disease Cardiovascular History: Reports: Hx Angina, Hx Hypercholesterolemia, Other Cardiovascular Problems/Disorders - on plavix Denies: Hx Coronary Artery Disease, Hx Hypertension, Hx Myocardial Infarction , Hx Pacemaker/ICD, Hx Valvular Heart Disease Respiratory History: Reports: Hx Pneumonia Denies: Hx Asthma, Hx Chronic Obstructive Pulmonary Disease (COPD) GI History: Reports: Hx Gastroesophageal Reflux Disease, Hx Hiatal Hernia, Other GI Disorders - nausea History: Reports: Hx Kidney Stones - 1 month ago - was able to pass no surgery Denies: Hx Dialysis, Hx Renal Disease Musculoskeletal History: Reports: Hx Arthritis - left foot, Hx Back Problems, Hx Orthopedic Injury - Left foot - chronic pain, Other Musculoskeletal History - 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 reconstruction of left foot x2 -2013, 2015. neuro stimulator for right shoulder - for pain 2011 Hx Anesthesia Reactions: No - Immunization History Date of Influenza Vaccine: Fall 2016 Infectious Disease History: Denies: Hx Hepatitis, Hx Human Immunodeficiency Virus (HIV) - Family History Known Family History: Positive: Cardiac Disease, Other - CVA - Social History Alcohol Use: None Hx Substance Use: No Substance Use Type: Reports: None Hx Tobacco Use: Yes - not currently Smoking Status (MU): Former Smoker Type: Cigarettes Amount Used/How Often: smoked from 17 til 30 years old 1/2 ppd Have You Smoked in the Last Year: Yes Review of Systems Positive: Skin Diaphoresis Positive: Chest Pain Positive: Shortness Of Breath All Other Systems Reviewed And Are Negative: Yes Physical Exam - Summary Physical Exam Summary: VITAL SIGNS: Reviewed. GENERAL: Patient is a well-developed and nourished male who is lying comfortable in the stretcher. Patient is not in any acute respiratory distress. HEAD AND FACE: No signs of trauma. No ecchymosis, hematomas or skull depressions. No sinus tenderness. EYES: PERRLA, EOMI x 2, No injected conjunctiva, no nystagmus. EARS: Hearing grossly intact. Ear canals and tympanic membranes are within normal limits. MOUTH: Oropharynx within normal limits. NECK: Supple, trachea is midline, no adenopathy, no JVD, no carotid bruit, no c- spine tenderness, neck with full ROM CHEST: Symmetric, no tenderness at palpation LUNGS: Clear to auscultation bilaterally. No wheezing or crackles. CVS: Regular rate and rhythm, S1 and S2 present, no murmurs or gallops appreciated. ABDOMEN: Soft, non-tender. No signs of distention. No rebound no guarding, and no masses palpated. Bowel sounds are normal. EXTREMITIES: FROM in all major joints, no edema, no cyanosis or clubbing. NEURO: Alert and oriented x 3. No acute neurological deficits. Speech is normal and follows commands. SKIN: Dry and warm Triage Information Reviewed: Yes Vital Signs On Initial Exam: Initial Vitals Temp Pulse Resp BP Pulse Ox 97.9 F 96 18 135/103 100 01/04/19 20:32 01/04/19 20:32 01/04/19 20:32 01/04/19 20:32 01/04/19 20:32 Vital Signs Reviewed: Yes Diagnostics - Vital Signs Vital Signs Temp Pulse Resp BP Pulse Ox 01/04/19 20:32 97.9 F 96 18 135/103 100 - Laboratory Result Diagrams: 01/04/19 21:22 01/04/19 21:22 Lab Statement: Any lab studies that have been ordered have been reviewed, and results considered in the medical decision making process. - Radiology CHEST X-RAY Radiology Interpretation Completed By: ED Physician Summary of Radiographic Findings: NAD, pending official report. - EKG 2030 Cardiac Rate: Tachycardia - rate of 103 BPM EKG Rhythm: Sinus Tachycardia EKG Comparison: No Significant Change - this is unchanged compared to EKG done on 10/17/18 Summary of EKG Findings: EKG showed sinus tachycardia with rate of 103 BPM, T- wave inversion in melissa-lateral leads, this is unchanged compared to EKG done on 10/17/18 Re-Evaluation - Re-Evaluation First Eval Re-Evaluation Time: 22:29 Comment: Results of labs and tests were discussed with the patient, the patient will be admitted. He is agreeable with this. Disposition - Course Course Of Treatment: Patient is a 33 y/o M presenting to ED with complaints of chest pain, SOB, and diaphoresis. Sx onset thirty minutes ago while he was visiting his in OB at [facility]. Chest pain is still present. Pain is described as sharp and tight. He notes some radiation of pain to left arm. Patient reports most recent cardiac stress test was from a couple of years ago. PMHx of CVA, he reports some residual weakness at his right hand. PMHx of anemia, angina, HLD, PNA, GERD, hiatal hernia, kidney stones, TIA, CVA. PSHx of appendectomy, reconstruction of left foot x2 -2013, 2015, and neuro stimulator for right shoulder - for pain 2011. FMHx of cardiac disease and CVA. Physical exam is unremarkable. EKG showed sinus tachycardia with rate of 103 BPM, T-wave inversion in melissa-lateral leads, this is unchanged compared to EKG done on . CXR showed NAD. Labs showed MCH 32, MPV 7.1, D-dimer < 200, glucose 103 , AST 12, trop 0. During ED course, patient received Zofran 8 mg IV, morphine 4 mg IV, antivert 25 mg PO, ASA 324 mg PO. Results of labs and tests were discussed with the patient, the patient will be admitted. He is agreeable with this. Patient's case was discussed with Dr. Stovall, Dr. Stovall accepts for admission. - Diagnoses Provider Diagnoses: Chest pain - Physician Notifications Discussed Care Of Patient With: Chey Stovall Time Discussed With Above Provider: 22:39 Instructed by Provider To: Other - 2238 - Patient's case was discussed with Dr. Stovall, Dr. Stovall accepts for admission. Discharge - Sign-Out/Discharge Documenting (check all that apply): Patient Departure - admit Patient Received Moderate/Deep Sedation with Procedure: No - Discharge Plan Condition: Good Disposition: ADMITTED TO [facility] Referrals: Andrea Byrd MD [Primary Care Provider] - - Attestation Statements Document Initiated by Scribe: Yes Documenting Scribe: MICHAELA BROOKS Provider For Whom Janetteibe is Documenting (Include Credential): KIMANI TSANG MD Scribe Attestation: MICHAELA Pineda, scribed for KIMANI TSANG MD on 01/04/19 at 2321. Status of Scribe Document: Ready
[2019-01-04] MEDS ORDERED: Meclizine TAB* 12.5 MG PO ONE (21:03)
[2019-01-04 21:41] LABS: Activated Partial Thrombo Time 31.1 seconds (26.0-38.0); INR 0.98 (0.82-1.09)
[2019-01-04 21:47] LABS: ABS Eosinophils 0.2 10^3/ul (0-0.6); ABS Lymphocytes 2.3 10^3/ul (1.0-4.8); ABS Monocytes 0.5 10^3/ul (0-0.8); ABS Neutrophils 4.5 10^3/ul (1.5-7.7); Eosinophil % 3.3 %; Hematocrit 46 % (42-52); Lymphocyte % 29.8 %; Mean Corpuscular HGB Conc 35 g/dL (31-36); Mean Corpuscular Hemoglobin 32 pg (27-31); Mean Corpuscular Volume 93 fL (80-94); Mean Platelet Volume 7.1 fL (7.4-10.4); Nucleated Red Blood Cells % 0.1; Platelet Count 403 10^3/uL (150-450); Red Blood Count 4.95 10^6 /uL (4.18-5.48); Red Cell Distribution Width 13 % (10-15); White Blood Count 7.6 10^3/uL (3.5-10.8)
[2019-01-04 21:49] LABS: Albumin 4.4 g/dL (3.2-5.2); Albumin/Globulin Ratio 1.6 (1-3); BUN/Creatinine Ratio 13.3 (8-20); Calcium 9.6 mg/dL (8.6-10.3); EGFR African American 97.8 (>60); EGFR Non-African American 80.9 (>60); Globulin 2.7 g/dL (2-4); Total Bilirubin 0.5 mg/dL (0.2-1.0); Total Protein 7.1 g/dL (6.4-8.9)
[2019-01-04] MEDS ORDERED: Al Hydrox/Mg Hydrox/Simet LIQ* 30 ML UDC PO PRN (23:09)
[2019-01-04] MEDS ORDERED: Lactated Ringers 1000 ML Bag* 1,000 ML IV ONE (23:13)
[2019-01-04] MEDS: Ondansetron INJ* 2 MG/ML VIAL IV PRN (23:53)
[2019-01-04] MEDS: Ketorolac INJ* 15 MG/ML 1 ML VIAL IV PUSH PRN (23:53)
[2019-01-05 00:16] LABS: HDL Cholesterol 37.3 mg/dL
[2019-01-05] MEDS ORDERED: traZODone TAB* 50 MG TAB PO PRN (00:57)
[2019-01-05] MEDS: traMADol TAB* 50 MG PO PRN ×2 (01:16→10:10)
[2019-01-05 01:35] LABS: Urine Benzodiazepine Screen None Detected (None Detect); Urine Opiates Screen Presumptive Positive (None Detect)
--- NOTE | 2019-01-05 02:02 | HP ---
CC: Andrea Byrd MD * HISTORY AND PHYSICAL: DATE OF ADMISSION: 01/04/19 TIME OF EVALUATION: 2300 PRIMARY CARE PHYSICIAN: Andrea Byrd MD CHIEF COMPLAINT: Chest pain. HISTORY OF PRESENT ILLNESS: This is a 33-year-old male with a past medical history of recurrent chest pain in the setting of lightheadedness, dizziness and nausea who also has a history of questionable strokes x2 in the past, one where he did receive TPA. The patient has been in Labor and Delivery with his who delivered their 7th child 2 days ago. Yesterday, he noticed that he was developing blurry vision. He thought it was just due to he was tired, today it got progressively worse and he was resting when he became nauseated, lightheaded, dizzy and developed left sided chest pressure, worse with deep breath, nothing seemed to improve it. It was constant. He also was developing a frontal headache. He also is complaining of light sensitivity. He is also complaining of bilateral arms feeling warm and tingling. No weakness, no falls. He denies any URI symptoms. No fever, no chills, no vomiting, no abdominal pain. No changes in his medications. No changes in his bowel or bladder dysfunction. Otherwise, patient has also noted weight gain of 50 pounds over the past 6 months, unclear why. Denies any changes in the diet. Otherwise, remainder of review of systems negative in the emergency room. The patient had labs and imaging. He was given aspirin 325 mg, meclizine, morphine 4 mg and Zofran 8 mg and referred to the hospitalist service for further evaluation. In my encounter, he still is complaining of left sided chest pain. PAST MEDICAL HISTORY: 1. History of CVA, status post TPA in 2016 with right sided tingling, numbness as the chief complaint. 2. History of questionable CVA again in 2017 with again right sided numbness and tingling. 3. History of echo with no PFO. 4. Hyperlipidemia. 5. Chronic low back pain, status post spinal stimulator, currently having issues with stimulator and undergoing surgery in 2 weeks at [place] to get a new battery. 6. History of hypoglycemia. 7. History of migraines. 8. GERD. MEDICATIONS: The patient states he is on a long list of medications. He does state he takes Plavix daily and aspirin as needed, otherwise unknown remaining medications. Med rec is not completed. ALLERGIES: AZITHROMYCIN, BEE VENOM, and CLAVULANIC ACID. FAMILY HISTORY: Mother is alive, started having strokes in her 40s. Father is alive and healthy. SOCIAL HISTORY: The patient lives at home with his who is his healthcare proxy and now has 7 children. is currently in [facility]. He quit smoking in 2010 and smoked a pack per day for 20 years. No alcohol or illicit drug use. He is currently on disability due to his foot and low back pain. Code status is full code. REVIEW OF SYSTEMS: A 14-point review of systems as mentioned in the HPI, otherwise negative on the HPI. PHYSICAL EXAMINATION GENERAL: He is in mild distress due to the chest discomfort. VITAL SIGNS: Temp is 97.9, pulse rate is 96, respiratory rate is 17, oxygen saturation is 97% on room air, blood pressure 127/103. HEENT: Head, normocephalic. Pupils are dilated and reactive. Anicteric. Oropharynx, mucous membranes are moist. NECK: Supple. No lymphadenopathy. RESPIRATORY: Diminished breath sounds. No wheeze, rhonchi or rales. CARDIAC: Tachycardia. Soft systolic murmur heard throughout. ABDOMEN: Soft, nontender, and nondistended. EXTREMITIES: The patient with pedal edema more prominent in the left lower foot from an old injury. The patient with a left wrist brace, placed secondary to a recent fracture of 3 weeks ago. NEUROLOGIC: Alert and oriented x3. No gross focal neurologic deficits. DIAGNOSTIC STUDIES/LAB DATA: Laboratory Data: White count 7.6, hemoglobin 16 , hematocrit 46, platelets 403. INR is 0.98. D-dimer is less than 200. Sodium 138, potassium 4, chloride 107, bicarb 23, BUN 14, creatinine 1.05, glucose 103, mag of 2, trop of 0. Radiographic Data: EKG, sinus tachycardia with a rate of 103. Nonspecific ST changes are unchanged from prior EKGs. Repeat EKG on my encounter when he was having active chest pain is unchanged. Chest x-ray, wet read unremarkable. ASSESSMENT AND PLAN: This is a 33-year-old male with past medical history of hyperlipidemia and question of 2 strokes in the past requiring TPA for 1, who presents to the emergency room while he was in [facility] with his having their 7th child, developing blurry vision, left sided chest pain, lightheadedness, dizziness, and nausea. 1. Left sided chest pain, lightheaded, nausea, headache, and dizziness. Assessment: The patient appears,looking back on the records to have the same constellation of symptoms in the past with no obvious etiology. He has been worked up for hypercoagulable workup with a mildly elevated homocystine and urine metanephrine for concern of pheochromocytoma, which was mildly elevated as well. He has had negative stress test in the past and negative imaging in the past for stroke symptoms, though he cannot have an MRI due to spinal stimulator, not sure of the exact etiology. My suspicion is that this is an atypical migraine and I suspect he is sleep deprived in the setting of having his 7th child of Maternal Child David and not an acute coronary artery syndrome event. Plan: We will admit him to observation to rule out acute coronary artery syndrome with his history and order a nuclear stress test in the morning, continue to trend his troponin and add on a lipid panel. I do think it is worthwhile to repeat a urine metanephrine in the setting of his presentation and he is slightly tachycardiac. We would also check a drug screen as well with his dilated pupils. We will continue him on fluids, Zofran and Toradol to treat as if this may be a migraine and continue him on the Plavix as well. We will need a med rec to continue his remaining medications. We will also get a head CT in the setting of his bilateral numbness, weakness, but I think it is low yield. Consider neurology consultation if symptoms do not improve. 2. Chronic medical problems. As mentioned, med rec needs to be obtained and we will order the medications accordingly. 3. FEN: NPO after midnight. We will continue him on IV fluids for a suspicion of possible migraine. 4. DVT prophylaxis. The patient scores low risk. We will encourage ambulation. 5. Code status: Full code. PATIENT TIME: Greater than 40 minutes was spent doing the history and physical , more than half the time was on direct patient contact. [id number]/CPS #: [id number] RAY
[2019-01-05] MEDS: Pantoprazole TAB * 40 MG TAB PO SCH (07:27)
[2019-01-05] MEDS: Acetaminophen TAB* 325 MG PO PRN ×2 (07:27→12:54)
[2019-01-05] MEDS: Clopidogrel TAB* 75 MG PO SCH (07:27)
[2019-01-05] MEDS: Ketorolac INJ* 15 MG/ML 1 ML VIAL IV PUSH PRN (07:28)
[2019-01-05] MEDS: Ondansetron INJ* 2 MG/ML VIAL IV PRN (07:38)
[2019-01-05] MEDS: Cyclobenzaprine TAB* 10 MG PO PRN ×3 (07:59→22:27)
[2019-01-05] MEDS: Lisinopril TAB* 5 MG PO SCH (08:00)
[2019-01-05] MEDS ORDERED: Regadenoson* 0.4 MG/5 ML SYRINGE ONE (10:22)
--- NOTE | 2019-01-05 14:01 | PN ---
Subjective Date of Service: 01/05/19 Interval History: Mr. Roberts is feeling a bit better today. He continues to report chest pain, but reports it has improved with Tramadol and Toradol. At this point the pain is 6/ 10, stabbing and aching. No other aggravating or alleviating factors. Left arm tingling has resolved. No other neurological complaints. Denies SOB, N/V. Has been up ambulating without difficulty. No concerns from nursing. Family History: Unchanged from Admission Social History: Unchanged from Admission Past Medical History: Unchanged from Admission Objective Active Medications: Acetaminophen (Tylenol Tab*) 650 mg PO Q4H PRN FEVER/PAIN Al Hydrox/Mg Hydrox/Simethicone (Maalox Plus*) 30 ml PO Q6H PRN INDIGESTION Atorvastatin Calcium (Lipitor*) 20 mg PO 2100 PAN Clopidogrel Bisulfate (Plavix Tab*) 75 mg PO DAILY PAN Cyclobenzaprine HCl (Flexeril Tab*) 10 mg PO TID PRN PAIN Ketorolac Tromethamine (Toradol Inj*) 15 mg IV PUSH Q6H PRN PAIN Lisinopril (Prinivil Tab*) 2.5 mg PO DAILY PAN Ondansetron HCl (Zofran Inj*) 4 mg IV Q4H PRN NAUSEA/VOMITING Pantoprazole Sodium (Protonix Tab*) 40 mg PO DAILY PAN Tramadol HCl (Ultram*) 50 mg PO Q8H PRN PAIN Trazodone HCl (Desyrel Tab*) 50 mg PO BEDTIME PRN SLEEP Vital Signs - 8 hr 01/05/19 01/05/19 01/05/19 07:18 07:59 09:56 Temperature 97.4 F Pulse Rate 88 Respiratory 17 16 16 Rate Blood Pressure 110/78 (mmHg) O2 Sat by Pulse 99 Oximetry 01/05/19 10:10 Temperature Pulse Rate Respiratory 16 Rate Blood Pressure (mmHg) O2 Sat by Pulse Oximetry Oxygen Devices in Use Now: None Appearance: Middle-aged male laying in bed in NAD Eyes: No Scleral Icterus Ears/Nose/Mouth/Throat: Mucous Membranes Moist Neck: NL Appearance and Movements; NL JVP, Trachea Midline Respiratory: Symmetrical Chest Expansion and Respiratory Effort, Clear to Auscultation Cardiovascular: NL Sounds; No Murmurs; No JVD, RRR Abdominal: NL Sounds; No Tenderness; No Distention Extremities: No Edema Skin: No Rash or Ulcers Neurological: Alert and Oriented x 3 Lines/Tubes/Other Access: Clean, Dry and Intact Peripheral IV Nutrition: Taking PO's Result Diagrams: 01/04/19 21:22 01/04/19 21:22 Assess/Plan/Problems-Billing Assessment: Mr. Roberts is a 33 yo M with PMH of CVA x2, HLD, chronic back pain s/p spinal stimulator, and GERD; who presented to the ED with c/o chest pain and headache after the of his 7th child. - Patient Problems (1) Chest pain Code(s): R07.9 - CHEST PAIN, UNSPECIFIED Comment: - With associated headache, dizziness, nausea - Etiology is unclear, though suspect this may be an atypical migraine - No EKG changes, troponins negative - CT brain unremarkable - Stress test impression was low risk - Collecting 24 hr urine for metanephrine to r/o pheochromocytoma - Continue Tramadol; increase Toradol (2) History of CVA (cerebrovascular accident) Code(s): Z86.73 - PRSNL HX OF TIA (TIA), AND CEREB INFRC W/O RESID DEFICITS Comment: - Without deficits - Continue Plavix, atorvastatin (3) Chronic low back pain Code(s): M54.5 - LOW BACK PAIN; G89.29 - OTHER CHRONIC PAIN Comment: - S/p spinal stimulator, currently scheduled for battery replacement in 2 weeks in [place] - Continue Flexeril (4) DVT prophylaxis Comment: - Ambulation (5) Full code status Code(s): Z78.9 - OTHER SPECIFIED HEALTH STATUS Comment: Status and Disposition: Observation. Anticipate d/c home when medically stable. Attending: Lisa Green
[2019-01-05] MEDS: Ketorolac INJ* 30 MG/ML 1 ML VIAL IV PUSH PRN ×2 (15:45→22:28)
[2019-01-05] MEDS ORDERED: SUMAtriptan TAB* 50 MG PO ONE (17:07)
[2019-01-05] MEDS ORDERED: Atorvastatin* 20 MG TAB PO SCH (21:00)
[2019-01-06] MEDS: Clopidogrel TAB* 75 MG PO SCH (07:18)
[2019-01-06] MEDS: Pantoprazole TAB * 40 MG TAB PO SCH (07:18)
[2019-01-06] MEDS: Lisinopril TAB* 5 MG PO SCH (07:18)
[2019-01-06] MEDS: traMADol TAB* 50 MG PO PRN (07:19)
[2019-01-06] MEDS: Cyclobenzaprine TAB* 10 MG PO PRN (07:20)
[2019-01-06] MEDS: Acetaminophen TAB* 325 MG PO PRN (07:20)
[2019-01-06 07:31] VITALS: BP 113/68
[2019-01-06] MEDS: Ketorolac INJ* 30 MG/ML 1 ML VIAL IV PUSH PRN (08:26)
--- NOTE | 2019-01-06 14:36 | DS ---
CC: Dr. Andrea Byrd * DISCHARGE SUMMARY: DATE OF ADMISSION: 01/04/19 DATE OF DISCHARGE: 01/06/19 PRIMARY CARE PROVIDER: Dr. Andrea Byrd. ATTENDING PHYSICIAN: Dr. Lisa Green * (dictated by Deya Molina NP). PRIMARY DIAGNOSES: 1. Chest pain, likely noncardiac. 2. Atypical migraines. SECONDARY DIAGNOSES: 1. History of cerebrovascular accident. 2. Chronic low back pain. STUDIES WHILE IN THE HOSPITAL: 1. Chest x-ray on 01/04/19 reads as no active cardiopulmonary disease. 2. EKG on 01/04/19 shows sinus tachycardia with a rate of 103, QTc 415. No ischemic changes. 3. EKG on 01/04/19 shows normal sinus rhythm with a rate of 98, QTc 406. No ischemic changes. 4. Brain CT on 01/04/19 reads as no acute intracranial abnormality. 5. EKG on 01/05/19 shows normal sinus rhythm with a rate of 88, QTc 425. No ischemic changes. 6. Nuclear cardiac stress test on 01/05/19 reads as findings suggestive of a small area of ischemia in the anteroseptal wall. Assessment is low risk. HISTORY OF PRESENT ILLNESS AND HOSPITAL COURSE: Mr. Roberts is a 33-year-old male with past medical history of CVA x2, chronic low back pain and migraines, who presented to the emergency room on 01/04/19 with complaints of chest pain. Please see the history and physical by Dr. Stovall for a complete summary of the events leading up to this hospitalization. In short, the patient had been down in Labor and Delivery with his , who delivered their 7th child. He reportedly started developing blurry vision, nausea, lightheadedness, dizziness , and left-sided chest pressure, which was worse with deep breathing. There were no alleviating factors. In the emergency room, he had imaging as noted above. He had lab work, which was unremarkable. He had a urine toxicology, which was positive for opiates, though this urine sample appears to have been obtained after the patient had a dose of morphine. Due to the concern for chest pain, the patient was admitted by the hospitalist service. The patient continued to have mild chest pain, though it had improved. He did continue to complain of a headache with light sensitivity, but was not able to state to me whether or not these symptoms were similar to previous migraine symptoms he had in the past. The patient was monitored on telemetry and had no evidence of arrhythmias. He did have a cardiac stress test as noted above, which was determined to be low risk despite a small area of ischemia. At this point, it seems as though the patient's symptoms were likely secondary to an atypical migraine. The patient's headache and chest pain did resolve overnight last night after receiving multiple doses of tramadol and Toradol and this morning, he reports that his symptoms have completely resolved. This atypical migraine also seems likely in the setting of sleep deprivation and stress after the of his most recent child. The patient has had a workup in the past due to his history of CVA and was noted to have a mildly elevated homocysteine and metanephrine level, so there was a small concern for pheochromocytoma. The patient did have a metanephrine 24-hour urine sample obtained, which was completed this morning. As of this morning, the patient reports feeling well. He does note some pain with urination, though does state he has a history of kidney stones which he has been able to pass on his own and this pain feels very similar to that. On exam, he has no focal neurological deficits. His heart has a regular rate and rhythm without murmurs, rubs, or gallops. His lungs are clear to auscultation without rhonchi, wheezes, or rales. Mr. Roberts is stable for discharge today. Vital signs are as follows: Temp 98.1 , heart rate 87, respiratory rate 16, oxygen saturation 96% on room air, blood pressure 113/68. DISCHARGE MEDICATIONS: Continued medications: 1. Acetaminophen 650 mg p.o. q.6 hours p.r.n. fever or pain. 2. Atorvastatin 20 mg p.o. daily. 3. Plavix 75 mg p.o. daily. 4. Cyclobenzaprine 10 mg p.o. t.i.d. p.r.n. pain. 5. Lisinopril 2.5 mg p.o. daily. 6. Pantoprazole 20 mg p.o. b.i.d. 7. Trazodone 50 to 100 mg p.o. at bedtime p.r.n. insomnia. DISCHARGE PLAN: Mr. Roberts will be discharged home. Activity will be as tolerated. Diet should be heart-healthy. The patient can resume his usual medications and I have not made any changes at this time. Again, there does not appear to be an obvious cardiac concern for his chest pain at this point, though he should follow up with his PCP as he may potentially require a further cardiac workup due to results of the stress test. His PCP will additionally need to follow up on the metanephrines urine as that test is being sent out today and will take approximately 3 days to result. I have advised him he should follow up with his neurologist. He does report he has an appointment next week and I have advised him that if he has any further headaches or neurological symptoms, he should get in to see his neurologist as soon as possible. I also have advised the patient that it would likely be beneficial for him to see an urologist due to the frequency of kidney stones. At this point, he reports he is having kidney stones approximately once every 2 months. The patient has been instructed to return to the emergency room or nearest hospital for any worsening of symptoms, shortness of breath, lightheadedness, dizziness, chest discomfort, high fever, chills, night sweats, loss of consciousness, or any other worrisome signs or symptoms. DISCHARGE CONDITION: Stable. DISCHARGE DISPOSITION: Home. This is a summarized report of a complex medical history and hospital stay. For further details, please see the entire medical record. TIME SPENT: Approximately 45 minutes was spent on this discharge. DEYA MOLINA NP [id number]/[facility] #: [id number] RAY
[2019-01-09 00:27] LABS: Urine Collection Duration 24 h; Urine Total Metanephrines 382 mcg/24 h
== END 2019-01-06 10:12 | disposition home or self-care (01) ==
LOC: ED 20:21 → MEDTELE 23:09
PROVIDERS: ADMIT Pediatrics; ATTEND Internal Medicine
DX: R07.9 Chest pain, unspecified (principal); G43.909 Migraine, unspecified, not intractable, without status migrainosus; Z86.73 Personal history of transient ischemic attack (TIA), and cerebral infarction without residual deficits; M54.5 Low back pain; E78.5 Hyperlipidemia, unspecified; K21.9 Gastro-esophageal reflux disease without esophagitis; Z79.01 Long term (current) use of anticoagulants; Z87.442 Personal history of urinary calculi; Z87.891 Personal history of nicotine dependence
CPT/HCPCS: 36415; 70450; 71045; 78452; 80053; 80061; 80307; 83735; 83835; 84484; 85025; 85379; 85610; 85730; 93005; 93017; 96365; 96375; 96376; 99283; A9270-GY; A9502; G0378; J1885; J2270; J2405; J2785

== ENCOUNTER 2019-02-26 23:00 | Emergency (ER) | payer OTHER ==
--- NOTE | 2019-02-27 01:25 | ED ---
Lower Extremity - HPI Summary HPI Summary: Patient complains of right great toe pain status post kicking a metal object on 02/24. Denies wound, swelling, redness. Denies any other pain injury or symptoms. - History of Current Complaint Chief Complaint: EDExtremityLower Stated Complaint: POSS BROKEN TOE PER PT Time Seen by Provider: 02/27/19 01:11 Hx Obtained From: Patient Mechanism Of Injury: Blunt Trauma Onset of Pain: Immediate, Days Onset/Duration: Days Severity Initially: Moderate Severity Currently: Moderate Pain Intensity: 7 Pain Scale Used: 0-10 Numeric Timing: Constant Location: Is Discrete @ Character Of Pain: Aching, Throbbing Associated Signs And Symptoms: Positive: Negative Aggravating Factor(s): Standing, Ambulation Alleviating Factor(s): Rest, Elevation Able to Bear Weight: Yes - Allergies/Home Medications Allergies/Adverse Reactions: Allergies Allergy/AdvReac Type Severity Reaction Status Date / Time azithromycin Allergy Difficulty Verified 02/26/19 23:07 Breathing bee venom protein (honey bee) Allergy Swelling Verified 02/26/19 23:07 Of Face,Lips,& Throat clavulanic acid Allergy Difficulty Verified 02/26/19 23:07 Breathing PMH/Surg Hx/FS Hx/Imm Hx Endocrine/Hematology History: Reports: Hx Anticoagulant Therapy - on plavix, Hx Anemia, Other Endocrine/Hematological Disorders - low blood sugar Denies: Hx Blood Transfusions, Hx Diabetes, Hx Thyroid Disease Cardiovascular History: Reports: Hx Angina, Hx Hypercholesterolemia, Hx Hypertension, Other Cardiovascular Problems/Disorders - on plavix Denies: Hx Coronary Artery Disease, Hx Myocardial Infarction, Hx Pacemaker/ ICD, Hx Valvular Heart Disease Respiratory History: Reports: Hx Pneumonia Denies: Hx Asthma, Hx Chronic Obstructive Pulmonary Disease (COPD) GI History: Reports: Hx Gastroesophageal Reflux Disease, Hx Hiatal Hernia, Other GI Disorders - nausea History: Reports: Hx Kidney Stones - 1 month ago - was able to pass no surgery Denies: Hx Dialysis, Hx Renal Disease Musculoskeletal History: Reports: Hx Arthritis - left foot, Hx Back Problems, Hx Orthopedic Injury - Left foot - chronic pain, Other Musculoskeletal History - right arm/shoulder pain /c nerve damage, fx left wrist-hit /c hammer Sensory History: Denies: Hx Contacts or Glasses, Hx Hearing Aid Opthamlomology History: Denies: Hx Contacts or Glasses Neurological History: Reports: Hx Headaches, Hx Transient Ischemic Attacks (TIA) , Other Neuro Impairments/Disorders - dizziness post CVA Denies: Hx Dementia, Hx Seizures Psychiatric History: Denies: Hx Substance Abuse - Cancer History Hx Hematologic Symptoms: No Hx Chemotherapy: No Hx Radiation Therapy: No Hx Palliative Cancer Treatment: No - Surgical History Surgery Procedure, Year, and Place: appendectomy. reconstruction of left foot x2 -2013, 2015. neuro stimulator for right shoulder - for pain 2011 Hx Anesthesia Reactions: No - Immunization History Date of Influenza Vaccine: Fall 2016 Infectious Disease History: No Infectious Disease History: Denies: Hx Hepatitis, Hx Human Immunodeficiency Virus (HIV), Traveled Outside the [place] in Last 30 Days - Family History Known Family History: Positive: Cardiac Disease, Other - CVA - Social History Alcohol Use: Occasionally Hx Substance Use: No Substance Use Type: Reports: None Hx Tobacco Use: Yes - not currently Smoking Status (MU): Former Smoker Type: Cigarettes Amount Used/How Often: smoked from 17 til 30 years old 1/2 ppd Have You Smoked in the Last Year: Yes Review of Systems Constitutional: Negative Eyes: Negative ENT: Negative Cardiovascular: Negative Respiratory: Negative Gastrointestinal: Negative Genitourinary: Negative Musculoskeletal: Other Skin: Negative Neurological: Negative Psychological: Normal All Other Systems Reviewed And Are Negative: Yes Physical Exam - Summary Physical Exam Summary: No swelling, erythema, ecchymosis, deformity noted to great right toe. No wound noted. Pain with flexion and extension. PMS intact Triage Information Reviewed: Yes Vital Signs On Initial Exam: Initial Vitals Temp Pulse Resp BP Pulse Ox 97.7 F 97 16 129/105 100 02/26/19 23:00 02/26/19 23:00 02/26/19 23:00 02/26/19 23:00 02/26/19 23:00 Vital Signs Reviewed: Yes Appearance: Positive: Well-Appearing Skin: Positive: Warm Head/Face: Positive: Normal Head/Face Inspection Eyes: Positive: Normal Neck: Positive: Supple Respiratory/Lung Sounds: Positive: Clear to Auscultation Cardiovascular: Positive: Normal Abdomen Description: Positive: Nontender Musculoskeletal: Positive: Normal Neurological: Positive: Normal Psychiatric: Positive: Normal AVPU Assessment: Alert - Gretchen Coma Scale Best Eye Response: 4 - Spontaneous Best Motor Response: 6 - Obeys Commands Best Verbal Response: 5 - Oriented Coma Scale Total: 15 Diagnostics - Vital Signs Vital Signs Temp Pulse Resp BP Pulse Ox 02/26/19 23:00 97.7 F 97 16 129/105 100 - Laboratory Lab Statement: Any lab studies that have been ordered have been reviewed, and results considered in the medical decision making process. Lower Extremity Course/Dx - Course Course Of Treatment: Patient complains of right great toe pain status post kicking a metal object on 02/24. Denies wound, swelling, redness. Denies any other pain injury or symptoms. Vital signs within normal limits. X-ray negative for fracture. Toe annetta taped. Surgical shoe provided to minimize pain with ambulation. - Diagnoses Provider Diagnoses: Sprain of toe, great, right Discharge - Sign-Out/Discharge Documenting (check all that apply): Patient Departure Patient Received Moderate/Deep Sedation with Procedure: No - Discharge Plan Condition: Stable Disposition: HOME Patient Education Materials: Metatarsalgia (DC) Referrals: Andrea Byrd MD [Primary Care Provider] - Additional Instructions: Ice 15 minutes at a time. Rest as much as possible. If symptoms persist more than a week follow-up with orthopedics Dr. Cheney for further evaluation. - Billing Disposition and Condition Condition: STABLE Disposition: Home
[2019-02-27 01:35] VITALS: BP 128/97
== END 2019-02-27 01:34 | disposition home or self-care (01) ==
LOC: ED 23:00
DX: S93.501A Unspecified sprain of right great toe, initial encounter (principal); W22.8XXA Striking against or struck by other objects, initial encounter; Y92.9 Unspecified place or not applicable; Z88.1 Allergy status to other antibiotic agents; Z79.01 Long term (current) use of anticoagulants; D64.9 Anemia, unspecified; I20.9 Angina pectoris, unspecified; E78.00 Pure hypercholesterolemia, unspecified; I10 Essential (primary) hypertension; Z87.891 Personal history of nicotine dependence
CPT/HCPCS: 99282

== ENCOUNTER 2019-10-17 15:33 | Emergency (ER) | payer OTHER ==
--- NOTE | 2019-10-17 15:54 | ED ---
HPI Febrile Illness - HPI Summary HPI Summary: This pt is a 34 Y/O M presenting to [facility] with a CC of a fever. He states that he developed a fever yesterday of 101.3 F. He is currently status post-surgery on his L ankle which is his 5th one in that location. He states that his L ankle is discolored and is rated a 5/10 in severity which is constant. He states that his foot is more painful when he uses his foot walker. He states that he was recently tested for COVID yesterday. He denies any N/V/D, CP, SOB, and coughs. He states that he has no alleviating factors. He has a PMHx of multiple strokes, heart disease, and L ankle complications. - History of Current Complaint Chief Complaint: EDFever Time Seen by Provider: 10/17/19 15:34 Hx Obtained From: Patient Onset/Duration: Started Days Ago, Still Present Timing: Constant Temperature: 101.3 F Initial Severity: Moderate Current Severity: Moderate Pain Intensity: 5 Pain Scale Used: 0-10 Numeric Aggravating Factors: Other: - walking on L ankle Alleviating Factors: Nothing Associated Signs and Symptoms: Negative - N/V/D, CP, SOB, and coughs, Other: - L ankle pain - Additional Pertinent History Primary Care Physician: [id number] - Allergy/Home Medications Allergies/Adverse Reactions: Allergies Allergy/AdvReac Type Severity Reaction Status Date / Time azithromycin Allergy Difficulty Verified 02/26/19 23:07 Breathing bee venom protein (honey bee) Allergy Swelling Verified 02/26/19 23:07 Of Face,Lips,& Throat clavulanic acid Allergy Difficulty Verified 02/26/19 23:07 Breathing Home Medications: Home Medications Clopidogrel TAB* [Plavix TAB*] 75 mg PO DAILY #30 tab 08/10/16 [Rx Confirmed ] Atorvastatin* [Lipitor 20 MG*] 20 mg PO 1700 08/15/16 [History Confirmed ] Pantoprazole Sodium 20 mg PO BID 10/04/16 [History Confirmed 10/17/19] Cyclobenzaprine TAB* [Flexeril 10 MG TAB*] 10 mg PO TID PRN #15 tab 04/06/17 [ Rx Confirmed 10/17/19] Acetaminophen TAB* [Tylenol TAB*] 650 mg PO Q6H PRN tab 11/10/17 [Rx Confirmed 10/17/19] traZODone TAB* [Desyrel TAB*] 100 mg PO BEDTIME PRN #0 MDD 100 mg 11/10/17 [ History Confirmed 10/17/19] Diltiazem CD CAP* [Cardizem CD CAP*] 180 mg PO DAILY 03/25/19 [History Confirmed 10/17/19] Divalproex ER TAB(*) [Depakote ER TAB(*)] 250 mg PO DAILY 03/25/19 [History Confirmed 10/17/19] Gabapentin [Neurontin] 100 mg PO TID 03/25/19 [History Confirmed 10/17/19] traMADol TAB* [Ultram*] 50 mg PO Q12H PRN #12 tab MDD 100 mg 10/17/19 [Rx] PMH/Surg Hx/FS Hx/Imm Hx Previously Healthy: Yes Endocrine/Hematology History: Reports: Hx Anticoagulant Therapy - on plavix, Hx Anemia, Other Endocrine/Hematological Disorders - low blood sugar Denies: Hx Blood Transfusions, Hx Diabetes, Hx Thyroid Disease Cardiovascular History: Reports: Hx Angina, Hx Hypercholesterolemia, Hx Hypertension, Other Cardiovascular Problems/Disorders - on plavix Denies: Hx Coronary Artery Disease, Hx Myocardial Infarction, Hx Pacemaker/ ICD, Hx Valvular Heart Disease Respiratory History: Reports: Hx Pneumonia Denies: Hx Asthma, Hx Chronic Obstructive Pulmonary Disease (COPD) GI History: Reports: Hx Gastroesophageal Reflux Disease, Hx Hiatal Hernia, Other GI Disorders - nausea History: Reports: Hx Kidney Stones - 1 month ago - was able to pass no surgery Denies: Hx Dialysis, Hx Renal Disease Musculoskeletal History: Reports: Hx Arthritis - left foot, Hx Back Problems, Hx Orthopedic Injury - Left foot - chronic pain, Other Musculoskeletal History - right arm/shoulder pain /c nerve damage, fx left wrist-hit /c hammer Sensory History: Denies: Hx Contacts or Glasses, Hx Hearing Aid Opthamlomology History: Denies: Hx Contacts or Glasses Neurological History: Reports: Hx Headaches, Hx Transient Ischemic Attacks (TIA) , Other Neuro Impairments/Disorders - dizziness post CVA Denies: Hx Dementia, Hx Seizures Psychiatric History: Denies: Hx Substance Abuse - Cancer History Hx Hematologic Symptoms: No Hx Chemotherapy: No Hx Radiation Therapy: No Hx Palliative Cancer Treatment: No - Surgical History Surgical History: Yes Surgery Procedure, Year, and Place: appendectomy. reconstruction of left foot x2 -2013, 2015. neuro stimulator for right shoulder - for pain 2011 Hx Anesthesia Reactions: No - Immunization History Date of Influenza Vaccine: Fall 2016 Immunizations Up to Date: Yes Infectious Disease History: Denies: Hx Hepatitis, Hx Human Immunodeficiency Virus (HIV) - Family History Known Family History: Positive: Cardiac Disease, Other - CVA - Social History Occupation: Disabled Lives: With Family Alcohol Use: None Hx Substance Use: No Substance Use Type: Reports: None Hx Tobacco Use: Yes - not currently Smoking Status (MU): Former Smoker Type: Cigarettes Amount Used/How Often: smoked from 17 til 30 years old 1/2 ppd Have You Smoked in the Last Year: Yes Review of Systems Positive: Fever - 101.3 F Negative: Chest Pain Negative: Shortness Of Breath, Cough Negative: Vomiting, Diarrhea, Nausea Positive: Other - L ankle pain All Other Systems Reviewed And Are Negative: Yes Physical Exam Triage Information Reviewed: Yes Vital Signs On Initial Exam: Temp Pulse Resp BP SpO2 FiO2 Vital Signs Reviewed: Yes Procedures - Sedation Patient Received Moderate/Deep Sedation with Procedure: No - Splinting L ankle Hand-Made Type: fiberglass Splint: posterior walking Pre-Proc Neuro Vasc Exam: normal Post-Proc Neuro Vasc Exam: normal Splint Applied by Provider: Leo Morillo - Laboratory Result Diagrams: 10/17/19 16:25 10/17/19 16:25 Lab Statement: Any lab studies that have been ordered have been reviewed, and results considered in the medical decision making process. - Radiology Ankle X-Ray Radiology Interpretation Completed By: Radiologist Summary of Radiographic Findings: Postoperative changes with no shannon osseous erosion by radiograph. ED physician has reviewed this report. Re-Evaluation - Re-Evaluation First Eval Re-Evaluation Time: 17:49 Change: Unchanged Comment: Pt's cast was removed to assess wound site. No surronding erythema, drainage, or swelling around the incision site on L ankle. Second Eval Re-Evaluation Time: 17:55 Change: Unchanged Comment: L ankle fiber glass posterior walking splint was made and placed on the pt. He had good distal pulses and sensations following the procedure. Neuro is intact. Course/Dx - Course Course Of Treatment: Patient is here with fever and ankle pain. Patient was tested for Covid 19 by his primary care doctor yesterday and was placed on precautions here. Patient has no urinary symptoms. Patient does have a history of multiple infections in his ankle. Patient had an XR which showed no evidence of osteomyelitis or infection. Patient's surgical site does not appear to be infected. Patient had bloodwork performed showed a normal white count, normal CRP, and mildly elevated ESR. I do not believe patient has osteomyelitis or surgical site infection at this time. Patient had his cast replaced with a splint after it was removed. Patient will follow-up with his orthopedic surgeon. - Diagnoses Provider Diagnoses: Fever, Left ankle pain Discharge ED - Sign-Out/Discharge Documenting (check all that apply): Patient Departure - discharge - Discharge Plan Condition: Good Disposition: HOME Prescriptions: traMADol TAB* [Ultram*] 50 mg PO Q12H PRN #12 tab MDD 100 mg PRN Reason: Pain - Severe Patient Education Materials: Fever in Adults (ED), Leg Pain (ED) Forms: COVID-19 Tested & Isolation Referrals: Andrea Byrd MD [Primary Care Provider] - 2 Days Claudio Goodwin DPM [Doctor of Podiatric Medicine] - 2 Days Additional Instructions: PLEASE FOLLOW UP WITH DR. GOODWIN AND YOUR PRIMARY CARE PROVIDER IN 1-3 DAYS. RETURN TO THE EMERGENCY DEPARTMENT FOR ANY NEW OR WORSENING SYMPTOMS. Take tylenol and Ibuprofen for pain. Please return to the emergency department for any new discoloration or increased pain over the next days. You were seen in the emergency department for coronavirus rule out. The department of health will contact you within 24 hours. Due to the pandemic, you should stay in your house and self quarantine. See the separate quarantine paper for further instructions. You should wear a mask if you're outside of your personal room. We encourage handwashing as well as limited contact with other people including the elderly and the immunocompromised. If any studies were not completed at the time of discharge you will be called with the relevant results. Return to emergency department for severe trouble breathing, worsening or concerning symptoms It was a pleasure taking care of you today. - Billing Disposition and Condition Condition: GOOD Disposition: Home - Attestation Statements Document Initiated by Scribe: Yes Documenting Scribe: Bladimir Mcgregor Provider For Whom Scribe is Documenting (Include Credential): Leo Morillo MD Scribe Attestation: IBladimir, scribed for Leo Morlilo MD on 10/17/19 at 2007. Scribe Documentation Reviewed: Yes Provider Attestation: The documentation as recorded by the Bladimir hernandez accurately reflects the service I personally performed and the decisions made by me, Leo Morillo MD Status of Scribe Document: Viewed
[2019-10-17 16:40] LABS: ABS Eosinophils 0.1 10^3/ul (0-0.6); ABS Monocytes 0.5 10^3/ul (0-0.8); ABS Neutrophils 4.7 10^3/ul (1.5-7.7); Eosinophil % 0.8 %; Hematocrit 47 % (42-52); Hemoglobin 16.8 g/dL (14.0-18.0); Lymphocyte % 27.5 %; Mean Corpuscular HGB Conc 36 g/dL (31-36); Mean Corpuscular Hemoglobin 32 pg (27-31); Mean Corpuscular Volume 89 fL (80-94); Mean Platelet Volume 7.1 fL (7.4-10.4); Nucleated Red Blood Cells % 0.1; Platelet Count 590 10^3/uL (150-450); Red Blood Count 5.27 10^6 /uL (4.18-5.48); Red Cell Distribution Width 14 % (10-15); White Blood Count 7.3 10^3/uL (3.5-10.8)
[2019-10-17] MEDS ORDERED: Morphine 4 MG/ML VIAL (1 ml) 4 MG/ML VIAL IV ONE (16:54)
[2019-10-17 16:56] LABS: Albumin 4.9 g/dL (3.2-5.2); Albumin/Globulin Ratio 1.2 (1-3); BUN/Creatinine Ratio 13.4 (8-20); C Reactive Protein 4.45 mg/L (<8.01); Calcium 10.2 mg/dL (8.6-10.3); EGFR African American 90.3 (>60); EGFR Non-African American 74.6 (>60); Potassium 3.9 mmol/L (3.5-5.0); Total Bilirubin 0.9 mg/dL (0.2-1.0); Total Protein 8.9 g/dL (6.4-8.9)
[2019-10-17 18:13] LABS: Erythrocyte Sed Rate 21 mm/Hr (0-14)
[2019-10-17 18:27] VITALS: BP 122/80
--- OUTSIDE RECORDS SUMMARY | 2019-10-17 18:32 | XMS REPORT | Continuity of Care Document ---
:1985 External Reference #:[id number] Author Name Elise Lowry, SENIOR POWER SCHEDULER-C (transmitted by agent of provider Kenzie Haynes) Address [address] [place] [address] Care Team Providers Name Role Phone Vasiliy Reed MD - Physical Care Team Information Optical Instrument Assembler [phone] Medicine & Rehabilitation Akhil Felder MD - Care Team Information Optical Instrument Assembler [phone] Gastroenterology Kelvin Lindsey MD - Gastroenterology Care Team Information Optical Instrument Assembler Davi Dyer - Orthopaedic Surgery Care Team Information Optical Instrument Assembler [facility] - Care Team Information Optical Instrument Assembler Orthopaedic Surgery Taina Anaya NP Care Team Information Optical Instrument Assembler Unavailable Problems Active Problems Provider Date Low back pain Beatriz Flores M.D. Onset: 07/01/2013 Social History Type Date Description Comments Sex Unknown Tobacco Use Start: Unknown End: Former Cigarette Smoker quit 09/29 PPD Unknown for 7 years ETOH Use Occasionally consumes alcohol Recreational Drug Use Denies Drug Use Tobacco Use Start: Unknown End: Patient is a former Unknown smoker Smoking Status Reviewed: 09/29/18 Patient is a former smoker Allergies, Adverse Reactions, Alerts Active Allergies Reaction Severity Comments Date NKDA 02/05/2018 Bee Sting Severe anaphylaxsis 03/28/2012 Medications Active Medications SIG Qnty Indications Ordering Date Provider Trazodone HCL Take 1-2 Tablets 60tabs G47.00 Andrea 09/03/2017 50mg Tablets By Mouth AT [facility] Bedtime Pantoprazole Sodium Take One Tablet 60tabs Andrea 09/12/2016 20mg By Mouth Twice A [facility] Tablets DR Day Ondansetron Dissolve One 12tabs Andrea 08/15/2016 4mg Tablets Tablet On The [facility] Dispers Tongue Three Times A Day as Needed For Nausea Clopidogrel Bisulfate Take One Tablet 30tabs Andrea 08/15/2016 75mg By Mouth Every [facility] Tablets Day For Stroke Prevention Atorvastatin Calcium Take One Tablet 30tabs Andrea 08/15/2016 20mg By Mouth Every [facility] Tablets Day Doxycycline Hyclate 1 tab by mouth 28tabs J01.90 Bekah Rendon, 2015 100mg twice a day for M.D., R.D. Tablets 14 Cyclobenzaprine HCL Take 1-2 Tablets 45tabs Andrea 03/30/2015 5mg By Mouth Three [facility] Tablets Times A Day as Needed For Muscle Spasms Cyclobenzaprine HCL take 1 to 2 45tabs Andrea 03/30/2015 5mg tablets by mouth [facility] Tablets 3 times daily for muscle spasms Acetaminophen Q4hr Shawnti R. 03/28/2012 500mg Storm, SENIOR POWER SCHEDULER-C Capsules Epipen 2-Kyrie use if needed for 2units Naima Colbert, 03/28/2012 0.3mg/0.3ML bee sting SENIOR POWER SCHEDULER-C Solution Auto-Inject Diltiazem HCL ER Beads Take One Capsule 90caps Shawnti R. By Mouth Every Storm, SENIOR POWER SCHEDULER-C 180mg Caps ER 24HR Day Medications Administered in Office Medication SIG Qnty Indications Ordering Provider Date TB,Intradermal (PPD, [facility]) [facility] 10/31/2018 Injection TB,Intradermal (PPD, [facility]) [facility] 01/19/2013 Injection Immunizations CPT Code Status Date Vaccine Lot # [id number] Given 09/29/2018 Influenza Virus Vaccine, Quadrivalent, 3 Yr > [id number] Quad, Preserv Free [id number] Given 05/23/2017 Influenza Virus Vaccine, Quadrivalent, 3 Yr > [id number] Quad, Preserv Free 85798 Given 05/30/2016 Influenza Virus Vaccine, Quadrivalent, 3 Yr > [id number] Quad, Preserv Free 40713 Given 09/06/2014 Tdap (Adacel) [id number] Given 09/06/2014 Influenza Virus Vaccine, Quadrivalent, 3 Yr > [id number] Quad, Preserv Free 53965 Given 05/19/2012 Influenza Vaccine-Preservative Free 3 Yrs And [id number] Above [id number] Ordered 10/27/2009 Tdap (Adacel) Vital Signs Date Vital Result Comment 10/16/2019 1:41pm BP Systolic 120 mmHg BP Diastolic 70 mmHg Heart Rate 125 /min Body Temperature 96.8 F Respiratory Rate 16 /min O2 % BldC Oximetry 98 % 06/06/2019 10:22am Weight 177.25 lb Weight 80.401 kg BP Systolic 116 mmHg BP Diastolic 78 mmHg Heart Rate 106 /min Body Temperature 98.5 F Respiratory Rate 18 /min O2 % BldC Oximetry 99 % Results Test Acquired Date Facility Test Result H/L Range Note Laboratory test 10/16/2019 In House Lab Flu PCR <pending> finding ([phone])- - Laboratory test 06/06/2019 [facility] Lyme Screen Negative Negative 1 finding [phone] W/ Reflex To WB 1 [id number] Procedures Description No Information Available Medical Devices Description No Information Available Encounters Type Date Location Provider Dx Diagnosis Office Visit 06/06/2019 Main Office Bekah Rendon, S90.861A Insect bite 10:15a Ya RNatali (nonvenomous), right foot, initial encounter W57.xxxA Bit/stung by nonvenom insect & oth nonvenom arthropods, init Assessments Date Code Description Provider 10/16/2019 J06.9 Upper respiratory infection KWAME Thayer-C 06/06/2019 S90.861A Insect bite (nonvenomous), right foot, Bekah Rendon M.D., R.D. initial encounter 06/06/2019 W57.xxxA Tick bite Bekah Rendon M.D., R.D. Plan of Treatment 10/16/2019 - KWAME Thayer-CJ06.9 Upper respiratory infectionComments: Encourage fluids, nasal saline, deep breathing, Tylenol or Motrin PRN,Follow up: Return to clinic for worsening symptoms or new fever. Functional Status Description No Information Available Mental Status Description No Information Available Referrals Description No Information Available
== END 2019-10-17 18:26 | disposition home or self-care (01) ==
LOC: ED 15:33
DX: R50.9 Fever, unspecified (principal); M25.572 Pain in left ankle and joints of left foot; D64.9 Anemia, unspecified; E78.00 Pure hypercholesterolemia, unspecified; I10 Essential (primary) hypertension; K21.9 Gastro-esophageal reflux disease without esophagitis; Z90.89 Acquired absence of other organs; Z87.442 Personal history of urinary calculi; Z86.73 Personal history of transient ischemic attack (TIA), and cerebral infarction without residual deficits; Z87.891 Personal history of nicotine dependence; Z79.02 Long term (current) use of antithrombotics/antiplatelets; Z79.899 Other long term (current) drug therapy; Z88.1 Allergy status to other antibiotic agents
CPT/HCPCS: 36415; 80053; 85025; 85652; 86140; 87040; 96374; 99284; J2270

== ENCOUNTER 2020-03-02 16:38 | Inpatient (IN) ==
[2020-03-02] MEDS ORDERED: Morphine 4 MG/ML VIAL (1 ml) IV ONE ×3 (17:40→19:32)
[2020-03-02 17:50] LABS: ABS Eosinophils 0.1 10^3/ul (0-0.6); ABS Lymphocytes 1.5 10^3/ul (1.0-4.8); ABS Monocytes 0.4 10^3/ul (0-0.8); ABS Neutrophils 6.1 10^3/ul (1.5-7.7); Eosinophil % 1.6 %; Hematocrit 41 % (42-52); Hemoglobin 14.2 g/dL (14.0-18.0); Lymphocyte % 18.3 %; Mean Corpuscular HGB Conc 35 g/dL (31-36); Mean Corpuscular Hemoglobin 31 pg (27-31); Mean Corpuscular Volume 89 fL (80-94); Mean Platelet Volume 6.9 fL (7.4-10.4); Platelet Count 438 10^3/uL (150-450); Red Blood Count 4.53 10^6 /uL (4.18-5.48); Red Cell Distribution Width 13 % (10-15); White Blood Count 8.2 10^3/uL (3.5-10.8)
[2020-03-02 18:05] LABS: Albumin 4.3 g/dL (3.2-5.2); Albumin/Globulin Ratio 1.3 (1-3); BUN/Creatinine Ratio 6.9 (8-20); C Reactive Protein 19.25 mg/L (<8.01); Calcium 9.5 mg/dL (8.6-10.3); EGFR African American 100.6 (>60); EGFR Non-African American 83.1 (>60); Globulin 3.2 g/dL (2-4); Potassium 3.8 mmol/L (3.5-5.0); Total Bilirubin 0.8 mg/dL (0.2-1.0); Total Protein 7.5 g/dL (6.4-8.9)
[2020-03-02] MEDS ORDERED: Iohexol 300 (CONTRAST) 10 ML SDV IV ONE (18:17)
[2020-03-02] MEDS ORDERED: Vancomycin 1,500 MG in NS 0.9% 250 ml 250 ML IVPB ONE (19:31)
[2020-03-02] MEDS ORDERED: NS 0.9% 1000 ml BAG 1,000 ML IV SCH (21:30)
[2020-03-02 21:39] LABS: Erythrocyte Sed Rate 17 mm/Hr (0-14)
[2020-03-02] MEDS ORDERED: Heparin 5000 UNITS/ML 1 mL VIAL SUBCUT SCH (22:00)
[2020-03-02] MEDS ORDERED: Vancomycin per Pharmacy 1 EA NOTE FOLLOW UP SCH (22:00)
[2020-03-02 22:56] VITALS: BP 123/86
[2020-03-02] MEDS ORDERED: cefTRIAXone 2 GM ADDV.VIAL 2 GM in NS 0.9% 100 ml BAG 100 ML IV SCH (23:00)
[2020-03-02 23:19] LABS: Urine Benzodiazepine Screen None Detected (None Detect); Urine Cannabinoids Screen None Detected (None Detect); Urine Opiates Screen Presumptive Positive (None Detect)
[2020-03-03] MEDS ORDERED: HYDROmorphone 1 MG/1 ML SYRINGE IV SLOW PU PRN (00:37)
[2020-03-03] MEDS ORDERED: HYDROmorphone 1 MG/1 ML SYRINGE IV SLOW PU ONE (02:39)
[2020-03-03] MEDS ORDERED: Vancomycin 1,250 MG in NS 0.9% 250 ml 250 ML IVPB SCH (05:00)
[2020-03-03] MEDS ORDERED: Vancomycin Trough Check NOTE FOLLOW UP ONE (20:30)
== END 2020-03-03 03:30 | disposition short-term general hospital (02) | DRG 721 ==
LOC: ED 16:38 → SSU 21:17
PROVIDERS: ADMIT Internal Medicine; ATTEND Internal Medicine

== ENCOUNTER 2020-06-13 09:47 | Inpatient (IN) ==
[2020-06-13] MEDS ORDERED: Ondansetron 4 mg VIAL 2 MG/ML 2 ml VIAL IV ONE (11:05)
[2020-06-13] MEDS ORDERED: Al Hydrox/Mg Hydrox/Simet LIQ 30 ML UDC PO ONE (11:05)
[2020-06-13 11:48] LABS: ABS Lymphocytes 1.9 10^3/ul (1.0-4.8); ABS Monocytes 0.3 10^3/ul (0-0.8); Eosinophil % 0.4 %; Hematocrit 39 % (42-52); Hemoglobin 13.5 g/dL (14.0-18.0); Lymphocyte % 29.5 %; Mean Corpuscular HGB Conc 34 g/dL (31-36); Mean Corpuscular Hemoglobin 30 pg (27-31); Mean Corpuscular Volume 88 fL (80-94); Mean Platelet Volume 6.9 fL (7.4-10.4); Nucleated Red Blood Cells % 0.1; Platelet Count 560 10^3/uL (150-450); Red Blood Count 4.48 10^6 /uL (4.18-5.48); Red Cell Distribution Width 14 % (10-15); White Blood Count 6.3 10^3/uL (3.5-10.8)
[2020-06-13 11:58] LABS: INR 1.29 (0.82-1.09)
[2020-06-13 12:07] LABS: ALT 16 U/L (7-52); AST 16 U/L (13-39); Albumin 4.9 g/dL (3.2-5.2); Albumin/Globulin Ratio 1.6 (1-3); Alkaline Phosphatase 95 U/L (34-104); Anion Gap 9 mmol/L (2-11); BUN/Creatinine Ratio 11.5 (8-20); Blood Urea Nitrogen 11 mg/dL (6-24); CO2 Carbon Dioxide 23 mmol/L (22-32); Calcium 9.6 mg/dL (8.6-10.3); Chloride 104 mmol/L (101-111); EGFR African American 107.2 (>60); EGFR Non-African American 88.6 (>60); Glucose 97 mg/dL (70-100); Potassium 3.6 mmol/L (3.5-5.0); Sodium 136 mmol/L (135-145); Total Protein 7.9 g/dL (6.4-8.9)
[2020-06-13] MEDS ORDERED: Nitroglycerin 0.3 mg TAB SL ONE (12:32)
[2020-06-13 17:13] LABS: C Reactive Protein < 1.00 mg/L (<8.01)
[2020-06-13] MEDS: oxyCODONE/Acetamin 5/325 mg TAB PO PRN (17:32)
[2020-06-13] MEDS: Nitroglycerin 0.3 mg TAB SL PRN (17:33)
[2020-06-13] MEDS ORDERED: Nitro Patch/OINT Remove PATCH TOPICAL SCH (18:00)
[2020-06-13] MEDS: Ondansetron 4 mg VIAL 2 MG/ML 2 ml VIAL IV PRN (18:26)
[2020-06-13] MEDS ORDERED: Nitro 2% OINT (Nitroglycerin) 1 INCH/PAK TOPICAL ONE (18:34)
[2020-06-13 19:02] LABS: Influenza A Molecular Negative (Negative); Influenza B Molecular Negative (Negative)
[2020-06-14] MEDS ORDERED: Nitro Patch/OINT Remove PATCH TOPICAL ONE (01:00)
[2020-06-14] MEDS: oxyCODONE/Acetamin 5/325 mg TAB PO PRN ×3 (01:20→18:01)
[2020-06-14] MEDS: Ondansetron 4 mg VIAL 2 MG/ML 2 ml VIAL IV PRN ×3 (01:21→15:57)
[2020-06-14] MEDS: Nitroglycerin 0.3 mg TAB SL PRN ×3 (03:56→13:20)
[2020-06-14] MEDS ORDERED: Nitro Patch/OINT Remove PATCH PATCH OFF SCH (06:00)
[2020-06-14 07:05] LABS: ABS Eosinophils 0.1 10^3/ul (0-0.6); ABS Lymphocytes 2.8 10^3/ul (1.0-4.8); ABS Monocytes 0.4 10^3/ul (0-0.8); ABS Neutrophils 2.9 10^3/ul (1.5-7.7); Hematocrit 37 % (42-52); Hemoglobin 12.9 g/dL (14.0-18.0); Lymphocyte % 44.9 %; Mean Corpuscular HGB Conc 35 g/dL (31-36); Mean Corpuscular Hemoglobin 30 pg (27-31); Mean Corpuscular Volume 88 fL (80-94); Mean Platelet Volume 6.9 fL (7.4-10.4); Platelet Count 515 10^3/uL (150-450); Red Blood Count 4.25 10^6 /uL (4.18-5.48); Red Cell Distribution Width 14 % (10-15); White Blood Count 6.2 10^3/uL (3.5-10.8)
[2020-06-14 07:23] LABS: Calcium 9.2 mg/dL (8.6-10.3); EGFR African American 93.6 (>60); EGFR Non-African American 77.4 (>60); Potassium 3.6 mmol/L (3.5-5.0)
[2020-06-14] MEDS ORDERED: Nitro 2% OINT (Nitroglycerin) 1 INCH/PAK TOPICAL SCH (08:00)
[2020-06-14] MEDS ORDERED: Nitro 2% OINT (Nitroglycerin) 1 INCH/PAK TOPICAL ONE (14:47)
[2020-06-14] MEDS ORDERED: Nitro Patch/OINT Remove PATCH TOPICAL SCH (15:00)
[2020-06-14] MEDS ORDERED: Nitroglycerin 0.2 mg/hr PATCH (5 mg) TRANSDERM SCH (20:00)
[2020-06-15 05:59] LABS: ABS Eosinophils 0.1 10^3/ul (0-0.6); ABS Lymphocytes 2.6 10^3/ul (1.0-4.8); ABS Monocytes 0.4 10^3/ul (0-0.8); ABS Neutrophils 3.9 10^3/ul (1.5-7.7); Eosinophil % 1.7 %; Hematocrit 38 % (42-52); Lymphocyte % 36.2 %; Mean Corpuscular HGB Conc 34 g/dL (31-36); Mean Corpuscular Hemoglobin 30 pg (27-31); Mean Corpuscular Volume 87 fL (80-94); Mean Platelet Volume 6.9 fL (7.4-10.4); Nucleated Red Blood Cells % 0.1; Platelet Count 559 10^3/uL (150-450); Red Blood Count 4.34 10^6 /uL (4.18-5.48); Red Cell Distribution Width 14 % (10-15); White Blood Count 7.1 10^3/uL (3.5-10.8)
[2020-06-15 06:10] LABS: Anion Gap 8 mmol/L (2-11); BUN/Creatinine Ratio 13.1 (8-20); Blood Urea Nitrogen 13 mg/dL (6-24); CO2 Carbon Dioxide 22 mmol/L (22-32); Calcium 9.3 mg/dL (8.6-10.3); Chloride 105 mmol/L (101-111); EGFR African American 103.5 (>60); EGFR Non-African American 85.5 (>60); Glucose 108 mg/dL (70-100); Potassium 4.2 mmol/L (3.5-5.0); Sodium 135 mmol/L (135-145)
[2020-06-15 08:56] LABS: Creatine Kinase 36 U/L (10-223)
[2020-06-15] MEDS ORDERED: Nitro Patch/OINT Remove PATCH PATCH OFF SCH (09:00)
[2020-06-15] MEDS ORDERED: Lidocaine 4% TOPICAL 50 ML TOP.SOLN TOPICAL SCH (09:00)
[2020-06-15] MEDS: oxyCODONE/Acetamin 5/325 mg TAB PO PRN ×2 (11:15→19:43)
[2020-06-15] MEDS: Lidocaine 4% GEL 10 GM TUBE TOPICAL SCH ×2 (11:17→21:19)
[2020-06-15] MEDS: Ondansetron 4 mg VIAL 2 MG/ML 2 ml VIAL IV PRN ×2 (12:16→19:50)
[2020-06-15] MEDS ORDERED: Iohexol 350 (CONTRAST) 500 ML MDV IV ONE (12:16)
[2020-06-15 15:01] LABS: C Reactive Protein < 1.00 mg/L (<8.01)
[2020-06-15] MEDS ORDERED: Nitroglycerin 0.2 mg/hr PATCH (5 mg) TRANSDERM SCH ×2 (16:00→20:00)
[2020-06-15] MEDS ORDERED: Al Hydrox/Mg Hydrox/Simet LIQ 30 ML UDC PO ONE (17:00)
[2020-06-15 17:04] LABS: Erythrocyte Sed Rate 8 mm/Hr (0-14)
[2020-06-16 02:37] LABS: Anaplasma phagocytophilum Negative (Negative); B. miyamotoi PCR, B Negative (Negative); Babesia divergens/MO-1 Negative (Negative); Babesia ducani Negative (Negative); Ehrlichia chaffeensis Negative (Negative); Ehrlichia ewingii/canis Negative (Negative); Ehrlichia muris eauclairensis Negative (Negative)
[2020-06-16] MEDS: Ondansetron 4 mg VIAL 2 MG/ML 2 ml VIAL IV PRN ×3 (02:47→20:56)
[2020-06-16] MEDS: oxyCODONE/Acetamin 5/325 mg TAB PO PRN ×3 (02:55→22:31)
[2020-06-16] MEDS ORDERED: Nitro Patch/OINT Remove PATCH PATCH OFF SCH (06:00)
[2020-06-16] MEDS: Lidocaine 4% GEL 10 GM TUBE TOPICAL SCH ×2 (08:34→20:59)
[2020-06-16] MEDS: Isosorbide Mononit ER 30mg TAB PO SCH (08:34)
[2020-06-16] MEDS ORDERED: Nitro Patch/OINT Remove PATCH PATCH OFF ONE (09:00)
[2020-06-16] MEDS ORDERED: fentaNYL 100 mcg/2 ml 50 MCG/ML VIAL ONE (09:44)
[2020-06-16] MEDS ORDERED: diPHENhydraMINE IV 50 MG/ML 1 ml VIAL (BENADRYL) ONE (09:45)
[2020-06-16] MEDS ORDERED: Midazolam 10 mg/10 ml VIAL 1 mg/ml 10 ml VIAL (10 mg) ONE (09:45)
[2020-06-17] MEDS ORDERED: Sucralfate 1 gm SUSP 1 GM/10 ML UDC PO ONE (06:13)
[2020-06-17] MEDS: oxyCODONE/Acetamin 5/325 mg TAB PO PRN (08:50)
[2020-06-17] MEDS: Ondansetron 4 mg VIAL 2 MG/ML 2 ml VIAL IV PRN (08:51)
[2020-06-17] MEDS: Isosorbide Mononit ER 30mg TAB PO SCH (10:52)
[2020-06-17] MEDS: Lidocaine 4% GEL 10 GM TUBE TOPICAL SCH (10:53)
[2020-06-17 11:41] VITALS: BP 128/73
== END 2020-06-17 14:45 | disposition home or self-care (01) ==
LOC: ED 09:47 → MED 15:24
PROVIDERS: ADMIT Internal Medicine; ATTEND Internal Medicine

== ENCOUNTER 2020-08-29 21:40 | Inpatient (IN) ==
[2020-08-29] MEDS ORDERED: Iodixanol (CONTRAST) 320 MG/ML 100 ML SDV IV ONE (21:59)
[2020-08-29] MEDS ORDERED: NS 0.9% 1000 ml BAG 1,000 ML IV ONE (22:01)
[2020-08-29 22:08] LABS: ABS Eosinophils 0.3 10^3/ul (0-0.6); ABS Lymphocytes 1.6 10^3/ul (1.0-4.8); ABS Monocytes 0.5 10^3/ul (0-0.8); ABS Neutrophils 2.7 10^3/ul (1.5-7.7); Eosinophil % 5.3 %; Hematocrit 33 % (42-52); Hemoglobin 11.1 g/dL (14.0-18.0); Lymphocyte % 30.8 %; Mean Corpuscular HGB Conc 34 g/dL (31-36); Mean Corpuscular Hemoglobin 29 pg (27-31); Mean Corpuscular Volume 87 fL (80-94); Mean Platelet Volume 6.5 fL (7.4-10.4); Platelet Count 378 10^3/uL (150-450); Red Blood Count 3.77 10^6 /uL (4.18-5.48); Red Cell Distribution Width 15 % (10-15); White Blood Count 5.1 10^3/uL (3.5-10.8)
[2020-08-29 22:16] LABS: Activated Partial Thrombo Time 32.2 seconds (26.0-38.0); INR 1.14 (0.82-1.09)
[2020-08-29] MEDS ORDERED: NS 0.9% 1000 ml BAG 2,000 ML IV ONE (22:18)
[2020-08-29] MEDS ORDERED: diPHENhydraMINE IV 50 MG/ML 1 ml VIAL (BENADRYL) IV ONE (22:18)
[2020-08-29] MEDS ORDERED: Prochlorperazine 5 mg/ml 2 ml VIAL (10 mg) IV ONE (22:18)
[2020-08-29 22:23] LABS: Albumin 4.1 g/dL (3.2-5.2); Albumin/Globulin Ratio 1.5 (1-3); BUN/Creatinine Ratio 4.6 (8-20); Calcium 9.1 mg/dL (8.6-10.3); EGFR African American 75.6 (>60); EGFR Non-African American 62.5 (>60); Globulin 2.8 g/dL (2-4); HDL Cholesterol 29.4 mg/dL; Total Bilirubin 0.5 mg/dL (0.2-1.0); Total Protein 6.9 g/dL (6.4-8.9)
[2020-08-29 23:39] LABS: Urine Appearance Clear; Urine Bilirubin Negative (Negative); Urine Blood Negative (Negative); Urine Color Straw; Urine Glucose Negative (Negative); Urine Ketones Negative (Negative); Urine Nitrite Negative (Negative); Urine Protein Negative (Negative); Urine Urobilinogen Negative (Negative)
[2020-08-30] MEDS ORDERED: Ondansetron 4 mg VIAL 2 MG/ML 2 ml VIAL IV PRN (00:22)
[2020-08-30 02:20] LABS: Urine Benzodiazepine Screen None Detected (None Detect); Urine Cannabinoids Screen None Detected (None Detect); Urine Opiates Screen Presumptive Positive (None Detect)
[2020-08-30 05:59] LABS: ABS Eosinophils 0.2 10^3/ul (0-0.6); ABS Lymphocytes 1.4 10^3/ul (1.0-4.8); ABS Monocytes 0.3 10^3/ul (0-0.8); ABS Neutrophils 1.9 10^3/ul (1.5-7.7); Eosinophil % 5.4 %; Hematocrit 32 % (42-52); Hemoglobin 10.6 g/dL (14.0-18.0); Lymphocyte % 37.3 %; Mean Corpuscular HGB Conc 33 g/dL (31-36); Mean Corpuscular Hemoglobin 29 pg (27-31); Mean Corpuscular Volume 88 fL (80-94); Mean Platelet Volume 6.6 fL (7.4-10.4); Platelet Count 351 10^3/uL (150-450); Red Blood Count 3.67 10^6 /uL (4.18-5.48); Red Cell Distribution Width 15 % (10-15); White Blood Count 3.9 10^3/uL (3.5-10.8)
[2020-08-30 06:10] LABS: INR 1.1 (0.82-1.09)
[2020-08-30 06:17] LABS: BUN/Creatinine Ratio 5.7 (8-20); EGFR African American 96.7 (>60); EGFR Non-African American 79.9 (>60); HDL Cholesterol 25.9 mg/dL; Potassium 4.1 mmol/L (3.5-5.0)
[2020-08-30 16:56] LABS: Vitamin D Total 25(OH) 9.4 ng/mL (20-50)
[2020-08-30] MEDS: oxyCODONE/Acetamin 5/325 mg TAB PO PRN (21:59)
[2020-08-31] MEDS: oxyCODONE/Acetamin 5/325 mg TAB PO PRN (08:25)
[2020-08-31 08:42] LABS: ABS Eosinophils 0.2 10^3/ul (0-0.6); ABS Lymphocytes 1.4 10^3/ul (1.0-4.8); ABS Monocytes 0.3 10^3/ul (0-0.8); ABS Neutrophils 2.8 10^3/ul (1.5-7.7); Eosinophil % 4.7 %; Hematocrit 38 % (42-52); Hemoglobin 12.7 g/dL (14.0-18.0); Lymphocyte % 28.8 %; Mean Corpuscular HGB Conc 33 g/dL (31-36); Mean Corpuscular Hemoglobin 29 pg (27-31); Mean Corpuscular Volume 87 fL (80-94); Mean Platelet Volume 6.8 fL (7.4-10.4); Platelet Count 399 10^3/uL (150-450); Red Blood Count 4.41 10^6 /uL (4.18-5.48); Red Cell Distribution Width 15 % (10-15); White Blood Count 4.8 10^3/uL (3.5-10.8)
[2020-08-31 09:01] LABS: BUN/Creatinine Ratio 5.6 (8-20); Calcium 9.7 mg/dL (8.6-10.3); EGFR African American 115.5 (>60); EGFR Non-African American 95.5 (>60); Potassium 3.9 mmol/L (3.5-5.0)
[2020-08-31 13:06] VITALS: BP 121/76
== END 2020-08-31 13:50 | disposition home or self-care (01) | DRG 861 ==
LOC: ED 21:40 → MEDTELE 08-30 00:19
PROVIDERS: ADMIT Internal Medicine; ATTEND Internal Medicine

== ENCOUNTER 2021-10-12 14:53 | Observation (INO) ==
[2021-10-12 15:20] LABS: ABS Eosinophils 0.1 10^3/ul (0-0.6); ABS Lymphocytes 2.5 10^3/ul (1.0-4.8); ABS Monocytes 0.3 10^3/ul (0-0.8); ABS Neutrophils 3.7 10^3/ul (1.5-7.7); Eosinophil % 1.5 %; Hematocrit 37 % (42-52); Hemoglobin 12.6 g/dL (14.0-18.0); Lymphocyte % 37.6 %; Mean Corpuscular HGB Conc 34 g/dL (31-36); Mean Corpuscular Hemoglobin 29 pg (27-31); Mean Corpuscular Volume 85 fL (80-94); Mean Platelet Volume 6.9 fL (7.4-10.4); Platelet Count 644 10^3/uL (150-450); Red Blood Count 4.36 10^6 /uL (4.18-5.48); Red Cell Distribution Width 15 % (10-15); White Blood Count 6.7 10^3/uL (3.5-10.8)
[2021-10-12 15:32] LABS: INR 1.29 (0.86-1.15)
[2021-10-12 15:37] LABS: High Sens Troponin Baseline < 3 pg/mL (<20)
[2021-10-12 16:09] LABS: ALT 12 U/L (7-52); AST 11 U/L (13-39); Albumin 4.8 g/dL (3.2-5.2); Albumin/Globulin Ratio 1.8 (1-3); Alkaline Phosphatase 104 U/L (35-149); Anion Gap 9 mmol/L (2-11); Blood Urea Nitrogen 10 mg/dL (6-24); CO2 Carbon Dioxide 23 mmol/L (22-32); Calcium 10.1 mg/dL (8.6-10.3); Chloride 104 mmol/L (101-111); Globulin 2.7 g/dL (2-4); Glucose 138 mg/dL (70-100); Potassium 4.2 mmol/L (3.5-5.0); Sodium 136 mmol/L (135-145); Total Protein 7.5 g/dL (6.4-8.9); eGFR CKD-EPI 111.3 (>60)
[2021-10-12 16:38] LABS: High Sensitivity Troponin 1 Hr 3 pg/mL (<20)
[2021-10-12] MEDS ORDERED: NS 0.9% 1000 ml BAG 1,000 ML IV ONE (19:28)
[2021-10-12 20:18] LABS: ABS Eosinophils 0.1 10^3/ul (0-0.6); ABS Lymphocytes 2.1 10^3/ul (1.0-4.8); ABS Monocytes 0.4 10^3/ul (0-0.8); ABS Neutrophils 3.8 10^3/ul (1.5-7.7); Eosinophil % 1.4 %; Hematocrit 32 % (42-52); Hemoglobin 11.2 g/dL (14.0-18.0); Lymphocyte % 32.8 %; Mean Corpuscular HGB Conc 35 g/dL (31-36); Mean Corpuscular Hemoglobin 29 pg (27-31); Mean Corpuscular Volume 83 fL (80-94); Mean Platelet Volume 6.5 fL (7.4-10.4); Nucleated Red Blood Cells % 0.1; Platelet Count 543 10^3/uL (150-450); Red Blood Count 3.89 10^6 /uL (4.18-5.48); Red Cell Distribution Width 15 % (10-15); White Blood Count 6.3 10^3/uL (3.5-10.8)
[2021-10-12 20:29] LABS: Activated Partial Thrombo Time 34.8 seconds (26.0-38.0); INR 1.29 (0.86-1.15)
[2021-10-12 20:38] LABS: Cholesterol 113 mg/dL; Glucose 87 mg/dL (70-100); HDL Cholesterol 27.6 mg/dL; LDL Cholesterol 67 mg/dL; Triglycerides 93 mg/dL
[2021-10-12 20:45] LABS: High Sens Troponin Baseline < 3 pg/mL (<20)
[2021-10-12] MEDS ORDERED: Acetaminophen IV 1 GM/100ML 100 ML IV SCH (20:45)
[2021-10-12] MEDS ORDERED: Acetaminophen IV 1 GM/100ML 100 ML IV ONE (21:00)
[2021-10-12] MEDS ORDERED: diPHENhydraMINE IV 50 MG/ML 1 ml VIAL (BENADRYL) IV ONE (21:07)
[2021-10-12] MEDS ORDERED: Metoclopramide 5 MG/ML VIAL (10 mg) IV ONE (21:07)
[2021-10-12 21:51] LABS: High Sensitivity Troponin 1 Hr < 3 pg/mL (<20)
[2021-10-12 22:53] LABS: C Reactive Protein < 1.00 mg/L (<8.01)
[2021-10-13 00:07] LABS: Erythrocyte Sed Rate 8 mm/Hr (0-14)
[2021-10-13] MEDS: oxyCODONE/Acetamin 5/325 mg TAB PO PRN ×4 (02:12→23:12)
[2021-10-13] MEDS: Ondansetron 4 mg VIAL 2 MG/ML 2 ml VIAL IV PRN ×2 (09:23→20:35)
[2021-10-14] MEDS: Ondansetron 4 mg VIAL 2 MG/ML 2 ml VIAL IV PRN ×2 (01:27→12:15)
[2021-10-14] MEDS: oxyCODONE/Acetamin 5/325 mg TAB PO PRN (06:36)
[2021-10-14 11:34] VITALS: BP 107/67
== END 2021-10-14 15:00 | disposition home or self-care (01) ==
LOC: ED 14:53 → EDHOLD 14:53 → SUATTDRO 22:48 → MEDTELE 10-13 01:08
PROVIDERS: ADMIT Internal Medicine; ATTEND Internal Medicine

== ENCOUNTER 2023-10-20 20:29 | Observation (INO) ==
[2023-10-20 20:57] LABS: ABS Basophils 0.1 10^3/uL (0.0-0.1); ABS Lymphocytes 3.3 10^3/uL (1.0-4.8); ABS Monocytes 0.6 10^3/uL (0.0-1.1); ABS Neutrophils 4.7 10^3/uL (1.5-7.6); ABS Nucleated RBC 0.01 10^3/ul; Eosinophil % 0.5 %; Hematocrit 39.6 % (38-53); Lymphocyte % 37.8 %; Mean Corpuscular Hemoglobin 32.3 pg (27-33); Mean Corpuscular Hgb Conc 35.4 g/dL (31-36); Mean Corpuscular Volume 91.4 fL (80-97); Mean Platelet Volume 6.9 fL (7.5-11.2); Nucleated Red Blood Cells % 0.1 %/100WBC (0.0-0.8); Platelet Count 492 10^3/uL (150-450); Red Blood Count 4.33 10^6/uL (4.06-5.63); White Blood Count 8.8 10^3/uL (3.6-10.2)
[2023-10-20 21:09] LABS: INR 1.28 (0.83-1.13)
[2023-10-20 21:42] LABS: ALT 30 U/L (7-52); AST 16 U/L (13-39); Albumin 4.6 g/dL (3.2-5.2); Albumin/Globulin Ratio 1.6 (1-3); Alkaline Phosphatase 83 U/L (35-149); Anion Gap 12 mmol/L (2-16); Blood Urea Nitrogen 12 mg/dL (6-24); CO2 Carbon Dioxide 24 mmol/L (22-32); Calcium 9.5 mg/dL (8.6-10.3); Chloride 104 mmol/L (101-111); Creatinine, Serum 0.99 mg/dL (0.67-1.17); Globulin 2.8 g/dL (2-4); Glucose 85 mg/dL (70-100); Potassium 3.8 mmol/L (3.5-5.0); Sodium 140 mmol/L (135-145); Total Bilirubin 0.6 mg/dL (0.2-1.0); Total Protein 7.4 g/dL (6.4-8.9); eGFR CKD-EPI 99.4 (>60)
[2023-10-20 21:56] LABS: High Sens Troponin Baseline < 3 pg/mL (<20)
[2023-10-20] MEDS: Lactated Ringers 1000 ml BAG 1,000 ML IV ONE (23:15)
[2023-10-20 23:53] LABS: High Sensitivity Troponin 1 Hr < 3 pg/mL (<20)
[2023-10-21] MEDS: Morphine 4 MG/ML VIAL (1 ml) IV ONE (01:48)
[2023-10-21] MEDS: Al Hydrox/Mg Hydrox/Simet LIQ 30 ML UDC PO ONE (02:19)
[2023-10-21 03:18] LABS: C Reactive Protein 1.12 mg/L (<8.01)
[2023-10-21] MEDS: Nitroglycerin 0.6 mg TAB SL ONE (03:28)
[2023-10-21 04:40] LABS: Erythrocyte Sed Rate 17 mm/Hr (0-14)
[2023-10-21 05:51] LABS: Urine Appearance Clear; Urine Bilirubin Negative (Negative); Urine Blood Negative (Negative); Urine Color Yellow; Urine Glucose Negative (Negative); Urine Ketones Trace (Negative); Urine Nitrite Negative (Negative); Urine Protein Trace (Negative); Urine Urobilinogen 1+ (Negative); Urine pH 6.5 (5.0-8.0)
[2023-10-21 05:53] LABS: ABS Eosinophils 0.1 10^3/uL (0.0-0.5); ABS Lymphocytes 3.6 10^3/uL (1.0-4.8); ABS Monocytes 0.4 10^3/uL (0.0-1.1); ABS Neutrophils 3.1 10^3/uL (1.5-7.6); ABS Nucleated RBC 0.02 10^3/ul; Eosinophil % 1.1 %; Hematocrit 35.3 % (38-53); Hemoglobin 12.4 g/dL (13.2-16.3); Lymphocyte % 49.3 %; Mean Corpuscular Hemoglobin 32.1 pg (27-33); Mean Corpuscular Hgb Conc 35.1 g/dL (31-36); Mean Corpuscular Volume 91.4 fL (80-97); Mean Platelet Volume 6.8 fL (7.5-11.2); Nucleated Red Blood Cells % 0.2 %/100WBC (0.0-0.8); Platelet Count 419 10^3/uL (150-450); Red Blood Count 3.86 10^6/uL (4.06-5.63); Red Cell Distribution Width 13.1 % (12-17); White Blood Count 7.3 10^3/uL (3.6-10.2)
[2023-10-21 07:03] LABS: Calcium 8.8 mg/dL (8.6-10.3); Creatinine, Serum 0.84 mg/dL (0.67-1.17); Magnesium 1.7 mg/dL (1.9-2.7); Phosphorus 3.8 mg/dL (2.5-5.0); Potassium 3.8 mmol/L (3.5-5.0); eGFR CKD-EPI 113.8 (>60)
[2023-10-21 07:17] LABS: TSH Ultra Thyroid Stim Horm 5.62 mcIU/mL (0.34-5.60)
[2023-10-21] MEDS: Ondansetron 4 mg VIAL 2 MG/ML 2 ml VIAL IV PRN (08:06)
[2023-10-21] MEDS: Morphine 4 MG/ML VIAL (1 ml) IV PRN (10:35)
[2023-10-21] MEDS ORDERED: Regadenoson 0.4 MG/5 ML SYRINGE ONE (12:28)
[2023-10-21] MEDS ORDERED: Aminophylline 25 MG/ML VIAL ONE (12:34)
[2023-10-21] MEDS ORDERED: Dextran 70/Hypromellose Tears Eye Drops 15 ml BTL (for Artificials Tears) BOTH EYES PRN (14:24)
[2023-10-21] MEDS: Sucralfate 1 gm SUSP 1 GM/10 ML UDC PO SCH (17:42)
[2023-10-22] MEDS: Magnesium Sulfate 2 gm BAG 2 GM/50 ML BAG IVPB ONE (08:27)
[2023-10-22 10:14] VITALS: BP 119/77
[2023-10-22] MEDS ORDERED: Sucralfate 1 gm SUSP 1 GM/10 ML UDC PO SCH (17:00)
== END 2023-10-22 15:15 | disposition home or self-care (01) ==
LOC: EDHOLD 20:29 → ED 20:29 → SUATTDRO 10-21 03:17 → SSU 10-21 08:13
PROVIDERS: ADMIT Student in an Organized Health Care Education/Training Program; ATTEND Internal Medicine

== ENCOUNTER 2024-02-01 11:23 | Observation (INO) ==
[2024-02-01] MEDS ORDERED: EPINEPHrine Anaphylaxis SYR CERTADOSE SYR KIT ONE (11:44)
[2024-02-01] MEDS: methylPREDNISolone SOD SUCC 125 mg 2 ML VIAL IV ONE (11:45)
[2024-02-01] MEDS ORDERED: Ondansetron 4 mg VIAL 2 MG/ML 2 ml VIAL ONE (11:55)
[2024-02-01] MEDS: Ondansetron 4 mg VIAL 2 MG/ML 2 ml VIAL IV ONE (11:59)
[2024-02-01] MEDS: EPINEPHrine Anaphylaxis SYR CERTADOSE SYR KIT IM ONE ×2 (12:01→13:12)
[2024-02-01] MEDS: Lactated Ringers 1000 ml BAG 1,000 ML IV ONE (12:19)
[2024-02-01 12:28] LABS: ABS Eosinophils 0.1 10^3/uL (0.0-0.5); ABS Lymphocytes 2.1 10^3/uL (1.0-4.8); ABS Monocytes 0.4 10^3/uL (0.0-1.1); ABS Neutrophils 6.1 10^3/uL (1.5-7.6); Hematocrit 43.6 % (38-53); Hemoglobin 15.1 g/dL (13.2-16.3); Lymphocyte % 23.7 %; Mean Corpuscular Hemoglobin 32.2 pg (27-33); Mean Corpuscular Hgb Conc 34.7 g/dL (31-36); Mean Corpuscular Volume 92.6 fL (80-97); Mean Platelet Volume 6.7 fL (7.5-11.2); Platelet Count 461 10^3/uL (150-450); Red Blood Count 4.71 10^6/uL (4.06-5.63); Red Cell Distribution Width 13.8 % (12-17); White Blood Count 8.7 10^3/uL (3.6-10.2)
[2024-02-01 12:33] LABS: Activated Partial Thrombo Time 31.4 seconds (26.0-38.0); INR 1.05 (0.83-1.13)
[2024-02-01] MEDS: Acetaminophen IV 1 GM/100ML 1,000 MG/100 ML BAG IV ONE (12:41)
[2024-02-01 12:58] LABS: High Sens Troponin Baseline < 3 pg/mL (<20)
[2024-02-01 13:35] LABS: ALT 48 U/L (7-52); AST 29 U/L (13-39); Albumin 4.6 g/dL (3.2-5.2); Albumin/Globulin Ratio 1.8 (1-3); Alkaline Phosphatase 90 U/L (35-149); Anion Gap 12 mmol/L (2-16); Blood Urea Nitrogen 13 mg/dL (6-24); CO2 Carbon Dioxide 24 mmol/L (22-32); Calcium 9.6 mg/dL (8.6-10.3); Chloride 97 mmol/L (101-111); Cholesterol 178 mg/dL; Creatinine, Serum 0.86 mg/dL (0.67-1.17); Direct Bilirubin 0.2 mg/dL (0.03-0.18); Globulin 2.6 g/dL (2-4); Glucose 106 mg/dL (70-100); HDL Cholesterol 41.9 mg/dL; Indirect Bilirubin 1.1 mg/dL (0.3-1.0); LDL Cholesterol 82 mg/dL; Sodium 133 mmol/L (135-145); Total Bilirubin 1.3 mg/dL (0.2-1.0); Total Protein 7.2 g/dL (6.4-8.9); Triglycerides 273 mg/dL
[2024-02-01 14:34] LABS: High Sensitivity Troponin 1 Hr < 3 pg/mL (<20)
[2024-02-01] MEDS: Ondansetron 4 mg VIAL 2 MG/ML 2 ml VIAL IV PRN (18:22)
[2024-02-01] MEDS: oxyCODONE/Acetamin 5/325 mg TAB PO PRN (18:22)
[2024-02-01] MEDS: HYDROmorphone 1 MG/1 ML SYRINGE IV SLOW PU PRN (20:54)
[2024-02-01] MEDS: Sulfur Hexaflouride MICROSPHR 25 MG VIAL IV ONE (20:55)
[2024-02-02] MEDS ORDERED: Lorazepam PYXIS KEY PRN ×2 (05:42→12:28)
[2024-02-02] MEDS: LORazepam 2 mg VIAL 1 ml IV PUSH ONE ×2 (05:49→13:23)
[2024-02-02] MEDS: LORazepam 2 mg VIAL 1 ml ONE (05:52)
[2024-02-02 06:21] LABS: ABS Lymphocytes 2.8 10^3/uL (1.0-4.8); ABS Monocytes 0.7 10^3/uL (0.0-1.1); ABS Neutrophils 16.1 10^3/uL (1.5-7.6); ABS Nucleated RBC 0.01 10^3/ul; Hematocrit 48.6 % (38-53); Hemoglobin 16.5 g/dL (13.2-16.3); Lymphocyte % 14.1 %; Mean Platelet Volume 6.8 fL (7.5-11.2); Platelet Count 587 10^3/uL (150-450); Red Blood Count 5.17 10^6/uL (4.06-5.63); Red Cell Distribution Width 14.2 % (12-17); White Blood Count 19.6 10^3/uL (3.6-10.2)
[2024-02-02 06:56] LABS: Calcium 10.8 mg/dL (8.6-10.3); Creatinine, Serum 1.05 mg/dL (0.67-1.17); eGFR CKD-EPI 92.6 (>60)
[2024-02-02 07:33] LABS: ALT 53 U/L (7-52); AST 25 U/L (13-39); Albumin 4.7 g/dL (3.2-5.2); Albumin/Globulin Ratio 1.7 (1-3); Alkaline Phosphatase 90 U/L (35-149); Direct Bilirubin 0.2 mg/dL (0.03-0.18); Globulin 2.8 g/dL (2-4); Total Bilirubin 1.2 mg/dL (0.2-1.0); Total Protein 7.5 g/dL (6.4-8.9)
[2024-02-02 07:40] LABS: High Sensitivity Troponin 3 Hr < 3 pg/mL (<20)
[2024-02-02] MEDS: Lactated Ringers 1000 ml BAG 1,000 ML IV ONE (08:05)
[2024-02-02 09:09] LABS: Magnesium 1.9 mg/dL (1.9-2.7)
[2024-02-02] MEDS: Valproic Acid IV 1,000 MG in NS 0.9% 100 ml BAG 100 ML IVPB ONE ×2 (09:55→10:33)
[2024-02-02 11:27] LABS: C Reactive Protein 2.71 mg/L (<8.01)
[2024-02-02 12:13] LABS: ABS Basophils 0.1 10^3/uL (0.0-0.1); ABS Lymphocytes 2.9 10^3/uL (1.0-4.8); ABS Monocytes 1.1 10^3/uL (0.0-1.1); ABS Neutrophils 14.1 10^3/uL (1.5-7.6); Hematocrit 41.6 % (38-53); Hemoglobin 14.1 g/dL (13.2-16.3); Lymphocyte % 16.1 %; Mean Corpuscular Hemoglobin 31.3 pg (27-33); Mean Corpuscular Hgb Conc 33.9 g/dL (31-36); Mean Corpuscular Volume 92.3 fL (80-97); Platelet Count 492 10^3/uL (150-450); Red Cell Distribution Width 13.9 % (12-17); White Blood Count 18.2 10^3/uL (3.6-10.2)
[2024-02-02] MEDS: Lactated Ringers 1000 ml BAG 1,000 ML IV SCH (12:25)
[2024-02-02 13:46] LABS: Urine Appearance Clear; Urine Bilirubin Negative (Negative); Urine Blood Trace (Negative); Urine Color Light-Yellow; Urine Glucose Negative (Negative); Urine Ketones Trace (Negative); Urine Nitrite Negative (Negative); Urine Protein Negative (Negative); Urine Specific Gravity 1.012 (1.002-1.030); Urine Urobilinogen Negative (Negative); Urine pH 7.5 (5.0-8.0)
[2024-02-03 05:39] LABS: ABS Basophils 0.1 10^3/uL (0.0-0.1); ABS Eosinophils 0.1 10^3/uL (0.0-0.5); ABS Lymphocytes 3.7 10^3/uL (1.0-4.8); ABS Monocytes 0.5 10^3/uL (0.0-1.1); ABS Neutrophils 5.6 10^3/uL (1.5-7.6); Eosinophil % 0.6 %; Hematocrit 39.4 % (38-53); Hemoglobin 13.5 g/dL (13.2-16.3); Lymphocyte % 37.2 %; Mean Corpuscular Hemoglobin 32.1 pg (27-33); Mean Corpuscular Hgb Conc 34.3 g/dL (31-36); Mean Corpuscular Volume 93.6 fL (80-97); Mean Platelet Volume 6.7 fL (7.5-11.2); Platelet Count 429 10^3/uL (150-450); Red Blood Count 4.21 10^6/uL (4.06-5.63); Red Cell Distribution Width 14.2 % (12-17)
[2024-02-03] MEDS: Lactated Ringers 1000 ml BAG 1,000 ML IV ONE (06:21)
[2024-02-03 06:23] LABS: Creatinine, Serum 0.94 mg/dL (0.67-1.17); Potassium 4.2 mmol/L (3.5-5.0); eGFR CKD-EPI 105.8 (>60)
[2024-02-03 08:39] LABS: C Reactive Protein 1.5 mg/L (<8.01)
[2024-02-03] MEDS ORDERED: Lorazepam PYXIS KEY PRN (08:57)
[2024-02-03] MEDS: LORazepam 2 mg VIAL 1 ml IV PUSH ONE (09:38)
[2024-02-03] MEDS: LORazepam 2 mg VIAL 1 ml ONE ×2 (09:39)
[2024-02-03 11:32] LABS: ABS Basophils 0.1 10^3/uL (0.0-0.1); ABS Eosinophils 0.1 10^3/uL (0.0-0.5); ABS Lymphocytes 3.6 10^3/uL (1.0-4.8); ABS Monocytes 0.6 10^3/uL (0.0-1.1); ABS Neutrophils 4.6 10^3/uL (1.5-7.6); Hematocrit 40.2 % (38-53); Hemoglobin 13.8 g/dL (13.2-16.3); Lymphocyte % 40.2 %; Mean Corpuscular Hgb Conc 34.4 g/dL (31-36); Mean Corpuscular Volume 93.1 fL (80-97); Mean Platelet Volume 6.6 fL (7.5-11.2); Platelet Count 429 10^3/uL (150-450); Red Blood Count 4.31 10^6/uL (4.06-5.63); Red Cell Distribution Width 14.3 % (12-17); White Blood Count 8.8 10^3/uL (3.6-10.2)
[2024-02-03 12:13] LABS: Urine Benzodiazepine Screen None Detected (None Detect); Urine Buprenorphine Screen None Detected (None Detect); Urine Cannabinoids Screen None Detected (None Detect); Urine Fentanyl Screen None Detected (None Detect); Urine Hydrocodone Screen Presumptive Positive (None Detect); Urine Opiates Screen Presumptive Positive (None Detect)
[2024-02-03 12:15] LABS: Albumin 4.2 g/dL (3.2-5.2); Albumin/Globulin Ratio 1.9 (1-3); Calcium 9.4 mg/dL (8.6-10.3); Creatinine, Serum 0.97 mg/dL (0.67-1.17); Globulin 2.2 g/dL (2-4); Potassium 4.3 mmol/L (3.5-5.0); Total Bilirubin 0.9 mg/dL (0.2-1.0); Total Protein 6.4 g/dL (6.4-8.9); eGFR CKD-EPI 101.8 (>60)
[2024-02-03] MEDS: Polyethylene Glycol 3350 17 GM PACKET PO SCH (23:26)
[2024-02-03] MEDS: Senna TAB 8.6 mg TAB PO PRN (23:27)
[2024-02-04] MEDS: HYDROmorphone 1 MG/1 ML SYRINGE IV SLOW PU PRN (03:08)
[2024-02-04 06:35] LABS: Hematocrit 42.2 % (38-53); Hemoglobin 14.6 g/dL (13.2-16.3); Mean Corpuscular Hemoglobin 32.4 pg (27-33); Mean Corpuscular Hgb Conc 34.6 g/dL (31-36); Mean Corpuscular Volume 93.5 fL (80-97); Mean Platelet Volume 6.8 fL (7.5-11.2); Platelet Count 440 10^3/uL (150-450); Red Blood Count 4.51 10^6/uL (4.06-5.63); Red Cell Distribution Width 14.3 % (12-17); White Blood Count 8.4 10^3/uL (3.6-10.2)
[2024-02-04 07:05] LABS: Calcium 9.7 mg/dL (8.6-10.3); Creatinine, Serum 0.99 mg/dL (0.67-1.17); Potassium 4.4 mmol/L (3.5-5.0); eGFR CKD-EPI 99.4 (>60)
[2024-02-05 06:44] LABS: Hematocrit 44.1 % (38-53); Hemoglobin 15.4 g/dL (13.2-16.3); Mean Corpuscular Hemoglobin 32.5 pg (27-33); Mean Corpuscular Hgb Conc 34.9 g/dL (31-36); Mean Corpuscular Volume 93.3 fL (80-97); Mean Platelet Volume 6.9 fL (7.5-11.2); Platelet Count 466 10^3/uL (150-450); Red Blood Count 4.73 10^6/uL (4.06-5.63); Red Cell Distribution Width 13.6 % (12-17); White Blood Count 9.8 10^3/uL (3.6-10.2)
[2024-02-05 13:31] LABS: Hematocrit 47.1 % (38-53); Hemoglobin 16.1 g/dL (13.2-16.3); Mean Corpuscular Hemoglobin 31.7 pg (27-33); Mean Corpuscular Hgb Conc 34.1 g/dL (31-36); Mean Corpuscular Volume 92.9 fL (80-97); Mean Platelet Volume 6.8 fL (7.5-11.2); Platelet Count 530 10^3/uL (150-450); Red Blood Count 5.07 10^6/uL (4.06-5.63); Red Cell Distribution Width 13.9 % (12-17); White Blood Count 11.2 10^3/uL (3.6-10.2)
[2024-02-05 13:54] LABS: High Sens Troponin Baseline < 3 pg/mL (<20)
[2024-02-05 14:45] LABS: ABS Basophils 0.1 10^3/uL (0.0-0.1); ABS Eosinophils 0.3 10^3/uL (0.0-0.5); ABS Lymphocytes 3.7 10^3/uL (1.0-4.8); ABS Monocytes 0.7 10^3/uL (0.0-1.1); ABS Neutrophils 6.4 10^3/uL (1.5-7.6); Eosinophil % 2.8 %; Lymphocyte % 32.6 %
[2024-02-05 15:04] LABS: ALT 29 U/L (7-52); AST 15 U/L (13-39); Albumin/Globulin Ratio 1.7 (1-3); Alkaline Phosphatase 87 U/L (35-149); Anion Gap 9 mmol/L (2-16); Blood Urea Nitrogen 14 mg/dL (6-24); CO2 Carbon Dioxide 26 mmol/L (22-32); Calcium 10.5 mg/dL (8.6-10.3); Chloride 100 mmol/L (101-111); Creatinine, Serum 1.11 mg/dL (0.67-1.17); Globulin 2.9 g/dL (2-4); Glucose 115 mg/dL (70-100); Potassium 4.8 mmol/L (3.5-5.0); Sodium 135 mmol/L (135-145); Total Protein 7.9 g/dL (6.4-8.9); eGFR CKD-EPI 86.6 (>60)
[2024-02-05 15:14] LABS: High Sensitivity Troponin 1 Hr < 3 pg/mL (<20)
[2024-02-05] MEDS: Al Hydrox/Mg Hydrox/Simet LIQ 30 ML UDC PO ONE (16:04)
[2024-02-05] MEDS: LORazepam 2 mg VIAL 1 ml ONE (23:57)
[2024-02-06 08:59] LABS: C Reactive Protein 1.51 mg/L (<8.01)
[2024-02-07 06:40] LABS: ABS Eosinophils 0.4 10^3/uL (0.0-0.5); ABS Lymphocytes 3.3 10^3/uL (1.0-4.8); ABS Monocytes 0.6 10^3/uL (0.0-1.1); ABS Neutrophils 5.5 10^3/uL (1.5-7.6); ABS Nucleated RBC 0.01 10^3/ul; Eosinophil % 3.6 %; Hematocrit 43.4 % (38-53); Hemoglobin 14.7 g/dL (13.2-16.3); Lymphocyte % 33.5 %; Mean Corpuscular Hemoglobin 31.8 pg (27-33); Mean Corpuscular Hgb Conc 33.8 g/dL (31-36); Mean Corpuscular Volume 94.1 fL (80-97); Mean Platelet Volume 7.1 fL (7.5-11.2); Nucleated Red Blood Cells % 0.1 %/100WBC (0.0-0.8); Platelet Count 430 10^3/uL (150-450); Red Blood Count 4.61 10^6/uL (4.06-5.63); Red Cell Distribution Width 13.7 % (12-17); White Blood Count 9.7 10^3/uL (3.6-10.2)
[2024-02-07 14:07] VITALS: BP 132/91
== END 2024-02-07 14:59 | disposition home or self-care (01) ==
LOC: EDHOLD 11:23 → ED 11:23 → SUATTDRO 13:05 → MEDTELE 14:49
PROVIDERS: ADMIT Hospitalist; ATTEND Internal Medicine

== ENCOUNTER 2024-03-03 10:06 | Inpatient (IN) ==
[2024-03-03 10:30] LABS: ABS Lymphocytes 1.2 10^3/uL (1.0-4.8); ABS Monocytes 0.7 10^3/uL (0.0-1.1); ABS Neutrophils 4.1 10^3/uL (1.5-7.6); Eosinophil % 0.3 %; Hematocrit 45.2 % (38-53); Hemoglobin 15.7 g/dL (13.2-16.3); Lymphocyte % 19.7 %; Mean Corpuscular Hemoglobin 31.8 pg (27-33); Mean Corpuscular Hgb Conc 34.8 g/dL (31-36); Mean Corpuscular Volume 91.5 fL (80-97); Mean Platelet Volume 6.3 fL (7.5-11.2); Nucleated Red Blood Cells % 0.1 %/100WBC (0.0-0.8); Platelet Count 460 10^3/uL (150-450); Red Blood Count 4.94 10^6/uL (4.06-5.63); Red Cell Distribution Width 13.1 % (12-17)
[2024-03-03 10:43] LABS: INR 1.42 (0.83-1.13)
[2024-03-03 10:56] LABS: High Sens Troponin Baseline < 3 pg/mL (<20)
[2024-03-03 11:25] LABS: ALT 15 U/L (7-52); AST 15 U/L (13-39); Albumin 4.8 g/dL (3.2-5.2); Albumin/Globulin Ratio 1.6 (1-3); Alkaline Phosphatase 104 U/L (35-149); Anion Gap 8 mmol/L (2-16); Blood Urea Nitrogen 13 mg/dL (6-24); CO2 Carbon Dioxide 23 mmol/L (22-32); Chloride 103 mmol/L (101-111); Glucose 112 mg/dL (70-100); Potassium 4.1 mmol/L (3.5-5.0); Sodium 134 mmol/L (135-145); Total Bilirubin 0.6 mg/dL (0.2-1.0); Total Protein 7.8 g/dL (6.4-8.9); eGFR CKD-EPI 98.2 (>60)
[2024-03-03 13:28] LABS: High Sensitivity Troponin 1 Hr < 3 pg/mL (<20)
[2024-03-03] MEDS: Acetaminophen IV 1 GM/100ML 1,000 MG/100 ML BAG IV ONE (14:00)
[2024-03-03 14:39] LABS: High Sensitivity Troponin 3 Hr < 3 pg/mL (<20)
[2024-03-03 16:02] LABS: C Reactive Protein 2.39 mg/L (<8.01)
[2024-03-03] MEDS: Nitro 2% OINT (Nitroglycerin) 1 INCH/PAK TOPICAL ONE (16:23)
[2024-03-03] MEDS: Ondansetron 4 mg VIAL 2 MG/ML 2 ml VIAL IV ONE (16:23)
[2024-03-03] MEDS: Morphine 2 MG/ML SYRINGE IV ONE (16:24)
[2024-03-03] MEDS ORDERED: Morphine 2 MG/ML SYRINGE IV PRN (18:27)
[2024-03-03 18:45] LABS: ABS Lymphocytes 1.6 10^3/uL (1.0-4.8); ABS Monocytes 0.7 10^3/uL (0.0-1.1); ABS Neutrophils 3.9 10^3/uL (1.5-7.6); Eosinophil % 0.3 %; Hematocrit 41.8 % (38-53); Hemoglobin 14.7 g/dL (13.2-16.3); Mean Corpuscular Hemoglobin 32.2 pg (27-33); Mean Corpuscular Hgb Conc 35.2 g/dL (31-36); Mean Corpuscular Volume 91.5 fL (80-97); Mean Platelet Volume 6.4 fL (7.5-11.2); Nucleated Red Blood Cells % 0.1 %/100WBC (0.0-0.8); Platelet Count 457 10^3/uL (150-450); Red Blood Count 4.57 10^6/uL (4.06-5.63); Red Cell Distribution Width 13.5 % (12-17); White Blood Count 6.3 10^3/uL (3.6-10.2)
[2024-03-03 18:49] LABS: Erythrocyte Sed Rate 13 mm/Hr (0-14)
[2024-03-03 19:11] LABS: Creatinine, Serum 0.84 mg/dL (0.67-1.17); eGFR CKD-EPI 113.8 (>60)
[2024-03-03] MEDS: Heparin DRIP 25,000 UNITS BAG 25,000 UNITS/250 ML BAG IV SCH (20:09)
[2024-03-03] MEDS: Heparin 5000 UNITS/ML 1 mL VIAL IV SCH (20:12)
[2024-03-03] MEDS: Ondansetron 4 mg VIAL 2 MG/ML 2 ml VIAL IV PRN (20:44)
[2024-03-03] MEDS: Morphine 4 MG/ML VIAL (1 ml) IV PRN (20:44)
[2024-03-03] MEDS: Morphine 2 MG/ML SYRINGE IV PRN (23:52)
[2024-03-04 03:08] LABS: ABS Lymphocytes 1.8 10^3/uL (1.0-4.8); ABS Monocytes 0.7 10^3/uL (0.0-1.1); ABS Neutrophils 3.6 10^3/uL (1.5-7.6); Eosinophil % 0.7 %; Hematocrit 39.5 % (38-53); Hemoglobin 13.6 g/dL (13.2-16.3); Lymphocyte % 29.4 %; Mean Corpuscular Hemoglobin 31.7 pg (27-33); Mean Corpuscular Hgb Conc 34.5 g/dL (31-36); Mean Corpuscular Volume 91.9 fL (80-97); Mean Platelet Volume 6.3 fL (7.5-11.2); Platelet Count 410 10^3/uL (150-450); Red Cell Distribution Width 13.7 % (12-17); White Blood Count 6.2 10^3/uL (3.6-10.2)
[2024-03-04 03:29] LABS: Creatinine, Serum 1.03 mg/dL (0.67-1.17); HDL Cholesterol 26.9 mg/dL; Magnesium 1.9 mg/dL (1.9-2.7); Potassium 3.6 mmol/L (3.5-5.0); eGFR CKD-EPI 94.8 (>60)
[2024-03-04] MEDS ORDERED: Sulfur Hexaflouride MICROSPHR 25 MG VIAL ONE (07:54)
[2024-03-04] MEDS: Sulfur Hexaflouride MICROSPHR 25 MG VIAL IV ONE (08:00)
[2024-03-04] MEDS ORDERED: DILTIAZEM HCL 180 MG PO SCH (09:00)
[2024-03-04] MEDS: Potassium Chlor 20 meq TAB.ER PO ONE (09:21)
[2024-03-04] MEDS: Magnesium Sulfate 2 gm BAG 2 GM/50 ML BAG IVPB ONE (12:30)
[2024-03-04] MEDS ORDERED: Metoprolol Tartrate 5 mg VIAL 5 ml VIAL (1 mg/ml) ONE (15:48)
[2024-03-04] MEDS ORDERED: DOBUTamine 2000 MCG/ML IVPREMX 0 MG/0 ML BAG IV ONE (15:48)
[2024-03-04] MEDS ORDERED: Atropine 0.1 MG/ML 10 ml SYR (1 mg) ONE (15:48)
[2024-03-04] MEDS: Gadoteridol (CONTRAST) 279.3 MG/ML 10 ML IV ONE (23:45)
[2024-03-05 06:43] LABS: ABS Basophils 0.1 10^3/uL (0.0-0.1); ABS Eosinophils 0.1 10^3/uL (0.0-0.5); ABS Lymphocytes 1.4 10^3/uL (1.0-4.8); ABS Monocytes 0.6 10^3/uL (0.0-1.1); ABS Nucleated RBC 0.01 10^3/ul; Eosinophil % 1.4 %; Hemoglobin 12.6 g/dL (13.2-16.3); Lymphocyte % 27.8 %; Mean Corpuscular Hemoglobin 31.7 pg (27-33); Mean Corpuscular Hgb Conc 34.1 g/dL (31-36); Mean Corpuscular Volume 92.8 fL (80-97); Mean Platelet Volume 6.3 fL (7.5-11.2); Nucleated Red Blood Cells % 0.2 %/100WBC (0.0-0.8); Platelet Count 389 10^3/uL (150-450); Red Blood Count 3.98 10^6/uL (4.06-5.63); Red Cell Distribution Width 13.4 % (12-17); White Blood Count 5.1 10^3/uL (3.6-10.2)
[2024-03-05 08:47] LABS: Calcium 8.6 mg/dL (8.6-10.3); Creatinine, Serum 0.87 mg/dL (0.67-1.17); eGFR CKD-EPI 112.6 (>60)
[2024-03-05] MEDS ORDERED: DOBUTamine 2000 MCG/ML IVPREMX 500 MG/250 ML BAG IV ONE (09:01)
[2024-03-05] MEDS ORDERED: Atropine 0.1 MG/ML 10 ml SYR (1 mg) ONE (09:01)
[2024-03-05] MEDS ORDERED: Metoprolol Tartrate 5 mg VIAL 5 ml VIAL (1 mg/ml) ONE (09:01)
[2024-03-05] MEDS ORDERED: Sulfur Hexaflouride MICROSPHR 25 MG VIAL ONE ×2 (09:12→09:20)
[2024-03-06] MEDS: Morphine 2 MG/ML SYRINGE IV PRN (06:44)
[2024-03-06 08:39] LABS: ABS Basophils 0.1 10^3/uL (0.0-0.1); ABS Lymphocytes 1.1 10^3/uL (1.0-4.8); ABS Monocytes 0.1 10^3/uL (0.0-1.1); ABS Neutrophils 5.7 10^3/uL (1.5-7.6); ABS Nucleated RBC 0.01 10^3/ul; Eosinophil % 0.1 %; Hematocrit 40.2 % (38-53); Lymphocyte % 15.2 %; Mean Corpuscular Hemoglobin 32.3 pg (27-33); Mean Corpuscular Hgb Conc 34.9 g/dL (31-36); Mean Corpuscular Volume 92.5 fL (80-97); Mean Platelet Volume 6.5 fL (7.5-11.2); Nucleated Red Blood Cells % 0.2 %/100WBC (0.0-0.8); Platelet Count 406 10^3/uL (150-450); Red Blood Count 4.34 10^6/uL (4.06-5.63); Red Cell Distribution Width 13.4 % (12-17)
[2024-03-06 09:27] LABS: Calcium 9.8 mg/dL (8.6-10.3); Creatinine, Serum 0.83 mg/dL (0.67-1.17); Magnesium 1.9 mg/dL (1.9-2.7); Potassium 4.9 mmol/L (3.5-5.0); eGFR CKD-EPI 114.2 (>60)
[2024-03-06] MEDS ORDERED: Heparin 2 UNITS/ML 1000 mls 2,000 ML IV ONE (09:32)
[2024-03-06] MEDS ORDERED: Iohexol 350 (CONTRAST) 200 ML MDV IV ONE (09:32)
[2024-03-06] MEDS ORDERED: Lidocaine 1% MPF 5 ML VIAL ONE ×2 (09:32→09:55)
[2024-03-06] MEDS ORDERED: nitroGLYCERIN DRIP 25,000 MCG/250 ML BTL ONE (09:32)
[2024-03-06] MEDS ORDERED: fentaNYL 100 mcg/2 ml 50 MCG/ML VIAL ONE (09:37)
[2024-03-06] MEDS ORDERED: Midazolam 5 mg/5 ml VIAL 1 mg/ml 5 ml VIAL (5 mg) ONE (09:37)
[2024-03-06] MEDS ORDERED: Heparin 1,000 UNIT/ML 10 ml (10,000 UNITS) CATHLAB/DIALYSIS ONE (09:38)
[2024-03-06] MEDS: Lactated Ringers 1000 ml BAG 1,000 ML IV ONE (14:47)
[2024-03-06 16:01] VITALS: BP 99/62
== END 2024-03-06 18:05 | disposition home or self-care (01) | DRG 192 ==
LOC: ED 10:06 → EDHOLD 10:06 → MEDTELE 17:48 → SUATTDRO 03-05 11:21
PROVIDERS: ADMIT Internal Medicine; ATTEND Student in an Organized Health Care Education/Training Program